=== PATIENT | female | born 1950 | race Caucasian/White ===

== ENCOUNTER 2017-10-16 08:30 | Outpatient (RCR) | payer MEDICARE, OTHER, SELFPAY ==
--- NOTE | 2017-08-25 13:21 | HP.PTEVAL_ITS ---
Patient's Visit Information CHRISTINE ABRAMS is a 67 year old F referred to Physical Therapy by Brenda Martinez MD with a diagnosis of LEG PAIN. Date of Evaluation: 08/25/17 Physical Therapist: Sandy Medina - Visit Plan Frequency: 2-3x /Week Duration: 4-6 Weeks Plan: AQUATIC THERAPY FOR POSTURE CORRECTION/STRENGTHENING, INSTRUCTION IN APPROPRIATE BODY MECHANICS AND ACTIVITY MODIFICATIONS. DLS STARTING WITH A NEUTRAL SPINE PROGRESSING ROM TOLERATED. GERONIMO LE ROM, STRETCHING AND STRENGTHENING. HEP INSTRUCTION. - Subjective Subjective: Work/Leisure: RETIRED. LIKES TO GOLF. 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 THIS WORK INVOLVES SOME BENDING, LIFTING AND TWISTING. Disability: NO. Present symptoms: SWELLING GERONIMO FEET L > R. GERONIMO FOOT AND LEG PAIN, NUMBNESS AND TINGLING. GERONIMO LE WEAKNESS. Present since: 4-5 YEARS AGO. Pain Scale: WORST 8 /10, LEAST 2/10. Currently: 2/10. Commenced as a result of: NO APPARENT REASON. Symptoms at onset: NUMBNESS AND TINGLING IN LEGS AND FEET. Worse: BEING ON FEET. Better: GETTING OFF FEET, EXTRA STRENGTH TYLONOL, PAIN PILLS. RECENTLY STARTED NEUROTIN AND MOBIC WHICH ARE HELPING A LOT! Disturbed sleep: YES. Previous history/Previous treatment: ABOUT 15 YEARS AGO DX'D WITH NEUROPATHY. RIGHT TKR 3 YEARS AGO. CHRONIC GERONIMO LE SWELLING FOR ABOUT 15 YEARS TOO. LEFT LUMP REMOVED FROM LEFT LAT THIGH - BENIGN BUT COMPLICATIONS WITH THE HEALING AFTER REMOVAL. GERONIMO FOOT SURGERIES - 3 ON RIGHT AND ONE ON LEFT. NO THR' S. NO BACK SURGERY. ABOUT 5 YEARS AGO LBP FOR NO APPARENT REASON TREATED WITH 4 BINH'S THAT TOOK CARE OF IT. NO LUMBAR PT. Gait: UNSTEADY. SLOW. DISTANCE LIMITED DUE TO FOOT PAIN. NO AD'S CURRENTLY. Difficulty initiating urinatin: NO. Accidents: NO SERIOUS MVA'S. SOME FALLS - LAST ONE LAST SUMMER - NO APPARENT INJURIES. Unexplained weight loss: NO. Imaging: CAT SCAN THEN FEB 2017 PET SCAN - SARCOIDOSIS - USING AN INHAILER NOW. TRYING TO AVOID PREDNISONE. [facility] APPOINTMENT IN AUG (DR. PERKINS) FOR FOLLOW UP. FOLLOW UP BREATHING TEST PENDING IN OCTOBER 2017. 15 BIOPSIES WERE NORMAL BUT ENLARGED LYMPH NODE REMOVED AT [facility]. PMH: BREAST CANCER 2008 - TREATED WITH CHEMO, MASECTOMY LEFT AND THEN 2016 RIGHT MASECTOMY FOR PREVENTATIVE. GERONIMO HAND SURGERIS. NO DM, NO HEART PROBLEMS. NO STROKE. - Objective Sitting Posture: POOR. Standing Posture: POOR. Lordosis: REDUCED. Lateral shift: NO. Relevant shift: N/A. Active Correction of posture: NE. Other Observations: INDEP GAIT INTO PT WITHOUT ANY ASSISTIVE DEVICES WITH DECREASED CADANCE BUT NO LOB. Motor deficit: GERONIMO LE'S GROSSLY 4/5 WITH MMT'ING EXCEPT HIPS 4-/5. ROM deficit: FULL EXTENSION OF GERONIMO KNEES WITH 116 DEG FLEX LEFT AND 110 RIGHT. Dural Signs: NEGATIVE GERONIMO LE DURAL SIGNS. Lumbar mvmt loss: flex - MIN. ext - MOD. R SG - MOD. L SG - MOD. PATIENT DENIES INCREASED PAIN WITH LUMBAR ROM TESTING. Core strength: POOR - Goals Goal 1:: INDEP AND SAFE GAIT ON ALL SURFACES WITH LEAST ASSISTIVE DEVICE Goal Time Frame: 4-6 Weeks Goal 2:: INCREASE FUNCTION STRENGTH OF LE'S. Goal 3:: IMPROVE STANDING, WALKING, HOUSEWORK AND RECREATIONAL ACTIVITIES Goal Time Frame: 4-6 Weeks Goal 4:: INDEP HEP Goal Time Frame: 4-6 Weeks - Rehabilitation Potential Rehabilitation Potential: Fair - Anticipated Interventions Patient/Client Instruction: Educate patient on: Condition, Plan of Care, Risk Factors, Benefits of Fitness Program For the Purpose of:: To improve self management Therapeutic Exercise to Include: Strength training, Balance training, Body mechanics, Postural training, Flexibilty training, Gait and locomotor training, In an aquatic setting, Dynamic Lumbar Stabilization For the Purpose of:: To decrease pain, To decrease swelling/inflammation, To improve ability of physical actions for home/community/work/leisure, To improve gait and locomotor functions, To improve balance Thank you for the opportunity to evaluate your patient. For Medicare and Medicare HMO plans, please review the plan of care and approve it. It will need to be FAXED BACK to us at [phone] for Medicare purposes. Please let me know if there are questions or concerns regarding this plan of care. Physician Signature: Date:
--- NOTE | 2017-09-18 09:23 | HP.PTREVAL ---
Brenda Martinez MD, It has been my pleasure to treat CHRISTINE ABRAMS over the last 6 visits for LEG PAIN. Please see the progress note below for an update on the physical therapy plan of care! Subjective: PATIENT REPORTS SHE IS GETTING BETTER. SHE STATES THAT SHE IS NOTICING LESS SWELLING WITH THERAPY AND THE MORE SHE MOVES THE LESS SWELLING SHE HAS. SHE REPORTS THAT THE PAIN, NUMBNESS AND TINGLING IN HER LEGS AND FEET IS ALSO DEFINATELY GETTING BETTER. PATIENT REPORTS SHE HAS LEARNED A LOT AND IS WORKING HARD ON HER POSTURE. PATIENT REPORTS SHE IS INTERESTED IN GETTING STARTED WITH HER [employer] AND TAPER OFF OF FORMAL PT ABLE. Objective/Function: PATIENT HAS MISSED SEVERAL APPOINTMENT DURING THIS EPISODE OF CARE THAT SHE RELATES TO SCHEDULE CONFLICTS AT TIMES AND NOT FEELING GOOD AT OTHERS. OVER-ALL SHE IS REPORTING MUCH LESS PAIN. BALANCE IS STILL AN ISSUE. CURRENTLY SHE IS ONLY ABLE TO SLS ON THE RIGHT LE X 2-3 SECONDS AND THE LEFT X 8 SECONDS WITHOUT UE ASSIST. SHE DOES AMBULATE INDEP'LY INTO PT WITHOUT AD OR LOSS OF BALANCE ON LEVEL SURFACES BUT SHE HAS DECREASED CADANCE AND GERONMIO STRIDE LENGTH. Motor deficit: GERONIMO LE'S GROSSLY 4/5 WITH MMT'ING EXCEPT HIPS 4-/5. ROM deficit: FULL EXTENSION OF GERONIMO KNEES WITH 118 DEG FLEX LEFT AND 110 RIGHT. Dural Signs: NEGATIVE GERONIMO LE DURAL SIGNS. Lumbar mvmt loss: flex - NIL. ext - MOD. R SG - MIN TO MOD. L SG - MIN TO MOD. PATIENT DENIES INCREASED PAIN WITH LUMBAR ROM TESTING. Core strength: POOR. STEPS: INDEP GAIT UP AND DOWN STEPS RECIP WITH ONE HAND RAIL BUT PATIENT FEELS STEADIER GOING UP ONE STEP AT A TIME LEADING WITH RIGHT LE. Plan Plan: CONT AQUATIC THERAPY DECREASING TO ONE TIME A WEEK X 4-5 WEEKS. PROGRESS TOLERATED AND INCREASE BALANCE EX'S. GIVE HEP. Goals Goal 1:: INDEP AND SAFE GAIT ON ALL SURFACES WITH LEAST ASSISTIVE DEVICE Goal Time Frame: 4-6 Weeks Goal 2:: INCREASE FUNCTION STRENGTH OF LE'S. Goal Progress: Goal Met Goal 3:: IMPROVE STANDING, WALKING, HOUSEWORK AND RECREATIONAL ACTIVITIES Goal Time Frame: 4-6 Weeks Goal 4:: INDEP HEP Goal Time Frame: 4-6 Weeks Anticipated Interventions Patient/Client Instruction: Educate patient on: Condition, Plan of Care, Risk Factors, Benefits of Fitness Program For the Purpose of:: To improve self management Therapeutic Exercise to Include: Strength training, Balance training, Body mechanics, Postural training, Flexibilty training, Gait and locomotor training, In an aquatic setting, Dynamic Lumbar Stabilization For the Purpose of:: To decrease pain, To decrease swelling/inflammation, To improve ability of physical actions for home/community/work/leisure, To improve gait and locomotor functions, To improve balance Please do not hesitate to contact me at [phone] by phone or if you have questions or concerns regarding this new plan of care! Sincerely, Sandy Medina
--- NOTE | 2017-10-16 09:24 | HP.PTDCSUM ---
HP - PT D/C Summary It has been my pleasure to treat CHRISTINE ABRAMS under orders from Brenda Martinez MD, for the diagnosis of LEG PAIN for a total of 9 visit(s). Discharge Date: 10/16/17 Please see the following information for a summary of their discharge status. - Subjective Subjective: PATIENT REPORTS SHE HAS SIGNED UP FOR [employer] AND WENT THROUGH THE ORIENTATION BUT HAS NOT TRIED HER WATER EX PROGRAM ON HER OWN YET. STATES SHE IS HAVING LEFT HAND SURGERY NEXT WEEK SO SHE IS GOING TO WAIT UNTIL THAT HEALS BEFORE SHE DOES ANYMORE POOL EX'S. PATIENT REPORTS HER BALANCE IS GETTING BETTER NOW. PATIENT REPORTS THE THERAPY HAS HELPED WITH HER LE SWELLING WHICH HAS DECREASED THE THROBBING IN HER LE'S. SHE STATES SHE DEFINATELY HAS BETTER BALANCE. SHE FEELS SHE HAS SOME INCREASED STRENGTH IN HER LEGS TOO BUT SHE IS ANTICIPATING MORE PROGRESS WITH HER LE STRENGTH ONCE SHE IS ABLE TO COME AND EXERCISE IN THE POOL MORE REGULARLY. HER GOAL IS TO BE ABLE TO GO UP THE STEPS AT THE [facility] THIS FALL [facility]. - Pain RLE Pain Intensity (Out of 10): 0 LLE Pain Intensity (Out of 10): 0 LBP Pain Intensity (Out of 10): 0 - Overall Improvement % Improvement: 75 - Objective Objective/Function: PATIENT HAS MISSED SEVERAL APPOINTMENTS AGAIN DURING THIS EPISODE OF CARE THAT SHE RELATES TO SCHEDULE CONFLICTS AT TIMES AND NOT FEELING GOOD AT OTHERS. OVER-ALL SHE IS REPORTING MUCH LESS PAIN. BALANCE IS STILL AN ISSUE BUT GETTING BETTER. CURRENTLY SHE IS NOW ABLE TO SLS ON THE RIGHT LE X 5 SEC SECONDS AND THE LEFT X 10 SECONDS WITHOUT UE ASSIST. SHE DOES AMBULATE INDEP'LY INTO PT WITHOUT AD OR LOSS OF BALANCE ON LEVEL SURFACES BUT SHE HAS DECREASED CADANCE AND GERONIMO STRIDE LENGTH. Motor deficit: GERONIMO LE'S GROSSLY 4/5 WITH MMT'ING INCLUDING HIPS. ROM deficit: FULL EXTENSION OF GERONIMO KNEES WITH 121 DEG FLEX LEFT AND 111 RIGHT. PATIENT STATES HER KNEE ROM MIGHT BE BETTER DUE TO DECREASED SWELLING. Dural Signs: NEGATIVE GERONIMO LE DURAL SIGNS. Lumbar mvmt loss: flex - NIL. ext - MOD. R SG - MIN TO MOD. L SG - MIN TO MOD. PATIENT DENIES INCREASED PAIN WITH LUMBAR ROM TESTING. Core strength: POOR. STEPS: INDEP GAIT UP AND DOWN STEPS RECIP WITH ONE HAND RAIL. PATIENT DEOMONSTRATED GOOD TECHNIQUE WITH ALL HOME EX'S AND TOLERATED THEM WELL. - Goals Goal 1:: INDEP AND SAFE GAIT ON ALL SURFACES WITH LEAST ASSISTIVE DEVICE Goal Progress: Progressing Goal 2:: INCREASE FUNCTION STRENGTH OF LE'S. Goal Progress: Progressing Goal 3:: IMPROVE STANDING, WALKING, HOUSEWORK AND RECREATIONAL ACTIVITIES Goal Progress: Progressing Goal 4:: INDEP HEP - Plan Plan: D/C DUE TO UPCOMING HAND SURGERY. - D/C Information If there are questions or concerns regarding this patient's physical therapy, please feel free to call me at [phone]. Thank you for the referral of this patient. Sincerely, Sandy Medina
== END 2017-10-16 11:28 | disposition home or self-care (01) ==
LOC: PT 08:30
PROVIDERS: Family Provider Family Medicine; PCP Family Medicine; Visit Provider Anesthesiology
DX: M79.606 Pain in leg, unspecified (principal)
CPT/HCPCS: 97113; 97162; 97530; G8978; G8979

== ENCOUNTER → 2017-11-11 07:54 | Outpatient (CLI) | payer MEDICARE, OTHER, SELFPAY ==
--- NOTE | 2017-11-11 15:16 | PFTCOMP ---
COMPLETE PULMONARY FUNCTION TEST INTERPRETATION Brief HPI: Patient is a 67 year old female, currently under the care of Dr. Stephens, who presents to [facility] for complete pulmonary function tests secondary to diagnosis of dyspnea. Respiratory therapist reports good effort and reproducible results. Interpretation: Forced expiration spirometry shows no large airways obstructive ventilatory defect with an FEV1 of 78% predicted. There is no significant bronchodilator response by ATS criteria. Spirograms are of good quality and plateau normally. The respiratory flow volume loop shows a normal pattern. Lung volumes by body plethysmography show a decreased total lung capacity at 3.57 L, 74% predicted. All other lung volumes are reduced symmetrically. Diffusion capacity by carbon monoxide is at the lower limit of normal at 69% predicted. The airway resistance is normal. Compared to previous pulmonary function tests from 05/14/2017, there has been no significant change. Impression: Irreversible mild restrictive ventilatory defect with a symmetric reduction diffusing capacity. There has been no significant change compared to previous testing.
--- NOTE | 2017-11-11 15:19 | PFTCOMP_ITS ---
COMPLETE PULMONARY FUNCTION TEST INTERPRETATION Brief HPI: Patient is a 67 year old female, currently under the care of Dr. Stephens , who presents to [facility] for complete pulmonary function tests secondary to diagnosis of dyspnea. Respiratory therapist reports good effort and reproducible results. Interpretation: Forced expiration spirometry shows no large airways obstructive ventilatory defect with an FEV1 of 78% predicted. There is no significant bronchodilator response by ATS criteria. Spirograms are of good quality and plateau normally. The respiratory flow volume loop shows a normal pattern. Lung volumes by body plethysmography show a decreased total lung capacity at 3.57 L, 74% predicted. All other lung volumes are reduced symmetrically. Diffusion capacity by carbon monoxide is at the lower limit of normal at 69% predicted. The airway resistance is normal. Compared to previous pulmonary function tests from 05/14/2017, there has been no significant change. Impression: Irreversible mild restrictive ventilatory defect with a symmetric reduction diffusing capacity. There has been no significant change compared to previous testing.
== END ==
PROVIDERS: Family Provider Family Medicine; PCP Family Medicine; Visit Provider Nurse Practitioner Acute Care
DX: G47.33 Obstructive sleep apnea (adult) (pediatric) (principal); D86.9 Sarcoidosis, unspecified
CPT/HCPCS: 94060; 94726; 94729; 98960; G0463

== ENCOUNTER 2017-12-30 08:00 | Outpatient (RCR) | payer MEDICARE, OTHER, SELFPAY ==
--- NOTE | 2017-11-12 16:32 | HP.OTEVAL ---
Patient's Visit Information CHRISTINE ABRAMS is a 67 year old F, referred to Occupational Therapy by Luther Garcia, with a diagnosis of unilateral primary osteoarthritis of CMC left. Date of Evaluation: 11/12/17 Occupational Therapist: Bárbara Marroquin, LENIN/ROSI Ragsdale - Subjective Subjective: This 67 year old female was seen for inital ROSI GO eval following a left carpal tunnel release, left wrist flexor tenosynovectomy and revision left thumb CMC arthroplasty; adductor release tenosynovectomy; left first dorsal compartment ligament reconstruction with tendon graft and left thumb CMC joint on 10-23-17. pt attends session with left thumb spica orthosis on- states she is feeling good- no need for orthosis adj. at this time. pt is hopeful she can regain use of her left thumb to perform her BADLS and IADLS at a JOHN level. - Pain left thumb Unrated Pain Intensity Range: 5 - Objective Objective/Observation: pt states she is not using her left hand for BADls and IADLS at this time. 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 Goal:: pt will demo a functional left thumb MCP/IP flex with no demo MCP hyper ext. with her functional ROM or reach. Goal:: pt will report pain no greater than 1/10 with use of left UE for BADLS and IADLS Goal:: pt will demo understanding of scar mtg by end of 2nd session. Goal:: pt will demo understanding of joint protection and ad. eq for use with BADLS and IADls as needed by d/c Goal:: Pt will demo understanding of JWD carpometacarpal arthroplasty protocol and follow by end of 1st session. - Rehabilitation General Assessment: other dx- Synovitis and tenosynovitis left forearm. Left Upper limb Carpal tunnel syndrome. This 67 year old female was seen for inital OTR/MIO RagsdaleT eval following a left carpal tunnel release, left wrist flexor tenosynovectomy and revision left thumb CMC arthroplasty; adductor release tenosynovectomy; left first dorsal compartment ligament reconstruction with tendon graft and left thumb CMC joint on 10-23-17. pt attends session with left thumb spica orthosis on- states she is feeling good- pt is demo with a decline in left wrist and thumb ROM and strength- PT demo a need for skilled OTR/L, CHT services to ensure pts reaches her full rehab potential- following JWD CMC arthroplasty protocol Rehabilitation Potential: Good - Anticipated Interventions Anticipated Interventions: A/AAROM/PROM, Strengthening, Scar Care, Triggerpoint Release, Modalities, Orthoses, Joint Protection/Energy Conservation Other Interventions: Use of JWD post op carpometacarpal - Visit Plan Frequency: 1-2x /Week Duration: 6 Months General Plan: Pt to be seen 1-2x week for 12 weeks to ensure pt is following CMC protocol - Therapy to be provided by OTR/L, CHT.Will follow JWD post op carpometacarpal arthroplasty protocol. TEXT: Thank you for the opportunity to evaluate your patient. For Medicare and Medicare HMO plans, please review the plan of care and approve it. It will need to be FAXED BACK to us at [phone] for Medicare purposes. Please let me know if there are questions or concerns regarding this plan of care. Physician Signature: Date:
--- NOTE | 2017-12-30 08:00 | DT_ITS ---
This patient was seen during an EMR downtime December 29, 2017 - January 05, 2018. This patient may have a combination of paper and electronic documentation or all paper documentation. All documentation is viewable within the e-chart portion of [employer] for each patient visit.
--- NOTE | 2018-01-05 18:09 | HP.OTDCSUM_ITS ---
HP - OT D/C Summary It has been my pleasure to treat CHRISTINE ABRAMS under orders from Luther Garcia, for the diagnosis of unilateral primary osteoarthritis of CMC left for a total of 9 visit(s). Please see the following information for a summary of their discharge status. 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 pt demo funtional opposition and a functional forestry laborer strength to perform BADLs and IADLS at a ind. level- pt to cont using thumb brace on a prn bases- - Goals Patient Goals: Regain Mobility, Regain Strength, Decrease Pain, Use Hand/Wrist/ Arm Normally Again Goal:: pt will demo a 30# forestry laborer strength after 12 weeks of therapy following JWD post op carpometacarpal arthroplasty protocol. Goal:: pt will demo a functional left thumb MCP/IP flex with no demo MCP hyper ext. with her functional ROM or reach. Goal:: pt will report pain no greater than 1/10 with use of left UE for BADLS and IADLS Goal:: pt will demo understanding of scar mtg by end of 2nd session. Goal:: pt will demo understanding of joint protection and ad. eq for use with BADLS and IADls as needed by d/c Goal:: Pt will demo understanding of JWD carpometacarpal arthroplasty protocol and follow by end of 1st session. - Plan Plan: D/C with HEP - pt ed. on need to prevent hyper-ext at MCP region pt demo understanding- - D/C Information Discharge Comments: Pt has progressed well in therapy- pt has reached a functional opposition of left digits and forestry laborer strength of 30#. Pt reports ind.with BADLs and IADLs. pt is to cont with scar mtg to decrease scar sensitivity and use of elastomer at night for another 4 weeks. pt demo understanding of scar mtg and PRE to cont with her recovery. pt has met OT goals at this time and is now D/C. If there are questions or concerns regarding this patient's occupational therapy , please fell free to call me at [phone]. Thank you for the referral of this patient. Sincerely, Bárbara Marroquin, OTR/L, CHT
== END 2017-12-30 19:00 | disposition home or self-care (01) ==
LOC: OT 08:00
PROVIDERS: Family Provider Family Medicine; PCP Family Medicine; Visit Provider Orthopaedic Surgery
DX: M18.12 Unilateral primary osteoarthritis of first carpometacarpal joint, left hand (principal); M65.832 Other synovitis and tenosynovitis, left forearm; G56.02 Carpal tunnel syndrome, left upper limb
CPT/HCPCS: 97110; 97140; 97166; 97530

== ENCOUNTER → 2018-02-13 09:25 | Outpatient (CLI) | payer MEDICARE, OTHER, SELFPAY ==
[2018-02-13 10:02] LABS: Absolute Lymphocyte Count 1.41 X10^3/ul (0.83-4.51); Absolute Neutrophil Count 3.7 X10^3/uL (2.0-7.7); Basophil# 0.07 X10^3/uL; Basophil% 1.2 % (0-1); Eosinophil# 0.22 X10^3/uL; Eosinophils% 3.7 % (0-5); Hematocrit 38.1 % (37-47); Hemoglobin 11.8 g/dl (12.0-15.0); Lymphocyte # 1.41 X10^3/ul (4.0); Lymphocyte % 23.8 % (19-41); Mean Corpuscular Hgb 27.4 pg (27.0-32.0); Mean Corpuscular Volume 88.6 fL (81-99); Mean Platelet Vol. 8.9 fl (6.2-12.0); Monocyte# 0.48 X10^3/uL; Monocyte% 8.1 % (0-10); Neutrophil # 3.73 X10^3/uL (2.7-7.7); Neutrophil % 62.9 % (47-70); Platelet Count 263 K/mm3 (150-450); RBC Distribution Width CV 15.8 % (11.6-14.6); RBC Distribution Width SD 50.9 fl (35.1-43.9); White Blood Count 5.9 K/mm3 (4.4-11.0)
[2018-02-13 10:05] LABS: POSITIVE COUNT NO; POSITIVE DIFFERENTIAL NO; POSITIVE MORPHOLOGY NO
[2018-02-13 10:57] LABS: AST(SGOT) 23 U/L (15-37); Alanine Aminotransfer ALT/SGPT 28 U/L (13-56); Albumin, Serum 3.5 g/dL (3.2-5.0); Alkaline Phosphatase 125 U/L (45-117); Anion Gap 6 (5-15); BUN 16 mg/dL (7-18); BUN/Creat Ratio 27.2 RATIO (10-20); Bilirubin, Direct 0.16 mg/dL (0.00-0.30); Calcium,Total 8.8 mg/dL (8.5-10.1); Chloride 106 mmol/L (98-107); Cholesterol 154 mg/dL (200); Creatinine, Serum 0.59 mg/dL (0.55-1.02); EST Glomerular Filtration Rate 108 mL/min (>60); Est Glom Filt Rate - Afr Amer 131 mL/min (>60); Globulin 3.5 g/dL (2.2-4.2); Glucose 88 mg/dL (74-106); High Density Lipoprotein 69 mg/dL; Potassium 3.7 mmol/L (3.5-5.1); Sodium Level 141 mmol/L (136-145); Triglycerides 98 mg/dL; Very Low Density Lipoprotein 20 mg/dL (5-40)
== END ==
PROVIDERS: Family Provider Family Medicine; PCP Family Medicine; Visit Provider Family Medicine
DX: I10 Essential (primary) hypertension (principal); D50.9 Iron deficiency anemia, unspecified; E78.5 Hyperlipidemia, unspecified
CPT/HCPCS: 36591; 80048; 80061; 80076; 85025; A4216

== ENCOUNTER 2018-05-13 13:35 | Inpatient (IN) | payer MEDICARE, OTHER, SELFPAY ==
--- NOTE | 2018-05-05 14:18 | EKG12_ITS ---
Test Reason : PREOP Blood Pressure : / mmHG Vent. Rate : 087 BPM Atrial Rate : 087 BPM P-R Int : 160 ms QRS Dur : 080 ms QT Int : 406 ms P-R-T Axes : 063 -12 084 degrees QTc Int : 488 ms Normal sinus rhythm Possible Left atrial enlargement Left ventricular hypertrophy Nonspecific ST and T wave abnormality Prolonged QT Abnormal ECG Confirmed by NORI HAHN, JACEY ([id number]), school photograph editor HARVINDER PALOMINO ([id number]) on 05/06/2018 3:32:39 PM Referred By: Srinivas Palencia Confirmed By:JACEY JULIO MD
--- NOTE | 2018-05-11 19:33 | PCM.HP.BLA ---
History and Physical Date of Admission: 05/12/18 HISTORY OF PRESENT ILLNESS Patient comes in today for evaluation of her breast reconstruction. She complains of left lateral breast/chest wall pain. The pain will sometimes radiate under her left breast where her bra is located. She denies any trauma to her breasts. She denies any fever. She also has concerns about excess mastectomy skin scar contour deformity in the medial aspect of her left breast reconstruction that causes her discomfort from the bra rubbing against the excess tissue. She presents at this time for further evaluation and treatment. She is also interested in discussing further breast reconstruction with nipple reconstruction with intradermal tattooing. As a side note for her skin cancers, patients states that she gets yearly skin checks by a Clinical Trials Specialist in [place]. PAST MEDICAL HISTORY anemia arthritis back trouble bronchitis carpal tunnel syndrome cataracts depression hives, eczema hyperlipidemia obstructive sleep apnea measles history of MRSA polymyalgia rheumatica plantar fasciitis peripheral neuropathy shingles fibromyalgia history of breast cancer - left probable seasonal allergies has chronic sinus problems has seasonal allergic rhinitis actinic keratosis with atypia right forearm x 2, and right lateral forehead by the hairline basal cell carcinoma right medial leg solar keratosis left postauricular area solar keratosis right ulnar elbow area verrucous keratosis right antecubital area seborrheic keratosis right lateral back malnutrition, mild, unspecified fatigue lipoma left lateral thigh skin tags neck lentigo hypertension medial meniscus tear right knee osteoarthritis right knee hemorrhage, rectum right elbow pain multiple nodules lung mediastinal lymphadenopathy pulmonary granuloma cancer phobia right breast deformity reconstructed breasts disproportion reconstructed breasts capsular contracture left breast reconstruction acquired absence bilateral breasts status breast implants reconstruction sarcoidosis PAST SURGICAL HISTORY Adenoidectomy Carpal tunnel and CMC joint surgeries Left breast mastectomy 08/2007 for breast cancer Placement of right chest wall port 09/04 Cholecystectomy 01/2008 4 foot surgeries- bunion, heel spur Delayed left breast reconstruction with placement of saline submuscular tissue merchandising execution associate and left breast Breast reconstruction capsulectomy - 04/25/08 Revision left breast reconstruction with capsulectomy and second stage left breast reconstruction with removal saline tissue merchandising execution associate with replacement cohesive gel implant and placement of Allomax acellular dermal matrix graft. Right breast reconstruction with mastopexy - 06/29/08 Incision and drainage and debridement right breast reconstruction wound infection with secondary wound closure - 07/18/08 Excision painful soft tissue mass left lateral thigh. Excision lesion right medial thigh with layered closure - 02/02/09 Excision infected cystic lesion right medial thigh with rhomboid transposition skin flap reconstruction. Incision and drainage and debridement left thigh seroma with secondary wound closure - 03/21/09 Incision and drainage and debridement ulcerated seroma wound left lateral thigh with secondary wound closure - 04/12/09 Excision right breast mass and excision painful soft tissue mass left lateral breast/chest wall with layered closure - 11/26/10 Intradermal excision 6 mm basal cell carcinoma right medial leg, intradermal excision 6 mm actinic keratosis with atypia right dorsal mid forearm, intradermal excision 6 mm actinic keratosis with atypia right dorsal proximal ulnar forearm, and intradermal excision 12 mm actinic keratosis with atypia right lateral forehead by the hairline - 05/06/11 Excision 6 mm lesion right antecubital distal arm area with 25 mm layered closure and excision 5 mm lesion left postauricular area with 3 cm layered closure and intradermal excision 5 mm lesions x4 cluster right ulnar elbow area and intradermal excision 8 mm lesion right lateral back - 03/12/12 Right TKA- 08/24/13 Laparoscopic BSO with pelvic washings - 08/10/15 Right breast prophylactic mastectomy and 1st stage right breast reconstruction with placement saline tissue merchandising execution associate and placement Alloderm acellular dermal matrix graft inferolateral sling (132 cm2) and revision left breast reconstruction with removal cohesive gel implant and capsulectomy and revision left breast reconstruction with placement saline tissue merchandising execution associate and placement Alloderm acellular dermal matrix graft inferolateral sling (132 cm2) - 09/12/15 Revision reconstructed right breast with excision scar contour deformity and second stage right breast reconstruction with removal of saline tissue merchandising execution associate and replacement cohesive gel implant (800 ml) and revision reconstructed left breast with capsulotomy and lowering of asymmetric inframammary fold with placement and rearrangement of Alloderm acellular dermal matrix graft inferolateral sling (132 cm2) and second stage left breast reconstruction with removal saline tissue merchandising execution associate and replacement cohesive gel implant (800 ml) - 11/30/15 MEDICATIONS Albuterol. Norvasc. Lipitor. Caltrate-600 with Vitamin D. Cymbalta. Neurontin. Mobic. Prilosec. K-dur. Azulfidine. Triamterene. ALLERGIES Lisinopril. Adhesive tape. Morphine. FAMILY HISTORY Father - Heart disease, Myocardial infarction Mother - Breast cancer Brother - Diabetes, Skin cancer Grandmother - Cancer, lung SOCIAL HISTORY Smoking Status: Never smoker alcohol intake: current alcohol intake frequency: a few times a month substance use type: does not use REVIEW OF SYSTEMS General - Denies fever and weight loss. Has fatigue. Eyes - Has cataracts. Denies glaucoma. ENT - Denies nasal congestion and sore throat. Endocrine - Denies excessive thirst and urination. Had left breast cancer with mastectomy and reconstruction. Has left lateral breast and chest wall pain with implant contracture. She also has deformity left breast reconstruction in the medial aspect from excess mastectomy skin scar contour deformity. Has family history of breast cancer. Has bilateral breast reconstruction with breast implants. Skin - Denies suspicious lesions. Has history of skin cancer. Has family history of skin cancer. Musculoskeletal - Has joint pain, joint stiffness, weakness of muscles and joints, back pain, and arthritis. Has fibromyalgia. Has polymyalgia rheumatica. Neuro - Denies headaches. Has peripheral neuropathy. Cardiovascular - Denies chest pain and shortness of breath with exertion. Has fatigue. Psych - Has anxiety and depression. Respiratory - Denies chronic cough and shortness of breath. Has LEANNE. Gastrointestinal - Denies nausea, vomiting, diarrhea, and constipation. Hematologic - Denies abnormal bruising and bleeding. Genitourinary - Denies hematuria and urinary frequency. PHYSICAL EXAMINATION General - Alert and oriented. HEENT - PERRL. EOMI. Throat is clear. Neck - Supple and non-tender. No cervical adenopathy. Lungs- Clear to auscultation. Heart - Regular rate and rhythm. Breasts - Bilateral breast reconstruction incisions are healed. No masses palpable bilaterally. There is good symmetry in a bra. Without the bra, on the right breast there is a slight decrease in the superior pole fullness. In the left breast reconstruction on the lateral aspect of the breast extending onto the chest wall area is tenderness to palpation. Some scar thickening noted that is adherent to the underlying chest wall. No evidence of infection. No axillary adenopathy. The breast width is 15 cm bilaterally. On the left medial breast there is an area of excess mastectomy skin scar contour deformity that measures 4 cm. Slight tenderness to palpation. Inframammary folds reasonably symmetrical. Abdomen - Soft and non distended. Extremities - FROM. No axillary adenopathy. Radial pulses are palpable. Neuro - CN II-XII grossly intact. Psych - Normal mood and affect. ASSESSMENT 1. Left lateral breast and chest wall pain. 2. Personal history of left breast cancer. 3. Cancerphobia right breast. 4. Late effect painful breast implant with contracture left breast reconstruction. 5. Medial deformity left breast reconstruction with painful excess mastectomy skin scar contour deformity. 6. Acquired absence bilateral breasts. 7. Disproportion reconstructed breasts. 8. History of bilateral breast implants reconstruction. 9. Family history of breast cancer. 10. Personal history of MRSA. 11. Former smoker. 12. Personal history of skin cancer. PLAN Patient has persistent pain in the left lateral breast and chest wall area. There is some scar tissue adherent to the chest wall. This most likely is a capsular contracture that needs to be excised with a capsulectomy. If so I would also excise the scar tissue on the chest wall itself. Any tissue that is excised will be sent to Pathology for analysis to rule out carcinoma. I may place a piece of AlloDem acellular dermal matrix graft on the chest wall in this area to minimize scar tissue adhering to the chest wall. Hopefully this will decrease the pain she has in this area. With a capsulectomy, I would also place AlloDerm acellular dermal matrix graft in the left breast reconstruction as an inferolateral sling to minimize her painful symptomatology in the future. With the capsulectomy, a replacement cohesive gel implant will be done. On the medial aspect of her left breast she has excess mastectomy skin scar contour deformity with painful symptomatology. Would proceed with a revision of her reconstructed left breast with excision of this painful excess mastectomy skin scar contour deformity. We also discussed nipple reconstruction with intradermal tattooing. She is not interested in a nipple flap for projection at this time and she is not interested in skin grafting of the areola at this time. She would like to proceed with the surgery in April. Surgery would be done under general anesthesia with a surgical observation overnight stay in the hospital. Patient was informed of the risks and complications of the procedure including alternatives to surgery. These were discussed with the patient personally. Patient voices understanding and wishes to proceed. Some of the risks and complications were included in a form from the [employer]. With regard to her personal history of skin cancer, she will continue to follow up with the Clinical Trials Specialist in [place] for her skin checks.
[2018-05-12] VITALS (12 sets, daily range): BP systolic 124–167; BP diastolic 62–100; PULSE 85–101; RESP 16–18; TEMP 36.4–37.3; O2SAT 92–99; BMI 42.5
[2018-05-12] MEDS: Vancomycin IV 1,000 MG/200 ML BAG 200 MG IV (07:30)
--- NOTE | 2018-05-12 08:00 | BREAST_PTH ---
PATIENT: CHRISTINE ABRAMS LOC: [facility]2 U#:[id number] AGE/SX: 68/F [place] [facility] [place] RE05/13/[address]: Dr. Stanton Townsend MD : 1950 BED: 1 DIS: 05/14/2018 SPEC #: [id number] RECD: 05/12/18 16:24 STATUS: SHELDON REQ #: [id number] JOHN: 05/12/18 08:[address]: Srinivas Palencia DEPT: SURGICAL PATHOLOGY RECD BY: Shantaun Stokes ENTERED: 05/13/18 08:25 SP TYPE: BREAST OTHR DR: MD Medardo Segura MD Dr. Eric DeHorta, MD Harriet Jakob, MD Dr. John K Miller, MD Dr. James A Slaby, MD Mohamud Mohamed, MD Dr. Nicholas F Kotsonis, MD Dr. Prakash Chand, MD Pramod Nepal, MD Tissues: A - Left breast, NOS B - MISC TISSUE Procedures: Surgery Specimen Level I Surgery Specimen Level III Comments: @ Ordering doctor for TRUNG edited from to @ by KRISTIE at 05/13/181311 @ Ordering doctor for SUV edited from to @ by KRISTIE at 05/13/18 131 @ Submitting doctor edited from to DR.JSLABY Pancho FLOWERS at 05/13/182 HEADER OPERATION: Revision, reconstructed left breast with excision excess mastectomy skin scar contour deformity, capsulectomy PRE-OP DIAGNOSIS: Left lateral breast and chest wall pain; personal history left breast cancer; cancerphobia right breast; late effect painful breast implant with contracture left breast reconstruction; medial deformity left breast reconstruction with painful excess mastectomy skin scar contour deformity; acquired absence bilateral breasts; disproportion reconstructed breasts; history bilateral breast implants reconstruction; family history breast cancer; personal history MRSA TISSUE SUBMITTED: A - Left breast excess skin scar deformity tissue, B - Left breast explanted implant MICROSCOPIC DIAGNOSIS A. Left breast excess skin scar deformity tissue: Pieces of skin, fibroadipose tissue, fibroconnective tissue and skeletal muscle tissue with focal foreign body giant cell reaction. B. Left breast explanted implant: Breast implant (gross only). ANA:kalen 05/13/18 MICROSCOPIC DESCRIPTION Slides are reviewed. GROSS DESCRIPTION A - Received in fixative is one container labeled with the patient's name and designated left breast excess skin scar deformity tissue. The specimen consists of multiple pieces of yellow adipose tissue including a capsule around the implant that in aggregate measure 21 x 12 x 4 cm. A few of the pieces also show morfin-white skin. Sections do not reveal any mass lesion. Cleat Thrower sections are submitted in six cassettes. Cassette 1 contains the skin piece and cassette 6 contains the tissue consistent with capsule. B - Received in fixative is one container labeled with the patient's name and designated left breast explanted implant. The specimen consists of disc-shaped implant measuring 15 cm in diameter and up to 6 cm in depth. The implant appears to be intact. There is a company symbol which is a cross with arrow and [employer] and underneath, there are numbers [id number], 800 cc and it weighs 800 gm. No leakage is identified. The specimen is for gross identification only. / SJ:rg 05/13/18 TC:5 CPT: 34782, 64457
[2018-05-12] MEDS: Methylene Blue 1% 100 MG/10 ML VIAL (08:55)
--- NOTE | 2018-05-12 13:44 | PCM.IMDPSTOP ---
Immediate Post-Op Note Date of Procedure: 05/12/18 Primary Surgeon/Physician: Srinivas Palencia clock repairer: Valerio Osei. Pre-Operative Diagnosis: 1. Left lateral breast and chest wall pain. 2. Personal history of left breast cancer. 3. Late effect painful breast implant with contracture left breast reconstruction. 4. Medial deformity left breast reconstruction with painful excess mastectomy skin scar contour deformity. 5. Symmastia. 6. Acquired absence bilateral breasts. 7. Disproportion reconstructed breasts. 8. Cancer phobia right breast. 9. History of bilateral breast implants reconstruction. 10. Family history of breast cancer. 11. Personal history of MRSA. 12. Former smoker. 13. Personal history of skin cancer. Post-Operative Diagnosis: 1. Left lateral breast and chest wall pain. 2. Personal history of left breast cancer. 3. Late effect painful breast implant with contracture left breast reconstruction. 4. Medial deformity left breast reconstruction with painful excess mastectomy skin scar contour deformity. 5. Symmastia. 6. Acquired absence bilateral breasts. 7. Disproportion reconstructed breasts. 8. Cancer phobia right breast. 9. History of bilateral breast implants reconstruction. 10. Family history of breast cancer. 11. Personal history of MRSA. 12. Former smoker. 13. Personal history of skin cancer. Surgery/Procedure Performed:: Revision left breast reconstruction with excision excess mastectomy skin scar contour deformity, capsulectomy, repair of symmastia, and placement Alloderm acellular dermal matrix graft inferolateral sling (264 cm2) and replacement cohesive gel implant (800 ml). Description of Surgical Findings:: Patient comes in today for evaluation of her breast reconstruction. She complains of left lateral breast/chest wall pain. The pain will sometimes radiate under her left breast where her bra is located. She denies any trauma to her breasts. She denies any fever. She also has concerns about excess mastectomy skin scar contour deformity in the medial aspect of her left breast reconstruction that causes her discomfort from the bra rubbing against the excess tissue. She presents at this time for further evaluation and treatment. She also expressed interest in bilateral nipple reconstruction with intradermal tattooing. Today the patient underwent Revision left breast reconstruction with excision excess mastectomy skin scar contour deformity, capsulectomy, repair of symmastia, and placement Alloderm acellular dermal matrix graft inferolateral sling (264 cm2) and replacement cohesive gel implant (800 ml). IV Fluids - 2200 ml. Urine Output - 225 ml. I used [place] MemoryGel Smooth Round Ultra High Profile Breast Implant - 800 mL. Reference Number - [id number]. Lot Number - [id number]. Serial Number - [id number]. I used Valeria absorbable hemostat (2 vials). Reference Number - [id number]. Lot Number - [id number]. Expiration - January 23, 2020. I used AlloDerm Select acellular dermal matrix graft, Contour Medium Perforated, Thick (132 sq cm each), (I used 2 pieces). Reference number - [id number]. Lot number - [id number]. Expiration - March,. Reference Number - [id number]. Lot Number - [id number]. Expiration - August,. Estimated Blood Loss: 100 ml. Specimen's removed: Left breast tissue and capsule to Pathology and Microbiology. Drains: Roel x 2. Type of Anesthesia:: General - Admit VTE Documentation VTE Present on Admission: No VTE Mechan Device Prophylaxis: SCD's VTE Pharm Prophylaxis ordered?: Yes
[2018-05-12] MEDS: oxyCODONE 5 MG Tablet 10 MG PO ×2 (16:12→20:10)
[2018-05-12] MEDS: Gabapentin 300 MG Capsule PO ×2 (16:12→22:28)
--- NOTE | 2018-05-12 16:32 | PCM.PROGNOTE ---
<Kimberly Patel - Last Filed: 05/12/18 16:48> Subjective: Patient seen and examined. Underwent left breast reconstructive surgery with Dr. Palencia today. Complains of intermittent stabbing pain. Denies nausea, vomiting. Denies shortness of breath. No other current complaints. - Physical Exam General: Alert, Oriented x3, Cooperative HEENT: Atraumatic, PERRLA, EOMI, Normocephalic Neck: Supple, No JVD, Negative Carotid Bruits Lungs: Clear to auscultation, Diminished Cardiovascular: Regular rate, Regular Rhythm, Normal S1, Normal S2, No murmurs Abdomen: Bowel Sounds Present, Soft, Non Tender, Non-Distended, Obese Extremities: No clubbing, No cyanosis, No edema, Capillary Refill Less than 3 Seconds Skin: No rashes, No breakdown, - - Postoperative chest dressing intact. Musculoskeletal: No Tenderness to Palpation of Joints or Extremities Neurological: Cranial nerves II-XII grossly intact, Neuro grossly intact Psych/Mental Status: Normal Affect, Appropriate Vital Signs Temp Pulse Resp BP Pulse Ox 98.1 F 94 18 152/85 H 95 05/12/18 15:55 05/12/18 15:55 05/12/18 15:55 05/12/18 15:55 05/12/18 15:55 Oxygen Flow Rate (L/min) 1 Oxygen Delivery Method Room Air Weight: 248 lb 0.321 oz Body Mass Index (BMI) 42.5 Intake and Output for Last 24 Hours 05/10/18 05/11/18 05/12/18 23:59 23:59 23:59 Intake Total 2700 / 2700 Output Total 475 / 475 Balance 2225 / 2225 Medical Necessity - Tobacco Use Smoking Status: Never smoker Assessment/Plan All Active Problems (Last Updated 05/12/18 @ 15:23 by Myra Cohn MD) H/O subtotal mastectomy of left breast (Resolved) History of adenoidectomy (Resolved) History of skin cancer (Resolved) Breakdown (mechanical) of breast prosthesis and implant, subsequent encounter (Acute) 1. Status post revision left breast reconstruction with excision excess mastectomy skin scar, repair of symmastia, replacement of gel implant- 05/12/[address] Palencia. PRN pain regimen. Management per Dr. Palencia. Hx MRSA. On IV vancomycin. Breast tissue cultures pending. 2. History of breast cancer +BRCA s/p BL mastectomy and reconstruction 3. Hypertension-mildly elevated, suspect secondary to pain. Continue to monitor. Continue home amlodipine, triamterene regimen. 4. Hyperlipidemia-continue statin. 5. Depression-continue duloxetine regimen. 6. Obstructive sleep apnea-continue BiPAP regimen. Follows with Dr. Stephens. 7. GERD-continue PPI. 8. Sarcoidosis/rheumatoid arthritis/fibromyalgia- continue home regimen including gabapentin, sulfasalazine. 9. Morbid obesity-encourage diet lifestyle modifications. DVT prophylaxis- Lovenox sc This patient was seen by RICKY Lepe under the supervision of Dr. Cohn. <Myra Cohn E - Last Filed: 05/12/18 17:30> - Physical Exam Vital Signs Temp Pulse Resp BP Pulse Ox 98.1 F 94 18 152/85 H 95 05/12/18 15:55 05/12/18 15:55 05/12/18 15:55 05/12/18 15:55 05/12/18 15:55 Oxygen Flow Rate (L/min) 1 Oxygen Delivery Method Room Air Weight: 248 lb 0.321 oz Body Mass Index (BMI) 42.5 Intake and Output for Last 24 Hours 05/10/18 05/11/18 05/12/18 23:59 23:59 23:59 Intake Total 2700 / 2700 Output Total 475 / 475 Balance 2225 / 2225 Laboratory Tests Past 24 Hrs 05/12/18 16:48 Sodium 140 Potassium 3.4 L Chloride 105 Carbon Dioxide 28.0 Anion Gap 7 BUN 12 Creatinine 0.53 L Estim Creat Clear Calc 45.85 Est GFR (MDRD) Af Amer 146 Est GFR (MDRD) Non-Af 121 BUN/Creatinine Ratio 22.5 H Glucose 128 H Calcium 8.3 L Assessment/Plan Hospitalist note: I am seeing this patient in conjunction with Kimberly Patel. I independently seen and examined the patient. Progress note above reviewed and I concur with the above treatment plan. Patient was admitted for elective revision of left breast reconstructive surgery with excision/mastectomy, capsulectomy, graft and replacement of cohesive gel implant. At this time, she complains of intermittent stabbing left breast pain. She denies chest pain or shortness of breath. Her vital signs are stable. Head BMP reviewed, revealed potassium 3.4, otherwise normal. - Physical Exam General: Alert, Oriented x3, Cooperative, No apparent distress. HEENT: Atraumatic, PERRLA, EOMI. Neck: Supple, No JVD, Negative Carotid Bruits, Trachea Midline, Thyroid Normal. Lungs: Diminished breath sounds bilateral, otherwise clear, No rhonchi, No wheeze, No rales. Cardiovascular: Regular rate, Regular Rhythm, Normal S1, Normal S2, PMI Normal. Abdomen: Bowel Sounds Present, Soft, Non Tender, Non-Distended, No Hepato-splenomegaly. Extremities: No clubbing, No cyanosis, No edema Skin: No rashes, No breakdown Neurological: Neuro grossly intact Vital Signs are stable. Assessment and plan: #1 status post revision of left breast reconstructive surgery with excision mastectomy, repair of symmastia and replacement of gel implant: Possible to the 0. She is on IV vancomycin. She is on pain medication as needed. Vital signs are stable. Plastic surgery is managing. #2 hypertension: Slightly elevated, continue Norvasc and triamterene. #3 hyperlipidemia: Continue statins. #4 history of breast cancer: Status post bilateral mastectomy and reconstructive surgery. #5 other chronic medical problems: Stable, continue current medications as above. This note was generated with [employer] dictation software. It may contain incorrect words, spelling, and punctuation that were not noted in checking the note before signing. Code Visit Inpatient E&M: 38055 Subs Hosp L2
[2018-05-12] MEDS: 0.9% NaCl VAD Flush 10 ML IV ×2 (16:50→16:51)
[2018-05-12 17:23] LABS: BUN 12 mg/dL (7-18); Creatinine, Serum 0.53 mg/dL (0.55-1.02); EST Glomerular Filtration Rate 121 mL/min (>60); Estimated Creatinine Clearance 45.85 ml/min; Glucose 128 mg/dL (74-106)
[2018-05-12 17:24] LABS: Anion Gap 7 (5-15); BUN/Creat Ratio 22.5 RATIO (10-20); Calcium,Total 8.3 mg/dL (8.5-10.1); Chloride 105 mmol/L (98-107); Est Glom Filt Rate - Afr Amer 146 mL/min (>60); Potassium 3.4 mmol/L (3.5-5.1); Sodium Level 140 mmol/L (136-145)
[2018-05-12] MEDS: Calcium Carb/Vitamin D 1 TABLET Tablet PO (17:40)
[2018-05-12] MEDS: Lactated Ringers 1,000 ML 60 ML IV (17:40)
--- NOTE | 2018-05-12 18:54 | PCM.RX.CS ---
Consult Pharmacy has been consulted to manage selected antiobiotic: Vancomycin Type of Consult: New start Suspected Infection: Skin/Soft tissue Prior Doses of Antibiotics Received/Current Regimen: Received preop dose early this AM at 07:30. Since that dose was small for the patient's weight and several hours ago, the standard 15mg/kg dose (1750mg) was sent up by pharmacy and given at 17:39 tonight. Labs: Sodium 140 mmol/L (136-145) 05/12/18 16:48 Potassium 3.4 mmol/L (3.5-5.1) L 05/12/18 16:48 Chloride 105 mmol/L (98-107) 05/12/18 16:48 Carbon Dioxide 28.0 mmol/L (21.0-32.0) 05/12/18 16:48 Anion Gap 7 (5-15) 05/12/18 16:48 BUN 12 mg/dL (7-18) 05/12/18 16:48 Creatinine 0.53 mg/dL (0.55-1.02) L 05/12/18 16:48 Est GFR (MDRD) Af Amer 146 mL/min (>60) 05/12/18 16:48 Est GFR (MDRD) Non-Af 121 mL/min (>60) 05/12/18 16:48 BUN/Creatinine Ratio 22.5 RATIO (10-20) H 05/12/18 16:48 Glucose 128 mg/dL (74-106) H 05/12/18 16:48 Weight used for dosin.5 kg Estimated Creatinine Clearance: 46 ml/min Goal Trough: 10-15 mcg/mL Pharmacy Plan for Drug Dosing: After the initial dosing noted above, the plan is to continue at 1500mg IV q24h which will start tomorrow 05/13/18 at 18:00. A trough will be drawn on 05/14/18 before the dose at 18:00. Pharmacy Service will continue to monitor and adjust dosing as required. Follow-Up Labs: Trough Vancomycin Labs to be done on [date and time ordered]: 05/14/18 at 17:30 before the dose at 18:00
--- NOTE | 2018-05-12 20:16 | PCM.OPRPT ---
Report of Operation Date of Procedure: 05/12/18 Pre-Operative Diagnosis: 1. Left lateral breast and chest wall pain. 2. Personal history of left breast cancer. 3. Late effect painful breast implant with contracture left breast reconstruction. 4. Medial deformity left breast reconstruction with painful excess mastectomy skin scar contour deformity. 5. Symmastia. 6. Acquired absence bilateral breasts. 7. Disproportion reconstructed breasts. 8. Cancer phobia right breast. 9. History of bilateral breast implants reconstruction. 10. Family history of breast cancer. 11. Personal history of MRSA. 12. Former smoker. 13. Personal history of skin cancer. Post-Operative Diagnosis: 1. Left lateral breast and chest wall pain. 2. Personal history of left breast cancer. 3. Late effect painful breast implant with contracture left breast reconstruction. 4. Medial deformity left breast reconstruction with painful excess mastectomy skin scar contour deformity. 5. Symmastia. 6. Acquired absence bilateral breasts. 7. Disproportion reconstructed breasts. 8. Cancer phobia right breast. 9. History of bilateral breast implants reconstruction. 10. Family history of breast cancer. 11. Personal history of MRSA. 12. Former smoker. 13. Personal history of skin cancer. Surgery/Procedure Performed:: Revision left breast reconstruction with excision excess mastectomy skin scar contour deformity, capsulectomy, repair of symmastia, and placement Alloderm acellular dermal matrix graft inferolateral sling (264 cm2) and replacement cohesive gel implant (800 ml). Description of Surgical Findings:: Patient comes in today for evaluation of her breast reconstruction. She complains of left lateral breast/chest wall pain. The pain will sometimes radiate under her left breast where her bra is located. She denies any trauma to her breasts. She denies any fever. She also has concerns about excess mastectomy skin scar contour deformity in the medial aspect of her left breast reconstruction that causes her discomfort from the bra rubbing against the excess tissue. She presents at this time for further evaluation and treatment. She also expressed interest in bilateral nipple reconstruction with intradermal tattooing. Patient was informed of the risks and complications of the procedure including alternatives to surgery. These were discussed with the patient personally. Patient voices understanding and wishes to proceed. Some of the risks and complications were included in a form from the [employer] [place] [employer]. IV Fluids - 2200 ml. Urine Output - 225 ml. I used [place] MemoryGel Smooth Round Ultra High Profile Breast Implant - 800 mL. Reference Number - [id number]. Lot Number - [id number]. Serial Number - [id number]. I used Valeria absorbable hemostat (2 vials). Reference Number - [id number]. Lot Number - [id number]. Expiration - January 23, 2020. I used AlloDerm Select acellular dermal matrix graft, Contour Medium Perforated, Thick (132 sq cm each), (I used 2 pieces). Reference number - [id number]. Lot number - [id number]. Expiration - March,. Reference Number - [id number]. Lot Number - [id number]. Expiration - August,. resident manager: Valerio Osei. Type of Anesthesia:: General Specimen's removed: Left breast tissue and capsule to Pathology and Microbiology. Drains: Roel x 2. Estimated Blood Loss (mL): 100 ml. Fluids Replaced: 2425 ml (IV Fluids 2200 ml, Urine Output 225 ml). Description of Procedure: In the preop area, markings were made. The sternum midline was marked down to the umbilicus. The inframammary folds marked bilaterally. I also marked the area laterally where she is having the most pain. The patient was then placed in a supine position and taken to the OR. She was placed under general anesthesia and her breasts were prepped and draped in usual fashion. SCDs were placed for DVT prophylaxis. Perioperative antibiotics were given intravenously. A Hernandez catheter was then placed. I then used a 25-gauge needle and methylene blue, I tattooed the sternal midline as well as the inframammary fold bilaterally. I then infiltrated the mastectomy scar left breast with 1% Xylocaine and epinephrine. I then made an incision through the mastectomy scar on the left breast down to the subcutaneous tissue until the capsule was seen. Capsulotomy was performed and the cohesive gel implant was removed. It appeared grossly intact. With the pain the patient was having I will proceed with a capsulectomy and send some of the tissue to Microbiology for culture as she has a history of MRSA. With the capsulectomy laterally, I also excised the surrounding scar tissue down to the ribs to minimize her painful symptomatology. It was noted preoperatively that the patient has some symmastia when she is wearing her bra. So that will be repaired directly with sutures today. I took 2-0 Vicryl suture and secured the soft tissue on the sternal area to the dermis. I place 4 interrupted sutures. This helped to create a sharper crease in the cleavage area and helped to demarcate the medial aspect of the breast reconstruction. I then placed Alloderm acellular dermal matrix graft to provide support inferiorly and laterally and to help with implant coverage anteriorly and medially. The Alloderm was secured to the chest wall with 3-0 Vicryl simple interrupted and running sutures and secured to each other with 3-0 Vicryl simple interrupted and running sutures. This would help to keep the implant centralized and minimize lateral migration of the implant. I used two pieces of Alloderm for extra support. I used the existing 800 ml Ultra High implant as a sizer and placed it back in the breast pocket and temporarily secured the skin with 3-0 Vicryl simple running suture. The patient was placed in a sitting position. The bulging in the medial aspect where there is excess mastectomy skin scar contour deformity, I made markings around this area. This excess tissue was temporarily closed with 3-0 Vicryl simple running suture and good contour was noted on the medial aspect. There was good shape and contour of the left breast. When pressing the right breast upward as it would appear in a bra, there was good symmetry with the size of the breasts. The patient was not interested in a revision of the right breast reconstruction with a mastopexy at this time. She is ok with symmetry in a bra. Also while she was in a sitting position, I negrito the placement of the nipples where the tattooing will occur. I based the placement on a vertical length of 5 cm from the inframammary fold. There was built in asymmetry because the right breast has ptosis. There was also some bulging in the sternal area where I stopped with the sutures cinching the skin down to the sternum. We will see how much of the swelling subsides, but she may need a revision in the future once healing has occurred with making an incision in the superior aspect of the sternal area and removing some of the deeper subcutaneous tissue and securing the skin edges to the sternum with suturing from the dermis of the skin edges to the soft tissue on the sternal area. It was difficult to go that high on the sternum from the inside of the breast pocket. Since the breast looks good with the current 800 ml Ultra High implant, I will replace the same implant at this time. The patient was put back in the supine position. The temporary sutures were removed and the previous implant was removed. The excess mastectomy skin scar tissue deformity on the medial aspect was excised. The breast tissue and capsule that were removed today was sent to Pathology for analysis to rule out carcinoma and to Microbiology for culture because of her previous history of MRSA. Hemostasis was obtained with electrocautery. The wound was irrigated with saline. Two size 15 Roel drains were placed through separate stab incisions laterally and secured to the skin with 3-0 Nylon simple interrupted sutures. I then sprayed Valeria absorbable hemostat into the breast pocket to help minimize seroma postoperatively. I then placed a [place] MemoryGel smooth round Ultra High profile breast implant into the left breast pocket. I then closed the mastectomy incision with 3-0 Vicryl figure of eight interrupted sutures for the deeper subcutaneous tissue. The deep dermis and subcutaneous tissue was approximated with 3-0 Monocryl simple interrupted sutures. I secured a portion of the Alloderm with the dermal sutures for extra support. I placed three of these sutures for extra support. The skin was approximated with 3-0 V lock unidirectional barbed running subcuticular suture. This was followed by Histoacryl skin tissue adhesive. There was extra time needed during the procedure and with the patient's complex medical history and immunocompromised state, I felt there was too much trauma done to the breast skin flaps at this time. I am concerned that by proceeding at this time with the intradermal tattooing may lead to some compromise postoperatively with wound healing issues. Also tattooing at this time would leave asymmetry with placement because of the ptosis of the right breast. I think it is safer at this time to end the procedure and wait for healing to occur and then proceed with intradermal tattooing by itself in the future. Will discuss with the patient and her after surgery. I will also discuss with the patient in the future that she may want to proceed with revision right breast reconstruction with mastopexy to help with symmetry and would make the intradermal tattooing easier with more symmetric nipple placement. The left breast was dressed with Kerlix gauze dressing followed by a surgical bra. Patient tolerated the procedure well and was sent to PACU in satisfactory condition. Patient will be sent upstairs for continued postop care. She will keep her head elevated during the postop period. She will have the drains removed in 10-14 days. She will be maintained on antibiotics until the drains are removed. She will wear surgical bra for 6 weeks and be maintained on a lifting restriction for 6 weeks as well. Grafts/Implants Used: [place] MemoryGel Breast Implant and Alloderm acellular dermal graft. - Complications None. - Admit VTE Documentation VTE Present on Admission: No VTE Mechan Device Prophylaxis: SCD's VTE Pharm Prophylaxis ordered?: Yes Code Visit Surgery Charges CPT - 30673 ICD-10 - Z85.3, N65.0, N65.1, Z90.13, Z98.82, Z86.14, Q83.8 90813 Z85.3, T85.44xS, T85.9xxS, R07.89, N65.0, N65.1, Z98.82, Z86.14 67288 Z85.3, N65.0, N65.1, T85.44xS, T85.9xxS, R07.89, Z90.13, Z86.14, Z98.82 60565 Z85.3, N65.0, N65.1, T85.44xS, T85.9xxS, R07.89, Z90.13, Z86.14, Z98.82
[2018-05-12] MEDS: Docusate Sodium 100 MG Capsule PO (22:28)
[2018-05-12] MEDS: Atorvastatin Calcium 20 MG Tablet PO (22:28)
[2018-05-12] MEDS: Meloxicam 7.5 MG Tablet PO (22:28)
[2018-05-13] VITALS (7 sets, daily range): BP systolic 117–140; BP diastolic 57–76; PULSE 80–96; RESP 18; TEMP 36.7–37.1; O2SAT 93–96
[2018-05-13] MEDS: oxyCODONE 5 MG Tablet 10 MG PO ×4 (04:43→18:46)
[2018-05-13] MEDS: Gabapentin 300 MG Capsule PO ×3 (04:44→22:19)
[2018-05-13 06:08] LABS: Hematocrit 35.5 % (37-47); Hemoglobin 11.1 g/dl (12.0-15.0); Mean Corp Hgb Conc 31.3 g/gl (32-36); Mean Corpuscular Hgb 28.5 pg (27.0-32.0); Mean Platelet Vol. 8.8 fl (6.2-12.0); Platelet Count 220 K/mm3 (150-450); RBC Distribution Width CV 16.2 % (11.6-14.6); RBC Distribution Width SD 53.4 fl (35.1-43.9); White Blood Count 7.9 K/mm3 (4.4-11.0)
[2018-05-13 06:16] LABS: Scan Indicated on CBC? Y/N NO
[2018-05-13 06:58] LABS: Anion Gap 7 (5-15); BUN 12 mg/dL (7-18); BUN/Creat Ratio 23.3 RATIO (10-20); Calcium,Total 8.1 mg/dL (8.5-10.1); Chloride 105 mmol/L (98-107); Creatinine, Serum 0.51 mg/dL (0.55-1.02); EST Glomerular Filtration Rate 126 mL/min (>60); Est Glom Filt Rate - Afr Amer 152 mL/min (>60); Estimated Creatinine Clearance 45.85 ml/min; Glucose 91 mg/dL (74-106); Potassium 3.3 mmol/L (3.5-5.1); Prealbumin 15.4 mg/dL (20.0-40.0); Sodium Level 141 mmol/L (136-145)
[2018-05-13] MEDS: sulfaSALAzine 500 MG Tablet PO (09:11)
[2018-05-13] MEDS: DULoxetine Hcl 60 MG Capsule PO (09:11)
[2018-05-13] MEDS: Docusate Sodium 100 MG Capsule PO ×2 (09:11→22:18)
[2018-05-13] MEDS: Calcium Carb/Vitamin D 1 TABLET Tablet PO ×2 (09:11→17:02)
[2018-05-13] MEDS: Meloxicam 7.5 MG Tablet PO ×2 (09:12→22:18)
[2018-05-13] MEDS: Triamterene 37.5MG/Hctz 25MG Capsule 1 CAP PO (09:12)
[2018-05-13] MEDS: amLODIPine 10 MG Tablet PO (09:12)
--- NOTE | 2018-05-13 10:06 | PCM.PROGNOTE ---
<JorgeKimberly - Last Filed: 05/13/18 10:10> Subjective: Patient seen and examined. Pain well controlled. Denies other current complaints. - Physical Exam General: Alert, Oriented x3, Cooperative, No apparent distress HEENT: Atraumatic, PERRLA, EOMI, Normocephalic Neck: Supple, No JVD, Negative Carotid Bruits Lungs: Clear to auscultation, Diminished Cardiovascular: Regular rate, Regular Rhythm, Normal S1, Normal S2, No murmurs Abdomen: Bowel Sounds Present, Soft, Non Tender, Non-Distended, Obese Extremities: No clubbing, No cyanosis, No edema, Capillary Refill Less than 3 Seconds Skin: No rashes, No breakdown, - - Postop dressing intact Musculoskeletal: No Tenderness to Palpation of Joints or Extremities Neurological: Cranial nerves II-XII grossly intact, Neuro grossly intact Psych/Mental Status: Normal Affect, Appropriate Vital Signs Temp Pulse Resp BP Pulse Ox 98.4 F 81 18 123/70 H 94 05/13/18 09:03 05/13/18 09:03 05/13/18 09:03 05/13/18 09:03 05/13/18 09:03 Oxygen Flow Rate (L/min) 1 Oxygen Delivery Method Room Air Weight: 248 lb 0.321 oz Body Mass Index (BMI) 42.5 Intake and Output for Last 24 Hours 05/11/18 05/12/18 05/13/18 23:59 23:59 23:59 Intake Total 4010 / 4010 682 / 682 Output Total 1705 / 1705 645 / 645 Balance 2305 / 2305 37 / 37 Microbiology Past 72 Hours 05/12/18 10:39 Gram Stain - Final Tissue - Breast Wound Culture - Preliminary No growth-Final to follow Laboratory Tests Past 24 Hrs 05/12/18 05/13/18 05/13/18 16:48 05:43 05:43 WBC 7.9 RBC 3.90 L Hgb 11.1 L Hct 35.5 L MCV 91.0 MCH 28.5 MCHC 31.3 L RDW 16.2 H RDW Differential 53.4 H Plt Count 220 MPV 8.8 Sodium 140 141 Potassium 3.4 L 3.3 L Chloride 105 105 Carbon Dioxide 28.0 29.0 Anion Gap 7 7 BUN 12 12 Creatinine 0.53 L 0.51 L Estim Creat Clear Calc 45.85 45.85 Est GFR (MDRD) Af Amer 146 152 Est GFR (MDRD) Non-Af 121 126 BUN/Creatinine Ratio 22.5 H 23.3 H Glucose 128 H 91 Calcium 8.3 L 8.1 L Prealbumin 15.4 L Medical Necessity - Tobacco Use Smoking Status: Never smoker Assessment/Plan All Active Problems (Last Updated 05/12/18 @ 15:23 by Myra Cohn MD) H/O subtotal mastectomy of left breast (Resolved) History of adenoidectomy (Resolved) History of skin cancer (Resolved) Breakdown (mechanical) of breast prosthesis and implant, subsequent encounter (Acute) 1. Status post revision left breast reconstruction with excision excess mastectomy skin scar, repair of symmastia, replacement of gel implant- 05/12/[address] Palencia. PRN pain regimen. Management per Dr. Palencia. Hx MRSA. On IV vancomycin. Breast tissue cultures preliminary show no growth, final pending. 2. History of breast cancer +BRCA s/p BL mastectomy and reconstruction 3. Hypertension-mildly elevated, suspect secondary to pain. Continue to monitor. Continue home amlodipine, triamterene regimen. 4. Hyperlipidemia-continue statin. 5. Depression-continue duloxetine regimen. 6. Obstructive sleep apnea-continue BiPAP regimen. Follows with Dr. Stephens. 7. GERD-continue PPI. 8. Sarcoidosis/rheumatoid arthritis/fibromyalgia- continue home regimen including gabapentin, sulfasalazine. 9. Morbid obesity-encourage diet lifestyle modifications. DVT prophylaxis- Lovenox sc This patient was seen by RICKY Lepe under the supervision of Dr. Townsend. <Stanton Townsend - Last Filed: 05/13/18 14:53> Subjective: Patient complaint surgical dressing is mild wet. Discussed with Dr. Palencia. No fever. - Physical Exam General: Alert, Oriented x3, Cooperative HEENT: Atraumatic, PERRLA, EOMI, Normocephalic Neck: Supple, No JVD, Negative Carotid Bruits Lungs: Clear to auscultation, No rhonchi, No wheeze, Diminished Cardiovascular: Regular rate, No murmurs Abdomen: Bowel Sounds Present, Soft, Non Tender, Non-Distended, Obese Extremities: No cyanosis, No edema, Capillary Refill Less than 3 Seconds Skin: No rashes, No breakdown, - Musculoskeletal: No Tenderness to Palpation of Joints or Extremities Neurological: Cranial nerves II-XII grossly intact Psych/Mental Status: Normal Affect, Appropriate Vital Signs Temp Pulse Resp BP Pulse Ox 98.5 F 80 18 117/65 93 05/13/18 13:00 05/13/18 13:00 05/13/18 13:00 05/13/18 13:00 05/13/18 13:00 Oxygen Flow Rate (L/min) 2 Oxygen Delivery Method Room Air Weight: 248 lb 0.321 oz Body Mass Index (BMI) 42.5 Intake and Output for Last 24 Hours 05/11/18 05/12/18 05/13/18 23:59 23:59 23:59 Intake Total 4010 / 4010 1735 / 1735 Output Total 1705 / 1705 1105 / 1105 Balance 2305 / 2305 630 / 630 Microbiology Past 72 Hours 05/12/18 10:39 Gram Stain - Final Tissue - Breast Wound Culture - Preliminary No growth-Final to follow Laboratory Tests Past 24 Hrs 05/12/18 05/13/18 05/13/18 16:48 05:43 05:43 WBC 7.9 RBC 3.90 L Hgb 11.1 L Hct 35.5 L MCV 91.0 MCH 28.5 MCHC 31.3 L RDW 16.2 H RDW Differential 53.4 H Plt Count 220 MPV 8.8 Sodium 140 141 Potassium 3.4 L 3.3 L Chloride 105 105 Carbon Dioxide 28.0 29.0 Anion Gap 7 7 BUN 12 12 Creatinine 0.53 L 0.51 L Estim Creat Clear Calc 45.85 45.85 Est GFR (MDRD) Af Amer 146 152 Est GFR (MDRD) Non-Af 121 126 BUN/Creatinine Ratio 22.5 H 23.3 H Glucose 128 H 91 Calcium 8.3 L 8.1 L Prealbumin 15.4 L Assessment/Plan This patient was seen in conjunction with [employer] DEVELOPERKimberly. I have independently interviewed and examined the patient and reviewed pertinent history, examination findings, laboratory and plan of management. I have reviewed the note and agree with the documented findings with the few additional points. In brief, patient is being admitted after deviation of left breast reconstruction with excision excess mastectomy skin scar left breast repair of symmastia, replacement of gel implant on discussed with Dr. Palencia. 05/12/18. Comorbidities are controlled. Blood pressure mildly elevated. I have discussed my assessment with UI U[employer] DEVELOPERKimberly and orders have been reviewed. Code Visit Inpatient E&M: 32511 Subs Hosp L2
--- NOTE | 2018-05-13 10:10 | PN_ITS ---
<JorgeKimberly - Last Filed: 05/13/18 10:10> Subjective: Patient seen and examined. Pain well controlled. Denies other current complaints. - Physical Exam General: Alert, Oriented x3, Cooperative, No apparent distress HEENT: Atraumatic, PERRLA, EOMI, Normocephalic Neck: Supple, No JVD, Negative Carotid Bruits Lungs: Clear to auscultation, Diminished Cardiovascular: Regular rate, Regular Rhythm, Normal S1, Normal S2, No murmurs Abdomen: Bowel Sounds Present, Soft, Non Tender, Non-Distended, Obese Extremities: No clubbing, No cyanosis, No edema, Capillary Refill Less than 3 Seconds Skin: No rashes, No breakdown, - - Postop dressing intact Musculoskeletal: No Tenderness to Palpation of Joints or Extremities Neurological: Cranial nerves II-XII grossly intact, Neuro grossly intact Psych/Mental Status: Normal Affect, Appropriate Vital Signs Temp Pulse Resp BP Pulse Ox 98.4 F 81 18 123/70 H 94 05/13/18 09:03 05/13/18 09:03 05/13/18 09:03 05/13/18 09:03 05/13/18 09:03 Oxygen Flow Rate (L/min) 1 Oxygen Delivery Method Room Air Weight: 248 lb 0.321 oz Body Mass Index (BMI) 42.5 Intake and Output for Last 24 Hours 05/11/18 05/12/18 05/13/18 23:59 23:59 23:59 Intake Total 4010 / 4010 682 / 682 Output Total 1705 / 1705 645 / 645 Balance 2305 / 2305 37 / 37 Microbiology Past 72 Hours 05/12/18 10:39 Gram Stain - Final Tissue - Breast Wound Culture - Preliminary No growth-Final to follow Laboratory Tests Past 24 Hrs 05/12/18 05/13/18 05/13/18 16:48 05:43 05:43 WBC 7.9 RBC 3.90 L Hgb 11.1 L Hct 35.5 L MCV 91.0 MCH 28.5 MCHC 31.3 L RDW 16.2 H RDW Differential 53.4 H Plt Count 220 MPV 8.8 Sodium 140 141 Potassium 3.4 L 3.3 L Chloride 105 105 Carbon Dioxide 28.0 29.0 Anion Gap 7 7 BUN 12 12 Creatinine 0.53 L 0.51 L Estim Creat Clear Calc 45.85 45.85 Est GFR (MDRD) Af Amer 146 152 Est GFR (MDRD) Non-Af 121 126 BUN/Creatinine Ratio 22.5 H 23.3 H Glucose 128 H 91 Calcium 8.3 L 8.1 L Prealbumin 15.4 L Medical Necessity - Tobacco Use Smoking Status: Never smoker Assessment/Plan All Active Problems (Last Updated 05/12/18 @ 15:23 by Myra Cohn MD) H/O subtotal mastectomy of left breast (Resolved) History of adenoidectomy (Resolved) History of skin cancer (Resolved) Breakdown (mechanical) of breast prosthesis and implant, subsequent encounter (Acute) 1. Status post revision left breast reconstruction with excision excess mastectomy skin scar, repair of symmastia, replacement of gel implant- 05/12/[address] Palencia. PRN pain regimen. Management per Dr. Palencia. Hx MRSA. On IV vancomycin. Breast tissue cultures preliminary show no growth, final pending. 2. History of breast cancer +BRCA s/p BL mastectomy and reconstruction 3. Hypertension-mildly elevated, suspect secondary to pain. Continue to monitor. Continue home amlodipine, triamterene regimen. 4. Hyperlipidemia-continue statin. 5. Depression-continue duloxetine regimen. 6. Obstructive sleep apnea-continue BiPAP regimen. Follows with Dr. Stephens. 7. GERD-continue PPI. 8. Sarcoidosis/rheumatoid arthritis/fibromyalgia- continue home regimen including gabapentin, sulfasalazine. 9. Morbid obesity-encourage diet lifestyle modifications. DVT prophylaxis- Lovenox sc This patient was seen by RICKY Lepe under the supervision of Dr. Townsend. <Stanton Townsend - Last Filed: 05/13/18 14:53> Subjective: Patient complaint surgical dressing is mild wet. Discussed with Dr. Palencia. No fever. - Physical Exam General: Alert, Oriented x3, Cooperative HEENT: Atraumatic, PERRLA, EOMI, Normocephalic Neck: Supple, No JVD, Negative Carotid Bruits Lungs: Clear to auscultation, No rhonchi, No wheeze, Diminished Cardiovascular: Regular rate, No murmurs Abdomen: Bowel Sounds Present, Soft, Non Tender, Non-Distended, Obese Extremities: No cyanosis, No edema, Capillary Refill Less than 3 Seconds Skin: No rashes, No breakdown, - Musculoskeletal: No Tenderness to Palpation of Joints or Extremities Neurological: Cranial nerves II-XII grossly intact Psych/Mental Status: Normal Affect, Appropriate Vital Signs Temp Pulse Resp BP Pulse Ox 98.5 F 80 18 117/65 93 05/13/18 13:00 05/13/18 13:00 05/13/18 13:00 05/13/18 13:00 05/13/18 13:00 Oxygen Flow Rate (L/min) 2 Oxygen Delivery Method Room Air Weight: 248 lb 0.321 oz Body Mass Index (BMI) 42.5 Intake and Output for Last 24 Hours 05/11/18 05/12/18 05/13/18 23:59 23:59 23:59 Intake Total 4010 / 4010 1735 / 1735 Output Total 1705 / 1705 1105 / 1105 Balance 2305 / 2305 630 / 630 Microbiology Past 72 Hours 05/12/18 10:39 Gram Stain - Final Tissue - Breast Wound Culture - Preliminary No growth-Final to follow Laboratory Tests Past 24 Hrs 05/12/18 05/13/18 05/13/18 16:48 05:43 05:43 WBC 7.9 RBC 3.90 L Hgb 11.1 L Hct 35.5 L MCV 91.0 MCH 28.5 MCHC 31.3 L RDW 16.2 H RDW Differential 53.4 H Plt Count 220 MPV 8.8 Sodium 140 141 Potassium 3.4 L 3.3 L Chloride 105 105 Carbon Dioxide 28.0 29.0 Anion Gap 7 7 BUN 12 12 Creatinine 0.53 L 0.51 L Estim Creat Clear Calc 45.85 45.85 Est GFR (MDRD) Af Amer 146 152 Est GFR (MDRD) Non-Af 121 126 BUN/Creatinine Ratio 22.5 H 23.3 H Glucose 128 H 91 Calcium 8.3 L 8.1 L Prealbumin 15.4 L Assessment/Plan This patient was seen in conjunction with [employer] INS[employer]imberly. I have independently interviewed and examined the patient and reviewed pertinent history, examination findings, laboratory and plan of management. I have reviewed the note and agree with the documented findings with the few additional points. In brief, patient is being admitted after deviation of left breast reconstruction with excision excess mastectomy skin scar left breast repair of symmastia, replacement of gel implant on discussed with Dr. Palencia. 05/12/18. C omorbidities are controlled. Blood pressure mildly elevated. I have discussed my assessment with [employer] INS[employer]imberly and orders have been reviewed. Code Visit Inpatient E&M: 05475 Subs Hosp L2
[2018-05-13] MEDS: Enoxaparin 40 MG/0.4 ML Syringe SC (10:54)
[2018-05-13] MEDS: Lactated Ringers 1,000 ML 60 ML IV (11:59)
--- NOTE | 2018-05-13 15:35 | CASEMGMT ---
KIAN MAST INITIAL REVIEW ASSESSMENT D/C PLAN: Home Face to Face with patient for initial transition planning/care coordination assessment. KIAN MAST introduced self and role at [facility]. Care providers, pharmacy, and demographics verified. PCP: Dr Luther Willams Preferred Pharmacy: [place]. [facility] Retail on discharge day only. Insurance: MCR, [employer] Prescription Benefit: [employer] Rx Living Will/HPOA: States has LW and HPOA who is Gene, . Both documents found in e-chart. Declines wanting any further information. Living Arrangements: Lives with her . Lives in a ranch-style home. 3 steps to enter. Independent at home with all ADL's and ambulation. and pt work together for home mgmnt needs. Transportation: Pt reports she drives and can assist with transportation if needed. DME: Uses CPAP @ home. Denies other use of DME and denies needs. HHC: States had [facility] in the past after having breast surgery but denies needing/wanting at this time. Pt's plans on D/C: Wishes to return home. Denies needs or concerns. CM to follow for any further discharge planning needs that may arise. Josiane LAKE RN, CM
[2018-05-13] MEDS: diazePAM 5 MG Tablet PO (17:02)
--- NOTE | 2018-05-13 19:16 | OP.PCM_ITS ---
Report of Operation Date of Procedure: 05/12/18 Pre-Operative Diagnosis: 1. Left lateral breast and chest wall pain. 2. Personal history of left breast cancer. 3. Late effect painful breast implant with contracture left breast reconstruction. 4. Medial deformity left breast reconstruction with painful excess mastectomy skin scar contour deformity. 5. Symmastia. 6. Acquired absence bilateral breasts. 7. Disproportion reconstructed breasts. 8. Cancer phobia right breast. 9. History of bilateral breast implants reconstruction. 10. Family history of breast cancer. 11. Personal history of MRSA. 12. Former smoker. 13. Personal history of skin cancer. Post-Operative Diagnosis: 1. Left lateral breast and chest wall pain. 2. Personal history of left breast cancer. 3. Late effect painful breast implant with contracture left breast reconstruction. 4. Medial deformity left breast reconstruction with painful excess mastectomy skin scar contour deformity. 5. Symmastia. 6. Acquired absence bilateral breasts. 7. Disproportion reconstructed breasts. 8. Cancer phobia right breast. 9. History of bilateral breast implants reconstruction. 10. Family history of breast cancer. 11. Personal history of MRSA. 12. Former smoker. 13. Personal history of s kin cancer. Surgery/Procedure Performed:: Revision left breast reconstruction with excision excess mastectomy skin scar contour deformity, capsulectomy, repair of symmastia, and placement Alloderm acellular dermal matrix graft inferolateral sling (264 cm2) and replacement cohesive gel implant (800 ml). Description of Surgical Findings:: Patient comes in today for evaluation of her breast reconstruction. She complains of left lateral breast/chest wall pain. The pain will sometimes radiate under her left breast where her bra is located. She denies any trauma to her breasts. She denies any fever. She also has concerns about excess mastectomy skin scar contour deformity in the medial aspect of her left breast reconstruction that causes her discomfort from the bra rubbing against the excess tissue. She presents at this time for further evaluation and treatment. She also expressed interest in bilateral nipple reconstruction with intradermal tattooing. Patient was informed of the risks and complications of the procedure including alternatives to surgery. These were discussed with the patient personally. Patient voices understanding and wishes to proceed. Some of the risks and complications were included in a form from the [employer]. IV Fluids - 2200 ml. Urine Output - 225 ml. I used Chugwater MemoryGel Smooth Round Ultra High Profile Breast Implant - 800 mL. Reference Number - [id number]. Lot Number - [id number]. Serial Number - [id number]. I used Valeria absorbable hemostat (2 vials). Reference Number - [id number]. Lot Number - [id number]. Expiration - January 23, 2020. I used AlloDerm Select acellular dermal matrix graft, Contour Medium Perforated, Thick (132 sq cm each), (I used 2 pieces). Reference number - [id number]. Lot number - [id number]. Expiration - March,. Reference Number - [id number]. Lot Number - [id number]. Expiration - August,. top installer: Valerio Osei. Type of Anesthesia:: General Specimen's removed: Left breast tissue and capsule to Pathology and Microbiology. Drains: Roel x 2. Estimated Blood Loss (mL): 100 ml. Fluids Replaced: 2425 ml (IV Fluids 2200 ml, Urine Output 225 ml). Description of Procedure: In the preop area, markings were made. The sternum midline was marked down to the umbilicus. The inframammary folds marked bilaterally. I also marked the area laterally where she is having the most pain. The patient was then placed in a supine position and taken to the OR. She was placed under general anesthesia and her breasts were prepped and draped in usual fashion. SCDs were placed for DVT prophylaxis. Perioperative antibiotics were given intravenously. A Hernandez catheter was then placed. I then used a 25-gauge needle and methylene blue, I tattooed the sternal midline as well as the inframammary fold bilaterally. I then infiltrated the mastectomy scar left breast with 1% Xylocaine and epinephrine. I then made an incision through the mastectomy scar on the left breast down to the subcutaneous tissue until the capsule was seen. Capsulotomy was performed and the cohesive gel implant was removed. It appeared grossly intact. With the pain the patient was having I will proceed with a capsulectomy and send some of the tissue to Microbiology for culture as she has a history of MRSA. With the capsulectomy laterally, I also excised the surrounding scar tissue down to the ribs to minimize her painful symptomatology. It was noted preoperatively that the patient has some symmastia when she is wearing her bra. So that will be repaired directly with sutures today. I took 2-0 Vicryl suture and secured the soft tissue on the sternal area to the dermis. I place 4 interrupted sutures. This helped to create a sharper crease in the cleavage area and helped to demarcate the medial aspect of the breast reconstruction. I then placed Alloderm acellular dermal matrix graft to provide support inferiorly and laterally and to help with implant coverage anteriorly and medially. The Alloderm was secured to the chest wall with 3-0 Vicryl simple interrupted and running sutures and secured to each other with 3-0 Vicryl simple interrupted and running sutures. This would help to keep the implant c entralized and minimize lateral migration of the implant. I used two pieces of Alloderm for extra support. I used the existing 800 ml Ultra High implant as a sizer and placed it back in the breast pocket and temporarily secured the skin with 3-0 Vicryl simple running suture. The patient was placed in a sitting position. The bulging in the medial aspect where there is excess mastectomy skin scar contour deformity, I made markings around this area. This excess tissue was temporarily closed with 3-0 Vicryl simple running suture and good contour was noted on the medial aspect. There was good shape and contour of the left breast. When pressing the right breast upward as it would appear in a bra, there was good symmetry with the size of the breasts. The patient was not interested in a revision of the right breast reconstruction with a mastopexy at this time. She is ok with symmetry in a bra. Also while she was in a sitting position, I negrito the placement of the nipples where the tattooing will occur. I based the placement on a vertical length of 5 cm from the inframammary fold. There was built in asymmetry because the right breast has ptosis. There was also some bulging in the sternal area where I stopped with the sutures cinching the skin down to the sternum. We will see how much of the swelling subsides, but she may need a revision in the future once healing has occurred with making an incision in the superior aspect of the sternal area and removing some of the deeper subcutaneous tissue and securing the skin edges to the sternum with suturing from the dermis of the skin edges to the soft tissue on the sternal area. It was difficult to go that high on the sternum from the inside of the breast pocket. Since the breast looks good with the current 800 ml Ultra High implant, I will replace the same implant at this time. The patient was put back in the supine position. The temporary sutures were removed and the previous implant was removed. The excess mastectomy skin scar tissue deformity on the medial aspect was excised. The breast tissue and capsule that were removed today was sent to Pathology for analysis to rule out carcinoma and to Microbiology for culture because of her previous history of MRSA. Hemostasis was obtained with electrocautery. The wound was irrigated with saline. Two size 15 Roel drains were placed through separate stab incisions laterally and secured to the skin with 3-0 Nylon simple interrupted sutures. I then sprayed Valeria absorbable hemostat into the breast pocket to help minimize seroma postoperatively. I then placed a Chugwater MemoryGel smooth round Ultra High profile breast implant into the left breast pocket. I then closed the mastectomy incision with 3-0 Vicryl figure of eight interrupted sutures for the deeper subcutaneous tissue. The deep dermis and subcutaneous tissue was approximated with 3-0 Monocryl simple interrupted sutures. I secured a portion of the Alloderm with the dermal sutures for extra support. I placed three of these sutures for extra support. The skin was approximated with 3-0 V lock unidirectional barbed running subcuticular suture. This was followed by Histoacryl skin tissue adhesive. There was extra time needed during the procedure and with the patient's complex medical history and immunocompromised state, I felt there was too much trauma done to the breast skin flaps at this time. I am concerned that by proceeding at this time with the intradermal tattooing may lead to some compromise postoperatively with wound healing issues. Also tattooing at this time would leave asymmetry with placement because of the ptosis of the right breast. I think it is safer at this time to end the procedure and wait for healing to occur and then proceed with intradermal tat tooing by itself in the future. Will discuss with the patient and her after surgery. I will also discuss with the patient in the future that she may want to proceed with revision right breast reconstruction with mastopexy to help with symmetry and would make the intradermal tattooing easier with more symmetric nipple placement. The left breast was dressed with Kerlix gauze dressing followed by a surgical bra. Patient tolerated the procedure well and was sent to PACU in satisfactory condition. Patient will be sent upstairs for continued postop care. She will keep her head elevated during the postop period. She will have the drains removed in 10-14 days. She will be maintained on antibiotics until the drains are removed. She will wear surgical bra for 6 weeks and be maintained on a lifting restriction for 6 weeks as well. Grafts/Implants Used: Chugwater MemoryGel Breast Implant and Alloderm acellular dermal graft. - Complications None. - Admit VTE Documentation VTE Present on Admission: No VTE Mechan Device Prophylaxis: SCD's VTE Pharm Prophylaxis ordered?: Yes Code Visit Surgery Charges CPT - 87178 ICD-10 - Z85.3, N65.0, N65.1, Z90.13, Z98.82, Z86.14, Q83.8 46449 Z85.3, T85.44xS, T85.9xxS, R07.89, N65.0, N65.1, Z98.82, Z86.14 94374 Z85.3, N65.0, N65.1, T85.44xS, T85.9xxS, R07.89, Z90.13, Z86.14, Z98.82 11745 Z85.3, N65.0, N65.1, T85.44xS, T85.9xxS, R07.89, Z90.13, Z86.14, Z98.82
--- NOTE | 2018-05-13 19:16 | PCM.PN.SRG ---
Subjective: Postop #1 Patient complains of incisional pain. She is having some trouble with unsteadiness with ambulation. - Physical Exam General: Alert, Oriented x3 HEENT: PERRLA, EOMI Oral: Moist Mucosa Neck: Supple Skin: Incision - left breast incision dry and intact. Mild bruising seen. No clinical evidence of hematoma. Neurological: Cranial nerves II-XII grossly intact Psych/Mental Status: Normal Affect, Appropriate Vital Signs Temp Pulse Resp BP Pulse Ox 98.5 F 80 18 117/65 93 05/13/18 13:00 05/13/18 13:00 05/13/18 16:00 05/13/18 13:00 05/13/18 13:00 Oxygen Flow Rate (L/min) 2 Oxygen Delivery Method Room Air Weight: 248 lb 0.321 oz Body Mass Index (BMI) 42.5 Intake and Output for Last 24 Hours 05/11/18 05/12/18 05/13/18 23:59 23:59 23:59 Intake Total 4010 / 4010 3420 / 3420 Output Total 1705 / 1705 2195 / 2195 Balance 2305 / 2305 1225 / 1225 Drainage 180 ml yesterday. Microbiology Past 72 Hours 05/12/18 10:39 Gram Stain - Final Tissue - Breast Wound Culture - Preliminary No growth-Final to follow Laboratory Tests Past 24 Hrs 05/13/18 05/13/18 05:43 05:43 WBC 7.9 RBC 3.90 L Hgb 11.1 L Hct 35.5 L MCV 91.0 MCH 28.5 MCHC 31.3 L RDW 16.2 H RDW Differential 53.4 H Plt Count 220 MPV 8.8 Sodium 141 Potassium 3.3 L Chloride 105 Carbon Dioxide 29.0 Anion Gap 7 BUN 12 Creatinine 0.51 L Estim Creat Clear Calc 45.85 Est GFR (MDRD) Af Amer 152 Est GFR (MDRD) Non-Af 126 BUN/Creatinine Ratio 23.3 H Glucose 91 Calcium 8.1 L Prealbumin 15.4 L Medical Necessity - Tobacco Use Smoking Status: Never smoker Assessment/Plan All Active Problems (Last Updated 05/12/18 @ 15:23 by Myra Cohn MD) H/O subtotal mastectomy of left breast (Resolved) History of adenoidectomy (Resolved) History of skin cancer (Resolved) Breakdown (mechanical) of breast prosthesis and implant, subsequent encounter (Acute) 1. Left lateral breast and chest wall pain. 2. Personal history of left breast cancer. 3. Late effect painful breast implant with contracture left breast reconstruction. 4. Medial deformity left breast reconstruction with painful excess mastectomy skin scar contour deformity. 5. Symmastia. 6. Acquired absence bilateral breasts. 7. Disproportion reconstructed breasts. 8. Cancer phobia right breast. 9. History of bilateral breast implants reconstruction. 10. Family history of breast cancer. 11. Personal history of MRSA. 12. Former smoker. 13. Personal history of skin cancer. 14. s/p revision left breast reconstruction with excision excess mastectomy skin scar contour deformity, capsulectomy, repair of symmastia, and placement Alloderm acellular dermal matrix graft inferolateral sling (264 cm2) and replacement cohesive gel implant (800 ml). Continue Vancomycin for her history of MRSA. Her operative culture is negative thus far. Has incisional pain and is unsteady on her feet with ambulation. Keep head elevated. Keep surgical bra for compression. Will keep her one more day until she is more steady on her feet with ambulation and is tolerating po analgesia. Will remove the drains in the office. Prealbumin was 15.4. Encourage nutritional supplementation with protein to help the healing process.
[2018-05-13] MEDS: Atorvastatin Calcium 20 MG Tablet PO (22:18)
[2018-05-14 02:42] VITALS: BP 122/68; PULSE 91; RESP 20; TEMP 36.7; O2SAT 92
[2018-05-14 05:34] LABS: Hematocrit 35.4 % (37-47); Hemoglobin 10.6 g/dl (12.0-15.0); Mean Corp Hgb Conc 29.9 g/gl (32-36); Mean Corpuscular Hgb 28.1 pg (27.0-32.0); Mean Corpuscular Volume 93.9 fL (81-99); Mean Platelet Vol. 8.9 fl (6.2-12.0); Platelet Count 206 K/mm3 (150-450); RBC Distribution Width CV 15.9 % (11.6-14.6); RBC Distribution Width SD 52.8 fl (35.1-43.9); Red Blood Count 3.77 M/mm3 (4.2-5.4); White Blood Count 6.8 K/mm3 (4.4-11.0)
[2018-05-14 05:42] LABS: Scan Indicated on CBC? Y/N NO
[2018-05-14 05:46] LABS: Anion Gap 5 (5-15); BUN 14 mg/dL (7-18); BUN/Creat Ratio 22.9 RATIO (10-20); Chloride 105 mmol/L (98-107); Creatinine, Serum 0.61 mg/dL (0.55-1.02); EST Glomerular Filtration Rate 103 mL/min (>60); Est Glom Filt Rate - Afr Amer 125 mL/min (>60); Estimated Creatinine Clearance 45.85 ml/min; Glucose 91 mg/dL (74-106); Potassium 3.7 mmol/L (3.5-5.1); Sodium Level 141 mmol/L (136-145)
[2018-05-14] MEDS: Lactated Ringers 1,000 ML 60 ML IV (06:20)
[2018-05-14] MEDS: 0.9% NaCl VAD Flush 10 ML IV (06:20)
[2018-05-14] MEDS: Gabapentin 300 MG Capsule PO ×2 (06:20→14:40)
[2018-05-14 08:42] VITALS: BP 138/82; PULSE 90; RESP 18; TEMP 36.8; O2SAT 93
[2018-05-14] MEDS: sulfaSALAzine 500 MG Tablet PO (09:36)
[2018-05-14] MEDS: DULoxetine Hcl 60 MG Capsule PO (09:36)
[2018-05-14] MEDS: Calcium Carb/Vitamin D 1 TABLET Tablet PO (09:36)
[2018-05-14] MEDS: Meloxicam 7.5 MG Tablet PO (09:37)
[2018-05-14] MEDS: Triamterene 37.5MG/Hctz 25MG Capsule 1 CAP PO (09:37)
[2018-05-14] MEDS: Enoxaparin 40 MG/0.4 ML Syringe SC (09:37)
[2018-05-14] MEDS: amLODIPine 10 MG Tablet PO (09:37)
[2018-05-14] MEDS: Pantoprazole Sodium 20 MG Tablet PO (09:37)
[2018-05-14] MEDS: oxyCODONE 5 MG Tablet 10 MG PO (09:40)
[2018-05-14] MEDS: Senna/Docusate Sodium 1 Tablet 2 TABLET PO (10:34)
--- NOTE | 2018-05-14 10:37 | PCM.PN.HOSP ---
Vitals/I&O's: Vital Signs Temp Pulse Resp BP Pulse Ox 98.2 F 90 18 138/82 H 93 05/14/18 08:42 05/14/18 08:42 05/14/18 08:42 05/14/18 08:42 05/14/18 08:42 Oxygen Flow Rate (L/min) 2 Oxygen Delivery Method Room Air Weight: 112.5 kg Body Mass Index (BMI) 42.5 Intake and Output for Last 24 Hours 05/12/18 05/13/18 05/14/18 23:59 23:59 23:59 Intake Total 4010 / 4010 3420 / 3420 1438 / 1438 Output Total 1705 / 1705 2225 / 2225 1485 / 1485 Balance 2305 / 2305 1195 / 1195 -47 / -47 Microbiology Past 72 Hours 05/12/18 10:39 Tissue - Breast Gram Stain - Final 05/12/18 10:39 Tissue - Breast Wound Culture - Preliminary No growth-Final to follow 05/12/18 10:39 Tissue - Breast Anaerobic Culture - Preliminary No growth in 48 hours. Laboratory Results 05/14/18 05:20: WBC 6.8, RBC 3.77 L, Hgb 10.6 L, Hct 35.4 L, MCV 93.9, MCH 28.1, MCHC 29.9 L, RDW 15.9 H, RDW Differential 52.8 H, Plt Count 206, MPV 8.9 05/14/18 05:20: Sodium 141, Potassium 3.7, Chloride 105, Carbon Dioxide 31.0, Anion Gap 5, BUN 14, Creatinine 0.61, Estim Creat Clear Calc 45.85, Est GFR (MDRD) Af Amer 125, Est GFR (MDRD) Non-Af 103, BUN/Creatinine Ratio 22.9 H, Glucose 91, Calcium 8.0 L Current Medications Acetaminophen (Tylenol) 650 mg PO Q4H PRN PRN PRN Reason: PAIN Albuterol Sulfate (Ventolin Aerosols) 2.5 mg INHALATION Q4H PRN PRN PRN Reason: shortness of breath/wheezing Amlodipine Besylate (Norvasc) 10 mg PO DAILY [facility] Last Admin: 05/14/18 09:37 Dose: 10 mg Atorvastatin Calcium (Lipitor) 20 mg PO QHS [facility] Last Admin: 05/13/18 22:18 Dose: 20 mg Calcium/Vitamin D (Os-Mookie 500mg + D) 1 tablet PO BIDCM [facility] Last Admin: 05/14/18 09:36 Dose: 1 tablet Diazepam (Valium) 5 mg PO 4X/DAY PRN PRN PRN Reason: SPASMS Last Admin: 05/13/18 17:02 Dose: 5 mg Duloxetine HCl (Cymbalta) 60 mg PO DAILY [facility] Last Admin: 05/14/18 09:36 Dose: 60 mg Enoxaparin Sodium (Lovenox) 40 mg SC DAILY [facility] Last Admin: 05/14/18 09:37 Dose: 40 mg Gabapentin (Neurontin) 300 mg PO TID [facility] Last Admin: 05/14/18 06:20 Dose: 300 mg Heparin Sodium (Beef Lung) () 50 units IV UD PRN PRN Reason: HEPARIN FLUSH Hydromorphone HCl (Dilaudid Inj) 1 mg IV Q4H PRN PRN PRN Reason: SEVERE PAIN (6-10/10) Lactated Ringer's () 1,000 mls @ 60 mls/hr IV .[id number] [facility] Last Admin: 05/14/18 06:20 Dose: 60 mls/hr Vancomycin IV Pharmacy to Dose (1 ea/ Sodium Chloride) 500 mls @ 250 mls/hr IV X1 PRN; Protocol PRN Reason: Rx to Dose Vancomycin HCl 1,500 mg/ (Sodium Chloride) 530 mls @ 250 mls/hr IV Q24H [facility] Last Admin: 05/13/18 17:01 Dose: 250 mls/hr Meloxicam (Mobic) 7.5 mg PO BID [facility] Last Admin: 05/14/18 09:37 Dose: 7.5 mg Nutritional Formula ([facility] Admin: 05/14/18 09:35 Dose: 1 packet Ondansetron HCl (Zofran) 4 mg IV Q6H PRN PRN PRN Reason: NAUSEA Oxycodone HCl (Oxyir) 10 mg PO Q4H PRN PRN PRN Reason: SEVERE PAIN (6-10/10) Last Admin: 05/14/18 09:40 Dose: 10 mg Pantoprazole Sodium (Protonix) 20 mg PO TuTh@1000 [facility] Last Admin: 10/18/18 09:37 Dose: 20 mg Potassium Chloride (K-Dur) 20 meq PO DAILY@0800 [facility] Last Admin: 05/14/18 09:35 Dose: 20 meq Promethazine HCl (Phenergan Tablet) 25 mg PO Q4H PRN PRN PRN Reason: NAUSEA/VOMITING Senna/Docusate Sodium (Senokot-S, Alee-Colace) 2 tablet PO BID [facility] Last Admin: 05/14/18 10:34 Dose: 2 tablet Sodium Chloride () 10 ml IV UD PRN PRN Reason: VAD FLUSH Last Admin: 05/14/18 06:20 Dose: 10 ml Sulfasalazine (Azulfidine) 500 mg PO DAILY [facility] Last Admin: 05/14/18 09:36 Dose: 500 mg Triamterene/HCTZ (Dyazide (G)) 1 cap PO DAILY [facility] Last Admin: 05/14/18 09:37 Dose: 1 cap Medical Necessity - Tobacco Use Smoking Status: Never smoker Assessment/Plan All Active Problems (Last Updated 05/12/18 @ 15:23 by Myra Cohn MD) H/O subtotal mastectomy of left breast (Resolved) History of adenoidectomy (Resolved) History of skin cancer (Resolved) Breakdown (mechanical) of breast prosthesis and implant, subsequent encounter (Acute)
[2018-05-14 11:26] VITALS: O2SAT 93
--- NOTE | 2018-05-14 12:47 | PCM.PN.SRG ---
Subjective: Postop #2 Patient is resting comfortably. - Physical Exam General: Alert, Oriented x3 HEENT: PERRLA, EOMI Oral: Moist Mucosa Neck: Supple Skin: Incision - left breast incision dry and intact. Mild swelling noted in sternal area. Minor bruising medially is slowly resolving. No clinical evidence of hematoma. Will continue to observe. Neurological: Cranial nerves II-XII grossly intact Psych/Mental Status: Normal Affect, Appropriate Vital Signs Temp Pulse Resp BP Pulse Ox 98.2 F 90 18 138/82 H 93 05/14/18 08:42 05/14/18 08:42 05/14/18 08:42 05/14/18 08:42 05/14/18 11:26 Oxygen Flow Rate (L/min) 2 Oxygen Delivery Method Room Air Weight: 248 lb 0.321 oz Body Mass Index (BMI) 42.5 Intake and Output for Last 24 Hours 05/12/18 05/13/18 05/14/18 23:59 23:59 23:59 Intake Total 4010 / 4010 3420 / 3420 1438 / 1438 Output Total 1705 / 1705 2225 / 2225 1485 / 1485 Balance 2305 / 2305 1195 / 1195 -47 / -47 Drainage 350 ml yesterday, 150 ml today. Microbiology Past 72 Hours 05/12/18 10:39 Gram Stain - Final Tissue - Breast Wound Culture - Preliminary No growth-Final to follow Anaerobic Culture - Preliminary No growth in 48 hours. Laboratory Tests Past 24 Hrs 05/14/18 05/14/18 05:20 05:20 WBC 6.8 RBC 3.77 L Hgb 10.6 L Hct 35.4 L MCV 93.9 MCH 28.1 MCHC 29.9 L RDW 15.9 H RDW Differential 52.8 H Plt Count 206 MPV 8.9 Sodium 141 Potassium 3.7 Chloride 105 Carbon Dioxide 31.0 Anion Gap 5 BUN 14 Creatinine 0.61 Estim Creat Clear Calc 45.85 Est GFR (MDRD) Af Amer 125 Est GFR (MDRD) Non-Af 103 BUN/Creatinine Ratio 22.9 H Glucose 91 Calcium 8.0 L Medical Necessity - Tobacco Use Smoking Status: Never smoker Assessment/Plan All Active Problems (Last Updated 05/12/18 @ 15:23 by Myra Cohn MD) H/O subtotal mastectomy of left breast (Resolved) History of adenoidectomy (Resolved) History of skin cancer (Resolved) Breakdown (mechanical) of breast prosthesis and implant, subsequent encounter (Acute) 1. Left lateral breast and chest wall pain. 2. Personal history of left breast cancer. 3. Late effect painful breast implant with contracture left breast reconstruction. 4. Medial deformity left breast reconstruction with painful excess mastectomy skin scar contour deformity. 5. Symmastia. 6. Acquired absence bilateral breasts. 7. Disproportion reconstructed breasts. 8. Cancer phobia right breast. 9. History of bilateral breast implants reconstruction. 10. Family history of breast cancer. 11. Personal history of MRSA. 12. Former smoker. 13. Personal history of skin cancer. 14. s/p revision left breast reconstruction with excision excess mastectomy skin scar contour deformity, capsulectomy, repair of symmastia, and placement Alloderm acellular dermal matrix graft inferolateral sling (264 cm2) and replacement cohesive gel implant (800 ml). Her operative culture is negative thus far. Will send home on Doxycyline until the drains are removed. Has incisional pain that is tolerated with po analgesia. She is more steady on her feet with ambulation. Keep head elevated. Keep surgical bra for compression. Prealbumin was 15.4. Encourage nutritional supplementation with protein to help the healing process. Discharge home today. Will remove the drains in the office. Wrote script for Doxycycline until the drains are removed. Wrote scripts for Percocet for pain (50 tabs) and for Valium for spasm (20 tabs). Wrote scripts for Phenergan for nausea (30 tabs) and a refill and for Colace for constipation (60 tabs).
--- NOTE | 2018-05-14 12:59 | DCINST_ITS ---
You will use the following diet at home:: No restrictions Discharge Activity: May not drive while taking narcotic pain medications., May Not Shower - until the drains are removed., - - keep head elevated. no heavy lifting. May shower in (days): 14 - may shower after the drains are remvoed. May resume sexual activity in: 10-14 days Weight Bearing Status: Weight bearing as tolerated Lifting Restrictions: 20 lbs. Keep extremity elevated above heart level: - - elevate head. Call your doctor if your incision/area has: Continuous Slow Oozing, Sudden Increased Bleeding, Increased Pain/ Swelling, Increased Redness, Foul Smelling Discharge, Swelling at the incision site Call your doctor if you observe: Fever of 101 or Higher, Coldness, Increased Pain, Shortness of breath, Chest pain, Calf discomfort, Uncontrolled pain Suture Line Care: - - dry dressings daily. Change Dressing in (Days):: 1 - dry dressings daily. Cleanse incision/area with: - - may get incisions wet in the shower after the drains are removed. Drain: Suction - salina drain x2 to bulb suction. empty and record output daily. Allergies/Adverse Reactions: Allergies lisinopril Adverse Reaction (Mild, Verified 05/12/18 06:58) H/A, FLUSHED adhesive tape Adverse Reaction (Verified 05/12/18 06:58) Rash morphine Adverse Reaction (Verified 05/12/18 06:58) Vomiting Medications to take at Discharge Calcium Carb/Vitamin D [Caltrate-600 With Vit D Tab] 1 tab PO BIDCM 08/16/13 Potassium Chloride [K-Dur] 20 meq PO DAILY 08/16/13 Atorvastatin Calcium [Lipitor] 20 mg PO QHS 06/06/15 Omeprazole [Prilosec] 20 mg PO TUTH 06/06/15 Amlodipine [Norvasc] 10 mg PO DAILY 08/03/15 Duloxetine Hcl [Cymbalta] 60 mg PO DAILY 03/13/17 Gabapentin [Neurontin] 300 mg PO TID 03/13/17 Meloxicam [Mobic] 7.5 mg PO BID 03/13/17 Sulfasalazine [Azulfidine] 500 mg PO DAILY 03/13/17 Triamterene [Dyrenium] 37.5 mg PO DAILY 03/13/17 albuterol sulfate HFA 90 mcg/actuation aerosol inhaler 2 puff INHALATION Q4H PRN #18 g 08/06/17 Acetaminophen [Tylenol Tablet] 650 mg PO Q4H PRN PRN tablet 05/14/18 Albuterol Aerosols [Ventolin Aerosols] 2.5 mg INHALATION Q4H PRN PRN vial.neb. 05/14/18 Diazepam [Valium] 5 mg PO 4X/DAY PRN PRN #20 tab 05/14/18 Docusate Sodium [Colace] 100 mg PO BID #60 cap 05/14/18 Minocycline [Minocin] 100 mg PO BID #30 cap 05/14/18 Oxycodone HCl/Acetaminophen [Percocet 5/325] 1 - 2 tab PO 4X/DAY PRN PRN 7 Days #50 tab 05/14/18 Senna/Docusate Sodium [Senokot-S] 2 tablet PO BID tablet 05/14/18 proMETHazine tablet [Phenergan tablet] 25 mg PO 4X/DAY PRN PRN #30 tab 05/14/18 proMETHazine tablet [Phenergan tablet] 25 mg PO 4X/DAY PRN PRN #30 tablet 05/14/18 The following prescriptions were given: Diazepam [Valium] 5 mg PO 4X/DAY PRN PRN #20 tab PRN Reason: Spasms Oxycodone HCl/Acetaminophen [Percocet 5/325] 1 - 2 tab PO 4X/DAY PRN PRN 7 Days #50 tab PRN Reason: Pain proMETHazine tablet [Phenergan tablet] 25 mg PO 4X/DAY PRN PRN #30 tab PRN Reason: Nausea Docusate Sodium [Colace] 100 mg PO BID #60 cap Minocycline [Minocin] 100 mg PO BID #30 cap Primary Care Physician: Luther Willams MD [Primary Care Provider] - Test Results: Test results from this visit will be discussed in further detail at your follow- up appointment, if applicable. Please Follow Up With: Srinivas Palencia MD When: one week. call [phone] for appt. Proposed Discharge Date: 05/14/18
--- NOTE | 2018-05-14 14:23 | PCM.PN.HOSP ---
Subjective: No acute issues. Surgical dressing was changed yesterday. No fever. Vitals/I&O's: Vital Signs Temp Pulse Resp BP Pulse Ox 98.2 F 90 18 138/82 H 93 05/14/18 08:42 05/14/18 08:42 05/14/18 08:42 05/14/18 08:42 05/14/18 11:26 Oxygen Flow Rate (L/min) 2 Oxygen Delivery Method Room Air Weight: 248 lb 0.321 oz Body Mass Index (BMI) 42.5 Intake and Output for Last 24 Hours 05/12/18 05/13/18 05/14/18 23:59 23:59 23:59 Intake Total 4010 / 4010 3420 / 3420 2276 / 2276 Output Total 1705 / 1705 2225 / 2225 2225 / 2225 Balance 2305 / 2305 1195 / 1195 51 / 51 General: Alert, Oriented x3, Cooperative HEENT: Atraumatic, PERRLA, EOMI, Normocephalic Neck: Supple, No JVD, Negative Carotid Bruits Lungs: Clear to auscultation, Normal air movement, No rhonchi, No wheeze Cardiovascular: Regular rate, Regular Rhythm, Normal S2, No murmurs Abdomen: Bowel Sounds Present, Soft, Non Tender, Non-Distended Extremities: No edema, Capillary Refill Less than 3 Seconds Skin: No rashes, No breakdown, - - Left breast surgical reconstruction Musculoskeletal: No Tenderness to Palpation of Joints or Extremities Neurological: Cranial nerves II-XII grossly intact Psych/Mental Status: Normal Affect, Appropriate Microbiology Past 72 Hours 05/12/18 10:39 Tissue - Breast Gram Stain - Final 05/12/18 10:39 Tissue - Breast Wound Culture - Preliminary No growth-Final to follow 05/12/18 10:39 Tissue - Breast Anaerobic Culture - Preliminary No growth in 48 hours. Laboratory Results 05/14/18 05:20: WBC 6.8, RBC 3.77 L, Hgb 10.6 L, Hct 35.4 L, MCV 93.9, MCH 28.1, MCHC 29.9 L, RDW 15.9 H, RDW Differential 52.8 H, Plt Count 206, MPV 8.9 05/14/18 05:20: Sodium 141, Potassium 3.7, Chloride 105, Carbon Dioxide 31.0, Anion Gap 5, BUN 14, Creatinine 0.61, Estim Creat Clear Calc 45.85, Est GFR (MDRD) Af Amer 125, Est GFR (MDRD) Non-Af 103, BUN/Creatinine Ratio 22.9 H, Glucose 91, Calcium 8.0 L Current Medications Acetaminophen (Tylenol) 650 mg PO Q4H PRN PRN PRN Reason: PAIN Albuterol Sulfate (Ventolin Aerosols) 2.5 mg INHALATION Q4H PRN PRN PRN Reason: shortness of breath/wheezing Amlodipine Besylate (Norvasc) 10 mg PO DAILY [facility] Last Admin: 05/14/18 09:37 Dose: 10 mg Atorvastatin Calcium (Lipitor) 20 mg PO QHS [facility] Last Admin: 05/13/18 22:18 Dose: 20 mg Calcium/Vitamin D (Os-Mookie 500mg + D) 1 tablet PO BIDCM [facility] Last Admin: 05/14/18 09:36 Dose: 1 tablet Diazepam (Valium) 5 mg PO 4X/DAY PRN PRN PRN Reason: SPASMS Last Admin: 05/13/18 17:02 Dose: 5 mg Duloxetine HCl (Cymbalta) 60 mg PO DAILY [facility] Last Admin: 05/14/18 09:36 Dose: 60 mg Enoxaparin Sodium (Lovenox) 40 mg SC DAILY [facility] Last Admin: 05/14/18 09:37 Dose: 40 mg Gabapentin (Neurontin) 300 mg PO TID [facility] Last Admin: 05/14/18 06:20 Dose: 300 mg Heparin Sodium (Beef Lung) () 50 units IV UD PRN PRN Reason: HEPARIN FLUSH Hydromorphone HCl (Dilaudid Inj) 1 mg IV Q4H PRN PRN PRN Reason: SEVERE PAIN (6-10/10) Lactated Ringer's () 1,000 mls @ 60 mls/hr IV .[id number] [facility] Last Admin: 05/14/18 06:20 Dose: 60 mls/hr Vancomycin IV Pharmacy to Dose (1 ea/ Sodium Chloride) 500 mls @ 250 mls/hr IV X1 PRN; Protocol PRN Reason: Rx to Dose Vancomycin HCl 1,500 mg/ (Sodium Chloride) 530 mls @ 250 mls/hr IV Q24H [facility] Last Admin: 05/13/18 17:01 Dose: 250 mls/hr Meloxicam (Mobic) 7.5 mg PO BID [facility] Last Admin: 05/14/18 09:37 Dose: 7.5 mg Nutritional Formula ([facility] Last Admin: 05/14/18 09:35 Dose: 1 packet Ondansetron HCl (Zofran) 4 mg IV Q6H PRN PRN PRN Reason: NAUSEA Oxycodone HCl (Oxyir) 10 mg PO Q4H PRN PRN PRN Reason: SEVERE PAIN (6-05/06) Last Admin: 05/14/18 09:40 Dose: 10 mg Pantoprazole Sodium (Protonix) 20 mg PO TuTh@1000 [facility] Last Admin: 05/14/18 09:37 Dose: 20 mg Potassium Chloride (K-Dur) 20 meq PO DAILY@0800 [facility] Last Admin: 05/14/18 09:35 Dose: 20 meq Promethazine HCl (Phenergan Tablet) 25 mg PO Q4H PRN PRN PRN Reason: NAUSEA/VOMITING Senna/Docusate Sodium (Senokot-S, Alee-Colace) 2 tablet PO BID [facility] Last Admin: 05/14/18 10:34 Dose: 2 tablet Sodium Chloride () 10 ml IV UD PRN PRN Reason: VAD FLUSH Last Admin: 05/14/18 06:20 Dose: 10 ml Sulfasalazine (Azulfidine) 500 mg PO DAILY [facility] Last Admin: 05/14/18 09:36 Dose: 500 mg Triamterene/HCTZ (Dyazide (G)) 1 cap PO DAILY [facility] Last Admin: 05/14/18 09:37 Dose: 1 cap Medical Necessity - Tobacco Use Smoking Status: Never smoker Assessment/Plan All Active Problems (Last Updated 05/12/18 @ 15:23 by Myra Cohn MD) H/O subtotal mastectomy of left breast (Resolved) History of adenoidectomy (Resolved) History of skin cancer (Resolved) Breakdown (mechanical) of breast prosthesis and implant, subsequent encounter (Acute) This is a 68-year-old female with multiple comorbidities, with a history of left breast cancer status post mastectomy, who was admitted in surgical service for elective left breast reconstruction for concerns of left lateral breast or chest wall pain. Patient is postop day #2 status post revision of left breast reconstruction with excision of excess mastectomy skin scar control deformity, capsulectomy, repair of Symmastia, placement of AlloDerm sling as well as replacement of compressive gel implant Patient was seen and examined. Pain is controlled. Wound dressing has been done by Dr. Palencia. Denies any fever or chills or shortness of breath. No acute events overnight. 1. Status post revision left breast reconstruction with excision excess mastectomy skin scar, repair of symmastia, replacement of gel implant- 05/12/[address] Palencia. PRN pain regimen. Management per Dr. Palencia. Hx MRSA. On IV vancomycin. Breast tissue preliminary reported no growth in 48 hours 2. History of breast cancer +BRCA s/p BL mastectomy and reconstruction 3. Hypertension-mildly elevated, suspect secondary to pain. Controlled. Currently 122/68, 138/82. Continue to monitor. Continue home amlodipine, triamterene regimen. 4. Hyperlipidemia-continue statin. 5. Depression-continue duloxetine regimen. 6. Obstructive sleep apnea-continue BiPAP regimen. Follows with Dr. Stephens. 7. GERD-continue PPI. 8. Sarcoidosis/rheumatoid arthritis/fibromyalgia- continue home regimen including gabapentin, sulfasalazine. 9. Morbid obesity-encourage diet lifestyle modifications. DVT prophylaxis- Lovenox wy Patient is medically stable and can be discharged from medical perspective. Discharge planning as per Dr. Palencia. Code Visit Inpatient E&M: 28566 Subs Hosp L2
--- NOTE | 2018-05-14 14:32 | PN_ITS ---
Subjective: No acute issues. Surgical dressing was changed yesterday. No fever. Vitals/I&O's: Vital Signs Temp Pulse Resp BP Pulse Ox 98.2 F 90 18 138/82 H 93 05/14/18 08:42 05/14/18 08:42 05/14/18 08:42 05/14/18 08:42 05/14/18 11:26 Oxygen Flow Rate (L/min) 2 Oxygen Delivery Method Room Air Weight: 248 lb 0.321 oz Body Mass Index (BMI) 42.5 Intake and Output for Last 24 Hours 05/12/18 05/13/18 05/14/18 23:59 23:59 23:59 Intake Total 4010 / 4010 3420 / 3420 2276 / 2276 Output Total 1705 / 1705 2225 / 2225 2225 / 2225 Balance 2305 / 2305 1195 / 1195 51 / 51 General: Alert, Oriented x3, Cooperative HEENT: Atraumatic, PERRLA, EOMI, Normocephalic Neck: Supple, No JVD, Negative Carotid Bruits Lungs: Clear to auscultation, Normal air movement, No rhonchi, No wheeze Cardiovascular: Regular rate, Regular Rhythm, Normal S2, No murmurs Abdomen: Bowel Sounds Present, Soft, Non Tender, Non-Distended Extremities: No edema, Capillary Refill Less than 3 Seconds Skin: No rashes, No breakdown, - - Left breast surgical reconstruction Musculoskeletal: No Tenderness to Palpation of Joints or Extremities Neurological: Cranial nerves II-XII grossly intact Psych/Mental Status: Normal Affect, Appropriate Microbiology Past 72 Hours 05/12/18 10:39 Tissue - Breast Gram Stain - Final 05/12/18 10:39 Tissue - Breast Wound Culture - Preliminary No growth-Final to follow 05/12/18 10:39 Tissue - Breast Anaerobic Culture - Preliminary No growth in 48 hours. Laboratory Results 05/14/18 05:20: WBC 6.8, RBC 3.77 L, Hgb 10.6 L, Hct 35.4 L, MCV 93.9, MCH 28.1, MCHC 29.9 L, RDW 15.9 H, RDW Differential 52.8 H, Plt Count 206, MPV 8.9 05/14/18 05:20: Sodium 141, Potassium 3.7, Chloride 105, Carbon Dioxide 31.0, An ion Gap 5, BUN 14, Creatinine 0.61, Estim Creat Clear Calc 45.85, Est GFR (MDRD) Af Amer 125, Est GFR (MDRD) Non-Af 103, BUN/Creatinine Ratio 22.9 H, Glucose 91, Calcium 8.0 L Current Medications Acetaminophen (Tylenol) 650 mg PO Q4H PRN PRN PRN Reason: PAIN Albuterol Sulfate (Ventolin Aerosols) 2.5 mg INHALATION Q4H PRN PRN PRN Reason: shortness of breath/wheezing Amlodipine Besylate (Norvasc) 10 mg PO DAILY [facility] Last Admin: 05/14/18 09:37 Dose: 10 mg Atorvastatin Calcium (Lipitor) 20 mg PO QHS [facility] Last Admin: 05/13/18 22:18 Dose: 20 mg Calcium/Vitamin D (Os-Mookie 500mg + D) 1 tablet PO BIDCM [facility] Last Admin: 05/14/18 09:36 Dose: 1 tablet Diazepam (Valium) 5 mg PO 4X/DAY PRN PRN PRN Reason: SPASMS Last Admin: 05/13/18 17:02 Dose: 5 mg Duloxetine HCl (Cymbalta) 60 mg PO DAILY [facility] Last Admin: 05/14/18 09:36 Dose: 60 mg Enoxaparin Sodium (Lovenox) 40 mg SC DAILY [facility] Last Admin: 05/14/18 09:37 Dose: 40 mg Gabapentin (Neurontin) 300 mg PO TID [facility] Last Admin: 05/14/18 06:20 Dose: 300 mg Heparin Sodium (Beef Lung) () 50 units IV UD PRN PRN Reason: HEPARIN FLUSH Hydromorphone HCl (Dilaudid Inj) 1 mg IV Q4H PRN PRN PRN Reason: SEVERE PAIN (6-10/10) Lactated Ringer's () 1,000 mls @ 60 mls/hr IV .[id number] [facility] Last Admin: 05/14/18 06:20 Dose: 60 mls/hr Vancomycin IV Pharmacy to Dose (1 ea/ Sodium Chloride) 500 mls @ 250 mls/hr IV X1 PRN; Protocol PRN Reason: Rx to Dose Vancomycin HCl 1,500 mg/ (Sodium Chloride) 530 mls @ 250 mls/hr IV Q24H [facility] Last Admin: 05/13/18 17:01 Dose: 250 mls/hr Meloxicam (Mobic) 7.5 mg PO BID [facility] Last Admin: 05/14/18 09:37 Dose: 7.5 mg Nutritional Formula ([facility] [place] [facility] Last Admin: 05/14/18 09:35 Dose: 1 packet Ondansetron HCl (Zofran) 4 mg IV Q6H PRN PRN PRN Reason: NAUSEA Oxycodone HCl (Oxyir) 10 mg PO Q4H PRN PRN PRN Reason: SEVERE PAIN (6-05/06) Last Admin: 05/14/18 09:40 Dose: 10 mg Pantoprazole Sodium (Protonix) 20 mg PO TuTh@1000 [facility] Last Admin: 05/14/18 09:37 Dose: 20 mg Potassium Chloride (K-Dur) 20 meq PO DAILY@0800 [facility] Last Admin: 05/14/18 09:35 Dose: 20 meq Promethazine HCl (Phenergan Tablet) 25 mg PO Q4H PRN PRN PRN Reason: NAUSEA/VOMITING Senna/Docusate Sodium (Senokot-S, Alee-Colace) 2 tablet PO BID [facility] Last Admin: 05/14/18 10:34 Dose: 2 tablet Sodium Chloride () 10 ml IV UD PRN PRN Reason: VAD FLUSH Last Admin: 05/14/18 06:20 Dose: 10 ml Sulfasalazine (Azulfidine) 500 mg PO DAILY [facility] Last Admin: 05/14/18 09:36 Dose: 500 mg Triamterene/HCTZ (Dyazide (G)) 1 cap PO DAILY [facility] Last Admin: 05/14/18 09:37 Dose: 1 cap Medical Necessity - Tobacco Use Smoking Status: Never smoker Assessment/Plan All Active Problems (Last Updated 05/12/18 @ 15:23 by Myra Cohn MD) H/O subtotal mastectomy of left breast (Resolved) History of adenoidectomy (Resolved) History of skin cancer (Resolved) Breakdown (mechanical) of breast prosthesis and implant, subsequent encounter (Acute) This is a 68-year-old female with multiple comorbidities, with a history of left breast cancer status post mastectomy, who was admitted in surgical service for elective left breast reconstruction for concerns of left lateral breast or chest wall pain. Patient is postop day #2 status post revision of left breast reconstruction with excision of excess mastectomy skin scar control deformity, capsulectomy, repair of Symmastia, placement of AlloDerm sling as well as replacement of compressive gel implant Patient was seen and examined. Pain is controlled. Wound dressing has been done by Dr. Palencia. Denies any fever or chills or shortness of breath. No acute events overnight. 1. Status post revision left breast reconstruction with excision excess mastectomy skin scar, repair of symmastia, replacement of gel implant- 05/12/[address] Palencia. PRN pain regimen. Management per Dr. Palencia. Hx MRSA. On IV vancomycin. Breast tissue preliminary reported no growth in 48 hours 2. History of breast cancer +BRCA s/p BL mastectomy and reconstruction 3. Hypertension-mildly elevated, suspect secondary to pain. Controlled. Currently 122/68, 138/82. Continue to monitor. Continue home amlodipine, triamterene regimen. 4. Hyperlipidemia-continue statin. 5. Depression-continue duloxetine regimen. 6. Obstructive sleep apnea-continue BiPAP regimen. Follows with Dr. Stephens. 7. GERD-continue PPI. 8. Sarcoidosis/rheumatoid arthritis/fibromyalgia- continue home regimen including gabapentin, sulfasalazine. 9. Morbid obesity-encourage diet lifestyle modifications. DVT prophylaxis- Lovenox wy Patient is medically stable and can be discharged from medical perspective. Discharge planning as per Dr. Palencia. Code Visit Inpatient E&M: 17346 Subs Hosp L2
[2018-05-14 14:52] VITALS: BP 133/85; PULSE 86; RESP 18; TEMP 36.3; O2SAT 95
[2018-05-14 14:55] VITALS: BP 133/85; PULSE 86; RESP 18; TEMP 36.3; O2SAT 95
== END 2018-05-14 14:59 | disposition home or self-care (01) | DRG 584 ==
LOC: SDC 14:04
PROVIDERS: Admitting Provider Surgery; Family Provider Family Medicine; PCP Family Medicine; Referring Provider Surgery; Visit Provider Internal Medicine
DX: T85.44XA Capsular contracture of breast implant, initial encounter (principal); Z68.41 Body mass index [BMI] 40.0-44.9, adult; N65.0 Deformity of reconstructed breast; L90.5 Scar conditions and fibrosis of skin; Z85.3 Personal history of malignant neoplasm of breast; E78.5 Hyperlipidemia, unspecified; E66.01 Morbid (severe) obesity due to excess calories; E87.6 Hypokalemia; F32.9 Major depressive disorder, single episode, unspecified; G47.33 Obstructive sleep apnea (adult) (pediatric); M06.9 Rheumatoid arthritis, unspecified; M79.7 Fibromyalgia; D86.9 Sarcoidosis, unspecified; Z87.891 Personal history of nicotine dependence; Z86.14 Personal history of Methicillin resistant Staphylococcus aureus infection; Z80.3 Family history of malignant neoplasm of breast; Z85.828 Personal history of other malignant neoplasm of skin; Z98.82 Breast implant status
CPT/HCPCS: 80048; 84134; 85027; 87070; 87075; 87102; 87205; 87206; 88300; 88304; 88307; 93005; 94762; J7040; J7120; A4216; J2405

== ENCOUNTER → 2018-06-04 12:54 | Outpatient (CLI) | payer MEDICARE, OTHER, SELFPAY ==
--- NOTE | 2018-06-04 12:57 | ECHOD_ITS ---
Version 2 Reason For Study: ABN EKG Procedure This was a 2D Doppler, Color Flow transthoracic echocardiogram. The study was technically difficult. Due to body habitus and recent left breast revision surgery. Exam performed in department. Left Ventricle Normal LV size. Left ventricular systolic function is normal. The estimated ejection fraction is 55 %. Stage 1 diastolic dysfunction. No regional wall motion abnormalities noted. Right Ventricle Normal RV size. Normal systolic function. Atria Normal left atrium. Normal right atrium. Mitral Valve Normal mitral valve. Tricuspid Valve Normal tricuspid valve. Mild (1+) tricuspid valve insufficiency. Pulmonary artery systolic pressure is 26 mmHg. Aortic Valve The aortic valve is not well visualized. Pulmonic Valve Normal pulmonic valve. Great Vessels Normal aortic root. The pulmonary artery is normal size. Normal inferior vena cava. Pericardium/Pleural No pericardial effusion. MMode/2D Measurements & Calculations LVIDd: 4.3 cm IVSd: 0.95 cm Ao root diam: 3.1 cm LVIDs: 3.2 cm LVPWd: 0.95 cm RVDd: 2.7 cm FS: 25.0 % LAV(MOD-bp): 37.9 ml LA A4 area: 14.0 cm2 RA A4 area: 12.5 cm2 LAV(MOD-bp) Indexed: 17.8 ml/m2 LAV(MOD-sp2): 40.6 ml LAV(MOD-sp4): 32.0 ml Time Measurements MV dec time: 0.21 sec Doppler Measurements & Calculations MV E max sabino: 75.3 cm/sec Lat Peak E' Sabino: 12.7 cm/sec Med Peak E' Sabino: 9.7 cm/sec MV A max sabino: 102.9 cm/sec E/E' lat: 5.9 E/E' med: 7.8 MV E/A: 0.73 Ao V2 max: 106.4 cm/sec LV V1 max: 84.6 cm/sec PA V2 max: 127.7 cm/sec Ao max P.5 mmHg LV V1 max P.9 mmHg TR max sabino: 234.9 cm/sec TR max P.1 mmHg Interpretation Summary Normal LV size. Left ventricular systolic function is normal. The estimated ejection fraction is 55 %. Stage 1 diastolic dysfunction. Pulmonary artery systolic pressure is 26 mmHg. Mild (1+) tricuspid valve insufficiency. The global longitudinal strain = -21 % (normal). Ordering Physician: Luther iWllams Referring Physician: Luther Willams Performed By: Alla Blake RDCS, RVT
== END ==
PROVIDERS: Family Provider Family Medicine; PCP Family Medicine; Referring Provider Family Medicine; Visit Provider Family Medicine
DX: R94.31 Abnormal electrocardiogram [ECG] [EKG] (principal)
CPT/HCPCS: 93306

== ENCOUNTER → 2018-07-18 08:26 | Outpatient (CLI) | payer MEDICARE, OTHER, SELFPAY ==
--- NOTE | 2018-07-18 08:37 | RAD_ITS ---
STUDY: X-RAY - LUMBAR SPINE REASON FOR EXAM: Female, 68 years old. Back pain. No known injury. TECHNIQUE: 5 view(s) of the lumbar spine were obtained. COMPARISON: Whole body bone scan April 17, 2017; MRI lumbar spine June 26, 2011. FINDINGS: Normal lumbar lordosis. There is no substantial scoliosis. There is a normal alignment of the vertebrae. There is multilevel endplate spondylosis of the lumbar vertebrae, most prominent at L4-5 and L5-S1 where there is also posterior endplate spurring. There is multi-level degenerative disc disease with multi-level disc space narrowing, also most prominent at L4-5 and L5-S1. There is no demonstrated osseous destructive lesion or acute fracture. There are degenerative arthroses of the lumbar facets on the right from L3 to S1 and on the left from L4 to S1. There is mild atherosclerotic calcification of the abdominal aorta. RAD/L/S Spine Min 4 Views IMPRESSION: Degenerative changes of the spine, as detailed above. Electronically Signed: Edvin Nunez MD at 10:21 EST , Service support ,
--- NOTE | 2018-07-18 08:37 | RAD_ITS ---
STUDY: X-RAY - CERVICAL SPINE REASON FOR EXAM: Female, 68 years old. Pain. No known injury. TECHNIQUE: 5 view(s) of the cervical spine were obtained on 6 images. COMPARISON: None FINDINGS: There are degenerative changes of the anterior atlantoaxial articulation. Normal odontoid process. Normal cervical lordosis. There is multi-level endplate spondylosis. There is multi-level degenerative disc disease with multilevel disc space narrowing. There is 2 mm anterolisthesis of C3 on C4 and minor retrolisthesis of C5 on C6. There are degenerative changes of the facet articulations. There is moderately severe osseous impingement on the right C3-4 intervertebral neural foramen. Moderate osseous narrowing seen on the right at C5-6. There is mild narrowing of the right C4-5 and left C5-6 intervertebral neuroforamina. The prevertebral soft tissue structures are unremarkable. There is no demonstrated osseous destructive process or fracture of the cervical spine. Incidental note of a left chest wall MediPort, the catheter looping in the anterior soft tissues of the low right neck as it enters the internal jugular vein. RAD/Cerv Spine 4 or 5 Views IMPRESSION: Multilevel degenerative changes of the visualized cervical spine, as described. Electronically Signed: Edvin Nunez MD at 10:19 EST , Service support ,
== END ==
PROVIDERS: Family Provider Family Medicine; PCP Family Medicine; Referring Provider Anesthesiology; Visit Provider Anesthesiology
DX: M54.2 Cervicalgia (principal); M54.5 Low back pain
CPT/HCPCS: 72050; 72110

== ENCOUNTER → 2018-08-05 14:50 | Outpatient (CLI) | payer MEDICARE, OTHER, SELFPAY ==
[2018-08-04 08:46] VITALS: BMI 43.0
--- NOTE | 2018-08-05 | LES_PTH ---
PATIENT: CHRISTINE ABRAMS LOC: [facility] U#:[id number] AGE/SX: 75/F ROOM: RE08/05/[address]: Dr. Srinivas Palencia MD : 1950 BED: DIS: SPEC #: [id number] RECD: 08/05/18 14:39 STATUS: [place]ON R[place]ver[place] #: [id number] JOHN: 08/05/18 00:[address]: Srinivas Palencia DEPT: SURGICAL PATHOLOGY RECD BY: Geneva Cosme ENTERED: 08/05/18 15:40 SP TYPE: Lesion OTHR DR: Dr. Luther Willams MD Tissues: Skin of arm Procedures: Surgery Specimen Level IV HEADER OPERATION: Intradermal excision lesion left outer arm PRE-OP DIAGNOSIS: History of skin CA; enlarging lesion left outer arm TISSUE SUBMITTED: Left outer arm MICROSCOPIC DIAGNOSIS Left outer arm lesion, intradermal excision: Benign vascular proliferation, consistent with capillary hemangioma. Hyperkeratosis. See comment. SJ:kalen 08/06/18 COMMENT The lesion is present at the deep margin of the specimen. Case has been reviewed in consultation with Dr. Glover who concurs with the above diagnosis. IDC:AM MICROSCOPIC DESCRIPTION Slides are reviewed. GROSS DESCRIPTION Received in fixative is one container labeled with the patient's name and designated lesion left outer arm. The specimen consists of a shave biopsy of morfin-white skin measuring 0.7 x 0.5 x 0.1 cm. The specimen is inked and submitted entirely in one cassette. It will be sectioned at the time of embedding. / ANA:kalen 08/05/18 TC:1 CPT: 29191
== END ==
PROVIDERS: Family Provider Family Medicine; PCP Family Medicine; Referring Provider Surgery; Visit Provider Surgery
DX: L85.9 Epidermal thickening, unspecified (principal); D49.2 Neoplasm of unspecified behavior of bone, soft tissue, and skin; Z85.828 Personal history of other malignant neoplasm of skin
CPT/HCPCS: 88305

== ENCOUNTER → 2018-09-10 10:16 | Outpatient (CLI) | payer MEDICARE, OTHER, SELFPAY ==
--- NOTE | 2018-09-10 10:35 | MRI_ITS ---
STUDY: MRI LUMBAR SPINE WITHOUT CONTRAST REASON FOR EXAM: Female, 68 years old. Low back pain. Left leg pain. TECHNIQUE: Standardized fat and water weighted pulse sequences were obtained in the sagittal and axial planes. COMPARISON: None FINDINGS: T9-T10: (Sagittal only). Normal endplates. Normal disc height and morphology. No ventral extradural defect. Normal central canal and bilateral intervertebral neural foramina. T10-T11: (Sagittal only). Normal endplates. Normal disc height and morphology. No ventral extradural defect. Normal central canal and bilateral intervertebral neural foramina. T11-T12: Normal endplates. Normal disc height, hydration and morphology. No ventral extradural defect. Normal central canal and bilateral intervertebral neural foramina. T12-L1: (Sagittal only). Normal endplates. Normal disc height, hydration and morphology. No ventral extradural defect. Normal central canal and bilateral intervertebral neural foramina. Normal lumbar lordosis. There is no substantial scoliosis. Normal conus medullaris that terminates at the T11-T12 disc level. L1-2: Normal endplates. Moderate disc space height narrowing. Mild degenerative retrolisthesis of L1 on L2. Prominent posterior midline and slightly caudal disc extrusion. Prominent dorsal epidural lipomatosis. Moderately pronounced central canal stenosis with an AP canal diameter of 5.6 mm. Mild asymmetric degenerative facet arthropathy. Normal bilateral intervertebral neural foramina. L2-3: Normal endplates. Moderate disc space height narrowing. No extruded disc fragment. Mild to moderate central canal stenosis with an AP canal diameter of 8 mm. Mild dorsal epidural lipomatosis. Mild asymmetric degenerative facet arthropathy. Normal bilateral lateral recesses. Normal bilateral intervertebral neural foramina. L3-4: Normal endplates. Left posterior paramedian caudal disc extrusion. Moderately pronounced central canal stenosis with an AP canal diameter of 5.6 mm. Prominent dorsal epidural lipomatosis. Normal facet joints. Normal bilateral intervertebral neural foramina. L4-5: Mild Modic type II degenerative vertebral marrow fatty changes underneath the vertebral endplates. Pronounced disc space height narrowing. Normal central canal and bilateral lateral recesses. Mild left degenerative facet arthropathy. Normal right facet joint. Normal bilateral intervertebral neural foramina. L5-S1: Pronounced disc space height narrowing. Mild Modic type II degenerative vertebral marrow fatty changes underneath the vertebral endplates. Normal central canal and bilateral lateral recesses. Mild to moderate left degenerative facet arthropathy. Mild right degenerative facet arthropathy. Normal bilateral intervertebral neural foramina. Normal visualized sacral ala. Normal visualized paraspinous soft tissue structures. MRI/Spine Lumbar (Routine) IMPRESSION: 1. Prominent L1-L2 posterior midline and slightly caudal disc extrusion, mild degenerative retrolisthesis of L1 on L2, moderately pronounced central canal stenosis and prominent dorsal epidural lipomatosis. 2. Mild to moderate central canal stenosis at L2-L3 disc level. 3. Left L3-L4 posterior paramedian caudal disc extrusion, moderate pronounced central canal stenosis and prominent dorsal epidural lipomatosis. 4. Pronounced L4-L5 disc space height narrowing and mild left degenerative facet arthropathy. 5. Pronounced L5-S1 disc space height narrowing and mild to moderate left degenerative facet arthropathy. Electronically Signed: Chema Dickey MD at 14:22 EST , Service support ,
== END ==
PROVIDERS: Family Provider Family Medicine; PCP Family Medicine; Referring Provider Orthopaedic Surgery; Visit Provider Orthopaedic Surgery
DX: M51.36 Other intervertebral disc degeneration, lumbar region (principal)
CPT/HCPCS: 72148

== ENCOUNTER 2018-10-16 10:27 | Day surgery (SDC) | payer MEDICARE, OTHER, SELFPAY ==
[2018-08-04 08:46] VITALS: BMI 43.0
[2018-10-16 10:47] VITALS: BP 133/66; PULSE 78; RESP 18; TEMP 36.7; O2SAT 99; BMI 42.5
--- NOTE | 2018-10-16 11:40 | RAD_ITS ---
STUDY: X-RAY - LUMBAR SPINE REASON FOR EXAM: Female, 68 years old. Lower back pain TECHNIQUE: 2 view(s) of the lumbar spine were obtained. COMPARISON: None FINDINGS: Normal lumbar lordosis. There is no substantial scoliosis. There is a normal alignment of the vertebrae. There is contrast in the epidural space at L3 level. There is multi-level degenerative disc disease with multi-level disc space narrowing. The soft tissue structures are unremarkable. RAD/Lumbar Spine 2 or 3 Views IMPRESSION: Degenerative changes of the spine, as detailed above. Electronically Signed: Raffi Castaneda, at 13:58 EDT Tel , Service support ,
--- NOTE | 2018-10-16 12:15 | DCINST_ITS ---
- Discharge Diagnoses Current Active Problems: Lumbar spinal stenosis, lumbar degenerative disease, lumbar radiculopathy You will use the following diet at home:: No restrictions Your food should be the consistency of: Regular Discharge Activity: Return to Normal Activity May shower in (days): 1 May resume sexual activity in: No Restrictions Weight Bearing Status: Weight bearing as tolerated Call your doctor if your incision/area has: Continuous Slow Oozing, Sudden Increased Bleeding, Increased Pain/ Swelling, Increased Redness, Foul Smelling Discharge, Swelling at the incision site Call your doctor if you observe: Coldness, Increased Pain, Calf discomfort, Uncontrolled pain Suture Line Care: Avoid Pulling/Pushing, Avoid Pinching/Bending Remove Dressing in (days):: 1 Cleanse incision/area with: Soap & Water Allergies/Adverse Reactions: Allergies lisinopril Adverse Reaction (Mild, Verified 10/12/18 10:39) H/A, FLUSHED adhesive tape Adverse Reaction (Verified 10/12/18 10:39) Rash morphine Adverse Reaction (Verified 10/12/18 10:39) Vomiting Medications to take at Discharge Calcium Carb/Vitamin D [Caltrate-600 With Vit D Tab] 1 tab PO BIDCM 08/16/13 Potassium Chloride [K-Dur] 20 meq PO BID 08/16/13 Atorvastatin Calcium [Lipitor] 20 mg PO QHS 06/06/15 Omeprazole [Prilosec] 20 mg PO TUTH 06/06/15 Amlodipine [Norvasc] 10 mg PO DAILY 08/03/15 Duloxetine Hcl [Cymbalta] 60 mg PO DAILY 03/13/17 Sulfasalazine [Azulfidine] 500 mg PO DAILY 03/13/17 Triamterene [Dyrenium] 37.5 mg PO DAILY 03/13/17 albuterol sulfate HFA 90 mcg/actuation aerosol inhaler 2 puff INHALATION Q4H PRN #18 g 08/06/17 Acetaminophen [Tylenol Tablet] 650 mg PO Q4H PRN PRN tab 05/14/18 gabapentin 100 mg capsule 300 mg PO TID cap 08/04/18 meloxicam 7.5 mg tablet 7.5 mg PO BID tab 08/04/18 Primary Care Physician: Luther Willams MD [Primary Care Provider] - Test Results: Test results from this visit will be discussed in further detail at your follow- up appointment, if applicable. Please Follow Up With: Brenda Martinez MD
--- NOTE | 2018-10-16 12:15 | PCM.OPRPT ---
Problem List (1) Spinal stenosis of lumbar region with neurogenic claudication Status: Acute (2) Spinal stenosis of lumbar region with neurogenic claudication Status: Acute (3) Intervertebral disc stenosis of neural canal of lumbar region Status: Acute (4) Intervertebral disc stenosis of neural canal of lumbar region Status: Acute (5) Other intervertebral disc displacement, lumbar region Status: Acute (6) Other intervertebral disc displacement, lumbar region Status: Acute (7) Intervertebral disc disorder with radiculopathy of lumbar region Status: Acute Report of Operation Date of Procedure: 10/16/18 Pre-Operative Diagnosis: Lumbar disc displacement lumbar spinal stenosis and lumbar radiculopathy Post-Operative Diagnosis: Same Surgery/Procedure Performed:: Lumbar epidural steroid injection at the level of the L3-4 under fluoroscopy guidance Description of Surgical Findings:: Under sterile conditions. Patient placed in the prone position, pressure points were padded, patient was ready from the nursing and the anesthesia team. After identification of the side and the target area for the block under guided fluoroscopy, the entry site was marked with marking pen. I used Betadine for sterilization of the skin, sterile draping were applied. Using 25-gauge needle to infiltrate the skin with local anesthesia using preservative-free lidocaine 0.5% injected 2.5 mL at site of entry. Using guided fluoroscopy, accessed the the posterior epidural space using 18-gauge Touhy needles 5 inch lengths due to patient size under midline approach, accessed the site was assisted with lateral fluoroscopy, followed by using [id number] technique using preservative-free normal saline, negative aspiration of CSF and blood. Injected contrast solution [2.5] mL under live fluoroscopy which showed good spread of the contrast to the posterior epidural space and to the targeted area of the injection at[ L3-4]. Injected [5] mL of mixture of preservative-free lidocaine and Kenalog [80] mg for the procedure which showed appropriate spread in the epidural space. Grandin was removed, pressure dressing were applied. Patient tolerated the procedure well and was taken to the recovery. Type of Anesthesia:: Local MAC Special Medications: Lidocaine diluted to 0.5% preservative-free. Kenalog 80 mg. Isovue Description of Procedure: As above noted - Complications None
[2018-10-16] MEDS: Triamcinolone Acetonide 40 MG/ML Vial (12:20)
--- NOTE | 2018-10-16 12:29 | OP.PCM_ITS ---
Problem List (1) Spinal stenosis of lumbar region with neurogenic claudication Status: Acute (2) Spinal stenosis of lumbar region with neurogenic claudication Status: Acute (3) Intervertebral disc stenosis of neural canal of lumbar region Status: Acute (4) Intervertebral disc stenosis of neural canal of lumbar region Status: Acute (5) Other intervertebral disc displacement, lumbar region Status: Acute (6) Other intervertebral disc displacement, lumbar region Status: Acute (7) Intervertebral disc disorder with radiculopathy of lumbar region Status: Acute Report of Operation Date of Procedure: 10/16/18 Pre-Operative Diagnosis: Lumbar disc displacement lumbar spinal stenosis and lumbar radiculopathy Post-Operative Diagnosis: Same Surgery/Procedure Performed:: Lumbar epidural steroid injection at the level of the L3-4 under fluoroscopy guidance Description of Surgical Findings:: Under sterile conditions. Patient placed in the prone position, pressure points were padded, patient was ready from the nursing and the anesthesia team. After identification of the side and the target area for the block under guided fluoroscopy, the entry site was marked with marking pen. I used Betadine for sterilization of the skin, sterile draping were applied. Using 25-gauge needle to infiltrate the skin with local anesthesia using preservative-free lidocaine 0.5% injected 2.5 mL at site of entry. Using guided fluoroscopy, accessed the the posterior epidural space using 18- gauge Touhy needles 5 inch lengths due to patient size under midline approach, accessed the site was assisted with lateral fluoroscopy, followed by using grab-[id number] technique using preservative-free normal saline, negative aspiration of CSF and blood. Injected contrast solution [2.5] mL under live fluoroscopy which showed good spread of the contrast to the posterior epidural space and to the targeted area of the injection at[ L3-4]. Injected [5] mL of mixture of preservative-free lidocaine and Kenalog [80] mg for the procedure which showed appropriate spread in the epidural space. Fate was removed, pressure dressing were applied. Patient tolerated the procedure well and was taken to the recovery. Type of Anesthesia:: Local MAC Special Medications: Lidocaine diluted to 0.5% preservative-free. Kenalog 80 mg. Isovue Description of Procedure: As above noted - Complications None
[2018-10-16 12:33] VITALS: BP 110/80; BP 133/66; PULSE 73; RESP 16; TEMP 36.4; O2SAT 99
[2018-10-16 12:40] VITALS: BP 111/74; BP 133/66; PULSE 70; RESP 16; O2SAT 98
[2018-10-16 12:45] VITALS: BP 120/71; BP 133/66; PULSE 66; RESP 16; O2SAT 97
[2018-10-16 12:50] VITALS: BP 133/66; BP 138/84; PULSE 69; RESP 16; TEMP 36.7; O2SAT 100
[2018-10-16 13:31] VITALS: BP 133/66
== END 2018-10-16 13:35 | disposition home or self-care (01) ==
LOC: SDC 10:29 → AC 10:29
PROVIDERS: Family Provider Family Medicine; PCP Family Medicine; Referring Provider Anesthesiology; Visit Provider Anesthesiology
PROC: 3E0S3BZ Introduction of Anesthetic Agent into Epidural Space, Percutaneous Approach (ICD-10-PCS; CPT 62322; principal; 2018-10-16 11:35)
DX: M48.062 Spinal stenosis, lumbar region with neurogenic claudication (principal); M51.16 Intervertebral disc disorders with radiculopathy, lumbar region; M99.53 Intervertebral disc stenosis of neural canal of lumbar region; M51.17 Intervertebral disc disorders with radiculopathy, lumbosacral region; M51.36 Other intervertebral disc degeneration, lumbar region; M51.37 Other intervertebral disc degeneration, lumbosacral region; M51.26 Other intervertebral disc displacement, lumbar region; M47.816 Spondylosis without myelopathy or radiculopathy, lumbar region; M50.320 Other cervical disc degeneration, mid-cervical region, unspecified level; D86.2 Sarcoidosis of lung with sarcoidosis of lymph nodes; G89.4 Chronic pain syndrome; M19.071 Primary osteoarthritis, right ankle and foot; M79.2 Neuralgia and neuritis, unspecified; M19.072 Primary osteoarthritis, left ankle and foot; M76.72 Peroneal tendinitis, left leg; M79.7 Fibromyalgia; I10 Essential (primary) hypertension; E78.00 Pure hypercholesterolemia, unspecified; K58.9 Irritable bowel syndrome, unspecified; K21.9 Gastro-esophageal reflux disease without esophagitis; Z78.0 Asymptomatic menopausal state; Z79.899 Other long term (current) drug therapy; Z85.3 Personal history of malignant neoplasm of breast; Z85.828 Personal history of other malignant neoplasm of skin
CPT/HCPCS: 62323; 64483; 72100; J7120; A4216

== ENCOUNTER 2018-10-19 13:00 | Outpatient (RCR) | payer MEDICARE, OTHER, SELFPAY ==
--- NOTE | 2018-08-06 13:21 | HP.PTEVAL ---
Patient's Visit Information CHRISTINE ABRAMS is a 68 year old F referred to Physical Therapy by Brenda Villagomez MD with a diagnosis of CERVICAL AND LUMBAR DDD. Date of Evaluation: 08/06/18 Physical Therapist: Sandy Medina PT, Cert MDT - Visit Plan Frequency: 2-3x /Week Duration: 4-6 Weeks Plan: POSTURE CORRECTION/STRENGTHENING, INSTRUCTION IN APPROPRIATE BODY MECHANICS AND ACTIVITY MODIFICATIONS. DLS STARTING WITH A NEUTRAL SPINE PROGRESSING ROM TOLERATED. GERONIMO LE ROM, STRETCHING AND STRENGTHENING. HEP INSTRUCTION. - Subjective Findings: Work/Leisure: RETIRED. EXERCISES WITH [employer] [facility] AND IS A MEMBER COMING ABOUT 3 TIMES A WEEK UNTIL FEB WHEN REMODELING THEN SURGERY IN APR 2018 THEN PAIN BECAME SEVERE WITHOUT MEDS. LIKES TO GOLF. 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 THIS WORK INVOLVES SOME BENDING, LIFTING AND TWISTING. Disability: NO. Present symptoms: NECK PAIN. LOW BACK PAIN. PATIENT DENIES GERONIMO UE PAIN, NUMBNESS AND TINLGING. LEFT THIGH, LEG AND FOOT PAIN AND TINGLING. NO PAIN RIGHT AT THIS MOMENT. THE PAIN IN MY NECK IS NEVER THAT BAD. Present since: MID TO END OF JUN 2018. Pain Scale: WORST 5/10, LEAST 0/10. Currently: 0/10. Commenced as a result of: WENT OFF MEDICINE. PATIENT REPORTS SHE STARTED WEANING OFF OF GABAPENTIN AND MOBIC THROUGH DR. VILLAGOMEZ STARTING IN APRIL AND GETTING COMPLETELY OFF BY JUNE. HER PAIN INCREASED PROGRESSIVELY SHE WEANED OFF UNTIL SHE WAS IN EXTREEME PAIN BY ABOUT MID JUNE. SHE DOES NOT KNOW WHY HE HAD HER START WEANING OFF. HE PUT HER BACK ON MEDS JUL 17 2018 AND SHE PROGRESSIVELY IMPROVED. SHE REPORTS DR. VILLAGOMEZ THEN ORDERED PT AND TOLD HER THAT IF THE THERAPY DOESN'T HELP HE WILL DO INJECTIONS AGAIN BUT PATIENT REPORTS SHE IS MANAGING WITH 2 GABAPENTIN AND ONE MOBIC A DAY AND SHE REALLY DOESN'T WANT TO GO THROUGH THE INJCTIONS AGAIN. PATIENT REPORTS SHE IS WILL TO TRY PT TO STRENGTHEN IN HOPES OF HELPING TO MANAGE HER PAIN. ALTHOUGH SHE ISN'T IN PAIN AT THE MOMENT SHE WILL BE ACHY BY EVENING. Symptoms at onset: PAIN IN WHOLE BODY. Worse: BEING ON FEET FOR PROLONGED PERIOD OF TIME. 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 Better: HEAT ON LOW BACK. Disturbed sleep: NO. Previous history/Previous treatment: ABOUT 10 YEAR HISTORY OF EPISODIC LOW BACK PAIN. NECK PAIN JUST STARTED WITHIN THE LAST 6 MONTHS. MASSOTHERAPY. SERIES OF 4 BINH'S IN 2011 FOR LOW BACK. PHYSICAL THERAPY FOR LEGS/FEET IN PAST. NO SPINE SURGERY. CHIROPRACTOR 2013 ABOUT 3 MONTHS. NO NECK TREATMENTS. Coughing/sneezing/straining: NO. Gait: PATIENT REPORTS HER WALKING IS NOT GETTING BETTER AND NOT BACK TO NORMAL. STATES SHE FEELS OFF BALANCE AND IS NOT SURE FOOTED. SHE REPORTS THESE PROBLEMS HAVE BEEN GOING ON ABOUT 3 YEARS. Difficulty initiating urinatin: NO. Accidents: NO. Falls: APR 2018 - GETTING OUT OF SHOWER SLIPPED AND FELL - LEFT HAND FX. Unexplained weight loss: NO. Imaging: RECENT X-RAYS JUN 2018: Normal cervical lordosis. There is multi-level endplate spondylosis. There is multi-level degenerative disc disease with multilevel disc space. narrowing. There is 2 mm anterolisthesis of C3 on C4 and minor. retrolisthesis of C5 on C6. There are degenerative changes of the facet. articulations. There is moderately severe osseous impingement on the right. C3-4 intervertebral neural foramen. Moderate osseous narrowing seen on the. right at C5-6. There is mild narrowing of the right C4-5 and left C5-6. intervertebral neuroforamina. LUMBAR: There is multilevel endplate spondylosis of the lumbar vertebrae, most. prominent at L4-5 and L5-S1 where there is also posterior endplate. spurring. There is multi-level degenerative disc disease with multi-level. disc space narrowing, also most prominent at L4-5 and L5-S1. There is no. demonstrated osseous destructive lesion or acute fracture. There are. degenerative arthroses of the lumbar facets on the right from L3 to S1 and. on the left from L4 to S1. PMH: H/O BREAST CA - MASTECTOMY AND CHEMO 2007. SARCOIDOSIS. OCTOBER 2017 LEFT WRIST RECONSTRUCTION. APR 2018 PLASTIC SURGERY FOR BREAST IMPRLANT. RIGHT TKR 2013. HTN. NOT DIABETIC. NO HEART DZ. SKIN CANCER. 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 - Objective Sitting/Standing Posture: POOR. FORWARD HEAD. ROUNDED SHOULDERS. SLOUCHED LOW BACK. NO TORTICOLLIS. Lordosis: REDUCED. Lateral shift: NO. Relevant shift: N/A. Active Correction of posture: BETTER. Other Observations: INDEP GAIT INTO PT WITHOUT ANY ASSISTIVE DEVICES OR LOB. INDEP TRANSFER SIT TO STAND WITHOUT UE ASSIST. Motor deficit: GERONIMO UE AND LE STRENGTH GROSSLY 5/5 WITH MMT'ING EXCEPT HIPS GRADED 4/5 AND GERONIMO SCAPULA GRADED 4/5. Sensory deficit: NO (FEET NT). ROM deficit: GERONIMO UE'S AND LE'S WFL. Dural Signs: NEGATIVE. Lumbar mvmt loss: flex - NIL. ext - MOD. R SG - MOD. L SG - MOD. PATIENT DENIES INCREASED PAIN WITH LUMBAR ROM TESTING ALL PLANES. Core strength: POOR. CERVICAL MVMT LOSS: FLEX - NIL, PRO - NIL, EXT - MIN, RET - MOD, GERONIMO ROT - MIN, GERONIMO SB - MIN. PATIENT REPORTS MILD GERONIMO NECK SORENESS WITH ROM TESTING. - Goals Goal 1:: DECREASE C/O NECK AND BACK PAIN Goal Time Frame: 4-6 Weeks Goal 2:: IMPROVE STANDING, SITTING, RECREATIONAL, HOMEMAKING AND INDEP EX FUNCTION Goal Time Frame: 4-6 Weeks Goal 3:: INSTRUCT IN PROPHYLAXIS AND SUCCESSFULLY TRANSITION BACK TO INDEP EX A HEALTH AND WELLNESS MEMBER. Goal Time Frame: 4-6 Weeks - Rehabilitation Potential Rehabilitation Potential: Fair - Anticipated Interventions Patient/Client Instruction: Educate patient on: Condition, Plan of Care, Risk Factors, Benefits of Fitness Program For the Purpose of:: To improve self management Therapeutic Exercise to Include: Strength training, Body mechanics, Postural training, Dynamic Lumbar Stabilization, Scapular Strength/Stabilization Comment: PATIENT PREFERS NOT TO DO AQUATIC THERAPY For the Purpose of:: To decrease pain, To improve muscle performance and motor function, To increase tolerance to activity/condition/position, To improve ability of physical actions for home/community/work/leisure, To improve gait and locomotor functions Thank you for the opportunity to evaluate your patient. For Medicare and Medicare HMO plans, please review the plan of care and approve it. It will need to be FAXED BACK to us at [phone] for Medicare purposes. For Medicare only, by signing this I certify the plan of care. Please let me know if there are questions or concerns regarding this plan of care. Physician Signature: Date:
--- NOTE | 2018-09-22 14:50 | HP.PTREVAL ---
Brenda Martinez MD, It has been my pleasure to treat CHRISTINE ABRAMS over the last 11 visits for CERVICAL AND LUMBAR DDD. Please see the progress note below for an update on the physical therapy plan of care! Subjective: SEE LUMBAR MRI IN [facility] EMR WITH MULTI-LEVEL FINDINGS. PATIENT REQUESTING AN US TREATMENT TODAY. CLERICAL RECEPTIONIST CALLED PATIENT WITH RESULTS AND TOLD HER ABOUT THE STENOSIS. PATIENT REPORTS SHE HAS TO LOSE WEIGHT IN CASE SHE NEEDS SURGERY. NO RESTRICTIONS GIVEN. HAS NOT MET WITH DIETITIAN YET. HASN'T STARTED WELLNESS CLASSES YET. ON FEET ALL MORNING AND VOLUNTEERED - NOW A LOT OF LOW BACK PAIN AND HASN'T HAD THIS MUCH PAIN FOR A LONG TIME. PATIENT REPORTS DR. MENSAH CLERICAL RECEPTIONIST STRONGLY RECOMMENDED AQUATIC THERAPY AGAIN. SHE IS RELUCTANT BUT WILL DOING TO DO IT. INJECTION ALSO RECOMMENDED AND INJECTION PENDING NEXT WEEK. Objective/Function: US TODAY AT PATIENTS REQUEST AND DUE TO EXACERBATION OF SX'S TODAY. PATIENT REPORTED DECREASED PAIN POST SESSION. PATIENT COMMUNICATED A GOOD UNDERSTANDING OF ALL INSTRUCTIONS AFTER GIVEN. PATIENT WITH INCREASED ANTALGIC GAIT AND TRANSFERS TODAY BUT STILL INDEP. ALTHOUGH EXACERBATED TODAY STILL IMPROVED OVER-AL. OSWESTRY SCORE WORSE TODAY. Plan Plan: AQUATIC THERAPY - START EASY FIRST VISIT OR TWO THEN OK TO ADVANCE EX'S TO CHALENGE PATIENT RATHER QUICKLY BUT MONITOR SX'S CLOSELY. PATIENT REQUESTING AGGRESSIVE WATER THERAPY. WANTS TO INCREASE HR TO AIDE WEIGHT LOSS INCONJUNCTION WITH DIET AND OTHER EX. AQUATIC THERAPY FOR PAIN RELEIF, POSTURE CORRECTION/STRENGTHENING, INSTRUCTION IN APPROPRIATE BODY MECHANICS AND ACTIVITY MODIFICATIONS. DLS STARTING WITH A NEUTRAL SPINE PROGRESSING ROM TOLERATED. GERONIMO LE ROM, STRETCHING AND STRENGTHENING. HEP INSTRUCTION. Goals Goal 1:: DECREASE C/O NECK AND BACK PAIN Goal Time Frame: 4-6 Weeks Goal Progress: Progressing Goal 2:: IMPROVE STANDING, SITTING, RECREATIONAL, HOMEMAKING AND INDEP EX FUNCTION Goal Time Frame: 4-6 Weeks Goal Progress: Progressing Goal 3:: INSTRUCT IN PROPHYLAXIS AND SUCCESSFULLY TRANSITION BACK TO INDEP EX A HEALTH AND WELLNESS MEMBER. Goal Time Frame: 4-6 Weeks Goal Progress: Progressing Anticipated Interventions Patient/Client Instruction: Educate patient on: Condition, Plan of Care, Risk Factors, Benefits of Fitness Program For the Purpose of:: To improve self management Therapeutic Exercise to Include: Strength training, Body mechanics, Postural training, Dynamic Lumbar Stabilization, Scapular Strength/Stabilization Comment: PATIENT PREFERS NOT TO DO AQUATIC THERAPY For the Purpose of:: To decrease pain, To improve muscle performance and motor function, To increase tolerance to activity/condition/position, To improve ability of physical actions for home/community/work/leisure, To improve gait and locomotor functions Please do not hesitate to contact me at [phone] by phone or if you have questions or concerns regarding this new plan of care! Sincerely, Sandy Medina, PT, Cert MDT
--- NOTE | 2018-10-19 14:01 | HP.PTDCSUM ---
HP - PT D/C Summary It has been my pleasure to treat CHRISTINE ABRAMS under orders from Brenda Martinez MD, for the diagnosis of CERVICAL AND LUMBAR DDD for a total of 19 visit(s). Discharge Date: Please see the following information for a summary of their discharge status. - Subjective Subjective: PATIENT REPORTS SHE IS GETTING BETTER. SHE IS HAPPY TO REPORT THAT SHE DOESN'T HAVE TO PULL HERSELF UP USING THE BANISTER MUCH NOW. GETTING STRONGER WITH WATER THERAPY AND WATER THERAPY HAS HELPED PAIN AND FEELING IN FEET TOO. WANTS TO GET BACK TO SILVER SNEAKERS TOO. RECEIVED AND INJECTION LAST FRIDAY AND THAT HAS HELPED A LOT WITH HER PAIN - PAIN IS GONE. SICK WITH A COLD OVER THE WEEKEND THOUGH. 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 PATIENT REPORTS SHE IS VERY HAPPY WITH WHERE SHE IS AT. WILL FOLLOW UP WITH - Pain NECK Pain Intensity (Out of 10): 0 LOW BACK Pain Intensity (Out of 10): 0 LLE Pain Intensity (Out of 10): 0 LEFT FOOT Pain Intensity (Out of 10): 0 - Overall Improvement % Improvement: 110 - Objective Objective/Function: ALL GOALS MET. UPON EXAM TODAY, PATIENT DENIES PAIN AND AMBULATES INDEP'LY INTO PT WITHOUT ANY ASSISTIVE DEVICES OR LOB. Motor deficit: GERONIMO UE AND LE STRENGTH GROSSLY 5/5 WITH MMT'ING EXCEPT HIPS GRADED 4/5. Sensory deficit: NO (FEET NOT THOUROUGHLY TESTED). ROM deficit: WFL. Dural Signs: NEGATIVE. Lumbar mvmt loss: flex - NIL. ext - MOD. R SG - MOD. L SG - MIN. PATIENT DENIES INCREASED LBP WITH LUMBAR ROM TESTING ALL PLANES. Core strength: POOR. BACK OSWESTRY SCORE HAS IMPROVED FROM 13 TO 7 OR BETTER BECAUSE HAS NOT TRIED TO LIFT ANYTHING OTHER THAN VERY LIGHT WEIGHTS. - Goals Goal 1:: DECREASE C/O NECK AND BACK PAIN Goal Progress: Progressing Goal 2:: IMPROVE STANDING, SITTING, RECREATIONAL, HOMEMAKING AND INDEP EX FUNCTION Goal Progress: Progressing Goal 3:: INSTRUCT IN PROPHYLAXIS AND SUCCESSFULLY TRANSITION BACK TO INDEP EX A HEALTH AND WELLNESS MEMBER. Goal Progress: Progressing - Plan Plan: D/C TO INDEP HEP AND SILVER SNEAKER CLASSES ALONG WITH PAIN MGMT FOLLOW UP AND MASSAGE NEEDED. PATIENT IS ALSO SEEING A NUTRITIONALIS AT [facility]. PATIENT IS AGREEABLE TO DISCHARGE. - D/C Information If there are questions or concerns regarding this patient's physical therapy, please feel free to call me at [phone]. Thank you for the referral of this patient. Sincerely, Sandy Medina, PT, Cert MDT
== END 2018-10-19 19:00 | disposition home or self-care (01) ==
LOC: PT 13:00
PROVIDERS: Family Provider Family Medicine; PCP Family Medicine; Visit Provider Anesthesiology
DX: M51.36 Other intervertebral disc degeneration, lumbar region (principal); M50.320 Other cervical disc degeneration, mid-cervical region, unspecified level
CPT/HCPCS: 97035; 97113; 97163; 97530

== ENCOUNTER 2018-10-23 07:30 | Outpatient (RCR) | payer MEDICARE, OTHER, SELFPAY | END 2018-10-23 23:59 | LOC: NS 07:30 | PROVIDERS: Family Provider Family Medicine; PCP Family Medicine; Visit Provider Family Medicine | DX: E66.9 Obesity, unspecified (principal); Z68.41 Body mass index [BMI] 40.0-44.9, adult; Z71.3 Dietary counseling and surveillance | CPT/HCPCS: 97802; 97803 ==

== ENCOUNTER → 2018-11-03 | Outpatient (CLI) | payer MEDICARE, OTHER, SELFPAY ==
--- NOTE | 2018-11-03 | EMB_PTH ---
PATIENT: CHRISTINE ABRAMS [facility] U[facility][id number] AGE/SX: 68/F ROOM: RE11/03/[address]: RICKY Álvarez : 1950 BED: DIS: 11/03/2018 SPEC #: [id number] RECD: 11/03/18 12:33 STATUS: SHELDON REEverton #: [id number] JOHN: 11/03/18 00:[address]: Vane Eastman NP DEPT: SURGICAL PATHOLOGY RECD BY: Dhaval Hardy ENTERED: 11/03/18 13:57 SP TYPE: ENDOM BX/C SAM DR: Dr. Luther Willams MD Tissues: Endometrium, NOS Procedures: Surgery Specimen Level IV HEADER OPERATION: Endometrial biopsy PRE-OP DIAGNOSIS: Abnormal uterine bleeding TISSUE SUBMITTED: Endometrial biopsy MICROSCOPIC DIAGNOSIS Endometrial biopsy: Strips and superficial fragments of inactive endometrium with glandular and stromal breakdown. Negative for hyperplasia. SJ:kalen 11/04/18 COMMENT Clinical correlation and appropriate follow up are necessary. MICROSCOPIC DESCRIPTION Slides are reviewed. GROSS DESCRIPTION Received in fixative is one container labeled with the patient's name and designated EMB. The specimen consists of multiple fragments of hemorrhagic soft tissue that in aggregate measure 2.5 x 0.5 x 0.1 cm. The specimen is totally submitted in one cassette. / SJ:kalen 11/03/18 TC:5 CPT: 61795
[2018-11-03 10:49] VITALS: BMI 42.5
== END | disposition home or self-care (01) ==
LOC: LABSPEC 12:58
PROVIDERS: Family Provider Family Medicine; PCP Family Medicine; Referring Provider Nurse Practitioner Women's Health; Visit Provider Nurse Practitioner Women's Health
DX: N93.9 Abnormal uterine and vaginal bleeding, unspecified (principal)
CPT/HCPCS: 88305

== ENCOUNTER → 2018-11-11 13:15 | Outpatient (CLI) | payer MEDICARE, OTHER, SELFPAY ==
[2018-11-03 10:49] VITALS: BMI 42.5
--- NOTE | 2018-11-11 13:18 | US_ITS ---
STUDY: ULTRASOUND OF THE FEMALE PELVIS - COMPLETE REASON FOR EXAM: Female, 68 years old. Postmenopausal bleeding. LMP: The patient is postmenopausal. TECHNIQUE: Transabdominal and Transvaginal TECHNICAL QUALITY: Adequate. COMPARISON: None. FINDINGS: The uterus is anteverted and is in a midline position. The uterus measures 6.1 cm x 3.9 cm x 3.3 cm. There is a Nabothian cyst of the cervix. The endometrium is thickened and measures 6.2 mm in thickness, and is hyperechoic. There is no demonstrated endometrial mass. There is no demonstrated myometrial mass. I.U.D. - The patient does not have an I.U.D. The right ovary is non-visualized. The left ovary is non-visualized. The patient is status post bilateral oophorectomy. There is no fluid in the cul-de-sac. The pre void volume of the bladder was 159 ml. Polycystic ovary disease: No. US/Pelvic (Non ) IMPRESSION: Endometrial thickening. The patient is status post bilateral oophorectomy. Electronically Signed: Manav Joseph, at 13:21 EDT , Service support ,
--- NOTE | 2018-11-11 13:18 | US_ITS ---
STUDY: ULTRASOUND OF THE FEMALE PELVIS - COMPLETE REASON FOR EXAM: Female, 68 years old. Postmenopausal bleeding. LMP: The patient is postmenopausal. TECHNIQUE: Transabdominal and Transvaginal TECHNICAL QUALITY: Adequate. COMPARISON: None. FINDINGS: The uterus is anteverted and is in a midline position. The uterus measures 6.1 cm x 3.9 cm x 3.3 cm. There is a Nabothian cyst of the cervix. The endometrium is thickened and measures 6.2 mm in thickness, and is hyperechoic. There is no demonstrated endometrial mass. There is no demonstrated myometrial mass. I.U.D. - The patient does not have an I.U.D. The right ovary is non-visualized. The left ovary is non-visualized. The patient is status post bilateral oophorectomy. There is no fluid in the cul-de-sac. The pre void volume of the bladder was 159 ml. Polycystic ovary disease: No. US/Transvaginal Non- IMPRESSION: Endometrial thickening. The patient is status post bilateral oophorectomy. Electronically Signed: Manav Joseph, at 13:21 EDT , Service support ,
== END ==
PROVIDERS: Family Provider Family Medicine; PCP Family Medicine; Referring Provider Obstetrics & Gynecology; Visit Provider Obstetrics & Gynecology
DX: N95.0 Postmenopausal bleeding (principal)
CPT/HCPCS: 76830; 76856

== ENCOUNTER 2018-12-25 09:00 | Outpatient (RCR) | payer MEDICARE, OTHER, SELFPAY ==
[2018-11-03 10:49] VITALS: BMI 42.5
--- NOTE | 2018-11-25 16:46 | HP.PTEVAL ---
Patient's Visit Information CHRISTINE ABRAMS is a 68 year old F referred to Physical Therapy by Brenda Villagomez MD with a diagnosis of LUMBAR STENOSIS WITH CLAUDICATION AND RADICULOPATHY.. Date of Evaluation: 11/25/18 Physical Therapist: Sandy Medina, PT, Cert MDT - Visit Plan Frequency: 2-3x /Week Duration: 4-6 Weeks Plan: AQUATIC THERAPY FOR PAIN RELEIF, POSTURE CORRECTION/STRENGTHENING, INSTRUCTION IN APPROPRIATE BODY MECHANICS AND ACTIVITY MODIFICATIONS. DLS STARTING WITH A NEUTRAL SPINE PROGRESSING ROM TOLERATED. GERONIMO LE ROM, STRETCHING AND STRENGTHENING. HEP INSTRUCTION. - Subjective Findings: Work/Leisure: RETIRED. LIKES TO GOLF BUT HASN'T RECENTLY. 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 THIS WORK INVOLVES SOME BENDING, LIFTING AND TWISTING. Disability: NO. Present symptoms: PATIENT REPORTS HER NECK IS GOOD NOW. LOW BACK PAIN. PATIENT DENIES GERONIMO UE PAIN, NUMBNESS AND TINLGING. GERONIMO LEG AND FOOT PAIN, NUMBNESS AND TINGLING. Present since: MID TO END OF JUN 2018. GOT BETTER WITH PHYSICAL THERAPY THEN FLARED UP AGAIN ABOUT 3 WEEKS AGO POSSIBLY FROM OVER-DOING IT AT [facility]. TRYING TO CUT BACK NOW. Pain Scale: WORST 10 OR 11/10, LEAST 4/10. Currently: 4-5/10 (MOBIC AND GABAPENTIN TWICE ALREADY TODAY. PATIENT WAS OFF OF MOBIC AND GABAPENTIN BY THEN END OF THE LAST EPISODE OF CARE WITH PT APPROX 10/19/18). Commenced as a result of: WENT OFF MEDICINE. PATIENT REPORTS SHE STARTED WEANING OFF OF GABAPENTIN AND MOBIC THROUGH DR. VILLAGOMEZ STARTING IN APRIL AND GETTING COMPLETELY OFF BY JUNE. HER PAIN INCREASED PROGRESSIVELY SHE WEANED OFF UNTIL SHE WAS IN EXTREEME PAIN BY ABOUT MID JUNE. SHE DOES NOT KNOW WHY HE HAD HER START WEANING OFF. HE PUT HER BACK ON MEDS JUL 17 2018 AND SHE PROGRESSIVELY IMPROVED. SHE REPORTS DR. VILLAGOMEZ THEN ORDERED PT AND TOLD HER THAT IF THE THERAPY DOESN'T HELP HE WILL DO INJECTIONS AGAIN. THE PAIN STILL GETS WORSE THE DAY PROGRESSES BUT HER FEET ARE BAD IN THE MORNING TOO UNTIL SHE GETS MOVING AROUND. Symptoms at onset: PAIN IN WHOLE BODY. Worse: BEING ON FEET FOR PROLONGED PERIOD OF TIME. 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 Better: HEAT ON LOW BACK. POOL THERAPY. ULTRASOUND. Disturbed sleep: NO. Previous history/Previous treatment: ABOUT 10 YEAR HISTORY OF EPISODIC LOW BACK PAIN. NECK PAIN STARTED MORE RECENTLY BUT IS BETTER NOW. MASSOTHERAPY. SERIES OF 4 BINH'S IN 2011 FOR LOW BACK. PHYSICAL THERAPY FOR LEGS/FEET IN PAST. NO SPINE SURGERY. CHIROPRACTOR 2013 ABOUT 3 MONTHS. NO NECK TREATMENTS. Coughing/sneezing/straining: NO. Gait: PATIENT REPORTS HER WALKING IS NOT GETTING BETTER AND NOT BACK TO NORMAL. PATIENT REPORTS THERE HAVE BEEN TWO TIMES IN THE LAST FEW WEEKS THAT SHE WENT TO MOVE AND IT WAS LIKE SHE WAS DRUNK. SHE REPORTS HER FOOTING GOT BETTER WITH POOL THERAPY LAST TIME THOUGH AND SHE IS HOPING IT DOES AGAIN. NO RECENT FALLS BUT DIFFICULTY WALKING HAS BEEN GOING ON FOR ABOUT 3 YEARS. Difficulty initiating urinatin: NO. Accidents: NO. Falls: APR 2018 - GETTING OUT OF SHOWER SLIPPED AND FELL - LEFT HAND FX. Unexplained weight loss: NO. Imaging: RECENT X-RAYS JUN 2018: Normal cervical lordosis. There is multi-level endplate spondylosis. There is multi-level degenerative disc disease with multilevel disc space. narrowing. There is 2 mm anterolisthesis of C3 on C4 and minor. retrolisthesis of C5 on C6. There are degenerative changes of the facet. articulations. There is moderately severe osseous impingement on the right. C3-4 intervertebral neural foramen. Moderate osseous narrowing seen on the. right at C5-6. There is mild narrowing of the right C4-5 and left C5-6. intervertebral neuroforamina. LUMBAR: There is multilevel endplate spondylosis of the lumbar vertebrae, most. prominent at L4-5 and L5-S1 where there is also posterior endplate. spurring. There is multi-level degenerative disc disease with multi-level. disc space narrowing, also most prominent at L4-5 and L5-S1. There is no. demonstrated osseous destructive lesion or acute fracture. There are. degenerative arthroses of the lumbar facets on the right from L3 to S1 and. on the left from L4 to S1. PMH: H/O BREAST CA - MASTECTOMY AND CHEMO 2007. SARCOIDOSIS. OCTOBER 2017 LEFT WRIST RECONSTRUCTION. APR 2018 PLASTIC SURGERY FOR BREAST IMPRLANT. RIGHT TKR 2013. HTN. NOT DIABETIC. NO HEART DZ. SKIN CANCER. 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 OTHER: PATIENT REPORTS SHE DID NOT FOLLOW THROUGH WITH INDEP WATER EX AFTER DISCHARGE FROM LAST EPISODE OF CARE WITH PT HERE AT [facility] AND NOW SHE FEELS LIKE SHE IS BACK TO [facility]. 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 SHE REPORTS SHE IS GOING TO GO AND GET INTO THE WATER AT [facility] TODAY FOR THE FIRST TIME AND TRY WALKING ON THE TREADMILL. SHE STATES SHE JUST WANTS TO TRY IT TO SEE IF SHE GETS GOOD EXERCISE. SHE STATES SHE MIGHT WANT TO DO IT IN ADDITION TO AQUATIC THERAPY. SHE WOULD LIKE TO DO AQUATIC THERAPY WITH US AGAIN TO RE-START HER PRIOR EX'S AND HOPEFULLY PROGRESS. SECOND BINH PENDING END OF NOVEMBER 2018. - Objective Sitting/Standing Posture: POOR. FORWARD HEAD. ROUNDED SHOULDERS. SLOUCHED LOW BACK. NO TORTICOLLIS. Lordosis: REDUCED. Lateral shift: NO. Relevant shift: N/A. Active Correction of posture: BETTER. Other Observations: INDEP GAIT INTO PT WITHOUT ANY ASSISTIVE DEVICES OR LOB. INDEP TRANSFER SIT TO STAND WITHOUT UE ASSIST. SIT TO STAND TRANSFER WITHOUT UE'S IS DIFFICULT AND PAINFUL. Motor deficit: GERONIMO UE AND LE STRENGTH GROSSLY 5/5 WITH MMT'ING EXCEPT HIPS GRADED 4/5 AND GERONIMO SCAPULA GRADED 4/5. Sensory deficit: NO (FEET NT). ROM deficit: GERONIMO UE'S AND LE'S WFL. Dural Signs: POSITIVE GERONIMO LE'S. Lumbar mvmt loss: flex - MIN. ext - SEB. R SG - SEB. L SG - MOD. PATIENT C/O INCREASED PAIN WITH LUMBAR ROM TESTING ALL PLANES TODAY. Core strength: POOR. CERVICAL MVMT LOSS: FLEX - NIL, PRO - NIL, EXT - MIN, RET - MOD, GERONIMO ROT - MIN, GERONIMO SB - MIN. PATIENT REPORTS MILD GERONIMO NECK SORENESS WITH ROM TESTING. PALPATION: PATIENT IS TENDER WITH PALPATION TODAY THROUGH OUT THE LUMBOSACRAL REGIONS BUT ESPECIALLY AT THE L45S1 REGION. TREATMENT: US AT 1.5 W/CM2 X 8 MIN TO GERONIMO LUMBAR REGION WITH PATIENT PRONE TO DECREASE PAIN AND INFLAMMATION TODAY. PATIENT REPORTED 50 TO 60% PAIN REDUCTION AFTER US TREATMENT TODAY. - Goals Goal 1:: DECREASE C/O BACK AND GERONIMO LE SX'S. Goal Time Frame: 4-6 Weeks Goal 2:: IMPROVE PERSONAL CARE, LIFTING, STANDING, SITTING, RECREATIONAL, HOMEMAKING AND INDEP EX FUNCTION. [ End ] Goal Time Frame: 4-6 Weeks Goal 3:: INSTRUCT IN PROPHYLAXIS Goal Time Frame: 4-6 Weeks - Rehabilitation Potential Rehabilitation Potential: Fair - Anticipated Interventions Patient/Client Instruction: Educate patient on: Condition, Plan of Care, Risk Factors, Benefits of Fitness Program For the Purpose of:: To improve self management Therapeutic Exercise to Include: Strength training, Body mechanics, Postural training, Flexibilty training, In an aquatic setting, Dynamic Lumbar Stabilization For the Purpose of:: To decrease pain, To increase ROM, To improve muscle performance and motor function, To increase tolerance to activity/condition/position, To improve ability of physical actions for home/community/work/leisure, To improve gait and locomotor functions Thank you for the opportunity to evaluate your patient. For Medicare and Medicare HMO plans, please review the plan of care and approve it. It will need to be FAXED BACK to us at [phone] for Medicare purposes. For Medicare only, by signing this I certify the plan of care. Please let me know if there are questions or concerns regarding this plan of care. Physician Signature: Date:
--- NOTE | 2018-12-25 17:14 | HP.PTDCSUM_ITS ---
HP - PT D/C Summary It has been my pleasure to treat CHRISTINE ABRAMS under orders from Brenda Martinez MD, for the diagnosis of LUMBAR STENOSIS WITH CLAUDICATION AND RADICULOPATHY. for a total of 8 visit(s). Discharge Date: 12/25/18 Please see the following information for a summary of their discharge status. - Subjective Subjective: BINH BEFORE THIS EPISODE OF CARE WITH PT DID NOT HELP. TRYING ANOTHER ONE TODAY WITH DR. MARTINEZ AGAIN. FALL 12/10/18 IN KITCHEN WHEN LOST BALANCE. HURT RIGHT KNEE. ORTH ORION'T PENDING NEXT WEEK. 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 SPOKE WITH DR. KATTY MENSAH OFFICE LAST WEEK AND WAS TOLD NOT A CANDIDATE FOR BACK SURGERY BUT SHE IS NOT SURE BASED ON WHAT. BACK AND LEG PAIN CONTINUING TO WORSEN DESPITE THERAPY. HAS BEEN GOING TO [facility] ONCE A WEEK AND WALKING ON TREADMILL IN WATER - NO EFFECT? - Pain Lumbar Spine Pain Intensity (Out of 10): 7 R knee Pain Intensity (Out of 10): 6 BLAT LEs Pain Intensity (Out of 10): 0 - Objective Objective/Function: INDEP GAIT INTO PT WITHOUT ANY ASSISTIVE DEVICES OR LOB. INDEP TRANSFER SIT TO STAND WITHOUT UE ASSIST. SIT TO STAND TRANSFER WITHOUT UE'S IS DIFFICULT AND PAINFUL. Motor deficit: GERONIMO UE AND LE STRENGTH GROSSLY 5/5 WITH MMT'ING EXCEPT HIPS GRADED 4/5 AND GERONIMO SCAPULA GRADED 4/5. Sensory deficit: NO (FEET NT). ROM deficit: GERONIMO UE'S AND LE'S WFL. Dural Signs: POSITIVE GERONIMO LE'S. Lumbar mvmt loss: flex - MIN. ext - SEB. R SG - SEB. L SG - MOD. PATIENT C/O INCREASED PAIN WITH LUMBAR ROM TESTING ONLY WITH LEFT SG TESTING TODAY. Core strength: POOR. CERVICAL MVMT LOSS: FLEX - NIL, PRO - NIL, EXT - MIN, RET - MOD, GERONIMO ROT - MIN, GERONIMO SB - MIN. PATIENT DENIES ANYTHING OTHER THAN STIFFNESS WITH CERVICAL ROM TESTING TODAY. PALPATION: PATIENT IS TENDER WITH PALPATION TODAY IN THE LEFT LUMBAR PARASPINAL REGION. LUMBAR OSWESTRY SCORE HAS WORSENED FROM 14 TO 21. - Goals Goal 1:: DECREASE C/O BACK AND GERONIMO LE SX'S. Goal Progress: Not Progressing Goal 2:: IMPROVE PERSONAL CARE, LIFTING, STANDING, SITTING, RECREATIONAL, HO MEMAKING AND INDEP EX FUNCTION. [ End ] Goal Progress: Not Progressing Goal 3:: INSTRUCT IN PROPHYLAXIS Goal Progress: Not Progressing - Plan Plan: D/C DUE TO LACK OF PROGRESS. PATIENT AGREEABLE. - D/C Information If there are questions or concerns regarding this patient's physical therapy, please feel free to call me at [phone]. Thank you for the referral of this patient. Sincerely, Sanyd Medina, PT, Cert MDT
== END 2018-12-25 19:00 | disposition home or self-care (01) ==
LOC: PT 09:00
PROVIDERS: Family Provider Family Medicine; PCP Family Medicine; Referring Provider Anesthesiology; Visit Provider Anesthesiology
DX: M48.062 Spinal stenosis, lumbar region with neurogenic claudication (principal); M54.16 Radiculopathy, lumbar region
CPT/HCPCS: 97035; 97113; 97162; 97530

== ENCOUNTER 2018-12-25 13:02 | Day surgery (SDC) | payer MEDICARE, OTHER, SELFPAY ==
[2018-11-03 10:49] VITALS: BMI 42.5
[2018-12-25 13:35] VITALS: BP 131/72; PULSE 85; RESP 20; TEMP 36.9; O2SAT 99; BMI 42.2
--- NOTE | 2018-12-25 14:10 | RAD_ITS ---
PROCEDURE: Lumbar epidural block. DATE OF EXAMINATION: December 25, 2018. INDICATION: Female, 68 years old. Chronic low back pain. FLUOROSCOPY TIME (if supplied): (0:12) minutes/seconds. 2 coned down fluoroscopic views were obtained. The spinal needle is seen at the L4-L5 level. RAD/Spine 1 View Any Level IMPRESSION: Fluoroscopic images provided for L4-L5 epidural block. Electronically Signed: Manav Joseph, at 14:02 EDT , Service support ,
--- NOTE | 2018-12-25 14:16 | OP.PCM_ITS ---
Problem List (1) Intervertebral disc disorder with radiculopathy of lumbar region Status: Acute (2) Spinal stenosis of lumbar region with neurogenic claudication Status: Acute (3) Spinal stenosis of lumbar region with neurogenic claudication Status: Acute (4) Intervertebral disc stenosis of neural canal of lumbar region Status: Acute (5) Intervertebral disc stenosis of neural canal of lumbar region Status: Acute (6) Other intervertebral disc displacement, lumbar region Status: Acute (7) Other intervertebral disc displacement, lumbar region Status: Acute (8) Intervertebral disc disorder with radiculopathy of lumbar region Status: Acute Report of Operation Date of Procedure: 12/25/18 Pre-Operative Diagnosis: Preoperative lumbar degenerative disease with lumbar spinal stenosis and lumbar radiculopathy Post-Operative Diagnosis: Same Description of Surgical Findings:: Under sterile conditions. Patient placed in the prone position, pressure points were padded, patient was ready from the nursing and the anesthesia team. After identification of the side and the target area for the block under guided fluoroscopy, the entry site was marked with marking pen. I used Betadine for sterilization of the skin, sterile draping were applied. Using 25-gauge needle to infiltrate the skin with local anesthesia using pr eservative-free lidocaine 0.5% injected 2.5 mL at site of entry. Using guided fluoroscopy, accessed the the posterior epidural space using 18- gauge Touhy needles under midline approach, accessed the site was assisted with lateral fluoroscopy, followed by using [id number] technique using preservative-free normal saline, negative aspiration of CSF and blood. Injected contrast solution [2.5] mL under live fluoroscopy which showed good spread of the contrast to the posterior epidural space and to the targeted area of the injection at[ L4-5]. Injected [5] mL of mixture of preservative-free lidocaine and Kenalog [80] mg for the procedure which showed appropriate spread in the epidural space. [place] was removed, pressure dressing were applied. Patient tolerated the procedure well and was taken to the recovery. Type of Anesthesia:: Local MAC
--- NOTE | 2018-12-25 14:17 | DCINST_ITS ---
- Discharge Diagnoses Current Active Problems: Current Active and Chronic Problems (Last Updated 11/03/18 @ 11:09 by RICKY Álvarez) Intervertebral disc disorder with radiculopathy of lumbar region (Acute) Reason(s) for Visit for Discharge Instructions: Patient has been complaining of severe lower back pain for the past several months, she has received epidural injection in the past and has received appropriate pain relief, patient was seen in the office in the past 2 weeks and recommended to have epidural injection You will use the following diet at home:: No restrictions Your food should be the consistency of: Regular Discharge Activity: Return to Normal Activity, No Restrictions, May not drive while taking narcotic pain medications. May shower in (days): 1 May resume sexual activity in: No Restrictions Weight Bearing Status: Weight bearing as tolerated Call your doctor if your incision/area has: Continuous Slow Oozing, Sudden Increased Bleeding, Increased Pain/ Swelling, Increased Redness, Foul Smelling Discharge, Swelling at the incision site Call your doctor if you observe: Fever of 101 or Higher, Coldness, Increased Pain, Numbness or Tingling, Increased palpitations (irregular heartbeat), Calf discomfort, Uncontrolled pain Suture Line Care: Avoid Pulling/Pushing, Avoid Pinching/Bending Remove Dressing in (days):: 1 Cleanse incision/area with: Soap & Water Allergies/Adverse Reactions: Allergies lisinopril Adverse Reaction (Mild, Verified 11/03/18 10:35) H/A, FLUSHED adhesive tape Adverse Reaction (Verified 11/03/18 10:35) Rash morphine Adverse Reaction (Verified 11/03/18 10:35) Vomiting Medications to take at Discharge Calcium Carb/Vitamin D [Caltrate-600 With Vit D Tab] 1 tab PO BIDCM 08/16/13 Potassium Chloride [K-Dur] 20 meq PO BID 08/16/13 Atorvastatin Calcium [Lipitor] 20 mg PO QHS 06/06/15 Omeprazole [Prilosec] 20 mg PO TUTH 06/06/15 Amlodipine [Norvasc] 10 mg PO DAILY 08/03/15 Duloxetine Hcl [Cymbalta] 60 mg PO DAILY 03/13/17 Sulfasalazine [Azulfidine] 500 mg PO DAILY 03/13/17 Triamterene [Dyrenium] 37.5 mg PO DAILY 03/13/17 albuterol sulfate HFA 90 mcg/actuation aerosol inhaler 2 puff INHALATION Q4H PRN #18 g 08/06/17 Acetaminophen [Tylenol Tablet] 650 mg PO Q4H PRN PRN tab 05/14/18 gabapentin 100 mg capsule 300 mg PO TID cap 08/04/18 meloxicam 7.5 mg tablet 7.5 mg PO BID tab 08/04/18 mirabegron ER 25 mg tablet,extended release 24 hr 25 mg PO DAILY #30 tab 11/04/18 Primary Care Physician: Luther Willams MD [Primary Care Provider] - Test Results: Test results from this visit will be discussed in further detail at your follow- up appointment, if applicable. Please Follow Up With: Brenda Martinez MD
[2018-12-25] MEDS: Triamcinolone Acetonide 40 MG/ML Vial (15:01)
[2018-12-25 15:09] VITALS: BP 125/69; BP 131/72; PULSE 81; RESP 16; TEMP 36.3; O2SAT 99
[2018-12-25 15:15] VITALS: BP 119/69; BP 131/72; PULSE 84; RESP 18; O2SAT 96
[2018-12-25 15:20] VITALS: BP 119/72; BP 131/72; PULSE 83; RESP 16; O2SAT 97
[2018-12-25 15:26] VITALS: BP 119/60; BP 131/72; PULSE 86; RESP 16; TEMP 36.4; O2SAT 98
[2018-12-25 15:45] VITALS: BP 131/72
== END 2018-12-25 16:01 | disposition home or self-care (01) ==
LOC: SDC 13:04 → AC 13:04
PROVIDERS: Family Provider Family Medicine; PCP Family Medicine; Referring Provider Anesthesiology; Visit Provider Anesthesiology
PROC: 3E0S3BZ Introduction of Anesthetic Agent into Epidural Space, Percutaneous Approach (ICD-10-PCS; CPT 62322; principal; 2018-12-25 14:05)
DX: M51.16 Intervertebral disc disorders with radiculopathy, lumbar region (principal); M48.062 Spinal stenosis, lumbar region with neurogenic claudication; E78.00 Pure hypercholesterolemia, unspecified; K58.9 Irritable bowel syndrome, unspecified; K21.9 Gastro-esophageal reflux disease without esophagitis; Z85.828 Personal history of other malignant neoplasm of skin; Z85.3 Personal history of malignant neoplasm of breast; Z79.899 Other long term (current) drug therapy; I10 Essential (primary) hypertension; G47.30 Sleep apnea, unspecified; E66.9 Obesity, unspecified; Z68.41 Body mass index [BMI] 40.0-44.9, adult; Z71.3 Dietary counseling and surveillance
CPT/HCPCS: 62323; 64483; 72020; J7120

== ENCOUNTER → 2019-03-12 | Outpatient (CLI) | payer MEDICARE, OTHER, SELFPAY ==
[2019-03-08 11:07] VITALS: BMI 42.2
== END | disposition home or self-care (01) ==
LOC: MEDOUTP 11:18
PROVIDERS: Family Provider Family Medicine; PCP Family Medicine
DX: Z01.818 Encounter for other preprocedural examination (principal); G47.30 Sleep apnea, unspecified; D64.9 Anemia, unspecified; E07.9 Disorder of thyroid, unspecified

== ENCOUNTER 2019-03-18 07:29 | Inpatient (IN) | payer MEDICARE, OTHER, SELFPAY ==
[2019-03-08 11:07] VITALS: BMI 42.2
[2019-03-12 11:52] LABS: Mean Corp Hgb Conc 31.7 g/dL (32-36); Mean Corpuscular Hgb 30.4 pg (27.0-32.0); Platelet Count 310 K/mm3 (150-450); RBC Distribution Width CV 14.6 % (11.6-14.6); RBC Distribution Width SD 51.4 fl (35.1-43.9); Red Blood Count 4.27 M/mm3 (4.2-5.4); White Blood Count 7.2 K/mm3 (4.4-11.0)
[2019-03-12 12:00] LABS: Partial Thromboplast Time 28.8 Seconds (24.1-36.2)
[2019-03-12 12:15] LABS: Anion Gap 3 (5-15); BUN 16 mg/dL (7-18); Calcium,Total 9.4 mg/dL (8.5-10.1); Chloride 107 mmol/L (98-107); Creatinine, Serum 0.67 mg/dL (0.55-1.02); EST Glomerular Filtration Rate 93 mL/min (>60); Est Glom Filt Rate - Afr Amer 113 mL/min (>60); Glucose 91 mg/dL (74-106); Sodium Level 141 mmol/L (136-145); Thyroid Stim Hormone (TSH) 1.39 uIU/mL (0.358-3.74)
[2019-03-18] VITALS (16 sets, daily range): BP systolic 89–142; BP diastolic 56–79; PULSE 59–96; RESP 16–18; TEMP 36.1–37.1; O2SAT 89–99; BMI 43.0; BMI 42.9
--- NOTE | 2019-03-18 06:08 | PCM.HPOB.BLA ---
History and Physical Date of Admission: 03/18/19 Intake Vital Signs 03/08/19 Body Mass Index (BMI) 42.2 03/08/19 Height 5 ft 4 in 03/08/19 Weight: 250 lb 03/08/19 Body Mass Index (BMI) 42.9 03/08/19 Blood Pressure 120/80 Intake Visit Reasons: ERAS pre op Chief Complaint: Pre op Vag Hyst 03/18/19 Anesthetic Assistant Required: No Is patient in pain?: No Allergies lisinopril Adverse Reaction (Mild, Verified 03/08/19 10:56) H/A, FLUSHED adhesive tape Adverse Reaction (Verified 03/08/19 10:56) Rash morphine Adverse Reaction (Verified 03/08/19 10:56) Vomiting Medications Calcium Carb/Vitamin D [Caltrate-600 With Vit D Tab] 1 tab PO BIDCM 08/16/13 [History Confirmed 03/08/19] Potassium Chloride [K-Dur] 20 meq PO BID 08/16/13 [History Confirmed 03/08/19] Atorvastatin Calcium [Lipitor] 20 mg PO QHS 06/06/15 [History Confirmed 03/08/19] Omeprazole [Prilosec] 20 mg PO TUTH 06/06/15 [History Confirmed 03/08/19] Amlodipine [Norvasc] 10 mg PO DAILY 08/03/15 [History Confirmed 03/08/19] Duloxetine Hcl [Cymbalta] 60 mg PO DAILY 03/13/17 [History Confirmed 03/08/19] Sulfasalazine [Azulfidine] 500 mg PO DAILY 03/13/17 [History Confirmed 03/08/19] Triamterene [Dyrenium] 37.5 mg PO DAILY 03/13/17 [History Confirmed 03/08/19] albuterol sulfate HFA 90 mcg/actuation aerosol inhaler 2 puff INHALATION Q4H PRN #18 g 08/06/17 [Rx Confirmed 03/08/19] gabapentin 100 mg capsule 300 mg PO TID cap 08/04/18 [History Confirmed 03/08/19] meloxicam 7.5 mg tablet 7.5 mg PO BID tab 08/04/18 [History Confirmed 03/08/19] levothyroxine 25 mcg tablet 25 mcg PO DAILY 03/08/19 [History Confirmed 03/08/19] Is last menstrual period known: No Post menopausal: Yes Patient : No : No PFSH Medical History Hyperlipemia (Chronic) Depression (Chronic) Fibromyalgia (Chronic) Allergic rhinitis (Chronic) Cataracts, bilateral (Chronic) HTN (hypertension) (Chronic) History of skin cancer (Resolved) Osteoarthritis of right knee (Chronic) Rheumatoid arthritis (Chronic) Multiple nodules of lung (Chronic) Mediastinal lymphadenopathy (Chronic) Abnormal chest CT (Chronic) LEANNE (obstructive sleep apnea) (Chronic) Pulmonary granuloma (Chronic) Personal history of breast cancer (Chronic) Complication of breast device (Chronic) Contour deformity of breast, acquired (Chronic) Disproportion of reconstructed breast (Chronic) Acquired absence of left breast and nipple (Chronic) Acquired absence of right breast and nipple (Chronic) History of MRSA infection (Chronic) Family history of breast cancer (Chronic) Breakdown (mechanical) of breast prosthesis and implant, subsequent encounter (Acute) 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) Surgical History H/O subtotal mastectomy of left breast (Resolved) History of adenoidectomy (Resolved) S/P total knee arthroplasty (Chronic) Hx of left breast implant (Chronic) History of carpal tunnel surgery of left wrist (Resolved) history of laparoscopic BSO Family History Father Heart disease Myocardial infarction Mother Breast cancer Brother Diabetes Skin cancer Grandmother Cancer lung Social History (Updated 03/08/19 @ 12:15 by Lorraine Carlos MD) Smoking Status: Never smoker second hand exposure: No alcohol intake: current alcohol intake frequency: a few times a month details: social substance use type: does not use caffeine: Yes what type of physical activity do you participate in: walking seatbelt use: always do you feel safe at home: Yes HPI ERAS pre op: Details: CHRISTINE ABRAMS is a 68 year old who presents for preop exam. she has pelvic organ prolapse and is going to have support reconstruction by dr cuevas. she has been cleared medically. Female Reproductive History Menopausal Symptoms: No night sweats Pregancy History 4 Elective abortions 0 Hx Para 3 Spontaneous abortions 1 Hx # Term Pregnancies 3 Ectopic pregnancies 0 Hx # Pregnancies 0 Multiple births 0 # of living children 3 ROS Const Constitutional: Denies fatigue, night sweats, weight gain or weight loss ENT ENT: Reports system reviewed and no additional complaints, except as docu Cardio Card: Denies chest pain Resp Resp: Denies cough or dyspnea GI GI: Reports as per HPI; denies abdominal pain, constipation, nausea or vomiting : Denies nipple discharge, urinary frequency, urinary incontinence, urinary hesitancy, urinary urgency, vaginal discharge, vaginal dryness, vaginal odor or vaginal itching Musc Musc: Denies joint pain, back pain or muscle weakness Skin Skin/Breast: Denies hair loss, change in hair, dry skin, breast lump, breast pain, breast skin changes or nipple discharge Neuro Neuro: Reports system reviewed and no additional complaints, except as docu Psych Psych: Reports system reviewed and no additional complaints, except as docu Endo Endo: Denies cold intolerance, excessive sweating, heat intolerance or increased thirst Moe/Lymph Hematologic/Lymphatic: Denies easy bleeding, Denies easy bruising, Denies enlarged lymph nodes Exam Const General: cooperative, healthy appearing, comfortable, no acute distress, well developed Orientation: alert [facility] Head: normal to inspection, normocephalic Ears: hearing grossly normal bilaterally, external ears normal Nose: external nose normal, nares normal Face and sinus: normal facial exam Neck Neck: normal visual inspection, no lymphadenopathy Thyroid: thyroid normal Chest Chest palpation & inspection: normal inspection of the chest Resp Effort & Inspection: normal respiratory effort Cardio Rate: regular rate Rhythm: regular rhythm GI Inspection: normal to inspection, non-distended Palpation: soft, no hepatosplenomegaly Musc Other: gross motor intact no deficits, full bilateral strength Skin General: no rashes or lesions noted Neuro General: alert, awake, moves all extremities, no focal motor deficits Motor: muscle tone normal throughout Extrem General: normal to inspection, no pedal edema Psych Appearance: grossly normal Mental Status: mental status grossly normal Affect: normal affect Speech and Movement: speech and movement normal Assessment & Plan Problems 1. BRCA gene mutation positive Z15.01; Z15.09 2. Uterovaginal prolapse N81.4 Plan plan tv discussed posisble laparoscopy. discussed surgical risks including risks of anesthesia, infection, bleeding, injury to bowel, bladder or blood vessels, and patient wishes to proceed with surgery. Coding Level of Care Code No Charge Diagnoses BRCA gene mutation positive Z15.01; Z15.09 Uterovaginal prolapse N81.4 UPDATE- I have seen the patient and performed any clinically relevant updates to the history and physical exam. Lorraine Carlos MD
[2019-03-18] MEDS: Gabapentin 600 MG Tablet PO (06:37)
[2019-03-18] MEDS: Celecoxib 200 MG Capsule 400 MG PO (06:38)
[2019-03-18] MEDS: Acetaminophen 500 MG Tablet 1000 MG PO ×3 (06:38→23:24)
[2019-03-18] MEDS: Scopolamine 1mg/72hr Patch 1 PATCH TRANSDERM. (06:38)
[2019-03-18] MEDS: dexAMETHasone 10 MG/ML Vial 8 MG IV (06:39)
[2019-03-18] MEDS: Magnesium Sulfate 4gm/100mL 4 GM/100 ML IV.SOLN. IV (06:40)
[2019-03-18] MEDS: Lactated Ringers 1,000 ML 70 ML IV ×3 (06:40→13:09)
[2019-03-18] MEDS: Enoxaparin 40 MG/0.4 ML Syringe SC (06:41)
[2019-03-18 07:06] LABS: Bedside Glucose 168 mg/dL (70-110)
[2019-03-18] MEDS: Cefazolin 2 GM in 0.9% Normal Saline 100 ML IV (07:25)
--- NOTE | 2019-03-18 07:26 | OP.PCM_ITS ---
Problem List (1) Uterovaginal prolapse Status: Acute (2) BRCA gene mutation positive Status: Acute (3) Postmenopausal bleeding Status: Acute Report of Operation Date of Procedure: 03/18/19 Pre-Operative Diagnosis: PMB prolapse brca gene mutation Post-Operative Diagnosis: same Surgery/Procedure Performed:: tvh Description of Surgical Findings:: normal appearing uterus java web application developer: Paulette Ribera Type of Anesthesia:: General Special Medications: ancef Specimen's removed: uterus Drains: langley Estimated Blood Loss (mL): 50 Fluids Replaced: crystalloid Description of Procedure: Patient was taken to the operating room and was placed under general anesthesia was prepped and draped in normal sterile fashion in the dorsal lithotomy position. Preoperative antibiotics and SCDs and Langley catheter was placed inside the bladder. Weighted speculum was placed in the vagina and the anterior and posterior lip of the cervix was grasped with 2 Judi clamps and circumferentially injected with dilute vasopressin. A circumferential incision was made with a scalpel and the posterior cul-de-sac was entered into sharply and a longneck speculum was placed. The anterior cul-de-sac was also dissected down and entered into sharply and the uterosacral ligaments were clamped cut and suture ligated bilaterally followed by the cardinal ligaments which were Clamped cut and suture ligated bilaterally with 0 Monocryl. The uterus serially descended and progressive bites were taken bilaterally up to the level of the utero-ovarian ligament bilaterally which was clamped transected and double ligated with 0 Monocryl suture and 0 Vicryl free tie. Excellent hemostasis was noted. The vagina was closed with [id number] 0 Vicryl pop offs including the posterior and anterior peritoneum in the reapproximation. Excellent hemostasis was noted. All instruments removed from the vagina clear urine was noted at the end of the procedure. Please see additional operative note for further dictation details Grafts/Implants Used: sling - Complications none - Admit VTE Documentation VTE Present on Admission: No VTE Mechan Device Prophylaxis: SCD's Multi Select Codes - Urinary/Genital Urinary/Genital CPT Codes: 15290 TVH <250 gr uterus
--- NOTE | 2019-03-18 07:30 | HYST_PTH ---
PATIENT: CHRISTINE ABRAMS LOC: [facility] U#:[id number] AGE/SX: 68/F ROOM: [facility]322 RE03/18/[address]: Dr. Lorraine Carlos MD : 1950 BED: 1 DIS: 03/19/2019 SPEC #: [id number] RECD: 03/18/19 10:53 STATUS: SHELDON MCDONALD #: [id number] JOHN: 03/18/19 07:[address]: Lorraine Carlos DEPT: SURGICAL PATHOLOGY RECD BY: Dhaval Hardy ENTERED: 03/18/19 11:11 SP TYPE: HYSTERECT OTHR DR: MD Dr. Luther Hargrove MD Tissues: Uterus, NOS Procedures: Surgery Specimen Level V HEADER OPERATION: ERAS, vaginal hysterectomy PRE-OP DIAGNOSIS: Uterovaginal prolapse, urgency of urination, urge incontinence, nocturia, postmenopausal bleeding TISSUE SUBMITTED: Uterus MICROSCOPIC DIAGNOSIS Uterus, vaginal hysterectomy: Cervix - chronic cystic cervicitis and squamous metaplasia. Endometrium - inactive endometrium with cystic changes. Myometrium - focal adenomyosis. - A subserosal leiomyoma (0.5 cm in greatest dimension). ANA:kalen 03/19/19 MICROSCOPIC DESCRIPTION Slides are reviewed. GROSS DESCRIPTION Received in fixative is one container labeled with the patient's name and designated uterus. The specimen consists of a hysterectomy specimen consisting of uterus with cervix weighing 62 gm and measuring 8.5 x 4 x 3 cm. A subserosal nodule is noted at the fundus. The serosal surface is morfin, glistening. A focal area also shows a ragged surface. The ectocervical mucosa is unremarkable. The external os is oval in contour. The endocervical canal measures 3 cm in length and the endocervical mucosa is morfin, glistening and unremarkable. The triangular endometrial cavity measures 4 cm in length and 2.5 cm in width. The endometrium is morfin, glistening without any mass lesion and measures <0.1 cm in thickness. Sections of the uterine wall reveal a subserosal nodule measuring 0.5 cm in greatest dimension. An uninvolved uterine wall measures up to 1.5 cm in thickness. Associate Designer sections are submitted in seven cassettes as follows: 1 - anterior cervix, 2 - posterior cervix, 3 & 4 - anterior uterine wall, 5 & 6 - posterior uterine wall, 7 - nodular mass. / ANA:kalen 03/18/19 TC:5 CPT: 96697
[2019-03-18] MEDS: Vasopressin 20 UNITS/ML Vial (07:55)
[2019-03-18] MEDS: Estrogens,Conj. 1 Tube 1 DOSE (09:59)
--- NOTE | 2019-03-18 10:12 | CASEMGMT ---
LW/POA in [place], SW printed and will place in paper chart. Gene Varns is listed as POA. LACHELLE Laws
--- NOTE | 2019-03-18 10:13 | PCM.OPRPT ---
Problem List (1) TRUNG (stress urinary incontinence, female) Status: Acute (2) Uterovaginal prolapse Status: Acute Report of Operation Date of Procedure: 03/18/19 Pre-Operative Diagnosis: Uterovaginal prolapse, stress incontinence Post-Operative Diagnosis: Same Surgery/Procedure Performed:: Posterior repair, sacral spinous ligament fixation, Altis mid urethral sling, cystourethroscopy with bilateral ureteral catheterization. Description of Surgical Findings:: No complications during the procedure, the anterior repair was aborted secondary to minimal defect with likelihood for more bladder dysfunction with repair. Bilateral ureteral catheterization was performed with blue urine from the end of the whistle-tip catheter. Type of Anesthesia:: General Estimated Blood Loss (mL): 50cc Description of Procedure: The patient is a 68-year-old female who presented to the office with issues related to pelvic organ prolapse. She was evaluated with urodynamics and office cystoscopy. After full evaluation she agreed to proceed with surgical intervention in conjunction with Dr. Carlos. Informed consent was obtained. The patient was taken to the operating room placed on the operating room table. Anesthesia monitored the head, neck, airway, IV access and vital signs throughout the case. Once anesthesia was a probably administered the patient was placed into dorsal lithotomy in Trendelenburg position. She was prepped and draped in usual sterile fashion. A vaginal hysterectomy was performed without complication and the cuff was closed. I injected the posterior vaginal wall submucosally with vasopressin for hydrostatic dissection and hemostatic control. Sharp and blunt dissection was then performed in full-thickness fashion until the ischial spine was palpable and the sacrospinous ligament was identified on the right side. Using the Capio and Ethibond suture, the needle was passed through the sacrospinous ligament without difficulty. The suture was brought through full-thickness into the area of the vaginal apex. The rectovaginal fascia was then brought together in 2 layer closure with interrupted 2-0 Vicryl suture. At this time the vaginal mucosa was covered over it with running interlocking 2-0 Vicryl. Attention was turned toward the mid urethra which was injected once again with vasopressin and a midline incision approximately 1.5 cm in length was then made. Sharp and blunt dissection ensued in order to open up the periurethral space bilaterally. The trochars were then used to pass the Altis mid urethral sling. The sling was tensioned without pressure against the urethra using the right angle clamp and the tensioning suture was cut. The incision was closed using running interlocking 2-0 Vicryl. This time a cystourethroscopy revealed a healthy bladder with no foreign body including suture and no hemorrhage within the urinary bladder. There is no mesh in the urinary bladder or the urethra. The patient was slow to have any ureteral jets observed and a whistle-tip catheter 5 [place] in size was passed without difficulty with blue urine achieved from the renal pelvis bilaterally. At this time the cystoscope was removed, the Hernandez catheter was reinserted and the vagina was packed with Premarin cream and vaginal packing. She was awakened and taken to the recovery room in good condition. There were no complications during this procedure. Grafts/Implants Used: Altis midurethral sling - Complications none - Admit VTE Documentation VTE Present on Admission: Yes VTE Mechan Device Prophylaxis: SCD's VTE Pharm Prophylaxis ordered?: Yes
[2019-03-18] MEDS: Cefazolin 1 GM/50 ML BAG IV ×2 (14:52→23:24)
[2019-03-18] MEDS: Ketorolac 15 MG/ML Vial IV ×2 (14:56→18:01)
[2019-03-18] MEDS: Calcium Carb/Vitamin D 1 TABLET Tablet PO (16:44)
[2019-03-18] MEDS: oxyCODONE 5 MG Tablet PO (20:06)
[2019-03-18] MEDS: Docusate Sodium 100 MG Capsule PO (21:21)
[2019-03-18] MEDS: Atorvastatin Calcium 20 MG Tablet PO (21:21)
[2019-03-19] MEDS: Ketorolac 15 MG/ML Vial IV ×2 (01:07→06:18)
[2019-03-19 02:10] VITALS: BP 127/76; PULSE 82; RESP 18; TEMP 36.9; O2SAT 95
[2019-03-19] MEDS: 0.9% NaCl Peripheral Flush Adult/Peds IV ×4 (04:19→11:48)
[2019-03-19] MEDS: Acetaminophen 500 MG Tablet 1000 MG PO (06:08)
[2019-03-19] MEDS: Levothyroxine 25 MCG TABLET PO (06:08)
[2019-03-19 07:07] LABS: Hematocrit 36.1 % (37-47); Hemoglobin 11.7 g/dL (12.0-15.0); Mean Corp Hgb Conc 32.4 g/dL (32-36); Mean Corpuscular Hgb 30.5 pg (27.0-32.0); Mean Corpuscular Volume 94.3 fL (81-99); Mean Platelet Vol. 9.1 fl (6.2-12.0); Platelet Count 274 K/mm3 (150-450); RBC Distribution Width CV 14.9 % (11.6-14.6); Red Blood Count 3.83 M/mm3 (4.2-5.4); White Blood Count 17.4 K/mm3 (4.4-11.0)
[2019-03-19 07:10] VITALS: O2SAT 97
[2019-03-19 07:21] LABS: Anion Gap 6 (5-15); BUN 8 mg/dL (7-18); BUN/Creat Ratio 13.1 RATIO (10-20); Calcium,Total 8.7 mg/dL (8.5-10.1); Chloride 104 mmol/L (98-107); Creatinine, Serum 0.61 mg/dL (0.55-1.02); EST Glomerular Filtration Rate 103 mL/min (>60); Est Glom Filt Rate - Afr Amer 124 mL/min (>60); Glucose 121 mg/dL (74-106); Potassium 3.7 mmol/L (3.5-5.1); Sodium Level 140 mmol/L (136-145)
--- NOTE | 2019-03-19 07:22 | PCM.PN.OB ---
Patient Problems: Active and Suspected Problems (Last Reviewed 03/08/19 @ 10:57 by Greta Espinoza) TRUNG (stress urinary incontinence, female) (Acute) Subjective: No chest pain shortness of breath pain controlled with oral medications. - Physical Exam General: Alert, Oriented x3 Vital Signs Temp Pulse Resp BP Pulse Ox 98.4 F 82 18 127/76 H 95 03/19/19 02:10 03/19/19 02:10 03/19/19 02:10 03/19/19 02:10 03/19/19 02:10 Oxygen Flow Rate (L/min) 1 Oxygen Delivery Method Nasal Cannula Weight: 250 lb Body Mass Index (BMI) 42.9 Intake and Output for Last 24 Hours 03/17/19 03/18/19 03/19/19 23:59 23:59 23:59 Intake Total 3897.13 / 4497.13 1313.83 / 1313.83 Output Total 650 / 1500 2250 / 2250 Balance 3247.13 / 2997.13 -936.17 / -936.17 Laboratory Tests Past 24 Hrs 03/19/19 03/19/19 06:50 06:50 WBC 17.4 H RBC 3.83 L Hgb 11.7 L Hct 36.1 L MCV 94.3 MCH 30.5 MCHC 32.4 RDW Std Deviation 51.0 H RDW Coeff of Patsy 14.9 H Plt Count 274 MPV 9.1 Sodium 140 Potassium 3.7 Chloride 104 Carbon Dioxide 30.0 Anion Gap 6 BUN 8 Creatinine 0.61 Estim Creat Clear Calc 45.20 Est GFR (MDRD) Af Amer 124 Est GFR (MDRD) Non-Af 103 BUN/Creatinine Ratio 13.1 Glucose 121 H Calcium 8.7 Medical Necessity - Tobacco Use Smoking Status: Never smoker Tobacco Use: Non-smoker Assessment/Plan All Active Problems (Last Reviewed 03/08/19 @ 10:57 by Greta Espinoza) TRUNG (stress urinary incontinence, female) (Acute) Uterovaginal prolapse (Acute) BRCA gene mutation positive (Acute) Postmenopausal bleeding (Acute) Intervertebral disc disorder with radiculopathy of lumbar region (Acute) Spinal stenosis of lumbar region with neurogenic claudication (Acute) Spinal stenosis of lumbar region with neurogenic claudication (Acute) Intervertebral disc stenosis of neural canal of lumbar region (Acute) Intervertebral disc stenosis of neural canal of lumbar region (Acute) Other intervertebral disc displacement, lumbar region (Acute) Other intervertebral disc displacement, lumbar region (Acute) Intervertebral disc disorder with radiculopathy of lumbar region (Acute) Symmastia (Resolved) H/O subtotal mastectomy of left breast (Resolved) History of adenoidectomy (Resolved) History of skin cancer (Resolved) Breakdown (mechanical) of breast prosthesis and implant, subsequent encounter (Acute) Status post total vaginal hysterectomy and pelvic floor repair postop day #1 Routine postoperative care DC home today.
--- NOTE | 2019-03-19 07:23 | PCM.DC.VHY ---
Discharge Diet: No Restrictions Discharge Activity: Return to Normal Activity, May Not Drive, May Shower May resume sexual activity in: 6-8 weeks Call your doctor if your incision/area has: Continuous Slow Oozing, Sudden Increased Bleeding, Increased Pain/ Swelling, Increased Redness, Foul Smelling Discharge Call your doctor if you observe: Fever of 101 or Higher, Inability to urinate, Inability to have a bowel movement, Using more than one pad per hour Allergies/Adverse Reactions: Allergies lisinopril Adverse Reaction (Mild, Verified 03/11/19 10:12) H/A, FLUSHED adhesive tape Adverse Reaction (Verified 03/11/19 10:12) Rash morphine Adverse Reaction (Verified 03/11/19 10:12) Vomiting Medications to take at Discharge Calcium Carb/Vitamin D [Caltrate-600 With Vit D Tab] 1 tab PO BIDCM 08/16/13 Potassium Chloride [K-Dur] 20 meq PO BID 08/16/13 Atorvastatin Calcium [Lipitor] 20 mg PO QHS 06/06/15 Omeprazole [Prilosec] 20 mg PO TUTH 06/06/15 Amlodipine [Norvasc] 10 mg PO DAILY 08/03/15 Duloxetine Hcl [Cymbalta] 60 mg PO DAILY 03/13/17 Sulfasalazine [Azulfidine] 500 mg PO DAILY 03/13/17 Triamterene [Dyrenium] 37.5 mg PO DAILY 03/13/17 albuterol sulfate HFA 90 mcg/actuation aerosol inhaler 2 puff INHALATION Q4H PRN #18 g 08/06/17 levothyroxine 25 mcg tablet 25 mcg PO DAILY 03/08/19 Naproxen [Naprosyn] 250 - 500 mg PO Q8H PRN PRN #30 tab 03/18/19 Oxycodone HCl/Acetaminophen [Percocet 5-325] 1 - 2 tab PO Q4H PRN PRN 7 Days #15 tab 03/18/19 The following prescriptions were given: Naproxen [Naprosyn] 250 - 500 mg PO Q8H PRN PRN #30 tab PRN Reason: MILD PAIN Transmission Status: Received by [facility] Oxycodone HCl/Acetaminophen [Percocet 5-325] 1 - 2 tab PO Q4H PRN PRN 7 Days #15 tab PRN Reason: Pain Transmission Status: Received by [facility] Orders to be completed after discharge: Type & Screen Time Frame: 03/11/19, Facility: [facility], Location: Laboratory 12 Lead EKG [CVS] Time Frame: 03/11/19, Facility: [facility], Location: Cardiovascular Services Basic Metabolic Profile (BMP) Time Frame: 03/11/19, Facility: [facility], Location: Laboratory CBC-Complete Blood Cnt No Diff Time Frame: 03/11/19, Facility: [facility], Location: Laboratory Partial Thromboplast Time Time Frame: 03/11/19, Facility: [facility], Location: Laboratory Prothrombin Time w/INR Time Frame: 03/11/19, Facility: [facility], Location: Laboratory Thyroid Stim Hormone (TSH) Time Frame: 03/11/19, Facility: [facility], Location: Laboratory Primary Care Physician: Luther Willams MD [Primary Care Provider] - Test Results: Test results from this visit will be discussed in further detail at your follow-up appointment, if applicable. Please Follow Up With: Lorraine Carlos MD - [phone]
[2019-03-19 10:00] VITALS: BP 132/68; PULSE 78; RESP 16; TEMP 36.8; O2SAT 95
[2019-03-19] MEDS: Triamterene 37.5MG/Hctz 25MG Capsule 1 CAP PO (10:20)
[2019-03-19] MEDS: Calcium Carb/Vitamin D 1 TABLET Tablet PO (10:20)
[2019-03-19] MEDS: DULoxetine Hcl 60 MG Capsule PO (10:20)
[2019-03-19] MEDS: Docusate Sodium 100 MG Capsule PO (10:20)
[2019-03-19] MEDS: amLODIPine 10 MG Tablet PO (10:20)
[2019-03-19] MEDS: sulfaSALAzine 500 MG Tablet PO (10:20)
[2019-03-19] MEDS: Enoxaparin 40 MG/0.4 ML Syringe SC (10:21)
== END 2019-03-19 11:50 | disposition home or self-care (01) | DRG 743 ==
LOC: MS3 09:53
PROVIDERS: Urology; Admitting Provider Obstetrics & Gynecology; Family Provider Family Medicine; PCP Family Medicine; Referring Provider Obstetrics & Gynecology; Visit Provider Obstetrics & Gynecology
PROC: 0UT97ZZ Resection of Uterus, Via Natural or Artificial Opening (ICD-10-PCS; CPT 58260; principal; 2019-03-18 07:10)
PROC: 0JUC0JZ Supplement of Pelvic Region Subcutaneous Tissue and Fascia with Synthetic Substitute, Open Approach (ICD-10-PCS; CPT 57260; 2019-03-18 07:10)
DX: N81.4 Uterovaginal prolapse, unspecified (principal); N39.3 Stress incontinence (female) (male); N95.0 Postmenopausal bleeding; D86.9 Sarcoidosis, unspecified; I10 Essential (primary) hypertension; M06.9 Rheumatoid arthritis, unspecified; E78.5 Hyperlipidemia, unspecified; Z85.3 Personal history of malignant neoplasm of breast; Z15.01 Genetic susceptibility to malignant neoplasm of breast
CPT/HCPCS: 36415; 80048; 82962; 84443; 85027; 85610; 85730; 86850; 86900; 86901; 88307; 93005; J7120; A4216; C1758; J2405; Q9968

== ENCOUNTER → 2019-04-09 10:40 | Outpatient (CLI) | payer MEDICARE, OTHER, SELFPAY ==
[2019-03-18 13:12] VITALS: BMI 42.9
[2019-04-09 10:44] LABS: Mucous, Urine 0 SEEN /hpf (<or=2+); Red Blood Cells-Urine 0 SEEN /hpf (0-5)
[2019-04-09 12:45] LABS: Color, Urine Yellow (Yellow); Glucose, Dipstick Normal (Normal); Ketone-Dipstick 5 mg/dl (Negative); Leukocyte Esterase-Dipstick 500 /ul (Negative); Nitrite-Dipstick Negative (Negative); Occult Blood-Urine 25 /ul (Negative); Protein-Dipstick 30 mg/dl (Negative); Urine Clarity Sl. Cloudy (Clear); Urine Urobilinogen 4 mg/dl (Normal)
[2019-04-09 12:46] LABS: Urine Bilirubin Dipstick 3 mg/dL (Negative)
[2019-04-09 12:52] LABS: Absolute Lymphocyte Count 1.19 X10^3/uL (0.83-4.51); Absolute Neutrophil Count 3.2 X10^3/uL (2.0-7.7); Basophil# 0.06 X10^3/uL; Basophil% 1.2 % (0-1); Eosinophils% 3.9 % (0-5); Hematocrit 40.6 % (37-47); Hemoglobin 12.6 g/dL (12.0-15.0); Lymphocyte # 1.19 X10^3/ul (4.0); Mean Corpuscular Hgb 29.9 pg (27.0-32.0); Mean Corpuscular Volume 96.4 fL (81-99); Mean Platelet Vol. 9.4 fl (6.2-12.0); Monocyte# 0.51 X10^3/uL; Monocyte% 9.8 % (0-10); NRBC Flagged by Analyzer 0 % (0-5); Neutrophil # 3.18 X10^3/uL (2.7-7.7); Neutrophil % 61.3 % (47-70); Platelet Count 322 K/mm3 (150-450); RBC Distribution Width CV 14.8 % (11.6-14.6); RBC Distribution Width SD 53.1 fl (35.1-43.9); Red Blood Count 4.21 M/mm3 (4.2-5.4); White Blood Count 5.2 K/mm3 (4.4-11.0)
[2019-04-09 12:55] LABS: Bacteria 1+ /hpf (None Seen); Squamous Epithelial Cells - UA 5-10 SEEN /hpf (5-10); White Blood Cells 10-25 SEEN /hpf (0-5)
[2019-04-09 13:07] LABS: Hemoglobin A1c 5.5 % (4.2-6.3)
[2019-04-09 13:18] LABS: AST(SGOT) 23 U/L (15-37); Alanine Aminotransfer ALT/SGPT 30 U/L (13-56); Albumin, Serum 3.5 g/dL (3.2-5.0); Alkaline Phosphatase 100 U/L (45-117); Anion Gap 8 (5-15); BUN 12 mg/dL (7-18); BUN/Creat Ratio 19.3 RATIO (10-20); CPK Total, Creatine Kinase 119 U/L (26-192); Chloride 109 mmol/L (98-107); Cholesterol 169 mg/dL (200); Creatinine, Serum 0.62 mg/dL (0.55-1.02); EST Glomerular Filtration Rate 101 mL/min (>60); Est Glom Filt Rate - Afr Amer 122 mL/min (>60); Ferritin 35 ng/mL (8-252); Globulin 3.4 g/dL (2.2-4.2); Glucose 101 mg/dL (74-106); High Density Lipoprotein 66 mg/dL; Iron 63 ug/dL (50-170); Iron Binding Capacity,Total 343 ug/dL (250-450); Potassium 3.9 mmol/L (3.5-5.1); Protein, Total 6.9 g/dL (6.4-8.2); Sodium Level 145 mmol/L (136-145); T4 Free Direct 0.91 ng/dL (0.76-1.46); Triglycerides 114 mg/dL; Very Low Density Lipoprotein 23 mg/dL (5-40)
== END ==
PROVIDERS: Family Provider Family Medicine; PCP Family Medicine; Referring Provider Family Medicine; Visit Provider Family Medicine
DX: I10 Essential (primary) hypertension (principal); R25.2 Cramp and spasm; D50.9 Iron deficiency anemia, unspecified; E78.5 Hyperlipidemia, unspecified; E06.3 Autoimmune thyroiditis; R73.09 Other abnormal glucose
CPT/HCPCS: 36415; 80053; 80061; 81001; 82550; 82728; 83036; 83540; 83550; 83735; 84439; 84443; 85025

== ENCOUNTER 2019-04-23 10:15 | Day surgery (SDC) | payer MEDICARE, OTHER, SELFPAY ==
[2019-03-18 13:12] VITALS: BMI 42.9
[2019-04-23 10:48] VITALS: BP 146/80; PULSE 78; RESP 16; TEMP 36.7; O2SAT 100; BMI 43.1
[2019-04-23] MEDS: Lactated Ringers 1,000 ML 100 ML IV (10:58)
--- NOTE | 2019-04-23 12:30 | RAD_ITS ---
STUDY: X-RAY - LUMBAR SPINE REASON FOR EXAM: Female, 69 years old. L4-5 block TECHNIQUE: 2 intraoperative view(s) of the lumbar spine were obtained. COMPARISON: None FINDINGS: 2 Limited C-arm films from the operating room performed as the patient has undergone L4-5 block. No intraoperative complications RAD/Spine 1 View Any Level IMPRESSION: L4-5 block Electronically Signed: Edvin Kay MD at 13:58 EDT , Service support ,
--- NOTE | 2019-04-23 12:30 | DCINST_ITS ---
- Discharge Diagnoses Current Active Problems: Lumbar degenerative disease, lumbar spinal stenosis with neurogenic claudication, lumbar radiculopathy Reason(s) for Visit for Discharge Instructions: Saving lumbar epidural steroid injection at the level of L4-5 under fluoroscopy guidance You will use the following diet at home:: No restrictions Your food should be the consistency of: Regular Discharge Activity: Return to Normal Activity, No Restrictions May shower in (days): 1 May resume sexual activity in: No Restrictions Weight Bearing Status: Weight bearing as tolerated Call your doctor if your incision/area has: Continuous Slow Oozing, Sudden Increased Bleeding, Increased Pain/ Swelling, Increased Redness, Foul Smelling Discharge, Swelling at the incision site Call your doctor if you observe: Fever of 101 or Higher, Coldness, Increased Pain, Numbness or Tingling, Uncontrolled pain Remove Dressing in (days):: 1 Cleanse incision/area with: Soap & Water Allergies/Adverse Reactions: Allergies lisinopril Adverse Reaction (Mild, Verified 04/23/19 10:46) H/A, FLUSHED adhesive tape Adverse Reaction (Verified 04/23/19 10:46) Rash morphine Adverse Reaction (Verified 04/23/19 10:46) Vomiting Medications to take at Discharge Calcium Carb/Vitamin D [Caltrate-600 With Vit D Tab] 1 tab PO BIDCM 08/16/13 Potassium Chloride [K-Dur] 20 meq PO BID 08/16/13 Atorvastatin Calcium [Lipitor] 20 mg PO QHS 06/06/15 Omeprazole [Prilosec] 20 mg PO TUTH 06/06/15 Amlodipine [Norvasc] 10 mg PO DAILY 08/03/15 Duloxetine Hcl [Cymbalta] 60 mg PO DAILY 03/13/17 Sulfasalazine [Azulfidine] 500 mg PO DAILY 03/13/17 Triamterene [Dyrenium] 37.5 mg PO DAILY 03/13/17 albuterol sulfate HFA 90 mcg/actuation aerosol inhaler 2 puff INHALATION Q4H PRN #18 g 08/06/17 levothyroxine 25 mcg tablet 25 mcg PO DAILY 03/08/19 Naproxen [Naprosyn] 250 - 500 mg PO Q8H PRN PRN #30 tab 03/18/19 azithromycin 250 mg tablet 250 mg PO QDAY #6 tab 09/26/19 prednisone 10 mg tablet 10 mg PO QDAY #30 tab 04/22/19 Primary Care Physician: Luther Orellana MD [Primary Care Provider] - Test Results: Test results from this visit will be discussed in further detail at your follow- up appointment, if applicable. Please Follow Up With: Brenda Martinez MD
--- NOTE | 2019-04-23 12:31 | PCM.OPRPT ---
Problem List (1) Intervertebral disc disorder with radiculopathy of lumbar region Status: Acute (2) Spinal stenosis of lumbar region with neurogenic claudication Status: Acute (3) Spinal stenosis of lumbar region with neurogenic claudication Status: Acute (4) Intervertebral disc stenosis of neural canal of lumbar region Status: Acute Report of Operation Date of Procedure: 04/23/19 Pre-Operative Diagnosis: Lumbar degenerative disease, lumbar spinal stenosis, lumbar radiculopathy Post-Operative Diagnosis: Same Surgery/Procedure Performed:: Lumbar epidural steroid injection at the level of the L4-5 under fluoroscopy guidance Description of Surgical Findings:: Under sterile conditions. Patient placed in the prone position, pressure points were padded, patient was ready from the nursing and the anesthesia team. After identification of the side and the target area for the block under guided fluoroscopy, the entry site was marked with marking pen. I used Betadine for sterilization of the skin, sterile draping were applied. Using 25-gauge needle to infiltrate the skin with local anesthesia using preservative-free lidocaine 0.5% injected 2.5 mL at site of entry. Using guided fluoroscopy, accessed the the posterior epidural space using 18-gauge Touhy needles under midline approach, accessed the site was assisted with lateral fluoroscopy, followed by using [id number] technique using preservative-free normal saline, negative aspiration of CSF and blood. Injected contrast solution [2.5] mL under live fluoroscopy which showed good spread of the contrast to the posterior epidural space and to the targeted area of the injection at[ L4-5]. Injected [5] mL of mixture of preservative-free lidocaine and Kenalog [80] mg for the procedure which showed appropriate spread in the epidural space. [place] was removed, pressure dressing were applied. Patient tolerated the procedure well and was taken to the recovery. Type of Anesthesia:: MAC - Complications None
[2019-04-23] MEDS: Triamcinolone Acetonide 40 MG/ML Vial (12:37)
[2019-04-23 12:49] VITALS: BP 129/78; BP 146/80; PULSE 80; RESP 16; TEMP 36.9; O2SAT 100
[2019-04-23 12:55] VITALS: BP 134/77; BP 146/80; PULSE 78; RESP 16; O2SAT 99
[2019-04-23 13:00] VITALS: BP 144/82; BP 146/80; PULSE 80; RESP 16; O2SAT 100
[2019-04-23 13:05] VITALS: BP 102/89; BP 146/80; PULSE 80; RESP 16; TEMP 36.3; O2SAT 100
[2019-04-23 13:24] VITALS: BP 146/80
== END 2019-04-23 13:25 | disposition home or self-care (01) ==
LOC: SDC 10:17 → AC 10:18
PROVIDERS: Family Provider Family Medicine; PCP Family Medicine; Referring Provider Anesthesiology; Visit Provider Anesthesiology
PROC: 3E0S3BZ Introduction of Anesthetic Agent into Epidural Space, Percutaneous Approach (ICD-10-PCS; CPT 62322; principal; 2019-04-23 11:25)
DX: M48.062 Spinal stenosis, lumbar region with neurogenic claudication (principal); M99.53 Intervertebral disc stenosis of neural canal of lumbar region; M51.16 Intervertebral disc disorders with radiculopathy, lumbar region; M47.26 Other spondylosis with radiculopathy, lumbar region; M50.320 Other cervical disc degeneration, mid-cervical region, unspecified level; M51.17 Intervertebral disc disorders with radiculopathy, lumbosacral region; M76.72 Peroneal tendinitis, left leg; M79.7 Fibromyalgia; M19.072 Primary osteoarthritis, left ankle and foot; M19.071 Primary osteoarthritis, right ankle and foot; D86.2 Sarcoidosis of lung with sarcoidosis of lymph nodes; G89.4 Chronic pain syndrome; E66.9 Obesity, unspecified; I10 Essential (primary) hypertension; G47.30 Sleep apnea, unspecified; K58.9 Irritable bowel syndrome, unspecified; K21.9 Gastro-esophageal reflux disease without esophagitis; E78.00 Pure hypercholesterolemia, unspecified; Z86.2 Personal history of diseases of the blood and blood-forming organs and certain disorders involving the immune mechanism; Z87.19 Personal history of other diseases of the digestive system; Z85.3 Personal history of malignant neoplasm of breast; Z85.828 Personal history of other malignant neoplasm of skin; Z78.0 Asymptomatic menopausal state; Z79.899 Other long term (current) drug therapy
CPT/HCPCS: 01992; 62323; 64483; 72020; J7120; A4216

== ENCOUNTER → 2019-05-19 13:39 | Outpatient (CLI) | payer MEDICARE, OTHER, SELFPAY ==
[2019-04-23 10:48] VITALS: BMI 43.1
--- NOTE | 2019-05-19 13:41 | ECHOD_ITS ---
Reason For Study: MURMUR Procedure This was a 2D Doppler, Color Flow transthoracic echocardiogram. The study was technically difficult. Exam performed in department. Left Ventricle Normal LV size. Left ventricular systolic function is normal. Stage 1 diastolic dysfunction. The estimated ejection fraction is 60 %. No regional wall motion abnormalities noted. Right Ventricle Normal RV size. Normal systolic function. Atria Normal left atrium. Normal right atrium. Mitral Valve Normal mitral valve. Tricuspid Valve Normal tricuspid valve. Aortic Valve Normal aortic valve. Trisinus/trileaflet aortic valve. Pulmonic Valve Normal pulmonic valve. Great Vessels Normal aortic root. The pulmonary artery is normal size. Normal inferior vena cava. Pericardium/Pleural No pericardial effusion. MMode/2D Measurements & Calculations LVIDd: 3.4 cm IVSd: 0.95 cm Ao root diam: 3.2 cm LVIDs: 2.4 cm LVPWd: 0.90 cm RVDd: 2.6 cm FS: 29.0 % LAV(MOD-bp): 44.5 ml LA A4 area: 15.5 cm2 LA dimension(2D): 3.5 cm LAV(MOD-bp) Indexed: 20.7 ml/m2 LAV(MOD-sp2): 50.5 ml LAV(MOD-sp4): 37.8 ml RA A4 area: 10.8 cm2 Time Measurements MV dec time: 0.32 sec Doppler Measurements & Calculations MV E max sabino: 63.9 cm/sec Lat Peak E' Sabino: 11.4 cm/sec Med Peak E' Sabino: 7.7 cm/sec MV A max sabino: 92.0 cm/sec E/E' lat: 5.6 E/E' med: 8.3 MV E/A: 0.70 Ao V2 max: 117.8 cm/sec LV V1 max: 84.4 cm/sec TR max sabino: 225.0 cm/sec Ao max P.6 mmHg LV V1 max P.8 mmHg TR max P.3 mmHg Interpretation Summary Normal LV size. Left ventricular systolic function is normal. Stage 1 diastolic dysfunction. The estimated ejection fraction is 60 %. Ordering Physician: Luther Orellana Referring Physician: Luther Orellana Performed By: Lyudmila Gu, REBECA, RVT
== END ==
PROVIDERS: Family Provider Family Medicine; PCP Family Medicine; Referring Provider Family Medicine; Visit Provider Family Medicine
DX: R01.1 Cardiac murmur, unspecified (principal)
CPT/HCPCS: 93306

== ENCOUNTER → 2019-05-21 07:47 | Outpatient (CLI) | payer MEDICARE, OTHER, SELFPAY ==
[2019-04-23 10:48] VITALS: BMI 43.1
== END ==
PROVIDERS: Family Provider Family Medicine; PCP Family Medicine; Referring Provider Family Medicine; Visit Provider Family Medicine
DX: Z12.31 Encounter for screening mammogram for malignant neoplasm of breast (principal); Z15.01 Genetic susceptibility to malignant neoplasm of breast; Z15.02 Genetic susceptibility to malignant neoplasm of ovary

== ENCOUNTER → 2019-06-03 07:46 | Outpatient (CLI) | payer MEDICARE, OTHER, SELFPAY ==
--- NOTE | 2019-06-03 07:55 | RAD_ITS ---
STUDY: X-RAY CHEST REASON FOR EXAM: Female, 69 years old. Cough. History of sarcoidosis. TECHNIQUE: PA and lateral views of the chest. COMPARISON: September 15, 2015. FINDINGS: Right-sided Mediport catheter in position. Breast augmentation. Surgical clips at the left chest wall/axilla. Cardiac silhouette unremarkable. Pulmonary vascularity unremarkable. Aorta slightly ectatic. No focal patchy airspace opacities. No pleural effusions. Slightly coarse lung markings. Upper abdomen unremarkable. Osseous structures slightly demineralized. No pneumothorax. RAD/Chest PA and Lateral IMPRESSION: No acute cardiopulmonary findings Slightly coarse lung markings Mediport catheter position Electronically Signed: Raleigh Rodarte DO at 8:30 EST Tel , Service support ,
== END ==
PROVIDERS: Family Provider Family Medicine; PCP Family Medicine; Referring Provider Physician Assistant; Visit Provider Physician Assistant
DX: R05 Cough (principal)
CPT/HCPCS: 71046

== ENCOUNTER → 2019-07-01 07:51 | Outpatient (CLI) | payer MEDICARE, OTHER, SELFPAY ==
[2019-06-03 07:56] VITALS: BMI 43.1
[2019-06-21 14:08] VITALS: BMI 43.1
--- NOTE | 2019-07-02 09:24 | PFT ---
INTRODUCTION: The patient is a 69-year-old female that presents for pulmonary function studies secondary to a diagnosis of sarcoidosis. Respiratory therapy reports good patient effort. Bronchodilators were used during testing. INTERPRETATION: Forced expiration spirometry demonstrates no evidence of a large airways obstructive ventilatory defect. There was no significant response to aerosolized bronchodilators. Spirograms are of good quality and plateau normally. Body plethysmography was performed and reveals lung volumes to be within normal limits. Diffusing capacity by single breath CO is also within normal limits. IMPRESSION: Normal pulmonary function studies.
== END ==
PROVIDERS: Family Provider Family Medicine; PCP Family Medicine; Referring Provider Internal Medicine Critical Care Medicine; Visit Provider Internal Medicine Critical Care Medicine
DX: D86.9 Sarcoidosis, unspecified (principal)
CPT/HCPCS: 94060; 94726; 94729

== ENCOUNTER → 2019-09-16 15:40 | Outpatient (CLI) | payer MEDICARE, OTHER, SELFPAY ==
[2019-08-03 06:37] VITALS: BMI 43.6
--- NOTE | 2019-09-16 15:48 | RAD_ITS ---
STUDY: X-RAY - PELVIS AND BILATERAL HIPS REASON FOR EXAM: Female, 69 years old. BILATERAL HIP PAIN TECHNIQUE: AP view of the pelvis.? 2 views of the right hip, and 2 views of the left hip were obtained. COMPARISON: None. FINDINGS: There is a non-specific bowel gas pattern. Normal visualized soft tissue structures. Normal bilateral iliac wings, sacroiliac joints and visualized sacrum. Normal bilateral superior and inferior pubic rami. There are degenerative changes of the pubic symphysis with articular narrowing and sclerosis. Normal bilateral ischial tuberosities. Normal visualized right femoral head. Normal right acetabulum. Normal right hip joint. Normal visualized left femoral head. Normal left acetabulum. Normal left hip joint. RAD/Hips B/L min 2 views w/ Pelvis IMPRESSION: Normal x-ray examination of the bilateral hips. Mild sclerosis/arthrosis of the pubic symphysis. Electronically Signed: Alejandro Ferrer MD (Bro[place]) at 17:39 EST , Service support ,
== END ==
PROVIDERS: PCP Family Medicine; Referring Provider Nurse Practitioner Family; Visit Provider Nurse Practitioner Family
DX: M25.551 Pain in right hip (principal); M25.552 Pain in left hip
CPT/HCPCS: 73521

== ENCOUNTER → 2019-09-22 13:53 | Outpatient (CLI) | payer MEDICARE, OTHER, SELFPAY ==
[2019-08-03 06:37] VITALS: BMI 43.6
[2019-09-22 15:11] LABS: T4 Free Direct 2.92 ng/dL (0.76-1.46); Thyroid Stim Hormone (TSH) < 0.01 uIU/mL (0.358-3.74)
== END ==
PROVIDERS: PCP Family Medicine; Referring Provider Internal Medicine Endocrinology, Diabetes & Metabolism; Visit Provider Internal Medicine Endocrinology, Diabetes & Metabolism
DX: E03.8 Other specified hypothyroidism (principal); E06.3 Autoimmune thyroiditis
CPT/HCPCS: 36591; 84439; 84443; A4216

== ENCOUNTER → 2019-11-29 15:25 | Outpatient (CLI) | payer MEDICARE, OTHER, SELFPAY ==
[2019-08-03 06:37] VITALS: BMI 43.6
--- NOTE | 2019-11-29 15:28 | MRI_ITS ---
STUDY: MRI LUMBAR SPINE WITHOUT CONTRAST REASON FOR EXAM: Female, 69 years old. stenosis -- chronic back pain now down bilat legs, no prev lumbar surgery TECHNIQUE: Standardized fat and water weighted pulse sequences were obtained in the sagittal and axial planes. COMPARISON: September 10, 2018 FINDINGS: T12-L1: Normal endplates. Normal disc height, hydration and morphology. Normal bilateral facet joints. Normal central canal and bilateral lateral recesses. Normal bilateral intervertebral neural foramina. Normal lumbar lordosis. There is no substantial scoliosis. Normal conus medullaris that terminates at T12-L1 L1-2: Narrowed disc space with degenerative endplate changes and grade 1 retrolisthesis with minor bulging disc osteophyte complex and small central disc extrusion with inferior migration of disc fragment... Mild facet arthropathy. Mild narrowing of the central canal. Normal bilateral recesses and neural foramina L2-3: Normal endplates. Normal disc height, desiccation and minimal annular bulge.. Normal bilateral facet joints. Normal central canal and bilateral lateral recesses. Normal bilateral intervertebral neural foramina. L3-4: Normal endplates. Normal disc height, hydration and minor annular bulge with tiny left paracentral disc protrusion... Bilateral facet arthropathy and thickening of ligamenta flava slightly more pronounced on the left.. Normal central canal and bilateral lateral recesses. Mild right neuroforaminal stenosis and moderate narrowing on the left.. L4-5: Degenerative endplate changes. Narrowed disc space with desiccation of the disc and minor annular bulge.. Bilateral facet arthropathy.. Normal central canal and bilateral lateral recesses. Mild bilateral neural foraminal encroachment L5-S1: Normal endplates. Normal disc height desiccation and minor annular bulge. Mild facet arthropathy.. Normal central canal and bilateral lateral recesses. Mild bilateral neural foraminal encroachment Normal visualized sacral ala. Normal visualized paraspinous soft tissue structures. There appears to be interval improvement in the disc disease at L3-4 noted on the prior exam as well as a smaller disc extrusion at L1-2 though there is more pronounced narrowing of the disc space at this time MRI/Spine Lumbar (Routine) IMPRESSION: No evidence for acute fracture or subluxation. Spondylosis and multilevel spinal stenosis secondary to disc disease and bony hypertrophy with slight interval improvement at L1-2 and L3-4 since prior exam Electronically Signed: Ronen Fernandez MD at 17:25 EDT , Service support ,
== END ==
PROVIDERS: PCP Family Medicine; Referring Provider Nurse Practitioner Acute Care; Visit Provider Nurse Practitioner Acute Care
DX: M48.061 Spinal stenosis, lumbar region without neurogenic claudication (principal)
CPT/HCPCS: 72148

== ENCOUNTER → 2019-12-15 08:50 | Outpatient (CLI) | payer MEDICARE, OTHER, SELFPAY ==
[2019-08-03 06:37] VITALS: BMI 43.6
--- NOTE | 2019-12-15 08:51 | NM_ITS ---
CLINICAL: 69-year-old female with reported history of carcinoma of the breast. WHOLE BODY 99m Tc MDP RADIONUCLIDE BONE SCINTIGRAPHY COMPARISON: Previous whole body bone scintigraphy study dated 04/17/2017. FINDINGS: Following the intravenous administration of 27.1 mCi of 99m Tc MDP, whole body bone images reveal: 1. Increased radiopharmaceutical concentration is currently identified in the mid cervical spine posteriorly on the left and right, the acromioclavicular and glenohumeral compartments of both shoulders, sternoclavicular compartment of the right shoulder, bilateral wrist articulations, the second-fifth lumbar vertebra, patellofemoral compartments of both knees, the midfoot and forefoot bilaterally, posterior compartments of both ankles. 2. The remaining skeletal structures are scintigraphically unremarkable with normal-appearing renal images and urinary bladder activity identified. The visualized right knee arthroplasty demonstrates no evidence of abnormal increased tracer uptake unchanged compared to the previous examination. NM/Bone Scan Whole Body IMPRESSION: 1. The increase in tracer concentration observed in the cervical and lumbar spine, bilateral shoulders, wrists bilaterally, lumbar spine, patellofemoral compartments of both knees, the right-left mid and forefoot, bilateral ankles is commensurate with degenerative arthritis. 2. Overall compared to the previous whole body bone scintigraphy study dated 04/17/2017, there is no significant interval change. No current typical scintigraphic evidence of skeletal metastatic disease is defined on the present evaluation. Electronically Signed: Shantanu Meza DO at 8:47 EDT Tel , Service support ,
== END ==
PROVIDERS: PCP Family Medicine; Referring Provider Orthopaedic Surgery; Visit Provider Orthopaedic Surgery
DX: M48.061 Spinal stenosis, lumbar region without neurogenic claudication (principal)
CPT/HCPCS: 78306

== ENCOUNTER → 2019-12-22 08:22 | Outpatient (CLI) | payer MEDICARE, OTHER, SELFPAY ==
[2019-08-03 06:37] VITALS: BMI 43.6
[2019-12-22] MEDS: 0.9% NaCl VAD Flush IV (08:29)
[2019-12-22] MEDS: 0.9 % NaCl (Sterile) Posiflush 10 mL IV (08:29)
[2019-12-22 08:46] LABS: Absolute Lymphocyte Count 1.36 X10^3/uL (0.83-4.51); Absolute Neutrophil Count 2.5 X10^3/uL (2.0-7.7); Basophil# 0.05 X10^3/uL; Basophil% 1.1 % (0-1); Eosinophil# 0.19 X10^3/uL; Eosinophils% 4.1 % (0-5); Hematocrit 38.7 % (37-47); Hemoglobin 12.1 g/dL (12.0-15.0); Lymphocyte # 1.36 X10^3/ul (4.0); Lymphocyte % 29.1 % (19-41); Mean Corp Hgb Conc 31.3 g/dL (32-36); Mean Corpuscular Hgb 26.1 pg (27.0-32.0); Mean Corpuscular Volume 83.6 fL (81-99); Mean Platelet Vol. 9.8 fl (6.2-12.0); Monocyte# 0.55 X10^3/uL; Monocyte% 11.8 % (0-10); NRBC Flagged by Analyzer 0 % (0-5); Neutrophil # 2.51 X10^3/uL (2.7-7.7); Neutrophil % 53.5 % (47-70); Platelet Count 289 K/mm3 (150-450); RBC Distribution Width CV 16.9 % (11.6-14.6); RBC Distribution Width SD 51.1 fl (35.1-43.9); Red Blood Count 4.63 M/mm3 (4.2-5.4); White Blood Count 4.7 K/mm3 (4.4-11.0)
[2019-12-22 09:03] LABS: ALB/GLOB Ratio 0.9 RATIO (0.9-2.4); AST(SGOT) 18 U/L (15-37); Alanine Aminotransfer ALT/SGPT 21 U/L (13-56); Albumin, Serum 3.3 g/dL (3.2-5.0); Alkaline Phosphatase 109 U/L (45-117); Anion Gap 5 (5-15); BUN 15 mg/dL (7-18); BUN/Creat Ratio 33.4 RATIO (10-20); Calcium,Total 9.6 mg/dL (8.5-10.1); Chloride 109 mmol/L (98-107); Cholesterol 140 mg/dL (200); Creatinine, Serum 0.45 mg/dL (0.55-1.02); EST Glomerular Filtration Rate 147 mL/min (>60); Est Glom Filt Rate - Afr Amer 177 mL/min (>60); Globulin 3.5 g/dL (2.2-4.2); Glucose 92 mg/dL (74-106); High Density Lipoprotein 65 mg/dL; Potassium 3.7 mmol/L (3.5-5.1); Protein, Total 6.8 g/dL (6.4-8.2); Sodium Level 143 mmol/L (136-145); Triglycerides 125 mg/dL; Very Low Density Lipoprotein 25 mg/dL (5-40)
[2019-12-22 16:42] LABS: Xtra Tube EP Lab EXTRA TUBE
== END ==
PROVIDERS: PCP Family Medicine; Referring Provider Family Medicine; Visit Provider Family Medicine
DX: I87.8 Other specified disorders of veins (principal); I10 Essential (primary) hypertension; E78.5 Hyperlipidemia, unspecified; Z85.3 Personal history of malignant neoplasm of breast
CPT/HCPCS: 36591; 80053; 80061; 85025; A4216

== ENCOUNTER → 2020-01-05 09:36 | Outpatient (CLI) | payer MEDICARE, OTHER, SELFPAY ==
[2019-08-03 06:37] VITALS: BMI 43.6
[2020-01-05 12:45] LABS: T4 Free Direct 2.17 ng/dL (0.76-1.46); Thyroid Stim Hormone (TSH) < 0.01 uIU/mL (0.358-3.74)
== END ==
PROVIDERS: PCP Family Medicine; Visit Provider Family Medicine
DX: E06.3 Autoimmune thyroiditis (principal)
CPT/HCPCS: 36415; 84439; 84443

== ENCOUNTER → 2020-01-25 13:53 | Outpatient (CLI) | payer MEDICARE, OTHER, SELFPAY ==
[2019-08-03 06:37] VITALS: BMI 43.6
== END ==
PROVIDERS: PCP Family Medicine; Visit Provider Family Medicine
DX: E06.3 Autoimmune thyroiditis (principal)
CPT/HCPCS: 36415; 84439

== ENCOUNTER → 2020-02-09 16:24 | Outpatient (CLI) | payer MEDICARE, OTHER, SELFPAY ==
[2019-08-03 06:37] VITALS: BMI 43.6
--- NOTE | 2020-02-09 17:06 | RAD_ITS ---
STUDY: X-RAY - LUMBAR SPINE REASON FOR EXAM: Female, 69 years old. LOWER BACK PAIN TECHNIQUE: 4 view(s) of the lumbar spine were obtained including films in flexion and extension. COMPARISON: None FINDINGS: Exaggerated lumbar lordosis. There is mild levo scoliosis. There is a normal alignment of the vertebrae. No evidence for acute fracture or subluxation.. There is multilevel disc space narrowing and endplate spurring. There is no gross instability upon flexion and extension. The soft tissue structures are unremarkable. RAD/Lumbar Spine 2 or 3 Views IMPRESSION: Scoliosis and degenerative changes. No evidence for acute fracture or substantial Electronically Signed: Ronen Fernandez MD at 17:26 EDT , Service support ,
== END ==
PROVIDERS: PCP Family Medicine
DX: M54.41 Lumbago with sciatica, right side (principal); G89.29 Other chronic pain
CPT/HCPCS: 72100

== ENCOUNTER → 2020-02-24 15:19 | Outpatient (CLI) | payer MEDICARE, OTHER, SELFPAY ==
[2020-02-14 09:38] VITALS: BMI 43.6
[2020-02-24 18:25] LABS: Absolute Lymphocyte Count 1.86 X10^3/uL (0.83-4.51); Absolute Neutrophil Count 4.4 X10^3/uL (2.0-7.7); Basophil# 0.07 X10^3/uL; Eosinophils% 2.8 % (0-5); Hematocrit 42.2 % (37-47); Hemoglobin 12.9 g/dL (12.0-15.0); Lymphocyte # 1.86 X10^3/ul (4.0); Lymphocyte % 25.9 % (19-41); Mean Corp Hgb Conc 30.6 g/dL (32-36); Mean Corpuscular Volume 88.5 fL (81-99); Mean Platelet Vol. 10.2 fl (6.2-12.0); Monocyte# 0.65 X10^3/uL; Monocyte% 9.1 % (0-10); NRBC Flagged by Analyzer 0 % (0-5); Neutrophil # 4.37 X10^3/uL (2.7-7.7); Neutrophil % 60.8 % (47-70); Platelet Count 283 K/mm3 (150-450); RBC Distribution Width CV 16.2 % (11.6-14.6); RBC Distribution Width SD 52.3 fl (35.1-43.9); Red Blood Count 4.77 M/mm3 (4.2-5.4); White Blood Count 7.2 K/mm3 (4.4-11.0)
[2020-02-24 18:44] LABS: ALB/GLOB Ratio 0.9 RATIO (0.9-2.4); AST(SGOT) 17 U/L (15-37); Alanine Aminotransfer ALT/SGPT 24 U/L (13-56); Albumin, Serum 3.4 g/dL (3.2-5.0); Alkaline Phosphatase 120 U/L (45-117); Anion Gap 5 (5-15); BUN 16 mg/dL (7-18); BUN/Creat Ratio 29.5 RATIO (10-20); Calcium,Total 9.4 mg/dL (8.5-10.1); Chloride 105 mmol/L (98-107); Creatinine, Serum 0.54 mg/dL (0.55-1.02); EST Glomerular Filtration Rate 118 mL/min (>60); Est Glom Filt Rate - Afr Amer 143 mL/min (>60); Globulin 3.7 g/dL (2.2-4.2); Glucose 97 mg/dL (74-106); Potassium 4.1 mmol/L (3.5-5.1); Protein, Total 7.1 g/dL (6.4-8.2); Sodium Level 139 mmol/L (136-145)
[2020-02-24 18:45] LABS: T4 Free Direct 1.45 ng/dL (0.76-1.46); Thyroid Stim Hormone (TSH) < 0.01 uIU/mL (0.358-3.74)
== END ==
PROVIDERS: PCP Family Medicine; Referring Provider Family Medicine; Visit Provider Internal Medicine Endocrinology, Diabetes & Metabolism
DX: E06.3 Autoimmune thyroiditis (principal); I10 Essential (primary) hypertension
CPT/HCPCS: 36415; 80053; 84439; 84443; 85025

== ENCOUNTER → 2020-03-02 | Outpatient (CLI) | payer MEDICARE, OTHER, SELFPAY ==
--- NOTE | 2020-03-01 13:00 | LES_PTH ---
PATIENT: CHRISTINE ABRAMS LOC: [facility] U#:[id number] AGE/SX: 69/F ROOM: RE03/02/[address]: Dr. Anthony Craig MD : 1950 BED: DIS: 03/02/2020 SPEC #: [id number] RECD: 03/02/20 06:42 STATUS: SHELDON HARRY #: [id number] JOHN: 03/01/20 13:[address]: Anthony Craig DEPT: SURGICAL PATHOLOGY RECD BY: Juhi Gamboa ENTERED: 03/02/20 09:17 SP TYPE: Lesion OTHR DR: Dr. Luther Orellana MD Tissues: Skin of head, NOS Procedures: Surgery Specimen Level IV HEADER OPERATION: Shave biopsy left scalp lesion PRE-OP DIAGNOSIS: Scalp neoplasm TISSUE SUBMITTED: Left scalp tissue MICROSCOPIC DIAGNOSIS Left scalp lesion, shave biopsy: Seborrheic keratosis. SJ:kalen 03/03/20 MICROSCOPIC DESCRIPTION Slides are reviewed. GROSS DESCRIPTION Received in fixative is one container labeled with the patient's name and designated left scalp. The specimen consists of an irregular fragment of hair-bearing skin measuring 1.2 x 1 x 0.2 cm. The specimen is inked, serially sectioned and totally submitted in one cassette. / AM:kalen 03/02/20 TC:1 CPT: 21850
[2020-03-01 13:01] VITALS: BMI 43.6
== END | disposition home or self-care (01) ==
LOC: LABSPEC 08:13
PROVIDERS: PCP Family Medicine; Referring Provider Surgery; Visit Provider Surgery
DX: L82.1 Other seborrheic keratosis (principal)
CPT/HCPCS: 88305

== ENCOUNTER → 2020-03-30 09:34 | Outpatient (CLI) | payer MEDICARE, OTHER, SELFPAY ==
[2020-03-24 10:20] VITALS: BMI 43.6
[2020-03-30] MEDS: 0.9 % NaCl (Sterile) Posiflush 10 mL IV (09:50)
[2020-03-30] MEDS: 0.9% Saline Lock 10 ML Syringe IV (09:50)
[2020-03-30 10:38] LABS: T4 Free Direct 0.83 ng/dL (0.76-1.46); Thyroid Stim Hormone (TSH) 0.05 uIU/mL (0.358-3.74)
[2020-03-30 17:54] LABS: Xtra Tube EP Lab EXTRA TUBE
== END ==
PROVIDERS: PCP Family Medicine; Referring Provider Internal Medicine Endocrinology, Diabetes & Metabolism; Visit Provider Internal Medicine Endocrinology, Diabetes & Metabolism
DX: E06.3 Autoimmune thyroiditis (principal)
CPT/HCPCS: 36591; 84439; 84443; A4216

== ENCOUNTER → 2020-04-29 08:13 | Outpatient (CLI) | payer MEDICARE, OTHER, SELFPAY ==
[2020-04-11 10:08] VITALS: BMI 43.6
[2020-04-29 09:11] LABS: Absolute Lymphocyte Count 1.75 X10^3/uL (0.83-4.51); Absolute Neutrophil Count 3.7 X10^3/uL (2.0-7.7); Basophil# 0.09 X10^3/uL; Basophil% 1.4 % (0-1); Eosinophil# 0.25 X10^3/uL; Eosinophils% 3.9 % (0-5); Hematocrit 42.1 % (37-47); Hemoglobin 13.1 g/dL (12.0-15.0); Lymphocyte # 1.75 X10^3/ul (4.0); Lymphocyte % 27.6 % (19-41); Mean Corp Hgb Conc 31.1 g/dL (32-36); Mean Platelet Vol. 9.3 fl (6.2-12.0); Monocyte# 0.56 X10^3/uL; Monocyte% 8.8 % (0-10); NRBC Flagged by Analyzer 0 % (0-5); Neutrophil # 3.65 X10^3/uL (2.7-7.7); Neutrophil % 57.8 % (47-70); Platelet Count 357 K/mm3 (150-450); RBC Distribution Width CV 16.1 % (11.6-14.6); RBC Distribution Width SD 52.9 fl (35.1-43.9); Red Blood Count 4.68 M/mm3 (4.2-5.4); White Blood Count 6.3 K/mm3 (4.4-11.0)
[2020-04-29 09:55] LABS: ALB/GLOB Ratio 0.9 RATIO (0.9-2.4); AST(SGOT) 14 U/L (15-37); Alanine Aminotransfer ALT/SGPT 20 U/L (13-56); Albumin, Serum 3.6 g/dL (3.2-5.0); Alkaline Phosphatase 136 U/L (45-117); Anion Gap 2 (5-15); BUN 14 mg/dL (7-18); BUN/Creat Ratio 23.6 RATIO (10-20); Calcium,Total 9.6 mg/dL (8.5-10.1); Chloride 108 mmol/L (98-107); Cholesterol 174 mg/dL (200); Creatinine, Serum 0.59 mg/dL (0.55-1.02); EST Glomerular Filtration Rate 106 mL/min (>60); Est Glom Filt Rate - Afr Amer 128 mL/min (>60); Globulin 3.8 g/dL (2.2-4.2); Glucose 88 mg/dL (74-106); High Density Lipoprotein 79 mg/dL; Protein, Total 7.4 g/dL (6.4-8.2); Sodium Level 141 mmol/L (136-145); T4 Free Direct 0.97 ng/dL (0.76-1.46); Thyroid Stim Hormone (TSH) 0.03 uIU/mL (0.358-3.74); Triglycerides 119 mg/dL; Very Low Density Lipoprotein 24 mg/dL (5-40)
== END ==
PROVIDERS: PCP Family Medicine; Referring Provider Family Medicine; Visit Provider Family Medicine
DX: I10 Essential (primary) hypertension (principal); E06.3 Autoimmune thyroiditis; E78.5 Hyperlipidemia, unspecified
CPT/HCPCS: 36415; 80053; 80061; 84439; 84443; 85025

== ENCOUNTER → 2020-07-31 16:29 | Outpatient (CLI) | payer MEDICARE, OTHER, SELFPAY ==
[2020-04-11 10:08] VITALS: BMI 43.6
[2020-07-31 18:25] LABS: Vitamin D,25 Hydroxy 19.4 ng/mL
[2020-07-31 18:30] LABS: ALB/GLOB Ratio 1.3 RATIO (0.9-2.4); AST(SGOT) 21 U/L (15-37); Alanine Aminotransfer ALT/SGPT 45 U/L (13-56); Albumin, Serum 4.5 g/dL (3.2-5.0); Alkaline Phosphatase 70 U/L (45-117); Anion Gap 6 (5-15); BUN 21 mg/dL (7-18); BUN/Creat Ratio 22.9 RATIO (10-20); Calcium,Total 9.3 mg/dL (8.5-10.1); Chloride 101 mmol/L (98-107); Cholesterol 213 mg/dL (200); Creatinine, Serum 0.92 mg/dL (0.55-1.02); EST Glomerular Filtration Rate 64 mL/min (>60); Est Glom Filt Rate - Afr Amer 78 mL/min (>60); Globulin 3.5 g/dL (2.2-4.2); Glucose 91 mg/dL (74-106); High Density Lipoprotein 105 mg/dL; Potassium 3.7 mmol/L (3.5-5.1); Sodium Level 138 mmol/L (136-145); T4 Free Direct 0.77 ng/dL (0.76-1.46); Thyroid Stim Hormone (TSH) 3.06 uIU/mL (0.358-3.74); Triglycerides 96 mg/dL; Very Low Density Lipoprotein 19 mg/dL (5-40)
== END ==
PROVIDERS: PCP Family Medicine; Visit Provider Family Medicine
DX: E06.3 Autoimmune thyroiditis (principal); I10 Essential (primary) hypertension; E78.5 Hyperlipidemia, unspecified; D86.0 Sarcoidosis of lung
CPT/HCPCS: 80053; 80061; 82306; 84439; 84443

== ENCOUNTER → 2020-08-01 08:24 | Outpatient (CLI) | payer MEDICARE, OTHER, SELFPAY ==
[2020-04-11 10:08] VITALS: BMI 43.6
[2020-08-01 10:44] LABS: AST(SGOT) 14 U/L (15-37); Alanine Aminotransfer ALT/SGPT 29 U/L (13-56); Albumin, Serum 3.6 g/dL (3.2-5.0); Alkaline Phosphatase 122 U/L (45-117); Anion Gap 5 (5-15); BUN 19 mg/dL (7-18); BUN/Creat Ratio 27.8 RATIO (10-20); Calcium,Total 9.1 mg/dL (8.5-10.1); Chloride 106 mmol/L (98-107); Cholesterol 208 mg/dL (200); Creatinine, Serum 0.68 mg/dL (0.55-1.02); EST Glomerular Filtration Rate 90 mL/min (>60); Est Glom Filt Rate - Afr Amer 109 mL/min (>60); Globulin 3.7 g/dL (2.2-4.2); Glucose 77 mg/dL (74-106); High Density Lipoprotein 89 mg/dL; Potassium 3.8 mmol/L (3.5-5.1); Protein, Total 7.3 g/dL (6.4-8.2); Sodium Level 141 mmol/L (136-145); T4 Free Direct 0.71 ng/dL (0.76-1.46); Thyroid Stim Hormone (TSH) 9.27 uIU/mL (0.358-3.74); Triglycerides 114 mg/dL; Very Low Density Lipoprotein 23 mg/dL (5-40)
[2020-08-16 20:24] LABS: Anti-Thyroglobulin AB 5.6 IU/mL (0.0-0.9); Thyroglobulin RIA 11 ng/mL (.)
== END ==
PROVIDERS: PCP Family Medicine; Referring Provider Family Medicine; Visit Provider Family Medicine
DX: M79.7 Fibromyalgia (principal); E78.5 Hyperlipidemia, unspecified; I10 Essential (primary) hypertension; E06.3 Autoimmune thyroiditis; D86.0 Sarcoidosis of lung
CPT/HCPCS: 36415; 80053; 80061; 82306; 84432; 84439; 84443; 86800

== ENCOUNTER → 2020-08-10 07:47 | Outpatient (CLI) | payer MEDICARE, OTHER, SELFPAY ==
[2020-04-11 10:08] VITALS: BMI 43.6
--- NOTE | 2020-08-10 07:50 | CT_ITS ---
STUDY: CT CHEST WITHOUT CONTRAST REASON FOR EXAM: Female, 70 years old. Lung nodule follow up, hx sarcoidosis, hypertension, bilateral breast cancer with mastectomy and reconstruction. RADIATION DOSAGE (If Supplied By Facility): CTDIvol = ( 15.25 ) mGy, DLP = ( 510.56 ) mGycm TECHNIQUE: Transaxial imaging was performed without the administration of intravenous contrast material. Multiplanar coronal and sagittal images were reformatted. Individualized dose optimization techniques were used for this CT. COMPARISON: Comparison is made with prior examination dated 07/29/2017. FINDINGS: A right-sided portacatheter is seen with the tip in the superior vena cava. Once again, the patient is status post bilateral mastectomy and bilateral breast reconstruction and prosthesis. The lungs are normal. There is no demonstrated pleural abnormality. There are calcifications of the coronary arteries. Normal mediastinum. Normal hilar regions. Normal unenhanced pulmonary arteries. Normal aorta arch and descending thoracic aorta. There are multi-level degenerative changes of the thoracic spine. Small hiatal hernia. CT/Chest without Contrast IMPRESSION: No acute abnormality seen. Electronically Signed: Manav Joseph, at 9:17 EST , Service support ,
== END ==
PROVIDERS: PCP Family Medicine; Referring Provider Internal Medicine Critical Care Medicine; Visit Provider Internal Medicine Critical Care Medicine
DX: R91.1 Solitary pulmonary nodule (principal)
CPT/HCPCS: 71250

== ENCOUNTER 2020-10-31 14:20 | Outpatient (CLI) | payer MEDICARE, OTHER, SELFPAY ==
[2020-04-11 10:08] VITALS: BMI 43.6
[2020-10-31 14:53] LABS: Absolute Lymphocyte Count 1.97 X10^3/uL (0.83-4.51); Absolute Neutrophil Count 4.7 X10^3/uL (2.0-7.7); Basophil# 0.07 X10^3/uL; Basophil% 0.9 % (0-1); Eosinophil# 0.13 X10^3/uL; Eosinophils% 1.7 % (0-5); Hematocrit 40.2 % (37-47); Hemoglobin 12.3 g/dL (12.0-15.0); Lymphocyte # 1.97 X10^3/ul (4.0); Lymphocyte % 26.4 % (19-41); Mean Corp Hgb Conc 30.6 g/dL (32-36); Mean Corpuscular Hgb 28.6 pg (27.0-32.0); Mean Corpuscular Volume 93.5 fL (81-99); Monocyte# 0.57 X10^3/uL; Monocyte% 7.7 % (0-10); NRBC Flagged by Analyzer 0 % (0-5); Neutrophil # 4.69 X10^3/uL (2.7-7.7); Platelet Count 332 K/mm3 (150-450); RBC Distribution Width CV 14.2 % (11.6-14.6); RBC Distribution Width SD 48.8 fl (35.1-43.9); White Blood Count 7.5 K/mm3 (4.4-11.0)
[2020-10-31 15:15] LABS: ALB/GLOB Ratio 1.1 RATIO (0.9-2.4); AST(SGOT) 13 U/L (15-37); Alanine Aminotransfer ALT/SGPT 23 U/L (13-56); Albumin, Serum 3.6 g/dL (3.2-5.0); Alkaline Phosphatase 98 U/L (45-117); Anion Gap 3 (5-15); BUN 18 mg/dL (7-18); BUN/Creat Ratio 31.8 RATIO (10-20); Chloride 105 mmol/L (98-107); Creatinine, Serum 0.57 mg/dL (0.55-1.02); EST Glomerular Filtration Rate 112 mL/min (>60); Est Glom Filt Rate - Afr Amer 135 mL/min (>60); Globulin 3.4 g/dL (2.2-4.2); Glucose 115 mg/dL (74-106); Potassium 3.7 mmol/L (3.5-5.1); Sodium Level 138 mmol/L (136-145); T4 Free Direct 1.22 ng/dL (0.76-1.46); Thyroid Stim Hormone (TSH) 0.01 uIU/mL (0.358-3.74)
[2020-10-31 15:24] LABS: Vitamin D,25 Hydroxy 30.9 ng/mL
== END 2020-10-31 17:00 | disposition home or self-care (01) ==
LOC: MEDOUTP 14:21
PROVIDERS: PCP Family Medicine; Referring Provider Family Medicine; Visit Provider Family Medicine
DX: I10 Essential (primary) hypertension (principal); E06.3 Autoimmune thyroiditis; E55.9 Vitamin D deficiency, unspecified
CPT/HCPCS: 36591; 80053; 82306; 84439; 84443; 85025; A4216

== ENCOUNTER → 2020-11-01 09:44 | Outpatient (CLI) | payer MEDICARE, OTHER, SELFPAY ==
[2020-04-11 10:08] VITALS: BMI 43.6
[2020-11-01 12:38] LABS: Hemoglobin A1c 5.5 % (3.8-5.6)
[2020-11-01 12:40] LABS: Cholesterol 195 mg/dL (200); High Density Lipoprotein 72 mg/dL; Triglycerides 198 mg/dL; Very Low Density Lipoprotein 40 mg/dL (5-40)
== END ==
PROVIDERS: PCP Family Medicine; Referring Provider Family Medicine; Visit Provider Family Medicine
DX: E78.5 Hyperlipidemia, unspecified (principal); R73.09 Other abnormal glucose
CPT/HCPCS: 36415; 80061; 83036

== ENCOUNTER → 2021-02-21 07:41 | Outpatient (CLI) | payer MEDICARE, OTHER, SELFPAY ==
[2020-04-11 10:08] VITALS: BMI 43.6
[2021-02-21 08:12] LABS: Absolute Lymphocyte Count 1.37 X10^3/uL (0.83-4.51); Absolute Neutrophil Count 3.5 X10^3/uL (2.0-7.7); Basophil# 0.06 X10^3/uL; Basophil% 1.1 % (0-1); Eosinophil# 0.22 X10^3/uL; Eosinophils% 3.9 % (0-5); Hematocrit 38.4 % (37-47); Hemoglobin 12.3 g/dL (12.0-15.0); Lymphocyte # 1.37 X10^3/ul (0.83-4.51); Mean Corpuscular Hgb 28.7 pg (27.0-32.0); Mean Corpuscular Volume 89.5 fL (81-99); Mean Platelet Vol. 8.8 fl (6.2-12.0); Monocyte# 0.49 X10^3/uL; Monocyte% 8.6 % (0-10); NRBC Flagged by Analyzer 0 % (0-5); Neutrophil # 3.53 X10^3/uL (2.7-7.7); Neutrophil % 61.9 % (47-70); Platelet Count 301 K/mm3 (150-450); RBC Distribution Width CV 15.3 % (11.6-14.6); RBC Distribution Width SD 50.1 fl (35.1-43.9); Red Blood Count 4.29 M/mm3 (4.2-5.4); White Blood Count 5.7 K/mm3 (4.4-11.0)
[2021-02-21] MEDS: 0.9% NaCl VAD Flush IV (08:15)
[2021-02-21] MEDS: 0.9 % NaCl (Sterile) Posiflush 10 mL IV (08:15)
[2021-02-21 08:23] LABS: Bacteria 0 SEEN /hpf (None Seen); Mucous, Urine 0 SEEN /hpf (<or=2+); Red Blood Cells-Urine 0 SEEN /hpf (0-5)
[2021-02-21 08:25] LABS: Color, Urine Yellow (Yellow); Glucose, Dipstick Normal (Normal); Ketone-Dipstick Negative (Negative); Leukocyte Esterase-Dipstick 500 /ul (Negative); Nitrite-Dipstick Negative (Negative); Occult Blood-Urine Negative /ul (Negative); Protein-Dipstick 15 mg/dl (Negative); Urine Bilirubin Dipstick Negative (Negative); Urine Clarity Sl. Cloudy (Clear); Urine Urobilinogen Normal (Normal); Urine pH 6.5 (5.0 - 8.0)
[2021-02-21 08:34] LABS: Squamous Epithelial Cells - UA 0-5 SEEN /hpf (5-10); White Blood Cells 25-50 SEEN /hpf (0-5)
[2021-02-21 08:40] LABS: Hemoglobin A1c 5.7 % (3.8-5.6)
[2021-02-21 08:41] LABS: ALB/GLOB Ratio 0.9 RATIO (0.9-2.4); AST(SGOT) 15 U/L (15-37); Alanine Aminotransfer ALT/SGPT 24 U/L (13-56); Albumin, Serum 3.3 g/dL (3.2-5.0); Alkaline Phosphatase 96 U/L (45-117); Anion Gap 4 (5-15); BUN 16 mg/dL (7-18); BUN/Creat Ratio 29.9 RATIO (10-20); Calcium,Total 8.5 mg/dL (8.5-10.1); Chloride 107 mmol/L (98-107); Cholesterol 163 mg/dL (200); Creatinine, Serum 0.54 mg/dL (0.55-1.02); EST Glomerular Filtration Rate 119 mL/min (>60); Est Glom Filt Rate - Afr Amer 144 mL/min (>60); Globulin 3.5 g/dL (2.2-4.2); Glucose 90 mg/dL (74-106); High Density Lipoprotein 67 mg/dL; Potassium 3.5 mmol/L (3.5-5.1); Protein, Total 6.8 g/dL (6.4-8.2); Sodium Level 140 mmol/L (136-145); T4 Free Direct 1.02 ng/dL (0.76-1.46); Thyroid Stim Hormone (TSH) 0.05 uIU/mL (0.358-3.74); Triglycerides 103 mg/dL; Very Low Density Lipoprotein 21 mg/dL (5-40)
[2021-02-21 08:47] LABS: Vitamin D,25 Hydroxy 38.4 ng/mL
== END ==
PROVIDERS: PCP Family Medicine
DX: R73.09 Other abnormal glucose (principal); I10 Essential (primary) hypertension; E06.3 Autoimmune thyroiditis; E55.9 Vitamin D deficiency, unspecified
CPT/HCPCS: 36591; 80053; 80061; 81001; 82306; 83036; 84439; 84443; 85025; A4216

== ENCOUNTER 2021-03-27 07:32 | Day surgery (SDC) | payer MEDICARE, OTHER, SELFPAY ==
[2021-03-08 05:53] VITALS: BMI 39.5
[2021-03-27 07:52] VITALS: BP 138/94; PULSE 94; RESP 16; TEMP 36.7; O2SAT 96; BMI 37.9
[2021-03-27] MEDS: Lactated Ringers 1,000 ML 100 ML IV (08:04)
--- NOTE | 2021-03-27 08:18 | PCM.HP.BLA ---
History and Physical Date of Admission: 03/27/21 Intake Visit Reasons: CSCOPE, FECAL INCONTINENCE Chief Complaint: BM urgency Applications Support Specialist Required: No Is patient in pain?: No Allergies lisinopril Adverse Reaction (Mild, Verified 03/08/21 08:16) H/A, FLUSHED adhesive tape Adverse Reaction (Verified 03/08/21 08:16) Rash morphine Adverse Reaction (Verified 03/08/21 08:16) Vomiting Medications potassium chloride 20 meq PO BID 08/16/13 [History Confirmed 03/08/21] atorvastatin 20 mg PO QHS 06/06/15 [History Confirmed 03/08/21] omeprazole 20 mg PO TUTH 06/06/15 [History Confirmed 03/08/21] amlodipine 10 mg PO DAILY 08/03/15 [History Confirmed 03/08/21] triamterene 37.5 mg PO DAILY 03/13/17 [History Confirmed 03/08/21] calcium 600 mg-D3 800 unit-mag11 50 zs-lebo-wrcxqb-yessica-s.borat tablet 1 tab PO DAILY 02/14/20 [History Confirmed 03/08/21] duloxetine 60 mg capsule,delayed release 30 mg PO DAILY cap 02/14/20 [History Confirmed 03/08/21] gabapentin 300 mg capsule 400 mg PO TID cap 02/14/20 [History Confirmed 03/08/21] hydrocodone-acetaminophen 5-325mg 5mg-325mg 1 tab PO QHS PRN 02/14/20 [History Confirmed 03/08/21] levothyroxine 137 mcg tablet 88 mcg PO DAILY tab 03/08/21 [History Confirmed 03/08/21] Is last menstrual period known: No Post menopausal: Yes Patient : No [facility] Medical History (Updated 03/08/21 @ 08:[address] Anthony Craig MD) Abnormal chest CT Acquired absence of left breast and nipple Acquired absence of right breast and nipple Allergic rhinitis Breakdown (mechanical) of breast prosthesis and implant, subsequent encounter Ford involving less than 10% of body surface Cataracts, bilateral Complication of breast device Contour deformity of breast, acquired Deformity of reconstructed breast Depression Disproportion of reconstructed breast Diverticulosis Family history of breast cancer Fibromyalgia GERD (gastroesophageal reflux disease) Irma's disease History of MRSA infection History of skin cancer HTN (hypertension) Hyperlipemia Mediastinal lymphadenopathy Multiple nodules of lung Neuropathy LEANNE (obstructive sleep apnea) Osteoarthritis of right knee Partial thickness burn of back Personal history of breast cancer Pulmonary granuloma Rheumatoid arthritis Sarcoidosis of lymph nodes Skin cancer Skin lesion Surgical History H/O subtotal mastectomy of left breast History of adenoidectomy History of back surgery History of bilateral cataract extraction History of biopsy History of bladder repair surgery History of carpal tunnel surgery of left wrist History of cholecystectomy History of hysterectomy History of lumbar laminectomy History of reconstruction of both breasts Hx of left breast implant S/P total knee arthroplasty Status post Mohs surgery Family History (Updated 03/08/21 @ 08:03 by Shawna Espino) Father Heart disease Myocardial infarction CHF (congestive heart failure) Mother Breast cancer Brother Diabetes Skin cancer Grandmother Cancer lung Unknown Hypertension Social History (Updated 08/03/20 @ 10:[address] Dawood Stephens, DO) Smoking Status: Never smoker second hand exposure: No alcohol intake: current alcohol intake frequency: a few times a month details: social substance use type: does not use caffeine: Yes what type of physical activity do you participate in: none seatbelt use: always do you feel safe at home: Yes Female Reproductive History Menstrual Ab induced: 0 Ab spontaneous: 1 Ectopics: 0 HPI HPI HPI: CHRISTINE ABRAMS, is a 70 F who presents to the office today for surgical consultation regarding a possible colonoscopy as the patient is complaining of fecal incontinence. The patient is being referred by Dr Luther Orellana and a written copy of my surgical consult and recommendations will return to him. At her appointment with him she complained of liquidy stool fecal incontinence multiple times a day. Apparently this has occurred since she had previous bladder surgery. She has not noticed any bright red blood. Her most recent colon cancer screening was October 18, 2019 when a Cologuard test was negative. There is comment that she has gained some weight. BMI recorded was 39.5 The patient notes that some days of the week she will have normal bowel habits other days she will have uncontrolled loose stools throughout the morning requiring multiple visits to the commode. On March 18, 2019 the patient had surgery for uterovaginal prolapse and postmenopausal bleeding. She underwent a transvaginal hysterectomy per Dr. Lorraine Carlos and then Dr. Paulette Lopez performed a posterior repair with sacrospinous ligament fixation and a mid urethral sling with a cystourethroscopy and bilateral ureteral catheterization. The patient states that she had this change in bowel habits since that time. Her previous colonoscopy was February 18, [address] Morena Gracia. This required 7 mg of Versed and 100 mg of fentanyl. Wall areas of the sigmoid and call rectum were identified. Biopsies showed findings consistent with focal ulceration of the sigmoid consistent with ischemic colitis and nonspecific inflammation of the rectum. The patient states that at that time she was taking an shet-sbs-mitumkw anti-inflammatory agent. As of February 21, 2021 her white blood cell count is 5.7 with a hemoglobin of 12.3 and a hematocrit 38.4 platelet count 301,000. BUN is 16 creatinine 0.54. Liver function tests are normal. She has not noticed any bright red blood per rectum or melena. She has not had any weight loss. Exam Const General: cooperative, healthy appearing, comfortable and no acute distress Nutritional Appearance: obese Orientation: alert and awake HENMA Head: normal to inspection Eyes General: appearance normal, both eyes and all related structures Resp Effort & Inspection: normal respiratory effort Cardio Rate: regular rate Rhythm: regular rhythm Other: Soft 2/6 systolic ejection murmur GI Palpation: soft and no hepatosplenomegaly Auscultation: normal bowel sounds Musc Cervical Spine: normal cervical lordosis Skin General: no rashes or lesions noted Neuro General: patient alert and patient awake Extrem General: no calf tenderness Psych Appearance: grossly normal COVID (Procedure Consent) Procedure Criteria Procedure Criteria: Yes Elective The surgeon/proceduralist and patient have discussed in detail the risk of exposure to and/or potential harm posed by the COVID-19 virus with having a surgery/procedure at this time versus the risk of delaying the surgery/procedure. It is not possible to know either the risk of delaying the surgery or procedure or chance of getting an infection with perfect accuracy, but a joint decision was made between the patient and the surgeon/proceduralist to proceed at this time with the scheduled surgery/procedure as indicated on the consent form. Assessment and Plan Assessment and Plan (1) Change in bowel habit: Status: Acute Plan - Dr. Anthony Craig MD: 70-year-old female. Previous colonoscopy January 2014. Colitis identified at that time. Recent change of bowel habit. She states that she has a remote history of colon polyps as well. I recommend to her a colonoscopy with possible biopsy or polypectomy as indicated. Her previous colonoscopy required significant amount of Versed. I recommend that we perform this 1 with monitored anesthesia care and an adult scope. Very careful inspection for possible biopsies will be pursued. She is aware of the technique, benefit, risk, alternatives. She states that she has foot surgery April 17, 2021. We will try to accomplish this procedure prior to that. I very much appreciate the opportunity of assisting with her surgical care. Copy: Dr Luther Craig M.D., F.A.C.S. Coding Level of Care Code 19124 Diagnoses Change in bowel habit R19.4 I have re-examined the patient. There are no clinical changes since date of exam.
--- NOTE | 2021-03-27 08:30 | COLBX_PTH ---
PATIENT: CHRISTINE ABRAMS LOC: [facility] U#:[id number] AGE/SX: 71/F ROOM: RE03/27/[address]: Dr. Atnhony Craig MD : 1950 BED: DIS: 03/27/2021 SPEC #: [id number] RECD: 03/27/21 11:48 STATUS: SHELDON REEverton #: [id number] JOHN: 03/27/21 08:[address]: Anthony Craig DEPT: SURGICAL PATHOLOGY RECD BY: Jada Telles ENTERED: 03/27/21 12:58 SP TYPE: COLON BX OTHR DR: Dr. Luther Orellana MD Tissues: COLON BIOPSY Procedures: Surgery Specimen Level IV HEADER OPERATION: Colonoscopy (MAC) PRE-OP DIAGNOSIS: Change in bowel habit TISSUE SUBMITTED: Random colon biopsies MICROSCOPIC DIAGNOSIS Colon, random biopsy: Fragments of colonic mucosa, no pathologic diagnosis. ANA:kalen 03/28/2021 MICROSCOPIC DESCRIPTION Slides are reviewed. GROSS DESCRIPTION Received in fixative is one container labeled with the patient's name and designated random colon biopsy. The specimen consists of multiple irregular fragments of light morfin soft tissue that in aggregate measure 1.2 x 0.4 x 0.1 cm. The specimen is totally submitted in one cassette. / SJ:kalen 03/27/21 TC:4 CPT: 73731
[2021-03-27 09:10] VITALS: BP 138/94; BP 139/75; PULSE 74; RESP 16; TEMP 36.3; O2SAT 100
--- NOTE | 2021-03-27 09:10 | OP.COLON_ITS ---
Patient Name: Es Graves Procedure Date: 03/27/2021 8:49 AM Date of : 1950 Age: 71 Procedure: Colonoscopy Indications: Diarrhea Providers: Anthony Craig MD Referring MD: Anthony Craig MD Medicines: See the Anesthesia note for documentation of the administered medications Patient Profile: Last Colonoscopy: January 2014. Complications: No immediate complications. Procedure: Pre-Anesthesia Assessment: - Prior to the procedure, a History and Physical was performed, and patient medications and allergies were reviewed. The patient's tolerance of previous anesthesia was also reviewed. The risks and benefits of the procedure and the sedation options and risks were discussed with the patient. All questions were answered, and informed consent was obtained. Prior Anticoagulants: The patient has taken no previous anticoagulant or antiplatelet agents. ASA Grade Assessment: II - A patient with mild systemic disease. After reviewing the risks and benefits, the patient was deemed in satisfactory condition to undergo the procedure. After I obtained informed consent, the scope was passed under direct vision. Throughout the procedure, the patient's blood pressure, pulse, and oxygen saturations were monitored continuously. The pediatric colonoscope was introduced through the anus and advanced to the cecum, identified by appendiceal orifice and ileocecal valve. The colonoscopy was performed with moderate difficulty due to inadequate bowel prep. The patient tolerated the procedure well. The quality of the bowel preparation was inadequate. The ileocecal valve was photographed. Scope In: 8:54:07 AM Scope Withdrawal Time 0 hours 6 minutes 29 seconds Scope Out: 9:05:24 AM Total Procedure Duration Time 0 hours 11 minutes 17 seconds Findings: Hemorrhoids were found on perianal exam. A moderate amount of stool was found in the entire colon, precluding visualization. Biopsies for histology were taken with a cold forceps from the entire colon for evaluation of microscopic colitis. Impression: - Preparation of the colon was inadequate. - Hemorrhoids found on perianal exam. - Stool in the entire examined colon. - Biopsies were taken with a cold forceps from the entire colon for evaluation of microscopic colitis. Recommendation: - Discharge patient to home. - Resume previous diet. - Continue present medications. - Telephone my office for pathology results in 1 week. We will await the random biopsy results. If this assists with diagnosis would not recommend repeating colonoscopy. This colonoscopy was inadequate to define polyps. We will reschedule patient discretion. Inadequate bowel prep. - Repeat colonoscopy date to be determined after pending pathology results are reviewed for surveillance based on pathology results. Procedure Code(s): --- Professional --- 43909, Colonoscopy, flexible; with biopsy, single or multiple Diagnosis Code(s): --- Professional --- K64.9, Unspecified hemorrhoids R19.7, Diarrhea, unspecified CPT copyright 2017 [employer]. All rights reserved. The codes documented in this report are preliminary and upon computer technology teacher review may be revised to meet current compliance requirements. Anthony Craig MD 03/27/2021 9:10:05 AM This report has been signed electronically. Number of Addenda: 0 Note Initiated On: 03/27/2021 8:49 AM
--- NOTE | 2021-03-27 09:11 | OP.CCLET_ITS ---
03/27/2021 Luther Orellana [address] [place] [address] Re : Colonoscopy procedure for Es Patsykulwant Dear Dr. Orellana This procedure was performed on Saturday, March 27, 2021. My impressions and recommendations are as follows: Impressions : - Preparation of the colon was inadequate. - Hemorrhoids found on perianal exam. - Stool in the entire examined colon. - Biopsies were taken with a cold forceps from the entire colon for evaluation of microscopic colitis. Recommendations : - Discharge patient to home. - Resume previous diet. - Continue present medications. - Telephone my office for pathology results in 1 week. We will await the random biopsy results. If this assists with diagnosis would not recommend repeating colonoscopy. This colonoscopy was inadequate to define polyps. We will reschedule patient discretion. Inadequate bowel prep. - Repeat colonoscopy date to be determined after pending pathology results are reviewed for surveillance based on pathology results. My findings are described in the full procedure note, which is enclosed. If I can be of further assistance, please feel free to contact me at Doctor phone number(s): Work: . Sincerely, Anthony Craig MD 03/27/2021 9:10:05 AM This report has been signed electronically.
[2021-03-27 09:15] VITALS: BP 138/73; BP 138/94; PULSE 78; RESP 16; O2SAT 100
[2021-03-27 09:20] VITALS: BP 138/94; BP 145/78; PULSE 78; RESP 16; O2SAT 98
[2021-03-27 09:25] VITALS: BP 126/84; BP 138/94; PULSE 76; RESP 16; TEMP 36.6; O2SAT 100
[2021-03-27 09:49] VITALS: BP 138/94
== END 2021-03-27 09:52 ==
LOC: EN 07:33 → AC 07:34
PROVIDERS: PCP Family Medicine; Referring Provider Surgery; Visit Provider Surgery
PROC: 0DJD8ZZ Inspection of Lower Intestinal Tract, Via Natural or Artificial Opening Endoscopic (ICD-10-PCS; CPT 45378; principal; 2021-03-27 08:25)
DX: R19.7 Diarrhea, unspecified (principal); K64.9 Unspecified hemorrhoids; I10 Essential (primary) hypertension; F32.9 Major depressive disorder, single episode, unspecified; M79.7 Fibromyalgia; K21.9 Gastro-esophageal reflux disease without esophagitis; E06.3 Autoimmune thyroiditis; E78.5 Hyperlipidemia, unspecified; G62.9 Polyneuropathy, unspecified; G47.33 Obstructive sleep apnea (adult) (pediatric); M17.11 Unilateral primary osteoarthritis, right knee; M06.9 Rheumatoid arthritis, unspecified; H26.9 Unspecified cataract; J84.10 Pulmonary fibrosis, unspecified; Z78.0 Asymptomatic menopausal state; Z85.3 Personal history of malignant neoplasm of breast; Z86.14 Personal history of Methicillin resistant Staphylococcus aureus infection; Z87.19 Personal history of other diseases of the digestive system; Z85.828 Personal history of other malignant neoplasm of skin; Z79.899 Other long term (current) drug therapy
CPT/HCPCS: 45380; 88305; J7120; A4216

== ENCOUNTER → 2021-03-30 15:26 | Outpatient (CLI) | payer MEDICARE, OTHER, SELFPAY ==
--- NOTE | 2021-03-30 15:30 | MRI_ITS ---
STUDY: MRI LUMBAR SPINE WITH AND WITHOUT CONTRAST REASON FOR EXAM: Female, 71 years old. SPINAL STENOSIS TECHNIQUE: Standardized fat and water weighted pulse sequences were obtained in the sagittal and axial planes. 20ml via port was administered for the contrast portion of the examination. COMPARISON: None FINDINGS: Visualized distal cord shows normal signal and contour with no intramedullary mass. CONUS terminates at the T12-L1 disc level. More peripheral nerve roots show no clumping or tethering. No abnormal enhancement within the thecal sac. Absent spinous processes and central lamina bilaterally from L2 through L5. There is some residual T2 signal and enhancement L2-L5 posterior central soft tissues. No abnormal fluid collection. Visualized distal thoracic intervertebral discs show minimal disc desiccation without significant height loss. No degenerative endplate changes. No evidence of distal thoracic spine central canal or neural foraminal narrowing. T12-L1 disc desiccation without significant height loss and no significant degenerative endplate changes. No central canal or neural foraminal narrowing at this level. L1-L2 unchanged disc desiccation and height loss and significant irregular endplate changes, asymmetrically involving the right side of the endplates. This is unchanged compared to prior exam. No significant central canal or neural foraminal narrowing at this level with posterior decompression of the central canal. Again noted mild retrolisthesis of L1 relative to L2, degenerative in etiology. There is bilateral moderate neural foraminal narrowing, right greater than left. L2-L3 disc desiccation and height loss and broad-based posterior disc bulge with more left-sided involvement and mild bilateral facet arthropathy associated with [id number] left neuroforaminal narrowing. No central canal stenosis. L3-4 broad-based posterior disc protrusion extending into the inferior neural foramina resulting in mild narrowing bilaterally. This is worsened by facet arthropathy. No central canal stenosis. L4-5 broad-based posterior disc protrusion without central canal stenosis. Minimal bilateral neural foraminal narrowing. L5-S1 significant disc desiccation height loss and degenerative endplate changes with no central canal narrowing. No significant neural foraminal narrowing. Visualized retroperitoneal soft tissues included in [id number]-ci-[id number] within normal limits. There is significant muscular atrophy. Paraspinous muscles. IMPRESSION: Residual post surgical edema with minimal enhancement status post L2-L5 bilateral laminectomy. No significant central canal stenosis. There is a neuroforaminal narrowing as above. No focal fluid collection. No abnormal intra or epidural enhancement. MRI/Spine Lumbar W/WO Contrast IMPRESSION: Electronically Signed: Castillo Otto DO at 0:31 EDT Tel , Service support ,
== END ==
PROVIDERS: PCP Family Medicine
DX: M48.061 Spinal stenosis, lumbar region without neurogenic claudication (principal); Z98.890 Other specified postprocedural states; M54.16 Radiculopathy, lumbar region
CPT/HCPCS: 72158; A9575; A4216

== ENCOUNTER → 2021-06-08 09:27 | Outpatient (CLI) | payer MEDICARE, OTHER, SELFPAY ==
[2021-06-08 12:28] LABS: Absolute Lymphocyte Count 1.09 X10^3/uL (0.83-4.51); Absolute Neutrophil Count 3.8 X10^3/uL (2.0-7.7); Basophil# 0.09 X10^3/uL; Basophil% 1.5 % (0-1); Eosinophil# 0.32 X10^3/uL; Eosinophils% 5.5 % (0-5); Hematocrit 43.1 % (37-47); Hemoglobin 13.4 g/dL (12.0-15.0); Lymphocyte # 1.09 X10^3/ul (0.83-4.51); Lymphocyte % 18.7 % (19-41); Mean Corp Hgb Conc 31.1 g/dL (32-36); Mean Corpuscular Hgb 28.6 pg (27.0-32.0); Mean Corpuscular Volume 91.9 fL (81-99); Mean Platelet Vol. 9.2 fl (6.2-12.0); Monocyte# 0.52 X10^3/uL; Monocyte% 8.9 % (0-10); NRBC Flagged by Analyzer 0 % (0-5); Neutrophil # 3.78 X10^3/uL (2.7-7.7); Neutrophil % 64.9 % (47-70); Platelet Count 308 K/mm3 (150-450); RBC Distribution Width CV 15.5 % (11.6-14.6); RBC Distribution Width SD 52.2 fl (35.1-43.9); Red Blood Count 4.69 M/mm3 (4.2-5.4); White Blood Count 5.8 K/mm3 (4.4-11.0)
[2021-06-08 12:49] LABS: Vitamin D,25 Hydroxy 31.1 ng/mL
[2021-06-08 12:52] LABS: ALB/GLOB Ratio 0.9 RATIO (0.9-2.4); AST(SGOT) 17 U/L (15-37); Alanine Aminotransfer ALT/SGPT 23 U/L (13-56); Albumin, Serum 3.5 g/dL (3.2-5.0); Alkaline Phosphatase 123 U/L (45-117); Anion Gap 4 (5-15); BUN 17 mg/dL (7-18); BUN/Creat Ratio 24.1 RATIO (10-20); Calcium,Total 9.8 mg/dL (8.5-10.1); Chloride 105 mmol/L (98-107); Cholesterol 194 mg/dL (200); EST Glomerular Filtration Rate 87 mL/min (>60); Est Glom Filt Rate - Afr Amer 105 mL/min (>60); Globulin 4.1 g/dL (2.2-4.2); Glucose 79 mg/dL (74-106); High Density Lipoprotein 77 mg/dL; Potassium 3.6 mmol/L (3.5-5.1); Protein, Total 7.6 g/dL (6.4-8.2); Sodium Level 140 mmol/L (136-145); T4 Free Direct 0.99 ng/dL (0.76-1.46); Triglycerides 134 mg/dL; Very Low Density Lipoprotein 27 mg/dL (5-40)
[2021-06-08 13:00] LABS: Hemoglobin A1c 5.5 % (3.8-5.6)
== END ==
PROVIDERS: PCP Family Medicine; Referring Provider Family Medicine; Visit Provider Family Medicine
DX: E06.3 Autoimmune thyroiditis (principal); R73.09 Other abnormal glucose; E78.5 Hyperlipidemia, unspecified; E55.9 Vitamin D deficiency, unspecified
CPT/HCPCS: 36415; 80053; 80061; 82306; 83036; 84439; 84443; 85025

== ENCOUNTER → 2021-07-11 09:42 | Outpatient (CLI) | payer MEDICARE, OTHER, SELFPAY ==
[2021-07-11 12:19] LABS: Erythrocyte Sedimentation Rate 24 mm/hr (0-30)
[2021-07-11 12:28] LABS: CRP 9.11 mg/L (0.0-3.0)
[2021-07-11 12:30] LABS: Absolute Lymphocyte Count 1.27 X10^3/uL (0.83-4.51); Absolute Neutrophil Count 3.8 X10^3/uL (2.0-7.7); Basophil# 0.09 X10^3/uL; Basophil% 1.5 % (0-1); Eosinophil# 0.21 X10^3/uL; Eosinophils% 3.5 % (0-5); Hematocrit 39.9 % (37-47); Hemoglobin 12.4 g/dL (12.0-15.0); Lymphocyte # 1.27 X10^3/ul (0.83-4.51); Lymphocyte % 21.2 % (19-41); Mean Corp Hgb Conc 31.1 g/dL (32-36); Mean Corpuscular Hgb 28.8 pg (27.0-32.0); Mean Corpuscular Volume 92.8 fL (81-99); Mean Platelet Vol. 9.4 fl (6.2-12.0); Monocyte# 0.58 X10^3/uL; Monocyte% 9.7 % (0-10); NRBC Flagged by Analyzer 0 % (0-5); Neutrophil # 3.79 X10^3/uL (2.7-7.7); Neutrophil % 63.4 % (47-70); Platelet Count 336 K/mm3 (150-450); RBC Distribution Width CV 15.6 % (11.6-14.6); RBC Distribution Width SD 53.1 fl (35.1-43.9)
== END ==
PROVIDERS: PCP Family Medicine; Referring Provider Family Medicine; Visit Provider Specialist
DX: Z96.651 Presence of right artificial knee joint (principal)
CPT/HCPCS: 36415; 85025; 85652; 86140

== ENCOUNTER → 2021-07-19 09:14 | Outpatient (CLI) | payer MEDICARE, OTHER, SELFPAY ==
[2021-07-19 10:09] LABS: Synovial Fld Mononuclear WBC % 71.2 %; Synovial Fld Polynuclear WBC # 0.275 10^3/uL; Synovial Fld Polynuclear WBC % 28.8 %
[2021-07-19 11:08] LABS: AUTO B FLUID DILUENT BKGD CT WBC <0.1 RBC <0.01 (W<.1,R<.01); Appearance /Synovial Fluid Turbid (CLEAR); Color / Synovial Fluid Red (Pale Yellow); Lymph 34 %; Monocyte /Synovial Fluid 2 %; Neutrophil 16 % (0-25)
[2021-07-19 11:09] LABS: Body Fluid QC Type(s) BF1Q; Other Cell /Synovial Fluid 48 %
[2021-07-24 10:29] LABS: Pathologist Comment Reviewed
== END ==
PROVIDERS: PCP Family Medicine; Referring Provider Specialist; Visit Provider Specialist
DX: M25.561 Pain in right knee (principal); M25.461 Effusion, right knee; Z96.651 Presence of right artificial knee joint
CPT/HCPCS: 87015; 87070; 87075; 87101; 87116; 87205; 87206; 89050; 89051

== ENCOUNTER 2021-08-01 11:20 | Outpatient (CLI) | payer MEDICARE, OTHER, SELFPAY ==
--- NOTE | 2021-08-01 11:29 | BD_ITS ---
STUDY: DUAL ENERGY X-RAY ABSORPTIOMETRY / DXA REASON FOR EXAM: Female, 71 years old. Postmenopausal screening TECHNIQUE: Bone Mineral Density (BMD) measurements of lumbar spine and bilateral hips were obtained. COMPARISON: 2009 FINDINGS: Lumbar Spine (L1-L4): g/cm2 (1.011) / T-score (-0.6) / Z-score (1.8) Findings are suggestive of normal bone density with a low fracture risk. Left Femur Total: g/cm2 (0.919) / T-score (-0.2) / Z-score (1.4) Left Femoral Neck: g/cm2 (0.694) / T-score (-1.4) / Z-score (0.5) Right Femur Total: g/cm2 (0.957) / T-score (0.1) / Z-score (1.8) Right Femoral Neck: g/cm2 (0.711) / T-score (-1.2) / Z-score (0.7) The T-Scores on the most recent prior examination were: There has been an increase in bone mineral density in the lumbar spine and a decrease in both femurs since the previous study BD/Dexa Bone Density Study IMPRESSION: The patient is considered osteopenic as outlined below according to World [employer] Organization (WHO) criteria with a moderate fracture risk. Reference Information: The T-score is the number of standard deviations above or below the standard which is normal for young adults at their peak bone mineral density. The World Health Organization (WHO) interprets the T-scores as follows: Above -1 Normal bone density Between -1 and -2.5 Osteopenia Equal to / or below -2.5 Osteoporosis As a practical clinical guideline, osteopenia may be graded as follows: Mild -1 through -1.5 Moderate -1.6 through -2.0 Severe -2.1 through -2.4 The Z-score is the number of standard deviations above or below age-matched controls. A Z-score of less than -1.5 would be considered abnormal. References: 1. NIH Osteoporosis and Related Bone Diseases www osteo.org 2. International Society for Clinical Densitometry www iscd.org 3. National Osteoporosis Foundation www nof.org Electronically Signed: Edvin Kay MD at 16:46 EST , Service support ,
== END 2021-08-01 23:59 | disposition short-term general hospital (02) ==
LOC: OPBD 11:23
PROVIDERS: PCP Family Medicine; Referring Provider Family Medicine; Visit Provider Family Medicine
DX: Z78.0 Asymptomatic menopausal state (principal)
CPT/HCPCS: 77080

== ENCOUNTER 2021-08-16 13:28 | Outpatient (CLI) | payer MEDICARE, OTHER, SELFPAY | END 2021-08-16 23:59 | disposition short-term general hospital (02) | LOC: MEDOUTP 13:28 | PROVIDERS: PCP Family Medicine | DX: Z45.2 Encounter for adjustment and management of vascular access device (principal) | CPT/HCPCS: 96523; A4216 ==

== ENCOUNTER 2021-09-04 09:21 | Outpatient (CLI) | payer MEDICARE, OTHER, SELFPAY ==
[2021-09-04 10:10] LABS: Absolute Lymphocyte Count 1.24 X10^3/uL (0.83-4.51); Absolute Neutrophil Count 3.4 X10^3/uL (2.0-7.7); Basophil# 0.08 X10^3/uL; Basophil% 1.5 % (0-1); Eosinophils% 3.7 % (0-5); Hemoglobin 12.1 g/dL (12.0-15.0); Lymphocyte # 1.24 X10^3/ul (0.83-4.51); Lymphocyte % 22.7 % (19-41); Mean Corpuscular Hgb 28.3 pg (27.0-32.0); Mean Corpuscular Volume 91.3 fL (81-99); Monocyte# 0.53 X10^3/uL; Monocyte% 9.7 % (0-10); NRBC Flagged by Analyzer 0 % (0-5); Neutrophil # 3.38 X10^3/uL (2.7-7.7); Neutrophil % 61.9 % (47-70); Platelet Count 298 K/mm3 (150-450); RBC Distribution Width CV 15.1 % (11.6-14.6); RBC Distribution Width SD 50.8 fl (35.1-43.9); Red Blood Count 4.27 M/mm3 (4.2-5.4); White Blood Count 5.5 K/mm3 (4.4-11.0)
[2021-09-04 10:23] LABS: Hemoglobin A1c 5.6 % (3.8-5.6)
[2021-09-04 10:40] LABS: Vitamin D,25 Hydroxy 31.7 ng/mL
[2021-09-04 10:54] LABS: AST(SGOT) 15 U/L (15-37); Alanine Aminotransfer ALT/SGPT 19 U/L (13-56); Albumin, Serum 3.5 g/dL (3.2-5.0); Alkaline Phosphatase 123 U/L (45-117); Anion Gap 7 (5-15); BUN 18 mg/dL (7-18); BUN/Creat Ratio 30.8 RATIO (10-20); Calcium,Total 9.1 mg/dL (8.5-10.1); Chloride 106 mmol/L (98-107); Cholesterol 165 mg/dL (200); Creatinine, Serum 0.58 mg/dL (0.55-1.02); EST Glomerular Filtration Rate 107 mL/min (>60); Est Glom Filt Rate - Afr Amer 130 mL/min (>60); Globulin 3.6 g/dL (2.2-4.2); Glucose 86 mg/dL (74-106); High Density Lipoprotein 73 mg/dL; Potassium 3.9 mmol/L (3.5-5.1); Protein, Total 7.1 g/dL (6.4-8.2); Sodium Level 140 mmol/L (136-145); T4 Free Direct 1.04 ng/dL (0.76-1.46); Thyroid Stim Hormone (TSH) 0.29 uIU/mL (0.358-3.74); Triglycerides 97 mg/dL; Very Low Density Lipoprotein 19 mg/dL (5-40)
== END 2021-09-04 23:59 | disposition home or self-care (01) ==
LOC: MFPLAB 09:26
PROVIDERS: PCP Family Medicine; Referring Provider Family Medicine; Visit Provider Family Medicine
DX: E78.5 Hyperlipidemia, unspecified (principal); R73.09 Other abnormal glucose; E55.9 Vitamin D deficiency, unspecified; E06.3 Autoimmune thyroiditis
CPT/HCPCS: 36415; 80053; 80061; 82306; 83036; 84439; 84443; 85025

== ENCOUNTER 2021-09-07 08:53 | Outpatient (CLI) | payer MEDICARE, OTHER, SELFPAY ==
--- NOTE | 2021-09-07 08:56 | RAD_ITS ---
STUDY: X-RAY - RIGHT HAND REASON FOR EXAM: Female, 71 years old. Pain. TECHNIQUE: 3 view(s) of the hand. COMPARISON: None. FINDINGS: Osteopenia. Negative ulnar variance. Mild arthrosis of the radiocarpal articulation. Resection of the trapezium. Mild arthrosis of the MCP and IP joints. The soft tissue structures are unremarkable. RAD/Hand Min 3 Views IMPRESSION: Osteopenia with negative ulnar variance. Resection of the trapezium. Diffuse mild osteoarthritic changes. No acute abnormality. Electronically Signed: Farhan Pitts MD at 10:59 EST ,
--- NOTE | 2021-09-07 08:56 | RAD_ITS ---
STUDY: X-RAY - RIGHT SHOULDER REASON FOR EXAM: Female, 71 years old. Pain. TECHNIQUE: 4 view(s) of the shoulder. COMPARISON: None. FINDINGS: Osteopenia. Mild arthrosis of the glenohumeral joint. Mild arthrosis of the AC joint. Normal acromion. Normal humeral head and visualized proximal humerus. The soft tissue structures are unremarkable. Right internal jugular catheter with tip projected into the upper SVC. RAD/Shoulder min 2 Views IMPRESSION: Osteopenia with mild arthrosis of the glenohumeral and acromioclavicular joints. No acute abnormality or erosive changes. Electronically Signed: Farhan Pitts MD at 10:56 EST ,
--- NOTE | 2021-09-07 08:56 | RAD_ITS ---
STUDY: X-RAY - LEFT HAND REASON FOR EXAM: Female, 71 years old. Pain. TECHNIQUE: 3 view(s) of the hand. COMPARISON: 06/03/2016. FINDINGS: Osteopenia. Negative ulnar variance. Minimal erosive changes at the radioulnar joint, slightly progressed since the prior study. Resection of the trapezium. Irregularity of the proximal aspect of the first metacarpal with minimal erosive changes. Fusion of the first MCP joint. Stable arthrosis of the MCP and IP joints. The soft tissue structures are unremarkable. RAD/Hand Min 3 Views IMPRESSION: Osteopenia with negative ulnar variance. Slight increased erosive changes at the distal radioulnar joint. Postsurgical resection of the trapezium with irregularity of the base of the first metacarpal. Stable fusion of the first MCP joint. Stable osteoarthritic changes. Electronically Signed: Farhan Pitts MD at 10:58 EST ,
== END 2021-09-07 23:59 | disposition home or self-care (01) ==
LOC: MTRAD 08:55
PROVIDERS: PCP Family Medicine; Referring Provider Family Medicine; Visit Provider Family Medicine
DX: M25.511 Pain in right shoulder (principal); M79.641 Pain in right hand; M79.642 Pain in left hand
CPT/HCPCS: 73030; 73130

== ENCOUNTER 2021-09-18 06:29 | Day surgery (SDC) | payer MEDICARE, OTHER, SELFPAY ==
[2021-09-18] VITALS (7 sets, daily range): BP systolic 93–141; BP diastolic 57–74; PULSE 74–104; RESP 16; TEMP 36.4–37.1; O2SAT 96–100; BMI 39.7
--- NOTE | 2021-09-18 06:34 | HP.PCM_ITS ---
HPI - General HPI Narrative CHRISTINE ABRAMS, is a 71 F who presents with a complaint of fecal incontinence. This patient presents via open access. February 2021 I saw this patient and attempted a colonoscopy but bowel prep was completely inadequate. My understanding is that she is scheduled and rescheduled multiple times for this colonoscopy. The previous history of note reflects the following. She had foot surgery and that assisted with delaying this procedure. Fortunately she notes that her fecal incontinence has gradually improved over the past multiple months. HPI: CHRISTINE ABRAMS, is a 71 F who presents to the office today for surgical consultation regarding a possible colonoscopy as the patient is complaining of fecal incontinence. The patient is being referred by Dr Luther Orellana and a written copy of my surgical consult and recommendations will return to him. At her appointment with him she complained of liquidy stool fecal incontinence multiple times a day. Apparently this has occurred since she had previous bladder surgery. She has not noticed any bright red blood. Her most recent colon cancer screening was October 18, 2019 when a Cologuard test was negative. There is comment that she has gained some weight. BMI recorded was 39.5 The patient notes that some days of the week she will have normal bowel habits other days she will have uncontrolled loose stools throughout the morning requiring multiple visits to the commode. On March 18, 2019 the patient had surgery for uterovaginal prolapse and postmenopausal bleeding. She underwent a transvaginal hysterectomy per Dr. Lorraine Carlos and then Dr. Paulette Lopez performed a posterior repair with sacrospinous ligament fixation and a mid urethral sling with a cystourethroscopy and bilateral ureteral catheterization. The patient states that she had this change in bowel habits since that time. Her previous colonoscopy was February 18, [address] Morena Gracia. This required 7 mg of Versed and 100 mg of fentanyl. Wall areas of the sigmoid and call rectum were identified. Biopsies showed findings consistent with focal ulceration of the sigmoid consistent with ischemic colitis and nonspecific inflammation of the rectum. The patient states that at that time she was taking an zkcd-hpc-tluyrmc anti-inflammatory agent. As of February 21, 2021 her white blood cell count is 5.7 with a hemoglobin of 12.3 and a hematocrit 38.4 platelet count 301,000. BUN is 16 creatinine 0.54. Liver function tests are normal. She has not noticed any bright red blood per rectum or melena. She has not had any weight loss [facility] Medical History (Updated 09/14/21 @ 15:05 by Jocelyn Dorado) Abnormal chest CT Acquired absence of left breast and nipple Acquired absence of right breast and nipple Alcohol use Allergic rhinitis Back pain BiPAP (biphasic positive airway pressure) dependence Breakdown (mechanical) of breast prosthesis and implant, subsequent encounter [employer] involving less than 10% of body surface Cancer Cataracts, bilateral Complication of breast device Contour deformity of breast, acquired Deformity of reconstructed breast Depression Disproportion of reconstructed breast Diverticulosis Family history of breast cancer Fibromyalgia Gastric reflux GERD (gastroesophageal reflux disease) Irma's disease High cholesterol History of diverticulitis History of echocardiogram History of edema History of MRSA infection History of skin cancer HTN (hypertension) Hyperlipemia Mediastinal lymphadenopathy Multiple nodules of lung Neuropathy LEANNE (obstructive sleep apnea) Osteoarthritis of right knee Partial thickness burn of back Personal history of breast cancer Pulmonary granuloma Rheumatoid arthritis Sarcoidosis of lymph nodes Shortness of breath on exertion Skin cancer Skin lesion Thyroid disease Wears glasses Home Medications potassium chloride 20 meq PO BID 08/16/13 [History Last Taken Unknown] atorvastatin 20 mg PO QHS 06/06/15 [History Last Taken Unknown] omeprazole 20 mg PO DAILY 06/06/15 [History Last Taken 09/18/21] amlodipine 10 mg PO DAILY 08/03/15 [History Last Taken 09/18/21] triamterene 37.5 mg PO DAILY 03/13/17 [History Last Taken 03/18/19] calcium 600 mg-D3 800 unit-mag11 50 cm-cwnx-glbgks-yessica-s.borat tablet 1 tab PO BID 02/14/20 [History Last Taken Unknown] duloxetine 60 mg capsule,delayed release 30 mg PO DAILY cap 02/14/20 [History Last Taken Unknown] gabapentin 300 mg capsule 400 mg PO TID cap 02/14/20 [History Last Taken Unknown] hydrocodone-acetaminophen 5-325mg 5mg-325mg 1 tab PO QHS PRN 02/14/20 [History Last Taken Unknown] levothyroxine 137 mcg tablet 100 mcg PO DAILY tab 03/08/21 [History Last Taken 09/18/21] cholecalciferol (vitamin D3) [Vitamin D3] 50 mcg PO DAILY 03/23/21 [History Last Taken Unknown] amoxicillin 250 mg PO BID 09/14/21 [History Last Taken Unknown] Allergy/AdvReac Type Severity Reaction Status Date / Time lisinopril AdvReac Mild H/A, Verified 09/18/21 06:42 FLUSHED adhesive tape AdvReac Rash Verified 09/18/21 06:42 morphine AdvReac Vomiting Verified 09/18/21 06:42 Family History Father Heart disease Myocardial infarction CHF (congestive heart failure) Mother Breast cancer Brother Diabetes Skin cancer Grandmother Cancer lung Unknown Hypertension Surgical History (Updated 09/14/21 @ 14:58 by Jocelyn Dorado) H/O subtotal mastectomy of left breast History of adenoidectomy History of back surgery History of bilateral cataract extraction History of biopsy History of bladder repair surgery History of carpal tunnel surgery of left wrist History of cholecystectomy History of foot surgery History of hysterectomy History of lumbar laminectomy History of reconstruction of both breasts Hx of left breast implant S/P total knee arthroplasty Status post Mohs surgery Social History Smoking Status: Never smoker second hand exposure: No alcohol intake: current alcohol intake frequency: a few times a month details: social substance use type: does not use caffeine: Yes what type of physical activity do you participate in: none seatbelt use: always do you feel safe at home: Yes ROS Constitutional Constitutional: Reports systems reviewed and no addt'l complaints, except as documented Cardiovascular Cardiovascular: Denies chest pain Respiratory/Chest Respiratory/Chest: Denies shortness of breath at rest Gastrointestinal Gastrointestinal: Denies abdominal pain, change in bowel habits, hematochezia or melena Physical Exam Const alert, oriented x3 and no apparent distress General Appearance: cooperative and comfortable Eyes General Eye: normal appearance of both eyes Neck General: normal visual inspection Chest inspection of chest normal Resp Effort and Inspection: able to speak in complete sentences and symmetric chest movement Auscultation: clear to auscultation bilaterally Cardio regular rate and regular rhythm GI soft to palpation, non-tender and non-distended Extremity no calf tenderness Neuro oriented x3 Psych thought process normal Assessment & Plan Assessment/Plan (1) Change in bowel habit: PLAN: I recommended the patient a colonoscopy with possible biopsy or polypectomy as indicated. She presents via open access today. She is aware of the technique, benefit, risk and alternatives. She has had an opportunity to ask and have questions answered. We will proceed as noted. Anthony Craig M.D., F.A.C.S.
[2021-09-18] MEDS: Lactated Ringers 1,000 ML 15 ML IV (06:50)
--- NOTE | 2021-09-18 07:30 | COLBX_PTH ---
PATIENT: CHRISTINE ABRAMS LOC: EN U#:[id number] AGE/SX: 71/F ROOM: RE09/18/[address]: Dr. Anthony Craig MD : 1950 BED: DIS: 09/18/2021 SPEC #: [id number] RECD: 09/18/21 11:17 STATUS: SHELDON MCDONALD #: [id number] JOHN: 09/18/21 07:[address]: Anthony Craig DEPT: SURGICAL PATHOLOGY RECD BY: Jada Telles ENTERED: 09/18/21 11:42 SP TYPE: COLON BX OTHR DR: Dr. Luther Orellana MD Tissues: COLON BIOPSY Procedures: Surgery Specimen Level IV HEADER OPERATION: Colonoscopy (MAC) biopsy PRE-OP DIAGNOSIS: Change in bowel habit TISSUE SUBMITTED: Random colonic biopsy MICROSCOPIC DIAGNOSIS Colon, random biopsy: Focal hyperplastic change. Mild melanosis coli. AM:kalen 09/19/2021 MICROSCOPIC DESCRIPTION Slides are reviewed. GROSS DESCRIPTION Received in fixative is one container labeled with the patient's name and designated random colon biopsy. The specimen consists of multiple irregular fragments of light morfin soft tissue that in aggregate measure 2 x 0.4 x 0.1 cm. The specimen is totally submitted in one cassette. / SJ:rg 09/18/2021 TC:5 CPT: 21074
--- NOTE | 2021-09-18 08:24 | OP.COLON_ITS ---
Patient Name: Es Graves Procedure Date: 09/18/2021 7:58 AM Date of : 1950 Age: 71 Procedure: Colonoscopy Indications: Change in bowel habits Providers: Anthony Craig MD Referring MD: Luther Orellana Medicines: See the Anesthesia note for documentation of the administered medications Patient Profile: Last Colonoscopy: 2013. Complications: No immediate complications. Procedure: Pre-Anesthesia Assessment: - Prior to the procedure, a History and Physical was performed, and patient medications and allergies were reviewed. The patient's tolerance of previous anesthesia was also reviewed. The risks and benefits of the procedure and the sedation options and risks were discussed with the patient. All questions were answered, and informed consent was obtained. Prior Anticoagulants: The patient has taken no previous anticoagulant or antiplatelet agents. ASA Grade Assessment: II - A patient with mild systemic disease. After reviewing the risks and benefits, the patient was deemed in satisfactory condition to undergo the procedure. After I obtained informed consent, the scope was passed under direct vision. Throughout the procedure, the patient's blood pressure, pulse, and oxygen saturations were monitored continuously. The colonoscope was introduced through the anus and advanced to the cecum, identified by appendiceal orifice and ileocecal valve. The colonoscopy was somewhat difficult due to the patient's body habitus. Successful completion of the procedure was aided by applying abdominal pressure. The patient tolerated the procedure well. The quality of the bowel preparation was good. The ileocecal valve and the appendiceal orifice were photographed. Scope In: 8:01:41 AM Scope Withdrawal Time 0 hours 8 minutes 56 seconds Scope Out: 8:18:13 AM Total Procedure Duration Time 0 hours 16 minutes 32 seconds Findings: Hemorrhoids were found on perianal exam. Multiple diverticula were found in the sigmoid colon. The exam was otherwise without abnormality. Biopsies for histology were taken with a cold forceps from the entire colon for evaluation of microscopic colitis. Impression: - Hemorrhoids found on perianal exam. - Diverticulosis in the sigmoid colon. - The examination was otherwise normal. - Biopsies were taken with a cold forceps from the entire colon for evaluation of microscopic colitis. Recommendation: - Discharge patient to home. - Resume previous diet. - Continue present medications. - Repeat colonoscopy in 10 years for screening purposes. - Telephone my office for pathology results in 1 week. Procedure Code(s): --- Professional --- 38901, Colonoscopy, flexible; with biopsy, single or multiple Diagnosis Code(s): --- Professional --- K64.9, Unspecified hemorrhoids R19.4, Change in bowel habit K57.30, Diverticulosis of large intestine without perforation or abscess without bleeding CPT copyright 2017 [employer]. All rights reserved. The codes documented in this report are preliminary and upon chief service dispatcher review may be revised to meet current compliance requirements. Anthony Craig MD 09/18/2021 8:23:54 AM This report has been signed electronically. Number of Addenda: 0 Note Initiated On: 09/18/2021 7:58 AM
--- NOTE | 2021-09-18 08:25 | OP.CCLET_ITS ---
09/18/2021 Luther Orellana [address] [place] [address] Re : Colonoscopy procedure for Es Graves Dear Dr. Orellana This procedure was performed on Saturday, September 18, 2021. My impressions and recommendations are as follows: Impressions : - Hemorrhoids found on perianal exam. - Diverticulosis in the sigmoid colon. - The examination was otherwise normal. - Biopsies were taken with a cold forceps from the entire colon for evaluation of microscopic colitis. Recommendations : - Discharge patient to home. - Resume previous diet. - Continue present medications. - Repeat colonoscopy in 10 years for screening purposes. - Telephone my office for pathology results in 1 week. My findings are described in the full procedure note, which is enclosed. If I can be of further assistance, please feel free to contact me at Doctor phone number(s): Work: . Sincerely, Anthony Craig MD 09/18/2021 8:23:54 AM This report has been signed electronically.
== END 2021-09-18 23:59 | disposition home or self-care (01) ==
LOC: EN 06:30 → AC 06:31
PROVIDERS: PCP Family Medicine; Referring Provider Family Medicine; Visit Provider Surgery
PROC: 0DJD8ZZ Inspection of Lower Intestinal Tract, Via Natural or Artificial Opening Endoscopic (ICD-10-PCS; CPT 45378; principal; 2021-09-18 07:25)
DX: K57.30 Diverticulosis of large intestine without perforation or abscess without bleeding (principal); M06.9 Rheumatoid arthritis, unspecified; K64.9 Unspecified hemorrhoids; K63.89 Other specified diseases of intestine; F32.A Depression, unspecified; M79.7 Fibromyalgia; K21.9 Gastro-esophageal reflux disease without esophagitis; E06.3 Autoimmune thyroiditis; Z87.19 Personal history of other diseases of the digestive system; Z85.828 Personal history of other malignant neoplasm of skin; Z86.14 Personal history of Methicillin resistant Staphylococcus aureus infection; E78.00 Pure hypercholesterolemia, unspecified; G62.9 Polyneuropathy, unspecified; Z85.3 Personal history of malignant neoplasm of breast; G47.33 Obstructive sleep apnea (adult) (pediatric); Z79.899 Other long term (current) drug therapy
CPT/HCPCS: 45380; 88305; J7120; A4216; J2405

== ENCOUNTER 2021-10-25 15:09 | Outpatient (CLI) | payer MEDICARE, OTHER, SELFPAY ==
[2021-10-25 18:16] LABS: T4 Free Direct 1.03 ng/dL (0.76-1.46)
== END 2021-10-25 23:59 | disposition home or self-care (01) ==
LOC: MFPLAB 15:21
PROVIDERS: PCP Family Medicine; Referring Provider Family Medicine; Visit Provider Family Medicine
DX: E06.3 Autoimmune thyroiditis (principal)
CPT/HCPCS: 36415; 84439

== ENCOUNTER 2022-02-21 07:37 | Outpatient (CLI) | payer MEDICARE, OTHER, SELFPAY ==
[2022-02-21 08:12] LABS: Absolute Lymphocyte Count 1.69 X10^3/uL (0.83-4.51); Absolute Neutrophil Count 4.1 X10^3/uL (2.0-7.7); Basophil# 0.05 X10^3/uL; Basophil% 0.8 % (0-1); Eosinophil# 0.14 X10^3/uL; Eosinophils% 2.1 % (0-5); Hematocrit 39.6 % (37-47); Hemoglobin 12.6 g/dL (12.0-15.0); Lymphocyte # 1.69 X10^3/ul (0.83-4.51); Lymphocyte % 25.5 % (19-41); Mean Corp Hgb Conc 31.8 g/dL (32-36); Mean Corpuscular Hgb 29.2 pg (27.0-32.0); Mean Corpuscular Volume 91.7 fL (81-99); Mean Platelet Vol. 8.9 fl (6.2-12.0); NRBC Flagged by Analyzer 0 % (0-5); Neutrophil % 61.8 % (47-70); Platelet Count 314 K/mm3 (150-450); RBC Distribution Width CV 15.6 % (11.6-14.6); RBC Distribution Width SD 52.7 fl (35.1-43.9); Red Blood Count 4.32 M/mm3 (4.2-5.4); White Blood Count 6.6 K/mm3 (4.4-11.0)
[2022-02-21 08:29] LABS: Vitamin D,25 Hydroxy 51.3 ng/mL
[2022-02-21 08:35] LABS: AST(SGOT) 19 U/L (15-37); Alanine Aminotransfer ALT/SGPT 27 U/L (13-56); Albumin, Serum 3.3 g/dL (3.2-5.0); Alkaline Phosphatase 97 U/L (45-117); Anion Gap 5 (5-15); BUN 18 mg/dL (7-18); BUN/Creat Ratio 27.9 RATIO (10-20); Calcium,Total 8.8 mg/dL (8.5-10.1); Chloride 108 mmol/L (98-107); Cholesterol 164 mg/dL (200); Creatinine, Serum 0.65 mg/dL (0.55-1.02); EST Glomerular Filtration Rate 96 mL/min (>60); Est Glom Filt Rate - Afr Amer 116 mL/min (>60); Globulin 3.2 g/dL (2.2-4.2); Glucose 84 mg/dL (74-106); High Density Lipoprotein 77 mg/dL; Potassium 4.1 mmol/L (3.5-5.1); Protein, Total 6.5 g/dL (6.4-8.2); Sodium Level 142 mmol/L (136-145); T4 Free Direct 1.02 ng/dL (0.76-1.46); Thyroid Stim Hormone (TSH) 0.78 uIU/mL (0.358-3.74); Triglycerides 71 mg/dL; Very Low Density Lipoprotein 14 mg/dL (5-40)
[2022-02-21 08:38] LABS: Hemoglobin A1c 5.6 % (3.8-5.6)
== END 2022-02-21 23:59 | disposition home or self-care (01) ==
LOC: MEDOUTP 07:37
PROVIDERS: PCP Family Medicine; Referring Provider Family Medicine; Visit Provider Family Medicine
DX: Z45.2 Encounter for adjustment and management of vascular access device (principal); I10 Essential (primary) hypertension; R73.09 Other abnormal glucose; E55.9 Vitamin D deficiency, unspecified; E06.3 Autoimmune thyroiditis; E78.5 Hyperlipidemia, unspecified
CPT/HCPCS: 36591; 80053; 80061; 82306; 83036; 84439; 84443; 85025; A4216

== ENCOUNTER → 2022-03-19 | Outpatient (CLI) | payer MEDICARE, OTHER, SELFPAY ==
[2022-03-19 12:20] LABS: Absolute Lymphocyte Count 1.58 X10^3/uL (0.83-4.51); Absolute Neutrophil Count 4.6 X10^3/uL (2.0-7.7); Basophil# 0.11 X10^3/uL; Basophil% 1.5 % (0-1); Eosinophil# 0.17 X10^3/uL; Eosinophils% 2.3 % (0-5); Hematocrit 41.2 % (37-47); Lymphocyte # 1.58 X10^3/ul (0.83-4.51); Lymphocyte % 21.8 % (19-41); Mean Corp Hgb Conc 31.6 g/dL (32-36); Mean Corpuscular Hgb 29.5 pg (27.0-32.0); Mean Corpuscular Volume 93.4 fL (81-99); Mean Platelet Vol. 9.7 fl (6.2-12.0); Monocyte# 0.72 X10^3/uL; Monocyte% 9.9 % (0-10); NRBC Flagged by Analyzer 0 % (0-5); Neutrophil # 4.64 X10^3/uL (2.7-7.7); Neutrophil % 63.9 % (47-70); Platelet Count 296 K/mm3 (150-450); RBC Distribution Width CV 15.2 % (11.6-14.6); RBC Distribution Width SD 52.8 fl (35.1-43.9); Red Blood Count 4.41 M/mm3 (4.2-5.4); White Blood Count 7.3 K/mm3 (4.4-11.0)
[2022-03-19 12:58] LABS: AST(SGOT) 17 U/L (15-37); Alanine Aminotransfer ALT/SGPT 25 U/L (13-56); Albumin, Serum 3.5 g/dL (3.2-5.0); Alkaline Phosphatase 111 U/L (45-117); Anion Gap 5 (5-15); BUN 20 mg/dL (7-18); BUN/Creat Ratio 31.7 RATIO (10-20); Calcium,Total 9.4 mg/dL (8.5-10.1); Chloride 105 mmol/L (98-107); Creatinine, Serum 0.63 mg/dL (0.55-1.02); EST Glomerular Filtration Rate 98 mL/min (>60); Est Glom Filt Rate - Afr Amer 119 mL/min (>60); Globulin 3.4 g/dL (2.2-4.2); Glucose 89 mg/dL (74-106); Protein, Total 6.9 g/dL (6.4-8.2); Sodium Level 139 mmol/L (136-145)
== END | disposition home or self-care (01) ==
LOC: MTLAB 10:26
PROVIDERS: PCP Family Medicine; Referring Provider Family Medicine; Visit Provider Family Medicine
DX: I10 Essential (primary) hypertension (principal)
CPT/HCPCS: 36415; 80053; 85025

== ENCOUNTER 2022-04-18 17:26 | Inpatient (IN) | payer MEDICARE, OTHER, SELFPAY ==
[2022-04-18 17:57] VITALS: O2SAT 95; BMI 43.2
[2022-04-18 18:06] VITALS: BP 148/82; PULSE 77; RESP 16; TEMP 36.6; O2SAT 96
--- NOTE | 2022-04-18 19:21 | NURSING ---
Called [facility] to Verify Vancomycin trough level Pharmacist stated it was 15-20.
[2022-04-18] MEDS: oxyCODONE 5 MG Tablet PO (20:08)
--- NOTE | 2022-04-18 20:13 | HP.PCM_ITS ---
HPI - General General Date of Admission: 04/18/22 Date of Service: 04/18/22 Chief Complaint: Here for rehab, intravenous antibiotics. HPI Narrative CHRISTINE ABRAMS, is a 72 Female who presents with following: Right knee pain x 1 year, previous right total knee arthroplasty 2013. Pain anterior knee, multiple falls. 04/16/2022 Admit to [facility]. Dr. Best performed right total knee arthroplasty revision, polyethylene exchange. 04/17/2022 Tylenol, Oxycodone for pain. Aspirin 81mg twice daily x 4 weeks for DVT prophylaxis. Doxycycline, Vancomycin pending surgical cultures. Port access for IV antibiotics. 04/18/2022 Admit to TCU with debility, here for rehabilitation, strengthening, intravenous antibiotics, prior to discharge home with . [facility] Medical History Abnormal chest CT Acquired absence of left breast and nipple Acquired absence of right breast and nipple Alcohol use Allergic rhinitis Alternating constipation and diarrhea Back pain BiPAP (biphasic positive airway pressure) dependence Breakdown (mechanical) of breast prosthesis and implant, subsequent encounter Ford involving less than 10% of body surface Cancer Cataracts, bilateral Complication of breast device Contour deformity of breast, acquired DDD (degenerative disc disease), lumbosacral Deformity of reconstructed breast Depression Disproportion of reconstructed breast Diverticulosis Elevated glucose Essential tremor Family history of breast cancer Fecal incontinence Fibromyalgia Gastric reflux GERD (gastroesophageal reflux disease) Irma's disease High cholesterol History of diverticulitis History of echocardiogram History of edema History of MRSA infection History of skin cancer HTN (hypertension) Hyperlipemia Mediastinal lymphadenopathy Multiple nodules of lung Neuropathy LEANNE (obstructive sleep apnea) Osteoarthritis of right knee Osteopenia Partial thickness burn of back Personal history of breast cancer Pulmonary granuloma Rheumatoid arthritis RLS (restless legs syndrome) Sarcoidosis of lymph nodes Shortness of breath on exertion Skin cancer Skin lesion Thyroid disease Unsteady gait Wears glasses Home Medications potassium chloride 20 mEq tablet,extended release(part/cryst) 20 meq PO BID Supplement 08/16/13 [History Last Taken Unknown] atorvastatin 20 mg tablet 20 mg PO QHS CHOLESTEROL 06/06/15 [History Last Taken Unknown] omeprazole 20 mg capsule,delayed release 20 mg PO DAILY GERD 06/06/15 [History Last Taken 09/18/21] amlodipine 10 mg tablet 10 mg PO DAILY BP 08/03/15 [History Last Taken 09/18/21] triamterene 50 mg capsule 37.5 mg PO DAILY water pill 03/13/17 [History Last Taken 03/18/19] calcium 600 mg-D3 800 unit-mag11 50 xn-skni-kepzld-yessica-s.borat tablet (Caltrate 600-D Plus Minerals) 1 tab PO BID Supplement 02/14/20 [History Last Taken Unknown] duloxetine 60 mg capsule,delayed release 90 mg PO DAILY PAIN 02/14/20 [History Last Taken Unknown] gabapentin 300 mg capsule 400 mg PO TID Nerve Pain 02/14/20 [History Last Taken Unknown] hydrocodone-acetaminophen 5-325mg 5mg-325mg 1 tab PO QHS PRN Pain 02/14/20 [History Last Taken Unknown] levothyroxine 137 mcg tablet 100 mcg PO DAILY Thyroid 03/08/21 [History Last Taken 09/18/21] cholecalciferol (vitamin D3) 50 mcg (2,000 unit) capsule (Vitamin D3) 50 mcg PO DAILY Supplement 03/23/21 [History Last Taken Unknown] amoxicillin 125 mg chewable tablet 250 mg PO BID tooth extraction 09/14/21 [History Last Taken Unknown] aspirin 81 mg chewable tablet 81 mg PO BID DVT Prophylaxis 04/18/22 [History Last Taken Unknown] meloxicam 7.5 mg tablet 7.5 mg PO BID Pain 04/18/22 [History Last Taken Unknown] oxycodone 5 mg tablet 5 - 10 mg PO Q4H PRN PRN Pain 5-10 04/18/22 [History Last Taken Unknown] sennosides 8.6 mg-docusate sodium 50 mg tablet (Senna with Docusate Sodium) 2 tab PO BID Constipation 04/18/22 [History Last Taken Unknown] vancomycin 1,000 mg intravenous injection 1.5 g IV BID Antibiotic 04/18/22 [History Last Taken Unknown] vitamin E 200 unit capsule 200 unit PO DAILY Supplement 04/18/22 [History Last Taken Unknown] Allergy/AdvReac Type Severity Reaction Status Date / Time lisinopril AdvReac Mild H/A, Verified 03/01/22 07:44 FLUSHED adhesive tape AdvReac Rash Verified 03/01/22 07:44 morphine AdvReac Vomiting Verified 03/01/22 07:44 Family History Father Heart disease Myocardial infarction CHF (congestive heart failure) Mother Breast cancer Brother Diabetes Skin cancer Grandmother Cancer lung Unknown Hypertension Surgical History H/O subtotal mastectomy of left breast History of adenoidectomy History of back surgery History of bilateral cataract extraction History of biopsy History of bladder repair surgery History of carpal tunnel surgery of left wrist History of cholecystectomy History of foot surgery History of hysterectomy History of lumbar laminectomy History of reconstruction of both breasts Hx of left breast implant S/P total knee arthroplasty Status post Mohs surgery Social History (Updated 04/18/22 @ 20:[address] Gurdeep Arenas MD) household members: spouse Smoking Status: Never smoker second hand exposure: No alcohol intake: current alcohol intake frequency: a few times a month details: social substance use type: does not use caffeine: Yes what type of physical activity do you participate in: none seatbelt use: always do you feel safe at home: Yes ROS Constitutional Constitutional: Denies chills, fever(s) or weight gain ENT HEENT: Denies headache(s), nasal congestion or nasal discharge Cardiovascular Cardiovascular: Denies chest pain or palpitations Respiratory/Chest Respiratory/Chest: Denies cough, excessive phlegm production or shortness of breath with exertion Gastrointestinal Gastrointestinal: Denies abdominal pain, nausea or vomiting Genitourinary Genitourinary: Denies dysuria Musculoskeletal Musculoskeletal: Denies joint pain or joint swelling Integumentary Integumentary: Denies rash or wounds Neurologic Neurologic: Denies focal weakness, numbness or tingling Psychiatric Psychiatric: Denies anxiety, auditory hallucinations, depression, homicidal i deation or suicidal ideation Vital Signs Vital Signs Vital Signs: 04/18/22 18:06 Temperature 97.8 F Temperature Source Axillary Pulse Rate 77 Respiratory Rate 16 Blood Pressure 148/82 H Blood Pressure Mean 104 Blood Pressure Source Monitor Pulse Ox 96 Oxygen Delivery Method Room Air Weight Weight: 110.767 kg Body Mass Index (BMI) 43.2 Physical Exam Const alert General Appearance: cooperative HEENT normocephalic Eyes PERRL and EOMs intact bilaterally Neck supple, no JVD and no carotid bruits Resp normal respiratory effort, normal air movement and clear to auscultation bilaterally Cardio regular rate and regular rhythm GI normal to inspection, nondistended, normoactive bowel sounds, non-tender and non-distended Extremity normal capillary refill General Extremity: Negative for edema Skin no rashes or lesions noted General Skin Exam: no breakdown Psych affect normal Appearance: appropriate Assessment & Plan Assessment/Plan (1) Debility: (2) Painful total knee replacement, right: (3) Recurrent right knee instability: (4) Fibromyalgia: (5) Polyneuropathy: (6) History of breast cancer: (7) Hyperlipidemia: (8) Sleep apnea: (9) Hypertension: (10) Sarcoidosis: (11) Hypothyroidism: PLAN: Plan 72 year old female with below past medical history hospitalized for revision right total knee arthroplasty, polyethylene exchange 04/16/[address] Best, admitted to TCU with debility, here for rehabilitation, strengthening, intravenous antibiotics, prior to discharge home with . * Debility - PT/OT. * Pain - Tylenol 1000mg q8, Oxycodone 5-10mg q4h prn. * Bowel - senna/colace 2 tablets bid, Dulcolax 10mg daily prn. * Adult immunization - Administer pneumonia vaccine, covid19 vaccine, flu vaccine as appropriate. * DVT prophylaxis - Aspirin 81mg bid thru 05/16/2022. * Right prosthetic knee infection - Vancomycin IV, consult Dr. Leslie for expert opinion. * Hypertension - Maxzide 37.5/25mg daily, Amlodipine 10mg daily. * Hyperlipidemia - Atorvastatin 20mg qhs. * Polyneuropathy - Duloxetine 90mg daily, Gabapentin 400mg tid. * Hypothyroidism - Levothyroxine 100mcg daily. * Osteoarthritis - Meloxicam 7.5mg bid. * GERD - Pantoprazole 20mg daily. * Hypokalemia - KCL ER 20meq bid. * Vitamin E deficiency - Vitamin E 400IU daily.
[2022-04-18] MEDS: Gabapentin 400 MG Capsule PO (21:14)
[2022-04-18] MEDS: Atorvastatin Calcium 20 MG Tablet PO (21:15)
[2022-04-18] MEDS: Acetaminophen 500 MG Tablet 1000 MG PO (21:15)
[2022-04-18 21:17] LABS: Vancomycin, Trough Level 17.2 ug/mL (5.0-15.0)
--- NOTE | 2022-04-18 22:54 | PCM.RX.CS ---
Consult Pharmacy has been consulted to manage selected antiobiotic: Vancomycin Type of Consult: New start Prior Doses of Antibiotics Received/Current Regimen: Was receiving 1500mg q12h at previous hospital Labs: Vancomycin Trough 17.2 ug/mL (5.0-15.0) H 04/18/22 20:30 Weight used for dosin kg Goal Trough: 15-20 mcg/mL Pharmacy Plan for Drug Dosing: Trough checked when patient arrived, was in goal range. Recommend to continue previous dosing and recheck trough prior to 4th dose per policy. Pharmacy Service will continue to monitor and adjust dosing as required. Follow-Up Labs: Trough Vancomycin - 04/20 @ 0888
[2022-04-18] MEDS: 0.9% Saline Lock 10 ML Syringe IV (23:12)
[2022-04-19] MEDS: Acetaminophen 500 MG Tablet 1000 MG PO ×3 (05:22→21:23)
[2022-04-19] MEDS: DULoxetine Hcl 30 MG Capsule 90 MG PO (05:22)
[2022-04-19] MEDS: Nystatin Powder 15gm Bottle 1 APPLIC TOPICAL ×2 (05:22→17:51)
[2022-04-19] MEDS: Triamterene 37.5MG/Hctz 25MG Capsule 1 CAP PO (05:23)
[2022-04-19] MEDS: Senna/Docusate Sodium 1 Tablet 2 TABLET PO (05:23)
[2022-04-19] MEDS: Meloxicam 7.5 MG Tablet PO ×2 (05:23→17:50)
[2022-04-19] MEDS: Levothyroxine 100 MCG Tablet PO (05:23)
[2022-04-19] MEDS: Pantoprazole Sodium 20 MG Tablet PO (05:23)
[2022-04-19] MEDS: amLODIPine 10 MG Tablet PO (05:24)
[2022-04-19] MEDS: Vitamin E 400 UNITS Capsule PO (05:24)
[2022-04-19] MEDS: Gabapentin 400 MG Capsule PO ×3 (05:26→21:23)
[2022-04-19 06:00] LABS: Erythrocyte Sedimentation Rate 43 mm/hr (0-30)
[2022-04-19 06:03] LABS: Absolute Lymphocyte Count 1.34 X10^3/uL (0.83-4.51); Absolute Neutrophil Count 5.2 X10^3/uL (2.0-7.7); Basophil# 0.08 X10^3/uL; Eosinophils% 3.9 % (0-5); Hematocrit 36.6 % (37-47); Lymphocyte # 1.34 X10^3/ul (0.83-4.51); Lymphocyte % 17.3 % (19-41); Mean Corp Hgb Conc 32.8 g/dL (32-36); Mean Corpuscular Hgb 30.1 pg (27.0-32.0); Mean Corpuscular Volume 91.7 fL (81-99); Mean Platelet Vol. 9.3 fl (6.2-12.0); Monocyte# 0.77 X10^3/uL; Monocyte% 9.9 % (0-10); NRBC Flagged by Analyzer 0 % (0-5); Neutrophil # 5.21 X10^3/uL (2.7-7.7); Neutrophil % 67.4 % (47-70); Platelet Count 271 K/mm3 (150-450); RBC Distribution Width CV 15.3 % (11.6-14.6); RBC Distribution Width SD 51.8 fl (35.1-43.9); Red Blood Count 3.99 M/mm3 (4.2-5.4); White Blood Count 7.7 K/mm3 (4.4-11.0)
[2022-04-19 06:27] LABS: Anion Gap 7 (5-15); BUN 19 mg/dL (7-18); BUN/Creat Ratio 31.7 RATIO (10-20); Chloride 104 mmol/L (98-107); EST Glomerular Filtration Rate 104 mL/min (>60); Est Glom Filt Rate - Afr Amer 126 mL/min (>60); Estimated Creatinine Clearance 41.45 ml/min; Glucose 101 mg/dL (74-106); Potassium 3.5 mmol/L (3.5-5.1); Sodium Level 140 mmol/L (136-145)
[2022-04-19] MEDS: Tuberculin,Purif.prot.deriv. 50 TU/ML Vial 0.1 ML ID (11:26)
--- NOTE | 2022-04-19 12:16 | PCM.CONS.GEN ---
Assessment & Plan Assessment/Plan (1) Infection of prosthetic right knee joint: PLAN: Now s/p revision and poly exchange 04/16/22 at [facility] by Dr. Best. Reviewed [place] records, cxs neg, but 2 of 3 samples showing GPC on gram stain. Cont vanc for 6 week course, then plan on long course po doxy. Spoke with micro lab and requested cxs be held for 2 weeks. Will follow, thank you, d/w Dr. Best HPI Consult Data Date of Consult: 04/19/22 HPI Narrative Reason for Consultation: PJI HPI Narrative: CHRISTINE ABRAMS, is a 72 F who presented s/p R knee revision with poly exchange at [facility] 04/16/[address] Best. Initial replacement in 2013, reports now with several years slowly progressive pain/redness/warmth/swelling. No drainage, no fever, no chills. No recent abx. After surgery, 2 of 3 bacterial cxs with GPC on gram stain. Picc placed, vanc started, transferred to tcu, feeling ok today. Full ROS performed and neg except as noted above. [facility] Medical History Abnormal chest CT Acquired absence of left breast and nipple Acquired absence of right breast and nipple Alcohol use Allergic rhinitis Alternating constipation and diarrhea Back pain BiPAP (biphasic positive airway pressure) dependence Breakdown (mechanical) of breast prosthesis and implant, subsequent encounter [employer] involving less than 10% of body surface Cancer Cataracts, bilateral Complication of breast device Contour deformity of breast, acquired DDD (degenerative disc disease), lumbosacral Deformity of reconstructed breast Depression Disproportion of reconstructed breast Diverticulosis Elevated glucose Essential tremor Family history of breast cancer Fecal incontinence Fibromyalgia Gastric reflux GERD (gastroesophageal reflux disease) Irma's disease High cholesterol History of diverticulitis History of echocardiogram History of edema History of MRSA infection History of skin cancer HTN (hypertension) Hyperlipemia Mediastinal lymphadenopathy Multiple nodules of lung Neuropathy LEANNE (obstructive sleep apnea) Osteoarthritis of right knee Osteopenia Partial thickness burn of back Personal history of breast cancer Pulmonary granuloma Rheumatoid arthritis RLS (restless legs syndrome) Sarcoidosis of lymph nodes Shortness of breath on exertion Skin cancer Skin lesion Thyroid disease Unsteady gait Wears glasses Home Medications potassium chloride 20 mEq tablet,extended release(part/cryst) 20 meq PO BID Supplement 08/16/13 [History Last Taken Unknown] atorvastatin 20 mg tablet 20 mg PO QHS CHOLESTEROL 06/06/15 [History Last Taken Unknown] omeprazole 20 mg capsule,delayed release 20 mg PO DAILY GERD 06/06/15 [History Last Taken 09/18/21] amlodipine 10 mg tablet 10 mg PO DAILY BP 08/03/15 [History Last Taken 09/18/21] triamterene 50 mg capsule 37.5 mg PO DAILY water pill 03/13/17 [History Last Taken 03/18/19] calcium 600 mg-D3 800 unit-mag11 50 lp-smhi-ydvssa-yessica-s.borat tablet (Caltrate 600-D Plus Minerals) 1 tab PO BID Supplement 02/14/20 [History Last Taken Unknown] duloxetine 60 mg capsule,delayed release 90 mg PO DAILY PAIN 02/14/20 [History Last Taken Unknown] gabapentin 300 mg capsule 400 mg PO TID Nerve Pain 02/14/20 [History Last Taken Unknown] hydrocodone-acetaminophen 5-325mg 5mg-325mg 1 tab PO QHS PRN Pain 02/14/20 [History Last Taken Unknown] levothyroxine 137 mcg tablet 100 mcg PO DAILY Thyroid 03/08/21 [History Last Taken 09/18/21] cholecalciferol (vitamin D3) 50 mcg (2,000 unit) capsule (Vitamin D3) 50 mcg PO DAILY Supplement 03/23/21 [History Last Taken Unknown] amoxicillin 125 mg chewable tablet 250 mg PO BID tooth extraction 09/14/21 [History Last Taken Unknown] aspirin 81 mg chewable tablet 81 mg PO BID DVT Prophylaxis 04/18/22 [History Last Taken Unknown] meloxicam 7.5 mg tablet 7.5 mg PO BID Pain 04/18/22 [History Last Taken Unknown] oxycodone 5 mg tablet 5 - 10 mg PO Q4H PRN PRN Pain 5-10 04/18/22 [History Last Taken Unknown] sennosides 8.6 mg-docusate sodium 50 mg tablet (Senna with Docusate Sodium) 2 tab PO BID Constipation 04/18/22 [History Last Taken Unknown] vancomycin 1,000 mg intravenous injection 1.5 g IV BID Antibiotic 04/18/22 [History Last Taken Unknown] vitamin E 200 unit capsule 200 unit PO DAILY Supplement 04/18/22 [History Last Taken Unknown] Allergy/AdvReac Type Severity Reaction Status Date / Time lisinopril AdvReac Mild H/A, Verified 03/01/22 07:44 FLUSHED adhesive tape AdvReac Rash Verified 03/01/22 07:44 morphine AdvReac Vomiting Verified 03/01/22 07:44 Family History Father Heart disease Myocardial infarction CHF (congestive heart failure) Mother Breast cancer Brother Diabetes Skin cancer Grandmother Cancer lung Unknown Hypertension Surgical History H/O subtotal mastectomy of left breast History of adenoidectomy History of back surgery History of bilateral cataract extraction History of biopsy History of bladder repair surgery History of carpal tunnel surgery of left wrist History of cholecystectomy History of foot surgery History of hysterectomy History of lumbar laminectomy History of reconstruction of both breasts Hx of left breast implant S/P total knee arthroplasty Status post Mohs surgery Social History (Updated 04/18/22 @ 20:[address] Gurdeep Arenas MD) household members: spouse Smoking Status: Never smoker second hand exposure: No alcohol intake: current alcohol intake frequency: a few times a month details: social substance use type: does not use caffeine: Yes what type of physical activity do you participate in: none seatbelt use: always do you feel safe at home: Yes Physical Exam Const alert, oriented x3 and no apparent distress General Appearance: cooperative HEENT normocephalic and head/scalp atraumatic Eyes PERRL and EOMs intact bilaterally Neck supple and No nodes Resp normal air movement and clear to auscultation bilaterally Cardio regular rate and regular rhythm GI soft to palpation, non-tender and non-distended Extremity General Extremity: edema Skin Skin Narrative: R knee bandaged, no redness, no warmth Neuro CN's II-XII intact bilaterally Lab / Micro Data Attestation: I reviewed the patient's lab results. Result Diagrams: 04/19/22 05:18 04/19/22 05:18 Labs: Laboratory Results - last 24 hr 04/18/22 20:30: Vancomycin Trough 17.2 H 04/19/22 05:18: WBC 7.7, RBC 3.99 L, Hgb 12.0, Hct 36.6 L, MCV 91.7, MCH 30.1, MCHC 32.8, RDW Std Deviation 51.8 H, RDW Coeff of Patsy 15.3 H, Plt Count 271, MPV 9.3, Immature Gran % (Auto) 0.500, Neut % (Auto) 67.4, Lymph % (Auto) 17.3 L, Perkins % (Auto) 9.9, Eos % (Auto) 3.9, Baso % (Auto) 1.0, Absolute Neuts (auto) 5.2, Absolute Lymphs (auto) 1.34, Nucleated RBC % 0, ESR 43 H 04/19/22 05:18: Sodium 140, Potassium 3.5, Chloride 104, Carbon Dioxide 29.0, Anion Gap 7, BUN 19 H, Creatinine 0.60, Estim Creat Clear Calc 41.45, Est GFR (MDRD) Af Amer 126, Est GFR (MDRD) Non-Af 104, BUN/Creatinine Ratio 31.7 H, Glucose 101, Calcium 9.0 Micro: Microbiology 04/19/22 10:45 Nasal Secretion SARS-CoV-2 Antigen (Rapid) - Final
--- NOTE | 2022-04-19 12:17 | PCM.PN.DRR ---
TCU RX Drug Regimen Review Subjective: 72 YOF admitted to TCU from outside facility S/P right knee arthroplasty revision. Admitted to TCU for IV antibiotics and rehabilitation prior to discharge home. Objective: Allergies lisinopril Adverse Reaction (Mild, Verified 03/01/22 07:44) H/A, FLUSHED adhesive tape Adverse Reaction (Verified 03/01/22 07:44) Rash morphine Adverse Reaction (Verified 03/01/22 07:44) Vomiting Current Medications Generic Name Dose Route Start Last Admin Trade Name Freq PRN Reason Stop Dose Admin Acetaminophen 1,000 mg 04/18/22 22:00 04/19/22 05:22 Acetaminophen 500 Mg Tablet PO 1,000 mg Q8 MOJGAN Administration Amlodipine Besylate 10 mg 04/19/22 08:00 04/19/22 11:22 Amlodipine 10 Mg Tablet PO Not Given BREAKFAST MOJGAN Aspirin 81 mg 04/19/22 08:00 04/19/22 11:18 Aspirin 81 Mg Tab.Chew PO 05/16/22 23:55 Not Given BIDCM [facility] Atorvastatin Calcium 20 mg 04/18/22 22:00 04/18/22 21:15 Atorvastatin Calcium 20 Mg Tablet PO 20 mg QHS MOJGAN Administration Bisacodyl 10 mg 04/18/22 20:28 Bisacodyl 5 Mg Tablet PO DAILY PRN Constipation Duloxetine HCl 90 mg 04/19/22 08:00 04/19/22 11:19 Duloxetine Hcl 30 Mg Capsule PO Not Given BREAKFAST MOJGAN Gabapentin 400 mg 04/19/22 08:00 04/19/22 11:22 Gabapentin 400 Mg Capsule PO Not Given 0800,1400,2200 MOJGAN Heparin Sodium (Beef Lung) 50 units 04/18/22 22:38 Heparin Pf Lock 10 Units/Ml 50 Units/5 Ml Syringe IV UD PRN Port-a-Cath (VAD)Heparin Flush Vancomycin IV-PHARMACY TO DOSE 500 mls @ 250 mls/hr 04/18/22 19:20 1 each/ Sodium Chloride IV X1 PRN Rx to Dose Protocol Vancomycin HCl 1,500 mg/ 530 mls @ 250 mls/hr 04/18/22 23:00 04/19/22 11:26 Sodium Chloride IV 250 mls/hr Q12H MOJGAN Administration Sodium Chloride 250 mls @ 15 mls/hr 04/18/22 23:16 IV .[id number] PRN Saline Flush Sodium Chloride 250 mls @ 15 mls/hr 04/18/22 23:16 IV .[id number] PRN Additional IVPB Infusion Influenza Virus Vaccine Quadrival 0.5 ml 04/26/22 10:00 Influenza Vaccine (6mos+)/Pf 0.5 Ml Syringe IM 04/26/22 10:01 .ONCE ONE Levothyroxine Sodium 100 mcg 04/20/22 06:00 Levothyroxine 100 Mcg Tablet PO 0600 [facility] Meloxicam 7.5 mg 04/19/22 08:00 04/19/22 11:22 Meloxicam 7.5 Mg Tablet PO Not Given 0800,1800 MOJGAN Nystatin 1 applic 04/19/22 06:00 04/19/22 05:22 Nystatin Powder 15gm Bottle TOPICAL 1 applic BID MOJGAN Administration Protocol Oxycodone HCl 5 - 10 mg 04/18/22 18:59 04/18/22 20:08 Oxycodone 5 Mg Tablet PO 5 mg Q4H PRN PRN Administration Pain 5-10 Pantoprazole Sodium 20 mg 04/20/22 06:00 Pantoprazole Sodium 20 Mg Tablet PO BREAKFAST MOJGAN Potassium Chloride 20 meq 04/19/22 08:00 04/19/22 11:21 Potassium Chloride Oral Tablet 20 Meq PO Not Given BIDCM MOJGAN Senna/Docusate Sodium 2 tablet 04/19/22 08:00 04/19/22 11:23 Senna/Docusate Sodium 1 Tablet PO Not Given 0800,1800 MOJGAN Sodium Chloride 10 - 40 ml 04/18/22 22:38 04/18/22 23:12 0.9% Saline Lock 10 Ml Syringe IV 20 ml UD PRN Administration Port-a-Cath (VAD) Flush Sodium Chloride 10 - 40 ml 04/18/22 22:38 0.9 % Nacl (Sterile) Posiflush 10 Ml IV UD PRN Port access or dressing change Triamterene/Hydrochlorothiazide 1 cap 04/19/22 08:00 04/19/22 11:19 Triamterene 37.5mg/Hctz 25mg Capsule PO Not Given BREAKFAST MOJGAN Tuberculin PPD 0.1 ml 04/26/22 10:00 Tuberculin,Purif.Prot.Deriv. 50 Tu/Ml Vial ID 04/26/22 10:01 X1 ONE Vitamin E 400 units 04/19/22 08:00 04/19/22 11:23 Vitamin E 400 Units Capsule PO Not Given BREAKFAST MOJGAN Problem List (Last Reviewed 04/18/22 @ 20:[address] Gurdeep Arenas MD) Hypothyroidism (Acute) Sarcoidosis (Acute) Hypertension (Chronic) Sleep apnea (Acute) Hyperlipidemia (Acute) History of breast cancer (Acute) Polyneuropathy (Acute) Fibromyalgia (Acute) Recurrent right knee instability (Acute) Painful total knee replacement, right (Acute) Debility (Acute) Vital Signs Temp Pulse Resp BP Pulse Ox O2 Del Method 97.8 F 77 16 148/82 H 96 Room Air 04/18/22 18:06 04/18/22 18:06 04/18/22 18:06 04/18/22 18:06 04/18/22 18:06 04/18/22 18:06 Oxygen Delivery Method Room Air Weight: 110.767 kg Body Mass Index (BMI) 43.2 Sodium 140 mmol/L (136-145) 04/19/22 05:18 Potassium 3.5 mmol/L (3.5-5.1) 04/19/22 05:18 Chloride 104 mmol/L (98-107) 04/19/22 05:18 Carbon Dioxide 29.0 mmol/L (21.0-32.0) 04/19/22 05:18 Anion Gap 7 (5-15) 04/19/22 05:18 BUN 19 mg/dL (7-18) H 04/19/22 05:18 Creatinine 0.60 mg/dL (0.55-1.02) 04/19/22 05:18 Est GFR (MDRD) Af Amer 126 mL/min (>60) 04/19/22 05:18 Est GFR (MDRD) Non-Af 104 mL/min (>60) 04/19/22 05:18 BUN/Creatinine Ratio 31.7 RATIO (10-20) H 04/19/22 05:18 Glucose 101 mg/dL (74-106) 04/19/22 05:18 Vancomycin Trough 17.2 ug/mL (5.0-15.0) H 04/18/22 20:30 Assessment/Plan: 1. Pain/ Arthritis: Tylenol 1000mg PO Q8h, Meloxicam 7.5mg PO BID, Oxycodone 5-10mg PO Q4h PRN pain 5-10. Please continue to monitor for increased/decreased S/S pain, oversedation, constipation, respiratory depression with narcotic use. - The patient has utilized one 5mg dose of oxycodone since admission. Pre-medication pain assessment rating pain 8/10 to the knee, post medication pain assessment rating pain 4/10 in the knee. Please continue to monitor to ensure patient maintains adequate pain control while admitted. 2.Post-Op DVT Prophylaxis: Aspirin 81mg PO BID thru 05/16/22. Please continue to monitor for S/S bleeding/bruising, blood clot formation given recent surgical procedure, H/H (stable, labs drawn 04/19/22). 3. 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 Please continue to monitor culture results (obtained from outside facility), vancomycin trough (goal 15-20, last drawn 04/18/22, result = 17.2), renal function (est CrCl 41 mL/min, 04/19/22), resolution of infection. Of note, ID is consulted to see patient, pharmacy is managing vancomycin and adjusting dosing as necessary. 4. HTN/HLD: Norvasc 10mg PO daily, Maxide 37.5/25mg PO Daily, Lipitor 20mg PO QHS. Please continue to monitor BP (148/82), pulse (77 BPM), electrolytes (last taken 04/19/22), lipid panel annually or sooner if clinically indicated (last done 02/21/22 per EMR review). 5. Hypothyroidism: Synthroid 100mcg PO Daily. Please continue to monitor for S/S hyper/hypothyroidism, TSH levels (last done 02/21/22, WNL). 6. GERD: Protonix 20mg PO Daily. Please continue to monitor for abdominal pain, headache, upset stomach. May also encourage non-pharmacological treatments to help minimize GERD exacerbations as well. 7. Hypokalemia: KCl 20mEq PO BID. Please continue to monitor for upset stomach, N/V, potassium levels (last 3.5 on 04/19/22). 8. General Wellness: Vitamin E 400 unit PO Daily. Please continue to monitor. 9. Skin integrity: Nystatin Powder topically BID. Please continue to monitor for redness, irritation of the skin. 10. Bowel: Senna/Docusate 2 tab PO BID, Dulcolax 10mg PO Daily PRN. Please continue to monitor for increased/decreased constipation and/or diarrhea. - The patient had not had a bowel movement yet since admission (admission <48hrs ago). Please continue to monitor closely and consider giving PRN medications if patient hasn't produced a bowel movement in 48hrs. Due to narcotic use, patient is at a higher risk for constipation. Assessment/Plan for indications treated with psychotropic medications: 1. Polyneuropathy: Cymbalta 90mg PO daily, Gabapentin 400mg PO TID. Please continue to monitor for falls, oversedation. Gabapentin is a Beer's Criteria medication which can increase the risk of falls in the elderly population (>65y/o). Given the patient had recent joint surgery, is taking narcotics, and is on gabapentin, she could be considered high risk for falls. Please monitor closely and evaluate risk vs. benefit of use of all medications if clinically needed, thank you. Note: no current documentation supporting issues with falls/balance at this time. Medical chart and medication regimen reviewed. The following medication irregularities or issues were identified: 1. Polyneuropathy: Cymbalta 90mg PO daily, Gabapentin 400mg PO TID. Please continue to monitor for falls, oversedation. Gabapentin is a Beer's Criteria medication which can increase the risk of falls in the elderly population (>65y/o). Given the patient had recent joint surgery, is taking narcotics, and is on gabapentin, she could be considered high risk for falls. Please monitor closely and evaluate risk vs. benefit of use of all medications if clinically needed, thank you. Date of Note:: 04/19/22
--- NOTE | 2022-04-19 12:40 | CASEMGMT ---
Social Work This social welfare clerk met with patient and patient spouse, Robinson in room. Introduced self and social welfare clerk role. Patient agreeable to speak with this social welfare clerk and this social welfare clerk speaking openly with Gene present. Patient plans to return to home at time of discharge. Patient is currently on I.V. therapy with no stop date. This social welfare clerk communicating outpatient infusion therapy options if patient gets to the point where patient is physically able to return to home prior to I.V. therapy being discontinued, patient voiced understanding and plans to bring this option up if patient is interested. Patient reports to be a Full Code. MOLST form completed and signed. This social welfare clerk communicating patient medicare benefits. Patient does have a secondary insurance and aware that patient would need to contact secondary insurance to explore what secondary insurance covers. Patient with no further questions. Active support and listening provided. Social Work to continued to follow. Cary BULLOCK, LACHELLE
[2022-04-19 14:39] VITALS: BP 128/64; PULSE 93; RESP 14; TEMP 36.7; O2SAT 98
[2022-04-19] MEDS: Potassium Chloride Oral Tablet 20 MEQ PO (17:49)
[2022-04-19] MEDS: Aspirin 81 MG TAB.CHEW PO (17:50)
[2022-04-19 20:00] VITALS: O2SAT 98
[2022-04-19] MEDS: Atorvastatin Calcium 20 MG Tablet PO (21:24)
[2022-04-19] MEDS: oxyCODONE 5 MG Tablet PO (23:12)
[2022-04-20] MEDS: Pantoprazole Sodium 20 MG Tablet PO (05:44)
[2022-04-20] MEDS: Levothyroxine 100 MCG Tablet PO (05:44)
[2022-04-20] MEDS: Acetaminophen 500 MG Tablet 1000 MG PO ×3 (05:45→22:43)
[2022-04-20 08:09] VITALS: BP 137/76; PULSE 80
[2022-04-20] MEDS: Aspirin 81 MG TAB.CHEW PO ×2 (08:11→17:51)
[2022-04-20] MEDS: DULoxetine Hcl 30 MG Capsule 90 MG PO (08:11)
[2022-04-20] MEDS: Meloxicam 7.5 MG Tablet PO ×2 (08:12→17:52)
[2022-04-20] MEDS: Potassium Chloride Oral Tablet 20 MEQ PO ×2 (08:12→17:52)
[2022-04-20] MEDS: Senna/Docusate Sodium 1 Tablet 2 TABLET PO (08:13)
[2022-04-20] MEDS: amLODIPine 10 MG Tablet PO (08:13)
[2022-04-20] MEDS: Vitamin E 400 UNITS Capsule PO (08:13)
[2022-04-20] MEDS: Triamterene 37.5MG/Hctz 25MG Capsule 1 CAP PO (08:14)
[2022-04-20] MEDS: Gabapentin 400 MG Capsule PO ×3 (08:19→22:46)
--- NOTE | 2022-04-20 08:28 | NURSING ---
PLEASE CALL OFFICE ON Friday04/22/22 FOR DRESSING ORDERS TO PT RIGHT KNEE.
[2022-04-20 09:05] VITALS: PULSE 91; RESP 18; O2SAT 98
[2022-04-20] MEDS: 0.9% Saline Lock 10 ML Syringe IV (11:09)
[2022-04-20 16:00] VITALS: BP 119/67; PULSE 80; RESP 17; TEMP 36.6; O2SAT 97
[2022-04-20] MEDS: Atorvastatin Calcium 20 MG Tablet PO (22:42)
[2022-04-20] MEDS: Nystatin Powder 15gm Bottle 1 APPLIC TOPICAL (22:47)
[2022-04-20 23:08] LABS: Vancomycin, Trough Level 18.5 ug/mL (5.0-15.0)
--- NOTE | 2022-04-20 23:50 | PCM.RX.CS ---
Consult Pharmacy has been consulted to manage selected antiobiotic: Vancomycin Type of Consult: Follow-up Labs: Sodium 140 mmol/L (136-145) 04/19/22 05:18 Potassium 3.5 mmol/L (3.5-5.1) 04/19/22 05:18 Chloride 104 mmol/L (98-107) 04/19/22 05:18 Carbon Dioxide 29.0 mmol/L (21.0-32.0) 04/19/22 05:18 Anion Gap 7 (5-15) 04/19/22 05:18 BUN 19 mg/dL (7-18) H 04/19/22 05:18 Creatinine 0.60 mg/dL (0.55-1.02) 04/19/22 05:18 Est GFR (MDRD) Af Amer 126 mL/min (>60) 04/19/22 05:18 Est GFR (MDRD) Non-Af 104 mL/min (>60) 04/19/22 05:18 BUN/Creatinine Ratio 31.7 RATIO (10-20) H 04/19/22 05:18 Glucose 101 mg/dL (74-106) 04/19/22 05:18 Vancomycin Trough 18.5 ug/mL (5.0-15.0) H 04/20/22 22:29 Microbiology: Microbiology 04/19/22 10:45 Nasal Secretion SARS-CoV-2 Antigen (Rapid) - Final Goal Trough: 15-20 mcg/mL Pharmacy Plan for Drug Dosing: Pharmacy Service will continue to monitor and adjust dosing as required. TROUGH 18.5 @ 11.5 HRS. NO CHANGES FOLLOW UP TROUGH IN 2 DAYS Follow-Up Labs: Trough Vancomycin Labs to be done on [date and time ordered]: 04/22 @ 2903
[2022-04-21] MEDS: Acetaminophen 500 MG Tablet 1000 MG PO ×3 (05:21→22:15)
[2022-04-21] MEDS: Pantoprazole Sodium 20 MG Tablet PO (05:21)
[2022-04-21] MEDS: Levothyroxine 100 MCG Tablet PO (05:21)
[2022-04-21] MEDS: Nystatin Powder 15gm Bottle 1 APPLIC TOPICAL ×2 (05:22→17:13)
[2022-04-21] MEDS: Aspirin 81 MG TAB.CHEW PO ×2 (08:39→17:14)
[2022-04-21] MEDS: DULoxetine Hcl 30 MG Capsule 90 MG PO (08:40)
[2022-04-21] MEDS: Potassium Chloride Oral Tablet 20 MEQ PO ×2 (08:41→17:14)
[2022-04-21] MEDS: Triamterene 37.5MG/Hctz 25MG Capsule 1 CAP PO (08:41)
[2022-04-21] MEDS: Meloxicam 7.5 MG Tablet PO ×2 (08:42→17:14)
[2022-04-21] MEDS: Senna/Docusate Sodium 1 Tablet 2 TABLET PO (08:43)
[2022-04-21] MEDS: Vitamin E 400 UNITS Capsule PO (08:44)
[2022-04-21] MEDS: amLODIPine 10 MG Tablet PO (08:45)
[2022-04-21] MEDS: Gabapentin 400 MG Capsule PO ×3 (08:51→22:24)
[2022-04-21 08:55] VITALS: BP 114/54; PULSE 84
[2022-04-21] MEDS: 0.9% Saline Lock 10 ML Syringe IV ×2 (10:32→13:59)
[2022-04-21 15:55] VITALS: BP 129/78; PULSE 78; RESP 17; TEMP 36.4; O2SAT 97
[2022-04-21] MEDS: Atorvastatin Calcium 20 MG Tablet PO (22:15)
[2022-04-21 23:28] VITALS: PULSE 78; RESP 16; O2SAT 98
[2022-04-22] MEDS: Acetaminophen 500 MG Tablet 1000 MG PO ×3 (06:06→22:03)
[2022-04-22] MEDS: Pantoprazole Sodium 20 MG Tablet PO (06:07)
[2022-04-22] MEDS: Nystatin Powder 15gm Bottle 1 APPLIC TOPICAL ×2 (06:07→16:57)
[2022-04-22] MEDS: Levothyroxine 100 MCG Tablet PO (06:07)
[2022-04-22] MEDS: amLODIPine 10 MG Tablet PO (07:58)
[2022-04-22] MEDS: Vitamin E 400 UNITS Capsule PO (07:58)
[2022-04-22] MEDS: Aspirin 81 MG TAB.CHEW PO ×2 (07:58→16:57)
[2022-04-22] MEDS: DULoxetine Hcl 30 MG Capsule 90 MG PO (07:58)
[2022-04-22] MEDS: Meloxicam 7.5 MG Tablet PO ×2 (07:58→16:56)
[2022-04-22] MEDS: Gabapentin 400 MG Capsule PO ×3 (07:58→22:03)
[2022-04-22] MEDS: Triamterene 37.5MG/Hctz 25MG Capsule 1 CAP PO (07:58)
[2022-04-22] MEDS: Potassium Chloride Oral Tablet 20 MEQ PO ×2 (07:59→16:57)
[2022-04-22] MEDS: 0.9% Saline Lock 10 ML Syringe IV ×2 (10:16→22:03)
[2022-04-22 12:25] VITALS: PULSE 85; RESP 16; O2SAT 97
--- NOTE | 2022-04-22 14:21 | NURSING ---
Auditing Manager Note; Activity Asst: complete
[2022-04-22 15:30] VITALS: BP 116/57; PULSE 85; RESP 16; TEMP 36.4; O2SAT 97
[2022-04-22] MEDS: Atorvastatin Calcium 20 MG Tablet PO (22:03)
[2022-04-22] MEDS: oxyCODONE 5 MG Tablet PO (22:08)
--- NOTE | 2022-04-23 01:05 | PCM.RX.CS ---
Consult Pharmacy has been consulted to manage selected antiobiotic: Vancomycin Type of Consult: Follow-up Labs: Sodium 140 mmol/L (136-145) 04/19/22 05:18 Potassium 3.5 mmol/L (3.5-5.1) 04/19/22 05:18 Chloride 104 mmol/L (98-107) 04/19/22 05:18 Carbon Dioxide 29.0 mmol/L (21.0-32.0) 04/19/22 05:18 Anion Gap 7 (5-15) 04/19/22 05:18 BUN 19 mg/dL (7-18) H 04/19/22 05:18 Creatinine 0.60 mg/dL (0.55-1.02) 04/19/22 05:18 Est GFR (MDRD) Af Amer 126 mL/min (>60) 04/19/22 05:18 Est GFR (MDRD) Non-Af 104 mL/min (>60) 04/19/22 05:18 BUN/Creatinine Ratio 31.7 RATIO (10-20) H 04/19/22 05:18 Glucose 101 mg/dL (74-106) 04/19/22 05:18 Vancomycin Trough 18.5 ug/mL (5.0-15.0) H 04/20/22 22:29 Microbiology: Microbiology 04/19/22 10:45 Nasal Secretion SARS-CoV-2 Antigen (Rapid) - Final Goal Trough: 15-20 mcg/mL Pharmacy Plan for Drug Dosing: Pharmacy Service will continue to monitor and adjust dosing as required. 2300 DOSE STARTED PRIOR TO TROUGH LAB DRAW. RETIME TROUGH PRIOR TO NEXT DOSE Follow-Up Labs: Trough Vancomycin Labs to be done on [date and time ordered]: 04/23 @ 1037
[2022-04-23] MEDS: Pantoprazole Sodium 20 MG Tablet PO (05:37)
[2022-04-23] MEDS: Acetaminophen 500 MG Tablet 1000 MG PO ×3 (05:37→21:39)
[2022-04-23] MEDS: Levothyroxine 100 MCG Tablet PO (05:37)
[2022-04-23] MEDS: Nystatin Powder 15gm Bottle 1 APPLIC TOPICAL ×2 (05:38→17:29)
[2022-04-23] MEDS: Triamterene 37.5MG/Hctz 25MG Capsule 1 CAP PO (08:16)
[2022-04-23] MEDS: DULoxetine Hcl 30 MG Capsule 90 MG PO (08:16)
[2022-04-23] MEDS: Potassium Chloride Oral Tablet 20 MEQ PO ×2 (08:16→17:29)
[2022-04-23] MEDS: Aspirin 81 MG TAB.CHEW PO ×2 (08:16→17:29)
[2022-04-23] MEDS: Senna/Docusate Sodium 1 Tablet 2 TABLET PO ×2 (08:17→17:29)
[2022-04-23] MEDS: amLODIPine 10 MG Tablet PO (08:17)
[2022-04-23] MEDS: Meloxicam 7.5 MG Tablet PO ×2 (08:17→17:29)
[2022-04-23] MEDS: Vitamin E 400 UNITS Capsule PO (08:18)
[2022-04-23] MEDS: Gabapentin 400 MG Capsule PO ×3 (08:20→21:40)
--- NOTE | 2022-04-23 10:32 | CASEMGMT ---
Social Work Pt Shivam and adlib on unit. SW spoke with pt while walking the unit to ask about DC goals. Pt states she would like to go home but cannot pay out of pocket for IV ATB. SW offered to get cost of ATB at home if pt could administer. Pt agreed and appreciative. Referral sent to [facility] for pricing. Kimberly Houston, LEAD FIRE PROTECTION ENGINEER RELIGIOUS EDUCATOR
[2022-04-23 11:21] LABS: Vancomycin, Trough Level 19.6 ug/mL (5.0-15.0)
[2022-04-23] MEDS: 0.9% Saline Lock 10 ML Syringe IV (11:59)
--- NOTE | 2022-04-23 11:59 | PCM.RX.CS ---
Consult Pharmacy has been consulted to manage selected antiobiotic: Vancomycin Type of Consult: Follow-up Suspected Infection: Skin/Soft tissue Prior Doses of Antibiotics Received/Current Regimen: 04/22/22 @ 2203 04/22/22 @ 1016 04/21/22 @ 8217 Labs: Sodium 140 mmol/L (136-145) 04/19/22 05:18 Potassium 3.5 mmol/L (3.5-5.1) 04/19/22 05:18 Chloride 104 mmol/L (98-107) 04/19/22 05:18 Carbon Dioxide 29.0 mmol/L (21.0-32.0) 04/19/22 05:18 Anion Gap 7 (5-15) 04/19/22 05:18 BUN 19 mg/dL (7-18) H 04/19/22 05:18 Creatinine 0.60 mg/dL (0.55-1.02) 04/19/22 05:18 Est GFR (MDRD) Af Amer 126 mL/min (>60) 04/19/22 05:18 Est GFR (MDRD) Non-Af 104 mL/min (>60) 04/19/22 05:18 BUN/Creatinine Ratio 31.7 RATIO (10-20) H 04/19/22 05:18 Glucose 101 mg/dL (74-106) 04/19/22 05:18 Vancomycin Trough 19.6 ug/mL (5.0-15.0) H 04/23/22 10:30 Microbiology: Microbiology 04/19/22 10:45 Nasal Secretion SARS-CoV-2 Antigen (Rapid) - Final Weight used for dosin kg Estimated Creatinine Clearance: 41 Goal Trough: 15-20 mcg/mL Pharmacy Plan for Drug Dosing: MAINTAIN CURRENT DOSE OF VNCOMYCIN 1500MG Q12 HOURS Pharmacy Service will continue to monitor and adjust dosing as required. Follow-Up Labs: Trough Vancomycin Labs to be done on [date and time ordered]: 04/24/22 @ 0172
[2022-04-23 14:42] VITALS: BP 131/69; PULSE 89; RESP 17; TEMP 36.3; O2SAT 99
[2022-04-23 20:55] VITALS: PULSE 68; RESP 16; O2SAT 95
[2022-04-23] MEDS: Pramipexole Di-HCl 0.125 MG Tablet PO (21:40)
[2022-04-23] MEDS: Atorvastatin Calcium 20 MG Tablet PO (21:40)
[2022-04-23] MEDS: oxyCODONE 5 MG Tablet PO (21:44)
[2022-04-24] MEDS: Nystatin Powder 15gm Bottle 1 APPLIC TOPICAL ×2 (05:41→17:10)
[2022-04-24] MEDS: Pantoprazole Sodium 20 MG Tablet PO (05:43)
[2022-04-24] MEDS: Levothyroxine 100 MCG Tablet PO (05:43)
[2022-04-24] MEDS: Acetaminophen 500 MG Tablet 1000 MG PO ×3 (05:43→21:56)
[2022-04-24] MEDS: Senna/Docusate Sodium 1 Tablet 2 TABLET PO ×2 (08:06→17:09)
[2022-04-24] MEDS: Vitamin E 400 UNITS Capsule PO (08:06)
[2022-04-24] MEDS: Meloxicam 7.5 MG Tablet PO ×2 (08:07→17:09)
[2022-04-24] MEDS: amLODIPine 10 MG Tablet PO (08:07)
[2022-04-24] MEDS: Aspirin 81 MG TAB.CHEW PO ×2 (08:07→17:09)
[2022-04-24] MEDS: Potassium Chloride Oral Tablet 20 MEQ PO ×2 (08:07→17:09)
[2022-04-24] MEDS: DULoxetine Hcl 30 MG Capsule 90 MG PO (08:07)
[2022-04-24] MEDS: Triamterene 37.5MG/Hctz 25MG Capsule 1 CAP PO (08:08)
[2022-04-24] MEDS: Gabapentin 400 MG Capsule PO ×3 (08:12→21:56)
[2022-04-24 08:14] VITALS: BP 127/65; PULSE 81
[2022-04-24 08:17] VITALS: PULSE 90; RESP 16; O2SAT 96
--- NOTE | 2022-04-24 09:41 | CASEMGMT ---
Social Work IDT met with patient and for care plan meeting. Discussed patient's progress in PT/OT/SN. Educated to Medicare benefit. Encouraged to contact secondary insurance to ensure copay coverage. SW f/u with [facility] on cost and educated pt to cost of $236.66 per week. Pt states she cannot pay out of pocket and goal is to remain in TCU until end of IV ATB which is approximately 11/4. Pt is mod I on unit. OT will decrease to 3x/wk and PT will decrease after another week. SW to follow for DC plans. Kimberly Houston, CONSOLE ASSEMBLER CLOTH TEARER
[2022-04-24] MEDS: 0.9% Saline Lock 10 ML Syringe IV (10:39)
--- NOTE | 2022-04-24 12:07 | CASEMGMT ---
BIMS and PHQ9 interviews completed on this date for MDS assessment. SANDI Zhou
--- NOTE | 2022-04-24 14:10 | NURSING ---
message left with Dr Best office regarding mepilex dressing removal order, awaiting return call
--- NOTE | 2022-04-24 14:39 | NURSING ---
Honey from Dr Lane office called with orders to remove mepilex dressing in 5 days after surgery, no lotions/creams on incision x6 wks, may shower but no soaking. elastic stockings x 2wks, wt bear as tolerated. Mepilex dressing removed from RT knee incision, laurie intact. well approx. no active. elysia
--- NOTE | 2022-04-24 14:48 | NURSING ---
Dressing to RT chest port changed and new needle inserted 1 power port.
[2022-04-24 15:47] VITALS: BP 134/77; PULSE 80; RESP 20; TEMP 36.7; O2SAT 97
--- NOTE | 2022-04-24 15:50 | CHAPLAIN ---
Type of Pastoral Visit _x__ Initial Visit ___ Follow-up Visit ___ On-call Visit ___ General Patient Visit ___ Spiritual Assessment ___ Family Conference ___ Bereavement ___ Rapid Response ___ Code Blue ___ Other (describe below) Pastoral Care Referral From _x__ Patient ___ Family ___ Nurse ___ Physician ___ Butting Saw Operator ___ Deputy Harbormaster ___ Other (describe below) Sacrament/Intervention _x__ Active listening ___ Anointing ___ Scientology ___ Bereavement ___ Communion ___ Annette exploration ___ _x__ Life review _x__ Prayer ___ Reconciliation ___ Sacrament of Sick _x__ Supportive presence ___ Wedding ___ Other (describe below) Pastoral Comments mostly this visit was about getting acquainted and hearing of some life review; pt presents with upbeat words and spirit; pt does admit that this is going to be a long time here due to IV requirements; pt goal is to get home; pt has spouse at home, other family members, and a sabianist connection for support; 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
[2022-04-24] MEDS: oxyCODONE 5 MG Tablet PO (21:56)
[2022-04-24] MEDS: Atorvastatin Calcium 20 MG Tablet PO (21:56)
[2022-04-24] MEDS: Pramipexole Di-HCl 0.125 MG Tablet PO (21:56)
[2022-04-24 23:25] LABS: Vancomycin, Trough Level 19.7 ug/mL (5.0-15.0)
--- NOTE | 2022-04-24 23:32 | PCM.RX.CS ---
Consult Pharmacy has been consulted to manage selected antiobiotic: Vancomycin Type of Consult: Follow-up Labs: Sodium 140 mmol/L (136-145) 04/19/22 05:18 Potassium 3.5 mmol/L (3.5-5.1) 04/19/22 05:18 Chloride 104 mmol/L (98-107) 04/19/22 05:18 Carbon Dioxide 29.0 mmol/L (21.0-32.0) 04/19/22 05:18 Anion Gap 7 (5-15) 04/19/22 05:18 BUN 19 mg/dL (7-18) H 04/19/22 05:18 Creatinine 0.60 mg/dL (0.55-1.02) 04/19/22 05:18 Est GFR (MDRD) Af Amer 126 mL/min (>60) 04/19/22 05:18 Est GFR (MDRD) Non-Af 104 mL/min (>60) 04/19/22 05:18 BUN/Creatinine Ratio 31.7 RATIO (10-20) H 04/19/22 05:18 Glucose 101 mg/dL (74-106) 04/19/22 05:18 Vancomycin Trough 19.7 ug/mL (5.0-15.0) H 04/24/22 22:10 Microbiology: Microbiology 04/19/22 10:45 Nasal Secretion SARS-CoV-2 Antigen (Rapid) - Final Goal Trough: 15-20 mcg/mL Pharmacy Plan for Drug Dosing: VANCOMYCIN LEVEL RECEIVED Current Vancomycin Dose: 1500mg IV Q12hr Number of Doses Received: 12 Vancomycin Level:19.7 Hours Since Last Dose: 11.5hr Renal Function: 0.6 Renal Function Trend: stable Lab/Micro: n/a Vancomycin Plan/Comments: Patient had trough drawn which resulted in a value of 19.7 (goal 15-20). Will continue current dose and recheck a trough in 2 days to assess dosing at that time. Pending Level: 04/26/22 @2073 Pharmacy Service will continue to monitor and adjust dosing as required.
--- NOTE | 2022-04-24 23:53 | NURSING ---
Patient c/o pinching, and pain with movement of right arm at port site. Needle, dressing changed. Patient tolerated well, states that it does feel better. IV Vancomycin running at this time. Will continue to monitor.
[2022-04-25] MEDS: Nystatin Powder 15gm Bottle 1 APPLIC TOPICAL ×2 (05:29→16:59)
[2022-04-25] MEDS: Pantoprazole Sodium 20 MG Tablet PO (05:32)
[2022-04-25] MEDS: Acetaminophen 500 MG Tablet 1000 MG PO ×3 (05:33→21:16)
[2022-04-25] MEDS: Levothyroxine 100 MCG Tablet PO (05:33)
[2022-04-25] MEDS: DULoxetine Hcl 30 MG Capsule 90 MG PO (08:14)
[2022-04-25] MEDS: Potassium Chloride Oral Tablet 20 MEQ PO ×2 (08:14→16:56)
[2022-04-25] MEDS: Aspirin 81 MG TAB.CHEW PO ×2 (08:14→16:56)
[2022-04-25] MEDS: Vitamin E 400 UNITS Capsule PO (08:15)
[2022-04-25] MEDS: Senna/Docusate Sodium 1 Tablet 2 TABLET PO ×2 (08:15→16:57)
[2022-04-25] MEDS: Triamterene 37.5MG/Hctz 25MG Capsule 1 CAP PO (08:16)
[2022-04-25] MEDS: amLODIPine 10 MG Tablet PO (08:16)
[2022-04-25] MEDS: Meloxicam 7.5 MG Tablet PO ×2 (08:16→16:57)
[2022-04-25] MEDS: Gabapentin 400 MG Capsule PO ×3 (08:22→21:15)
[2022-04-25 08:25] VITALS: BP 132/64; PULSE 83
[2022-04-25] MEDS: 0.9% Saline Lock 10 ML Syringe IV ×2 (10:56→23:20)
[2022-04-25 13:38] VITALS: PULSE 85; RESP 18; TEMP 36.3; O2SAT 98
[2022-04-25] MEDS: Atorvastatin Calcium 20 MG Tablet PO (21:15)
[2022-04-25] MEDS: Pramipexole Di-HCl 0.125 MG Tablet PO (21:16)
[2022-04-25 22:29] VITALS: O2SAT 96
[2022-04-26 05:43] LABS: Absolute Neutrophil Count 5.1 X10^3/uL (2.0-7.7); Basophil# 0.08 X10^3/uL; Eosinophil# 0.48 X10^3/uL; Hematocrit 37.2 % (37-47); Hemoglobin 11.7 g/dL (12.0-15.0); Lymphocyte % 17.5 % (19-41); Mean Corp Hgb Conc 31.5 g/dL (32-36); Mean Corpuscular Volume 92.3 fL (81-99); Mean Platelet Vol. 9.1 fl (6.2-12.0); NRBC Flagged by Analyzer 0 % (0-5); Neutrophil # 5.12 X10^3/uL (2.7-7.7); Neutrophil % 64.1 % (47-70); Platelet Count 341 K/mm3 (150-450); RBC Distribution Width CV 15.2 % (11.6-14.6); RBC Distribution Width SD 51.6 fl (35.1-43.9); Red Blood Count 4.03 M/mm3 (4.2-5.4)
[2022-04-26] MEDS: Acetaminophen 500 MG Tablet 1000 MG PO ×3 (05:59→21:41)
[2022-04-26] MEDS: Pantoprazole Sodium 20 MG Tablet PO (06:00)
[2022-04-26] MEDS: Levothyroxine 100 MCG Tablet PO (06:00)
[2022-04-26] MEDS: Nystatin Powder 15gm Bottle 1 APPLIC TOPICAL ×2 (06:09→17:20)
[2022-04-26 06:11] LABS: Anion Gap 7 (5-15); BUN 18 mg/dL (7-18); BUN/Creat Ratio 30.6 RATIO (10-20); Calcium,Total 9.1 mg/dL (8.5-10.1); Chloride 109 mmol/L (98-107); Creatinine, Serum 0.59 mg/dL (0.55-1.02); EST Glomerular Filtration Rate 106 mL/min (>60); Est Glom Filt Rate - Afr Amer 129 mL/min (>60); Estimated Creatinine Clearance 41.45 ml/min; Glucose 93 mg/dL (74-106); Potassium 4.1 mmol/L (3.5-5.1); Sodium Level 142 mmol/L (136-145)
[2022-04-26 07:01] LABS: Erythrocyte Sedimentation Rate 41 mm/hr (0-30)
[2022-04-26] MEDS: Gabapentin 400 MG Capsule PO ×3 (08:10→21:41)
[2022-04-26] MEDS: Aspirin 81 MG TAB.CHEW PO ×2 (08:11→17:15)
[2022-04-26] MEDS: DULoxetine Hcl 30 MG Capsule 90 MG PO (08:12)
[2022-04-26] MEDS: Triamterene 37.5MG/Hctz 25MG Capsule 1 CAP PO (08:12)
[2022-04-26] MEDS: Senna/Docusate Sodium 1 Tablet 2 TABLET PO ×2 (08:13→17:17)
[2022-04-26] MEDS: Meloxicam 7.5 MG Tablet PO ×2 (08:13→17:16)
[2022-04-26] MEDS: Vitamin E 400 UNITS Capsule PO (08:13)
[2022-04-26] MEDS: Potassium Chloride Oral Tablet 20 MEQ PO ×2 (08:13→17:15)
[2022-04-26] MEDS: amLODIPine 10 MG Tablet PO (08:13)
[2022-04-26 08:22] VITALS: BP 133/70; PULSE 84
[2022-04-26 09:45] VITALS: PULSE 93; RESP 18; O2SAT 97
[2022-04-26] MEDS: Tuberculin,Purif.prot.deriv. 50 TU/ML Vial 0.1 ML ID (10:19)
[2022-04-26] MEDS: FLU VACC QS2022-23(6MOS UP)/PF 60 MCG/0.5 ML SYRINGE IM (10:43)
--- NOTE | 2022-04-26 10:44 | CASEMGMT ---
Social Work Left message with requesting to bring in copies of pt's advanced directives. Kimberly Houston, COLLAR FOLDER OPERATOR FILTER TANK OPERATOR
--- NOTE | 2022-04-26 10:47 | NURSING ---
FLUZONE SHOT GIVEN IN RIGHT DELT. PT TOLERATED WELL. WILL MONITOR.
[2022-04-26] MEDS: 0.9% Saline Lock 10 ML Syringe IV (11:23)
[2022-04-26 16:00] VITALS: BP 131/71; PULSE 82; RESP 14; TEMP 36.6; O2SAT 98
--- NOTE | 2022-04-26 17:50 | NURSING ---
PT REQUESTING TO TALK TO . PLEASE CALL ON 04/29/22.
[2022-04-26] MEDS: Pramipexole Di-HCl 0.125 MG Tablet PO (21:41)
[2022-04-26] MEDS: Atorvastatin Calcium 20 MG Tablet PO (21:41)
[2022-04-26 23:51] LABS: Vancomycin, Trough Level 20.1 ug/mL (5.0-15.0)
--- NOTE | 2022-04-26 23:58 | PCM.RX.CS ---
Consult Pharmacy has been consulted to manage selected antiobiotic: Vancomycin Type of Consult: Follow-up Prior Doses of Antibiotics Received/Current Regimen: Medications Vancomycin HCl 1,500 mg/ (Sodium Chloride) 530 mls @ 250 mls/hr IV Q12H MOJGAN Last Admin: 04/26/22 22:43 Dose: 250 mls/hr Labs: Sodium 142 mmol/L (136-145) 04/26/22 05:12 Potassium 4.1 mmol/L (3.5-5.1) 04/26/22 05:12 Chloride 109 mmol/L (98-107) H 04/26/22 05:12 Carbon Dioxide 26.0 mmol/L (21.0-32.0) 04/26/22 05:12 Anion Gap 7 (5-15) 04/26/22 05:12 BUN 18 mg/dL (7-18) 04/26/22 05:12 Creatinine 0.59 mg/dL (0.55-1.02) 04/26/22 05:12 Est GFR (MDRD) Af Amer 129 mL/min (>60) 04/26/22 05:12 Est GFR (MDRD) Non-Af 106 mL/min (>60) 04/26/22 05:12 BUN/Creatinine Ratio 30.6 RATIO (10-20) H 04/26/22 05:12 Glucose 93 mg/dL (74-106) 04/26/22 05:12 Vancomycin Trough 20.1 ug/mL (5.0-15.0) H 04/26/22 22:30 Microbiology: Microbiology 04/19/22 10:45 Nasal Secretion SARS-CoV-2 Antigen (Rapid) - Final Weight used for dosin kg Estimated Creatinine Clearance: 102 Goal Trough: 15-20 mcg/mL Pharmacy Plan for Drug Dosing: Vancomycin trough level was at the top end of the target range, at 20.1. Will continue same dosing, and monitor closely with another trough level in two days. Pharmacy Service will continue to monitor and adjust dosing as required. Follow-Up Labs: Trough Vancomycin Labs to be done on [date and time ordered]: 04/28/22 @3531
[2022-04-27] MEDS: Nystatin Powder 15gm Bottle 1 APPLIC TOPICAL ×2 (05:21→17:04)
[2022-04-27] MEDS: Pantoprazole Sodium 20 MG Tablet PO (05:21)
[2022-04-27] MEDS: Levothyroxine 100 MCG Tablet PO (05:21)
[2022-04-27] MEDS: Acetaminophen 500 MG Tablet 1000 MG PO ×3 (05:22→21:01)
[2022-04-27] MEDS: Aspirin 81 MG TAB.CHEW PO ×2 (07:50→17:04)
[2022-04-27] MEDS: Potassium Chloride Oral Tablet 20 MEQ PO ×2 (07:50→17:03)
[2022-04-27] MEDS: Senna/Docusate Sodium 1 Tablet 2 TABLET PO ×2 (07:50→17:03)
[2022-04-27] MEDS: DULoxetine Hcl 30 MG Capsule 90 MG PO (07:51)
[2022-04-27] MEDS: Meloxicam 7.5 MG Tablet PO ×2 (07:52→17:03)
[2022-04-27] MEDS: amLODIPine 10 MG Tablet PO (07:52)
[2022-04-27] MEDS: Triamterene 37.5MG/Hctz 25MG Capsule 1 CAP PO (07:52)
[2022-04-27] MEDS: Vitamin E 400 UNITS Capsule PO (07:52)
[2022-04-27] MEDS: Gabapentin 400 MG Capsule PO ×3 (07:56→21:02)
[2022-04-27] MEDS: 0.9% Saline Lock 10 ML Syringe IV (11:31)
[2022-04-27 15:01] VITALS: BP 133/64; PULSE 91; RESP 16; TEMP 36.7; O2SAT 98
[2022-04-27] MEDS: Atorvastatin Calcium 20 MG Tablet PO (21:02)
[2022-04-27] MEDS: Pramipexole Di-HCl 0.125 MG Tablet PO (21:02)
[2022-04-28] MEDS: oxyCODONE 5 MG Tablet PO ×2 (06:04→21:16)
[2022-04-28] MEDS: Acetaminophen 500 MG Tablet 1000 MG PO ×3 (06:05→21:18)
[2022-04-28] MEDS: Pantoprazole Sodium 20 MG Tablet PO (06:05)
[2022-04-28] MEDS: Levothyroxine 100 MCG Tablet PO (06:05)
[2022-04-28] MEDS: Nystatin Powder 15gm Bottle 1 APPLIC TOPICAL ×2 (06:07→17:44)
[2022-04-28] MEDS: amLODIPine 10 MG Tablet PO (08:15)
[2022-04-28] MEDS: Potassium Chloride Oral Tablet 20 MEQ PO ×2 (08:15→17:43)
[2022-04-28] MEDS: Meloxicam 7.5 MG Tablet PO ×2 (08:16→17:43)
[2022-04-28] MEDS: DULoxetine Hcl 30 MG Capsule 90 MG PO (08:16)
[2022-04-28] MEDS: Vitamin E 400 UNITS Capsule PO (08:16)
[2022-04-28] MEDS: Triamterene 37.5MG/Hctz 25MG Capsule 1 CAP PO (08:16)
[2022-04-28] MEDS: Gabapentin 400 MG Capsule PO ×3 (08:16→21:17)
[2022-04-28] MEDS: Senna/Docusate Sodium 1 Tablet 2 TABLET PO (08:16)
[2022-04-28] MEDS: Aspirin 81 MG TAB.CHEW PO ×2 (08:16→17:43)
[2022-04-28 08:19] VITALS: BP 125/66; PULSE 88
[2022-04-28] MEDS: 0.9% Saline Lock 10 ML Syringe IV (11:28)
[2022-04-28 14:28] VITALS: BP 116/77; PULSE 89; RESP 16; TEMP 36.6; O2SAT 97
[2022-04-28] MEDS: Atorvastatin Calcium 20 MG Tablet PO (21:18)
[2022-04-28] MEDS: Pramipexole Di-HCl 0.125 MG Tablet PO (21:18)
[2022-04-28 22:47] LABS: Vancomycin, Trough Level 24.9 ug/mL (5.0-15.0)
--- NOTE | 2022-04-28 23:42 | PCM.RX.CS ---
Consult Pharmacy has been consulted to manage selected antiobiotic: Vancomycin Type of Consult: Follow-up Prior Doses of Antibiotics Received/Current Regimen: Medications Discontinued Medications Vancomycin HCl 1,500 mg/ (Sodium Chloride) 530 mls @ 250 mls/hr IV Q12H MOJGAN Last Admin: 04/28/22 14:00 Dose: Infused Labs: Sodium 142 mmol/L (136-145) 04/26/22 05:12 Potassium 4.1 mmol/L (3.5-5.1) 04/26/22 05:12 Chloride 109 mmol/L (98-107) H 04/26/22 05:12 Carbon Dioxide 26.0 mmol/L (21.0-32.0) 04/26/22 05:12 Anion Gap 7 (5-15) 04/26/22 05:12 BUN 18 mg/dL (7-18) 04/26/22 05:12 Creatinine 0.59 mg/dL (0.55-1.02) 04/26/22 05:12 Est GFR (MDRD) Af Amer 129 mL/min (>60) 04/26/22 05:12 Est GFR (MDRD) Non-Af 106 mL/min (>60) 04/26/22 05:12 BUN/Creatinine Ratio 30.6 RATIO (10-20) H 04/26/22 05:12 Glucose 93 mg/dL (74-106) 04/26/22 05:12 Vancomycin Trough 24.9 ug/mL (5.0-15.0) H 04/28/22 21:52 Microbiology: Microbiology 04/19/22 10:45 Nasal Secretion SARS-CoV-2 Antigen (Rapid) - Final Weight used for dosin kg Estimated Creatinine Clearance: 102-by ABW Goal Trough: 15-20 mcg/mL Pharmacy Plan for Drug Dosing: Vancomycin trough level was high, at 24.9. Held current dose. Will draw a random level in 12 hours and recalculate continuing dose, if level has dropped below 20mg/L. Pharmacy Service will continue to monitor and adjust dosing as required. Follow-Up Labs: Trough Vancomycin - random Labs to be done on [date and time ordered]: 04/29/22 @1000
--- NOTE | 2022-04-29 00:32 | NURSING ---
[place] from pharmacy called and notified this nurse that vancomycin trough was trending upward and vancomycin infusion would be held for tonight. RN aware. New trough will be drawn in the morning.
[2022-04-29] MEDS: Acetaminophen 500 MG Tablet 1000 MG PO ×3 (05:25→21:12)
[2022-04-29] MEDS: Pantoprazole Sodium 20 MG Tablet PO (05:26)
[2022-04-29] MEDS: Levothyroxine 100 MCG Tablet PO (05:26)
[2022-04-29 07:58] VITALS: BP 151/83; PULSE 89
[2022-04-29] MEDS: Nystatin Powder 15gm Bottle 1 APPLIC TOPICAL ×2 (07:59→17:52)
[2022-04-29] MEDS: Aspirin 81 MG TAB.CHEW PO ×2 (08:00→17:50)
[2022-04-29] MEDS: Potassium Chloride Oral Tablet 20 MEQ PO ×2 (08:00→17:51)
[2022-04-29] MEDS: DULoxetine Hcl 30 MG Capsule 90 MG PO (08:00)
[2022-04-29] MEDS: Meloxicam 7.5 MG Tablet PO ×2 (08:01→17:51)
[2022-04-29] MEDS: Triamterene 37.5MG/Hctz 25MG Capsule 1 CAP PO (08:01)
[2022-04-29] MEDS: Vitamin E 400 UNITS Capsule PO (08:01)
[2022-04-29] MEDS: amLODIPine 10 MG Tablet PO (08:02)
[2022-04-29] MEDS: Gabapentin 400 MG Capsule PO ×3 (08:05→21:11)
--- NOTE | 2022-04-29 09:22 | NURSING ---
Addendum entered by Nghia Pires 04/29/22 11:18: PT RETURNED FROM . [facility] TAKEN OUT. FOLLOW UP WITH ON 05/27/22. Original Note: PT LEFT BY WHEEL CHAIR TO APPOINTMENT WITH DR. ANAND. TRANSPORTING.
--- NOTE | 2022-04-29 11:38 | NURSING ---
lab notified of pt needing trough drawn since she has returned from [facility]
[2022-04-29 13:01] LABS: Vancomycin, Random Level 14.5 ug/mL (0.0-15.0)
--- NOTE | 2022-04-29 13:49 | PCM.RX.CS ---
Consult Pharmacy has been consulted to manage selected antiobiotic: Vancomycin Type of Consult: Follow-up Labs: Sodium 142 mmol/L (136-145) 04/26/22 05:12 Potassium 4.1 mmol/L (3.5-5.1) 04/26/22 05:12 Chloride 109 mmol/L (98-107) H 04/26/22 05:12 Carbon Dioxide 26.0 mmol/L (21.0-32.0) 04/26/22 05:12 Anion Gap 7 (5-15) 04/26/22 05:12 BUN 18 mg/dL (7-18) 04/26/22 05:12 Creatinine 0.59 mg/dL (0.55-1.02) 04/26/22 05:12 Est GFR (MDRD) Af Amer 129 mL/min (>60) 04/26/22 05:12 Est GFR (MDRD) Non-Af 106 mL/min (>60) 04/26/22 05:12 BUN/Creatinine Ratio 30.6 RATIO (10-20) H 04/26/22 05:12 Glucose 93 mg/dL (74-106) 04/26/22 05:12 Vancomycin Trough 24.9 ug/mL (5.0-15.0) H 04/28/22 21:52 Random Vancomycin 14.5 ug/mL (0.0-15.0) 04/29/22 12:00 Microbiology: Microbiology 04/19/22 10:45 Nasal Secretion SARS-CoV-2 Antigen (Rapid) - Final Goal Trough: 15-20 mcg/mL Pharmacy Plan for Drug Dosing: VANCOMYCIN LEVEL RECEIVED Current Vancomycin Dose: 1500mg q12h (on hold due to elevated trough) Number of Doses Received: Vancomycin Level: 14.9 (random level) Hours Since Last Dose: Renal Function: SrCr 0.59 (rounded to 0.8 due to pts age) Renal Function Trend: Lab/Micro: Vancomycin Plan/Comments: based on pts age and renal function recommend restarting Vancomycin at a dose of 1000mg q12h. (Dose calculated using Clinical Pharmacology dose calculator. Est trough of 17) Pending Level: 05/01/22 at 0530 Pharmacy Service will continue to monitor and adjust dosing as required. Follow-Up Labs: Trough Vancomycin - 05/01/22 @ 0530
--- NOTE | 2022-04-29 14:08 | MDS.RN ---
Information for the mds was obtained from review of the clinical record, interview of resident, staff, and direct observation of resident's care.
[2022-04-29 14:24] VITALS: BP 121/59; PULSE 93; RESP 18; TEMP 36.5; O2SAT 98
[2022-04-29] MEDS: Senna/Docusate Sodium 1 Tablet 2 TABLET PO (17:51)
[2022-04-29] MEDS: Vancomycin IV 1,000 MG/200 ML BAG 200 MG IV (18:17)
[2022-04-29] MEDS: 0.9% Saline Lock 10 ML Syringe IV (18:26)
[2022-04-29 21:00] VITALS: PULSE 84; RESP 18; O2SAT 97
[2022-04-29] MEDS: Atorvastatin Calcium 20 MG Tablet PO (21:11)
[2022-04-29] MEDS: Pramipexole Di-HCl 0.125 MG Tablet PO (21:12)
[2022-04-30] MEDS: Nystatin Powder 15gm Bottle 1 APPLIC TOPICAL ×2 (05:43→17:12)
[2022-04-30] MEDS: Pantoprazole Sodium 20 MG Tablet PO (05:43)
[2022-04-30] MEDS: Levothyroxine 100 MCG Tablet PO (05:43)
[2022-04-30] MEDS: Acetaminophen 500 MG Tablet 1000 MG PO ×3 (05:43→22:06)
[2022-04-30] MEDS: Vancomycin IV 1,000 MG/200 ML BAG 200 MG IV ×2 (05:47→19:50)
[2022-04-30] MEDS: 0.9% Saline Lock 10 ML Syringe IV (05:47)
[2022-04-30] MEDS: Aspirin 81 MG TAB.CHEW PO ×2 (08:47→17:11)
[2022-04-30] MEDS: DULoxetine Hcl 30 MG Capsule 90 MG PO (08:47)
[2022-04-30] MEDS: Potassium Chloride Oral Tablet 20 MEQ PO ×2 (08:47→17:11)
[2022-04-30] MEDS: Vitamin E 400 UNITS Capsule PO (08:48)
[2022-04-30] MEDS: amLODIPine 10 MG Tablet PO (08:48)
[2022-04-30] MEDS: Meloxicam 7.5 MG Tablet PO ×2 (08:48→17:11)
[2022-04-30] MEDS: Senna/Docusate Sodium 1 Tablet 2 TABLET PO ×2 (08:48→17:13)
[2022-04-30] MEDS: Triamterene 37.5MG/Hctz 25MG Capsule 1 CAP PO (08:49)
[2022-04-30] MEDS: Gabapentin 400 MG Capsule PO ×3 (08:52→22:06)
[2022-04-30 08:53] VITALS: BP 149/75; PULSE 92
[2022-04-30 13:40] VITALS: BP 140/74; PULSE 86; RESP 18; TEMP 36.6; O2SAT 98
[2022-04-30 15:00] VITALS: PULSE 84; RESP 18; O2SAT 98
[2022-04-30] MEDS: Pramipexole Di-HCl 0.125 MG Tablet PO (22:06)
[2022-04-30] MEDS: Atorvastatin Calcium 20 MG Tablet PO (22:06)
[2022-04-30] MEDS: oxyCODONE 5 MG Tablet PO (22:07)
[2022-05-01] MEDS: Acetaminophen 500 MG Tablet 1000 MG PO ×3 (06:04→21:44)
[2022-05-01] MEDS: Pantoprazole Sodium 20 MG Tablet PO (06:04)
[2022-05-01] MEDS: Levothyroxine 100 MCG Tablet PO (06:05)
[2022-05-01] MEDS: Nystatin Powder 15gm Bottle 1 APPLIC TOPICAL ×2 (06:06→18:20)
[2022-05-01 06:44] LABS: Vancomycin, Trough Level 15.9 ug/mL (5.0-15.0)
[2022-05-01] MEDS: Vancomycin IV 1,000 MG/200 ML BAG 200 MG IV ×2 (07:05→18:21)
[2022-05-01] MEDS: 0.9% Saline Lock 10 ML Syringe IV ×4 (07:06→20:38)
--- NOTE | 2022-05-01 07:32 | PCM.RX.CS ---
Consult Pharmacy has been consulted to manage selected antiobiotic: Vancomycin Type of Consult: Follow-up Prior Doses of Antibiotics Received/Current Regimen: current dose is vanc 1000mg IV q12h Labs: Sodium 142 mmol/L (136-145) 04/26/22 05:12 Potassium 4.1 mmol/L (3.5-5.1) 04/26/22 05:12 Chloride 109 mmol/L (98-107) H 04/26/22 05:12 Carbon Dioxide 26.0 mmol/L (21.0-32.0) 04/26/22 05:12 Anion Gap 7 (5-15) 04/26/22 05:12 BUN 18 mg/dL (7-18) 04/26/22 05:12 Creatinine 0.59 mg/dL (0.55-1.02) 04/26/22 05:12 Est GFR (MDRD) Af Amer 129 mL/min (>60) 04/26/22 05:12 Est GFR (MDRD) Non-Af 106 mL/min (>60) 04/26/22 05:12 BUN/Creatinine Ratio 30.6 RATIO (10-20) H 04/26/22 05:12 Glucose 93 mg/dL (74-106) 04/26/22 05:12 Vancomycin Trough 15.9 ug/mL (5.0-15.0) H 05/01/22 05:27 Random Vancomycin 14.5 ug/mL (0.0-15.0) 04/29/22 12:00 Microbiology: Microbiology 04/19/22 10:45 Nasal Secretion SARS-CoV-2 Antigen (Rapid) - Final Weight used for dosin kg Goal Trough: 15-20 mcg/mL Pharmacy Plan for Drug Dosing: The vanc trough drawn at 05:27 today (approximately 9.5 hours after the previous dose) was 15.9. Last night's dose was given late so the trough was drawn at only about 9.5 hours after that. If drawn closer to 12 hours, it would have been a little lower. Nevertheless, will leave the dose as is for now and recheck another trough in 2 days. The patient's CrCl of 75 ml/min was calculated using an adjusted body weight. Pharmacy Service will continue to monitor and adjust dosing as required. Follow-Up Labs: Trough Vancomycin Labs to be done on [date and time ordered]: 05/03/22 05:30
[2022-05-01] MEDS: Meloxicam 7.5 MG Tablet PO ×2 (08:54→18:20)
[2022-05-01] MEDS: Triamterene 37.5MG/Hctz 25MG Capsule 1 CAP PO (08:54)
[2022-05-01] MEDS: amLODIPine 10 MG Tablet PO (08:54)
[2022-05-01] MEDS: Vitamin E 400 UNITS Capsule PO (08:55)
[2022-05-01] MEDS: Aspirin 81 MG TAB.CHEW PO ×2 (08:55→18:19)
[2022-05-01] MEDS: Potassium Chloride Oral Tablet 20 MEQ PO ×2 (08:55→18:19)
[2022-05-01] MEDS: DULoxetine Hcl 30 MG Capsule 90 MG PO (08:55)
[2022-05-01] MEDS: Gabapentin 400 MG Capsule PO ×3 (08:55→21:44)
[2022-05-01] MEDS: Senna/Docusate Sodium 1 Tablet 2 TABLET PO ×2 (08:55→18:21)
[2022-05-01 14:33] VITALS: BP 146/80; PULSE 79; RESP 18; TEMP 36.1; O2SAT 98
[2022-05-01 21:00] VITALS: PULSE 75; RESP 16; O2SAT 97
[2022-05-01] MEDS: Atorvastatin Calcium 20 MG Tablet PO (21:44)
[2022-05-01] MEDS: Pramipexole Di-HCl 0.125 MG Tablet PO (21:44)
[2022-05-02] MEDS: Vancomycin IV 1,000 MG/200 ML BAG 200 MG IV ×2 (06:40→17:15)
[2022-05-02] MEDS: 0.9% Saline Lock 10 ML Syringe IV ×2 (06:41→08:48)
[2022-05-02] MEDS: Levothyroxine 100 MCG Tablet PO (06:41)
[2022-05-02] MEDS: Pantoprazole Sodium 20 MG Tablet PO (06:41)
[2022-05-02] MEDS: Acetaminophen 500 MG Tablet 1000 MG PO ×3 (06:41→21:45)
[2022-05-02] MEDS: Gabapentin 400 MG Capsule PO ×3 (08:04→21:46)
[2022-05-02] MEDS: Nystatin Powder 15gm Bottle 1 APPLIC TOPICAL ×2 (08:04→17:21)
[2022-05-02] MEDS: Aspirin 81 MG TAB.CHEW PO ×2 (08:07→17:23)
[2022-05-02] MEDS: Potassium Chloride Oral Tablet 20 MEQ PO ×2 (08:08→17:23)
[2022-05-02] MEDS: Meloxicam 7.5 MG Tablet PO ×2 (08:09→17:22)
[2022-05-02] MEDS: Vitamin E 400 UNITS Capsule PO (08:09)
[2022-05-02] MEDS: Senna/Docusate Sodium 1 Tablet 2 TABLET PO (08:09)
[2022-05-02] MEDS: amLODIPine 10 MG Tablet PO (08:10)
[2022-05-02] MEDS: DULoxetine Hcl 30 MG Capsule 90 MG PO (08:10)
[2022-05-02] MEDS: Triamterene 37.5MG/Hctz 25MG Capsule 1 CAP PO (08:10)
[2022-05-02 08:14] VITALS: BP 115/70; PULSE 80
[2022-05-02 11:00] VITALS: PULSE 79; RESP 18; O2SAT 97
[2022-05-02 15:47] VITALS: BP 124/70; PULSE 82; RESP 16; TEMP 36.2; O2SAT 96
[2022-05-02] MEDS: Atorvastatin Calcium 20 MG Tablet PO (21:45)
[2022-05-02] MEDS: Pramipexole Di-HCl 0.125 MG Tablet PO (21:45)
[2022-05-03] MEDS: Acetaminophen 500 MG Tablet 1000 MG PO ×3 (05:41→21:55)
[2022-05-03] MEDS: Pantoprazole Sodium 20 MG Tablet PO (05:41)
[2022-05-03] MEDS: Levothyroxine 100 MCG Tablet PO (05:42)
[2022-05-03] MEDS: Nystatin Powder 15gm Bottle 1 APPLIC TOPICAL ×2 (05:42→18:02)
[2022-05-03 05:51] LABS: Absolute Lymphocyte Count 1.59 X10^3/uL (0.83-4.51); Absolute Neutrophil Count 4.3 X10^3/uL (2.0-7.7); Basophil# 0.12 X10^3/uL; Basophil% 1.6 % (0-1); Eosinophils% 6.9 % (0-5); Hematocrit 36.2 % (37-47); Hemoglobin 11.5 g/dL (12.0-15.0); Lymphocyte # 1.59 X10^3/ul (0.83-4.51); Lymphocyte % 21.8 % (19-41); Mean Corp Hgb Conc 31.8 g/dL (32-36); Mean Corpuscular Hgb 28.9 pg (27.0-32.0); Mean Platelet Vol. 8.9 fl (6.2-12.0); Monocyte# 0.73 X10^3/uL; NRBC Flagged by Analyzer 0 % (0-5); Neutrophil # 4.27 X10^3/uL (2.7-7.7); Neutrophil % 58.7 % (47-70); Platelet Count 328 K/mm3 (150-450); RBC Distribution Width CV 15.3 % (11.6-14.6); RBC Distribution Width SD 50.9 fl (35.1-43.9); Red Blood Count 3.98 M/mm3 (4.2-5.4); White Blood Count 7.3 K/mm3 (4.4-11.0)
[2022-05-03 06:30] LABS: Anion Gap 7 (5-15); BUN 20 mg/dL (7-18); Calcium,Total 8.9 mg/dL (8.5-10.1); Chloride 108 mmol/L (98-107); Creatinine, Serum 0.59 mg/dL (0.55-1.02); EST Glomerular Filtration Rate 107 mL/min (>60); Est Glom Filt Rate - Afr Amer 129 mL/min (>60); Estimated Creatinine Clearance 41.45 ml/min; Glucose 92 mg/dL (74-106); Potassium 4.1 mmol/L (3.5-5.1); Sodium Level 142 mmol/L (136-145)
[2022-05-03 06:35] LABS: Vancomycin, Trough Level 16.4 ug/mL (5.0-15.0)
[2022-05-03] MEDS: Vancomycin IV 1,000 MG/200 ML BAG 200 MG IV ×2 (06:47→18:01)
[2022-05-03] MEDS: 0.9% Saline Lock 10 ML Syringe IV (06:48)
--- NOTE | 2022-05-03 07:11 | PCM.RX.CS ---
Consult Pharmacy has been consulted to manage selected antiobiotic: Vancomycin Type of Consult: Follow-up Suspected Infection: Other Labs: Sodium 142 mmol/L (136-145) 05/03/22 05:36 Potassium 4.1 mmol/L (3.5-5.1) 05/03/22 05:36 Chloride 108 mmol/L (98-107) H 05/03/22 05:36 Carbon Dioxide 27.0 mmol/L (21.0-32.0) 05/03/22 05:36 Anion Gap 7 (5-15) 05/03/22 05:36 BUN 20 mg/dL (7-18) H 05/03/22 05:36 Creatinine 0.59 mg/dL (0.55-1.02) 05/03/22 05:36 Est GFR (MDRD) Af Amer 129 mL/min (>60) 05/03/22 05:36 Est GFR (MDRD) Non-Af 107 mL/min (>60) 05/03/22 05:36 BUN/Creatinine Ratio 34.0 RATIO (10-20) H 05/03/22 05:36 Glucose 92 mg/dL (74-106) 05/03/22 05:36 Vancomycin Trough 16.4 ug/mL (5.0-15.0) H 05/03/22 05:36 Random Vancomycin 14.5 ug/mL (0.0-15.0) 04/29/22 12:00 Microbiology: Microbiology 04/19/22 10:45 Nasal Secretion SARS-CoV-2 Antigen (Rapid) - Final Goal Trough: 15-20 mcg/mL Pharmacy Plan for Drug Dosing: VANCOMYCIN LEVEL RECEIVED Current Vancomycin Dose: 1000mg q12h (,18) Number of Doses Received: x7 of current dose Vancomycin Level: 16.4 Hours Since Last Dose: 12 hours since last dose Renal Function: currently no new level Renal Function Trend: Lab/Micro: Vancomycin Plan/Comments: resulted level of 16.4 is within ordered goal trough range 15-20. recommend continuing current dose of 1000mg q12h. Pending Level: 05/05/22 at 0530 Pharmacy Service will continue to monitor and adjust dosing as required. Follow-Up Labs: Trough Vancomycin - 05/05/22 @ 0530
[2022-05-03 07:17] LABS: Erythrocyte Sedimentation Rate 25 mm/hr (0-30)
[2022-05-03] MEDS: Aspirin 81 MG TAB.CHEW PO ×2 (08:03→18:00)
[2022-05-03] MEDS: Potassium Chloride Oral Tablet 20 MEQ PO ×2 (08:04→18:00)
[2022-05-03] MEDS: Triamterene 37.5MG/Hctz 25MG Capsule 1 CAP PO (08:04)
[2022-05-03] MEDS: DULoxetine Hcl 30 MG Capsule 90 MG PO (08:04)
[2022-05-03] MEDS: amLODIPine 10 MG Tablet PO (08:05)
[2022-05-03] MEDS: Senna/Docusate Sodium 1 Tablet 2 TABLET PO (08:05)
[2022-05-03] MEDS: Meloxicam 7.5 MG Tablet PO ×2 (08:05→18:00)
[2022-05-03] MEDS: Gabapentin 400 MG Capsule PO ×3 (08:05→21:55)
[2022-05-03] MEDS: Vitamin E 400 UNITS Capsule PO (08:06)
[2022-05-03 15:24] VITALS: BP 126/66; PULSE 86; RESP 14; TEMP 36.6; O2SAT 98
[2022-05-03] MEDS: Atorvastatin Calcium 20 MG Tablet PO (21:55)
[2022-05-03] MEDS: Pramipexole Di-HCl 0.125 MG Tablet PO (21:55)
[2022-05-03 22:05] VITALS: PULSE 76; RESP 16; O2SAT 98
[2022-05-04] MEDS: Vancomycin IV 1,000 MG/200 ML BAG 200 MG IV ×2 (06:06→18:29)
[2022-05-04] MEDS: 0.9% Saline Lock 10 ML Syringe IV ×2 (06:12→18:30)
[2022-05-04] MEDS: Acetaminophen 500 MG Tablet 1000 MG PO ×3 (06:12→21:10)
[2022-05-04] MEDS: Levothyroxine 100 MCG Tablet PO (06:12)
[2022-05-04] MEDS: Pantoprazole Sodium 20 MG Tablet PO (06:12)
[2022-05-04] MEDS: Nystatin Powder 15gm Bottle 1 APPLIC TOPICAL ×2 (06:14→18:31)
[2022-05-04 08:14] VITALS: BP 147/77; PULSE 84
[2022-05-04] MEDS: Gabapentin 400 MG Capsule PO ×3 (08:14→21:09)
[2022-05-04] MEDS: Aspirin 81 MG TAB.CHEW PO ×2 (08:15→18:30)
[2022-05-04] MEDS: DULoxetine Hcl 30 MG Capsule 90 MG PO (08:15)
[2022-05-04] MEDS: Triamterene 37.5MG/Hctz 25MG Capsule 1 CAP PO (08:16)
[2022-05-04] MEDS: Potassium Chloride Oral Tablet 20 MEQ PO ×2 (08:16→18:30)
[2022-05-04] MEDS: Senna/Docusate Sodium 1 Tablet 2 TABLET PO (08:17)
[2022-05-04] MEDS: amLODIPine 10 MG Tablet PO (08:17)
[2022-05-04] MEDS: Meloxicam 7.5 MG Tablet PO ×2 (08:17→18:31)
[2022-05-04] MEDS: Vitamin E 400 UNITS Capsule PO (08:18)
[2022-05-04 09:35] VITALS: O2SAT 98
[2022-05-04 11:06] VITALS: PULSE 68; RESP 16
[2022-05-04 15:00] VITALS: BP 147/75; PULSE 82; RESP 18; TEMP 36.2; O2SAT 100
[2022-05-04] MEDS: Pramipexole Di-HCl 0.125 MG Tablet PO (21:09)
[2022-05-04] MEDS: Atorvastatin Calcium 20 MG Tablet PO (21:09)
[2022-05-05] MEDS: Acetaminophen 500 MG Tablet 1000 MG PO ×3 (05:49→21:11)
[2022-05-05] MEDS: Pantoprazole Sodium 20 MG Tablet PO (05:50)
[2022-05-05] MEDS: Levothyroxine 100 MCG Tablet PO (05:50)
[2022-05-05] MEDS: Nystatin Powder 15gm Bottle 1 APPLIC TOPICAL ×2 (05:51→17:45)
[2022-05-05 07:46] LABS: Vancomycin, Trough Level 16.4 ug/mL (5.0-15.0)
[2022-05-05] MEDS: Vancomycin IV 1,000 MG/200 ML BAG 200 MG IV ×2 (08:08→17:46)
[2022-05-05] MEDS: Gabapentin 400 MG Capsule PO ×3 (08:19→21:11)
[2022-05-05] MEDS: Aspirin 81 MG TAB.CHEW PO ×2 (08:19→17:44)
[2022-05-05] MEDS: DULoxetine Hcl 30 MG Capsule 90 MG PO (08:19)
[2022-05-05] MEDS: Triamterene 37.5MG/Hctz 25MG Capsule 1 CAP PO (08:20)
[2022-05-05] MEDS: Potassium Chloride Oral Tablet 20 MEQ PO ×2 (08:20→17:45)
[2022-05-05] MEDS: amLODIPine 10 MG Tablet PO (08:21)
[2022-05-05] MEDS: Senna/Docusate Sodium 1 Tablet 2 TABLET PO (08:21)
[2022-05-05] MEDS: Meloxicam 7.5 MG Tablet PO ×2 (08:21→17:45)
[2022-05-05] MEDS: Vitamin E 400 UNITS Capsule PO (08:22)
--- NOTE | 2022-05-05 09:07 | PCM.RX.CS ---
Consult Pharmacy has been consulted to manage selected antiobiotic: Vancomycin Type of Consult: Follow-up Suspected Infection: Other Prior Doses of Antibiotics Received/Current Regimen: Currently on 1gm iv q12h. Labs: Sodium 142 mmol/L (136-145) 05/03/22 05:36 Potassium 4.1 mmol/L (3.5-5.1) 05/03/22 05:36 Chloride 108 mmol/L (98-107) H 05/03/22 05:36 Carbon Dioxide 27.0 mmol/L (21.0-32.0) 05/03/22 05:36 Anion Gap 7 (5-15) 05/03/22 05:36 BUN 20 mg/dL (7-18) H 05/03/22 05:36 Creatinine 0.59 mg/dL (0.55-1.02) 05/03/22 05:36 Est GFR (MDRD) Af Amer 129 mL/min (>60) 05/03/22 05:36 Est GFR (MDRD) Non-Af 107 mL/min (>60) 05/03/22 05:36 BUN/Creatinine Ratio 34.0 RATIO (10-20) H 05/03/22 05:36 Glucose 92 mg/dL (74-106) 05/03/22 05:36 Vancomycin Trough 16.4 ug/mL (5.0-15.0) H 05/05/22 06:32 Random Vancomycin 14.5 ug/mL (0.0-15.0) 04/29/22 12:00 Microbiology: Microbiology 04/19/22 10:45 Nasal Secretion SARS-CoV-2 Antigen (Rapid) - Final Weight used for dosin.9 kg Estimated Creatinine Clearance: 101 ml/min Goal Trough: 15-20 mcg/mL Pharmacy Plan for Drug Dosing: Trough today was 16.4 and in desired therapeutic range of 15-20 mcg/ml. Renal function stable with last Cr 0.59 (9.30.22) and calculated SCrCl of ~101 ml/min using an adjusted body weight of 75.4kg. Will continue same dosing with repeat trough level in 4 days. Pharmacy Service will continue to monitor and adjust dosing as required. Follow-Up Labs: Trough Vancomycin - 10..22 @0530 before 0600 dose
[2022-05-05 14:49] VITALS: BP 120/72; PULSE 85; RESP 18; TEMP 36.5; O2SAT 97
[2022-05-05] MEDS: Pramipexole Di-HCl 0.125 MG Tablet PO (21:11)
[2022-05-05] MEDS: Atorvastatin Calcium 20 MG Tablet PO (21:11)
[2022-05-05 21:33] VITALS: O2SAT 97
[2022-05-06] MEDS: Acetaminophen 500 MG Tablet 1000 MG PO ×3 (05:44→21:33)
[2022-05-06] MEDS: Levothyroxine 100 MCG Tablet PO (05:45)
[2022-05-06] MEDS: Pantoprazole Sodium 20 MG Tablet PO (05:45)
[2022-05-06] MEDS: Nystatin Powder 15gm Bottle 1 APPLIC TOPICAL ×2 (05:48→17:48)
[2022-05-06] MEDS: Vancomycin IV 1,000 MG/200 ML BAG 200 MG IV ×2 (06:56→18:08)
[2022-05-06] MEDS: Aspirin 81 MG TAB.CHEW PO ×2 (08:11→17:47)
[2022-05-06] MEDS: Vitamin E 400 UNITS Capsule PO (08:13)
[2022-05-06] MEDS: Meloxicam 7.5 MG Tablet PO ×2 (08:14→17:48)
[2022-05-06] MEDS: Potassium Chloride Oral Tablet 20 MEQ PO ×2 (08:14→17:47)
[2022-05-06] MEDS: Senna/Docusate Sodium 1 Tablet 2 TABLET PO (08:14)
[2022-05-06] MEDS: Triamterene 37.5MG/Hctz 25MG Capsule 1 CAP PO (08:15)
[2022-05-06] MEDS: DULoxetine Hcl 30 MG Capsule 90 MG PO (08:15)
[2022-05-06] MEDS: Gabapentin 400 MG Capsule PO ×3 (08:19→21:36)
[2022-05-06] MEDS: amLODIPine 10 MG Tablet PO (08:21)
[2022-05-06 08:25] VITALS: BP 120/61; PULSE 82
[2022-05-06 14:28] VITALS: BP 133/69; PULSE 82; RESP 15; TEMP 36.6; O2SAT 92
[2022-05-06 20:53] VITALS: PULSE 78; RESP 16; O2SAT 98
[2022-05-06] MEDS: Atorvastatin Calcium 20 MG Tablet PO (21:33)
[2022-05-06] MEDS: Pramipexole Di-HCl 0.125 MG Tablet PO (21:33)
[2022-05-07] MEDS: Pantoprazole Sodium 20 MG Tablet PO (06:51)
[2022-05-07] MEDS: Levothyroxine 100 MCG Tablet PO (06:51)
[2022-05-07] MEDS: oxyCODONE 5 MG Tablet PO (06:51)
[2022-05-07] MEDS: Acetaminophen 500 MG Tablet 1000 MG PO ×3 (06:51→21:19)
[2022-05-07] MEDS: Nystatin Powder 15gm Bottle 1 APPLIC TOPICAL ×2 (06:53→17:39)
[2022-05-07] MEDS: Vancomycin IV 1,000 MG/200 ML BAG 200 MG IV ×2 (07:00→18:57)
[2022-05-07] MEDS: 0.9% Saline Lock 10 ML Syringe IV ×4 (07:00→21:35)
[2022-05-07] MEDS: Gabapentin 400 MG Capsule PO ×3 (08:51→21:19)
[2022-05-07] MEDS: Aspirin 81 MG TAB.CHEW PO ×2 (08:52→17:40)
[2022-05-07] MEDS: DULoxetine Hcl 30 MG Capsule 90 MG PO (08:53)
[2022-05-07] MEDS: Triamterene 37.5MG/Hctz 25MG Capsule 1 CAP PO (08:54)
[2022-05-07] MEDS: Vitamin E 400 UNITS Capsule PO (08:54)
[2022-05-07] MEDS: Meloxicam 7.5 MG Tablet PO ×2 (08:54→17:40)
[2022-05-07] MEDS: Senna/Docusate Sodium 1 Tablet 2 TABLET PO ×2 (08:54→17:39)
[2022-05-07] MEDS: Potassium Chloride Oral Tablet 20 MEQ PO ×2 (08:54→17:39)
[2022-05-07] MEDS: amLODIPine 10 MG Tablet PO (08:55)
[2022-05-07 08:58] VITALS: BP 157/73; PULSE 85
[2022-05-07 09:00] VITALS: PULSE 85; RESP 18; O2SAT 96
--- NOTE | 2022-05-07 10:04 | PCM.PN.ID ---
Physical Exam Narrative Knee much improved, no fever, no n/v/d. Const alert and no apparent distress Resp normal air movement and clear to auscultation bilaterally Cardio regular rate and regular rhythm GI soft to palpation, non-tender and non-distended Extremity General Extremity: edema Skin Skin Narrative: R knee incision well healed ID ID: Route of nutrition/ use of supplements: [] Nutritional Intake: [] IV Site: [] Hernandez Catheter: [] Assessment & Plan Assessment/Plan (1) Infection of prosthetic right knee joint: PLAN: Now s/p revision and poly exchange 04/16/[facility] at [facility] by Dr. Best. Reviewed [place] records, cxs finalized as neg after two weeks, but 2 of 3 samples showing GPC on gram stain. Cont vanc for 6 week course until 05/28/22, then plan on long course po doxy 100mg bid. Will follow
--- NOTE | 2022-05-07 10:36 | NURSING ---
IN TO SEE PT TODAY.
[2022-05-07 14:56] VITALS: BP 124/58; PULSE 86; RESP 16; TEMP 36.5; O2SAT 99
[2022-05-07] MEDS: Pramipexole Di-HCl 0.125 MG Tablet PO (21:20)
[2022-05-07] MEDS: Atorvastatin Calcium 20 MG Tablet PO (21:20)
[2022-05-08] MEDS: Acetaminophen 500 MG Tablet 1000 MG PO ×3 (05:52→21:19)
[2022-05-08] MEDS: Levothyroxine 100 MCG Tablet PO (05:53)
[2022-05-08] MEDS: Pantoprazole Sodium 20 MG Tablet PO (05:53)
[2022-05-08] MEDS: Nystatin Powder 15gm Bottle 1 APPLIC TOPICAL ×2 (05:55→18:14)
[2022-05-08] MEDS: 0.9% Saline Lock 10 ML Syringe IV (06:53)
[2022-05-08] MEDS: Vancomycin IV 1,000 MG/200 ML BAG 200 MG IV ×2 (06:53→18:23)
[2022-05-08] MEDS: DULoxetine Hcl 30 MG Capsule 90 MG PO (08:09)
[2022-05-08] MEDS: Aspirin 81 MG TAB.CHEW PO ×2 (08:09→18:12)
[2022-05-08] MEDS: Potassium Chloride Oral Tablet 20 MEQ PO ×2 (08:10→18:13)
[2022-05-08] MEDS: Senna/Docusate Sodium 1 Tablet 2 TABLET PO ×2 (08:10→18:12)
[2022-05-08] MEDS: Meloxicam 7.5 MG Tablet PO ×2 (08:10→18:12)
[2022-05-08] MEDS: Gabapentin 400 MG Capsule PO ×3 (08:12→21:20)
[2022-05-08] MEDS: Vitamin E 400 UNITS Capsule PO (08:13)
[2022-05-08] MEDS: Triamterene 37.5MG/Hctz 25MG Capsule 1 CAP PO (08:13)
[2022-05-08] MEDS: amLODIPine 10 MG Tablet PO (08:13)
[2022-05-08 08:15] VITALS: BP 121/61; PULSE 84
[2022-05-08 10:30] VITALS: PULSE 64; RESP 16; O2SAT 96
[2022-05-08 16:00] VITALS: BP 133/68; PULSE 96; RESP 16; TEMP 36.7; O2SAT 92
--- NOTE | 2022-05-08 16:41 | CASEMGMT ---
Social Work SW noted per ID note that pt's IV ATB will stop 05/29 and pt can DC home at that time. SW to follow up with pt to plan DC. Kimberly Houston, [employer]
[2022-05-08] MEDS: Pramipexole Di-HCl 0.125 MG Tablet PO (21:19)
[2022-05-08] MEDS: Atorvastatin Calcium 20 MG Tablet PO (21:19)
[2022-05-09] MEDS: Nystatin Powder 15gm Bottle 1 APPLIC TOPICAL ×2 (04:33→17:07)
[2022-05-09] MEDS: Pantoprazole Sodium 20 MG Tablet PO (04:34)
[2022-05-09] MEDS: Acetaminophen 500 MG Tablet 1000 MG PO ×3 (04:34→20:59)
[2022-05-09] MEDS: Levothyroxine 100 MCG Tablet PO (04:34)
[2022-05-09 06:20] LABS: Vancomycin, Trough Level 18.3 ug/mL (5.0-15.0)
--- NOTE | 2022-05-09 06:26 | PCM.RX.CS ---
Consult Pharmacy has been consulted to manage selected antiobiotic: Vancomycin Type of Consult: Follow-up Prior Doses of Antibiotics Received/Current Regimen: Medications Vancomycin HCl (Vancomycin) 1,000 mg in 200 mls @ 200 mls/hr IV Q12H MOJGAN Last Admin: 05/08/22 18:53 Dose: Infused Labs: Sodium 142 mmol/L (136-145) 05/03/22 05:36 Potassium 4.1 mmol/L (3.5-5.1) 05/03/22 05:36 Chloride 108 mmol/L (98-107) H 05/03/22 05:36 Carbon Dioxide 27.0 mmol/L (21.0-32.0) 05/03/22 05:36 Anion Gap 7 (5-15) 05/03/22 05:36 BUN 20 mg/dL (7-18) H 05/03/22 05:36 Creatinine 0.59 mg/dL (0.55-1.02) 05/03/22 05:36 Est GFR (MDRD) Af Amer 129 mL/min (>60) 05/03/22 05:36 Est GFR (MDRD) Non-Af 107 mL/min (>60) 05/03/22 05:36 BUN/Creatinine Ratio 34.0 RATIO (10-20) H 05/03/22 05:36 Glucose 92 mg/dL (74-106) 05/03/22 05:36 Vancomycin Trough 18.3 ug/mL (5.0-15.0) H 05/09/22 05:27 Random Vancomycin 14.5 ug/mL (0.0-15.0) 04/29/22 12:00 Microbiology: Microbiology 04/19/22 10:45 Nasal Secretion SARS-CoV-2 Antigen (Rapid) - Final Weight used for dosin kg Estimated Creatinine Clearance: 101 Goal Trough: 15-20 mcg/mL Pharmacy Plan for Drug Dosing: Vancomycin trough level was 18.3, within the target range of 15-20. Will continue same dosing, and re-draw a trough in 4 days. Pharmacy Service will continue to monitor and adjust dosing as required. Follow-Up Labs: Trough Vancomycin Labs to be done on [date and time ordered]: 05/13/22 @[id number]
[2022-05-09] MEDS: Vancomycin IV 1,000 MG/200 ML BAG 200 MG IV ×2 (07:17→17:03)
[2022-05-09] MEDS: Potassium Chloride Oral Tablet 20 MEQ PO ×2 (08:27→17:06)
[2022-05-09] MEDS: Senna/Docusate Sodium 1 Tablet 2 TABLET PO ×2 (08:27→17:06)
[2022-05-09] MEDS: Meloxicam 7.5 MG Tablet PO ×2 (08:27→17:06)
[2022-05-09] MEDS: Vitamin E 400 UNITS Capsule PO (08:27)
[2022-05-09] MEDS: Aspirin 81 MG TAB.CHEW PO ×2 (08:27→17:06)
[2022-05-09] MEDS: DULoxetine Hcl 30 MG Capsule 90 MG PO (08:27)
[2022-05-09] MEDS: amLODIPine 10 MG Tablet PO (08:27)
[2022-05-09] MEDS: Triamterene 37.5MG/Hctz 25MG Capsule 1 CAP PO (08:27)
[2022-05-09 08:30] VITALS: BP 139/66; PULSE 83
[2022-05-09] MEDS: Gabapentin 400 MG Capsule PO ×3 (08:32→21:00)
[2022-05-09 13:52] VITALS: BP 123/57; PULSE 87; RESP 18; TEMP 36.7; O2SAT 99
[2022-05-09] MEDS: Atorvastatin Calcium 20 MG Tablet PO (20:59)
[2022-05-09] MEDS: Pramipexole Di-HCl 0.125 MG Tablet PO (20:59)
[2022-05-09 22:00] VITALS: PULSE 88; RESP 16; O2SAT 99
[2022-05-10] MEDS: oxyCODONE 5 MG Tablet PO (00:11)
[2022-05-10 05:52] LABS: Absolute Lymphocyte Count 1.85 X10^3/uL (0.83-4.51); Absolute Neutrophil Count 3.9 X10^3/uL (2.0-7.7); Basophil# 0.11 X10^3/uL; Basophil% 1.5 % (0-1); Eosinophil# 0.66 X10^3/uL; Hematocrit 35.8 % (37-47); Hemoglobin 11.1 g/dL (12.0-15.0); Lymphocyte # 1.85 X10^3/ul (0.83-4.51); Lymphocyte % 25.1 % (19-41); Mean Corpuscular Hgb 28.8 pg (27.0-32.0); Mean Corpuscular Volume 92.7 fL (81-99); Mean Platelet Vol. 9.1 fl (6.2-12.0); Monocyte# 0.77 X10^3/uL; Monocyte% 10.4 % (0-10); NRBC Flagged by Analyzer 0 % (0-5); Neutrophil # 3.94 X10^3/uL (2.7-7.7); Neutrophil % 53.5 % (47-70); Platelet Count 309 K/mm3 (150-450); RBC Distribution Width CV 15.5 % (11.6-14.6); RBC Distribution Width SD 52.8 fl (35.1-43.9); Red Blood Count 3.86 M/mm3 (4.2-5.4); White Blood Count 7.4 K/mm3 (4.4-11.0)
[2022-05-10 06:20] LABS: Anion Gap 5 (5-15); BUN 24 mg/dL (7-18); BUN/Creat Ratio 41.7 RATIO (10-20); Calcium,Total 8.9 mg/dL (8.5-10.1); Chloride 108 mmol/L (98-107); Creatinine, Serum 0.58 mg/dL (0.55-1.02); EST Glomerular Filtration Rate 109 mL/min (>60); Est Glom Filt Rate - Afr Amer 132 mL/min (>60); Estimated Creatinine Clearance 41.45 ml/min; Glucose 85 mg/dL (74-106); Sodium Level 141 mmol/L (136-145)
[2022-05-10 06:49] LABS: Erythrocyte Sedimentation Rate 23 mm/hr (0-30)
[2022-05-10] MEDS: Acetaminophen 500 MG Tablet 1000 MG PO ×3 (07:06→21:28)
[2022-05-10] MEDS: Pantoprazole Sodium 20 MG Tablet PO (07:06)
[2022-05-10] MEDS: Nystatin Powder 15gm Bottle 1 APPLIC TOPICAL ×2 (07:07→17:27)
[2022-05-10] MEDS: Vancomycin IV 1,000 MG/200 ML BAG 200 MG IV ×2 (07:18→17:38)
[2022-05-10] MEDS: Aspirin 81 MG TAB.CHEW PO ×2 (08:11→17:27)
[2022-05-10] MEDS: Potassium Chloride Oral Tablet 20 MEQ PO ×2 (08:12→17:27)
[2022-05-10] MEDS: Meloxicam 7.5 MG Tablet PO ×2 (08:12→17:27)
[2022-05-10] MEDS: DULoxetine Hcl 30 MG Capsule 90 MG PO (08:12)
[2022-05-10] MEDS: Senna/Docusate Sodium 1 Tablet 2 TABLET PO ×2 (08:12→17:27)
[2022-05-10] MEDS: Triamterene 37.5MG/Hctz 25MG Capsule 1 CAP PO (08:13)
[2022-05-10] MEDS: amLODIPine 10 MG Tablet PO (08:13)
[2022-05-10] MEDS: Gabapentin 400 MG Capsule PO ×3 (08:15→21:32)
[2022-05-10] MEDS: Vitamin E 400 UNITS Capsule PO (08:18)
[2022-05-10] MEDS: Levothyroxine 100 MCG Tablet PO (10:22)
[2022-05-10 14:57] VITALS: BP 138/75; PULSE 90; RESP 18; TEMP 36.2; O2SAT 98
[2022-05-10] MEDS: 0.9% Saline Lock 10 ML Syringe IV (17:37)
[2022-05-10] MEDS: Atorvastatin Calcium 20 MG Tablet PO (21:28)
[2022-05-10] MEDS: Pramipexole Di-HCl 0.125 MG Tablet PO (21:28)
[2022-05-11] MEDS: Levothyroxine 100 MCG Tablet PO (05:07)
[2022-05-11] MEDS: Acetaminophen 500 MG Tablet 1000 MG PO ×3 (05:07→21:47)
[2022-05-11] MEDS: Nystatin Powder 15gm Bottle 1 APPLIC TOPICAL ×2 (05:07→17:37)
[2022-05-11] MEDS: Pantoprazole Sodium 20 MG Tablet PO (05:07)
[2022-05-11] MEDS: Vancomycin IV 1,000 MG/200 ML BAG 200 MG IV ×2 (05:08→17:20)
[2022-05-11] MEDS: Aspirin 81 MG TAB.CHEW PO ×2 (08:35→17:20)
[2022-05-11] MEDS: DULoxetine Hcl 30 MG Capsule 90 MG PO (08:35)
[2022-05-11] MEDS: Vitamin E 400 UNITS Capsule PO (08:36)
[2022-05-11] MEDS: Triamterene 37.5MG/Hctz 25MG Capsule 1 CAP PO (08:36)
[2022-05-11] MEDS: Potassium Chloride Oral Tablet 20 MEQ PO ×2 (08:36→17:20)
[2022-05-11] MEDS: Meloxicam 7.5 MG Tablet PO ×2 (08:37→17:20)
[2022-05-11] MEDS: Senna/Docusate Sodium 1 Tablet 2 TABLET PO ×2 (08:37→17:20)
[2022-05-11] MEDS: amLODIPine 10 MG Tablet PO (08:37)
[2022-05-11] MEDS: Gabapentin 400 MG Capsule PO ×3 (08:40→21:48)
[2022-05-11 08:41] VITALS: BP 145/72; PULSE 89
[2022-05-11 14:00] VITALS: BP 155/90; PULSE 99; RESP 20; TEMP 37.2; O2SAT 95
[2022-05-11] MEDS: 0.9% Saline Lock 10 ML Syringe IV (17:21)
[2022-05-11] MEDS: Pramipexole Di-HCl 0.125 MG Tablet PO (21:47)
[2022-05-11] MEDS: Atorvastatin Calcium 20 MG Tablet PO (21:48)
[2022-05-12] MEDS: oxyCODONE 5 MG Tablet PO (00:49)
[2022-05-12] MEDS: Levothyroxine 100 MCG Tablet PO (05:26)
[2022-05-12] MEDS: Acetaminophen 500 MG Tablet 1000 MG PO ×3 (05:26→22:33)
[2022-05-12] MEDS: Pantoprazole Sodium 20 MG Tablet PO (05:26)
[2022-05-12] MEDS: Vancomycin IV 1,000 MG/200 ML BAG 200 MG IV ×2 (06:42→17:29)
[2022-05-12] MEDS: 0.9% Saline Lock 10 ML Syringe IV ×2 (06:42→17:30)
[2022-05-12] MEDS: Nystatin Powder 15gm Bottle 1 APPLIC TOPICAL ×2 (07:56→17:33)
[2022-05-12] MEDS: Aspirin 81 MG TAB.CHEW PO ×2 (07:57→17:29)
[2022-05-12] MEDS: DULoxetine Hcl 30 MG Capsule 90 MG PO (07:58)
[2022-05-12] MEDS: Triamterene 37.5MG/Hctz 25MG Capsule 1 CAP PO (07:58)
[2022-05-12] MEDS: Vitamin E 400 UNITS Capsule PO (07:59)
[2022-05-12] MEDS: Potassium Chloride Oral Tablet 20 MEQ PO ×2 (07:59→17:29)
[2022-05-12] MEDS: Meloxicam 7.5 MG Tablet PO ×2 (07:59→17:30)
[2022-05-12] MEDS: Senna/Docusate Sodium 1 Tablet 2 TABLET PO ×2 (08:00→17:32)
[2022-05-12] MEDS: amLODIPine 10 MG Tablet PO (08:02)
[2022-05-12] MEDS: Gabapentin 400 MG Capsule PO ×3 (08:05→22:29)
[2022-05-12 08:09] VITALS: BP 154/86; PULSE 84
[2022-05-12 09:40] VITALS: PULSE 84; RESP 18; O2SAT 96
[2022-05-12 14:25] VITALS: BP 101/68; PULSE 86; RESP 18; TEMP 36.3; O2SAT 97
[2022-05-12] MEDS: Pramipexole Di-HCl 0.125 MG Tablet PO (22:33)
[2022-05-12] MEDS: Atorvastatin Calcium 20 MG Tablet PO (22:33)
[2022-05-13 06:34] LABS: Vancomycin, Trough Level 17.5 ug/mL (5.0-15.0)
[2022-05-13] MEDS: Acetaminophen 500 MG Tablet 1000 MG PO ×3 (06:54→20:52)
[2022-05-13] MEDS: Pantoprazole Sodium 20 MG Tablet PO (06:54)
[2022-05-13] MEDS: Levothyroxine 100 MCG Tablet PO (06:54)
[2022-05-13] MEDS: Nystatin Powder 15gm Bottle 1 APPLIC TOPICAL ×2 (06:55→17:30)
[2022-05-13] MEDS: Vancomycin IV 1,000 MG/200 ML BAG 200 MG IV ×2 (07:44→17:29)
[2022-05-13] MEDS: 0.9% Saline Lock 10 ML Syringe IV (07:47)
[2022-05-13] MEDS: Gabapentin 400 MG Capsule PO ×3 (07:51→20:52)
[2022-05-13] MEDS: Triamterene 37.5MG/Hctz 25MG Capsule 1 CAP PO (07:52)
[2022-05-13] MEDS: DULoxetine Hcl 30 MG Capsule 90 MG PO (07:52)
[2022-05-13] MEDS: Potassium Chloride Oral Tablet 20 MEQ PO ×2 (07:52→17:28)
[2022-05-13] MEDS: Aspirin 81 MG TAB.CHEW PO ×2 (07:52→17:28)
[2022-05-13] MEDS: Vitamin E 400 UNITS Capsule PO (07:53)
[2022-05-13] MEDS: Meloxicam 7.5 MG Tablet PO ×2 (07:53→17:29)
[2022-05-13] MEDS: amLODIPine 10 MG Tablet PO (07:53)
[2022-05-13] MEDS: Senna/Docusate Sodium 1 Tablet 2 TABLET PO (07:53)
[2022-05-13 07:56] VITALS: BP 140/82; PULSE 90
--- NOTE | 2022-05-13 08:15 | PHA.PHARE_ITS ---
Consult Pharmacy has been consulted to manage selected antiobiotic: Vancomycin Type of Consult: Follow-up Labs: Sodium 141 mmol/L (136-145) 05/10/22 05:15 Potassium 4.0 mmol/L (3.5-5.1) 05/10/22 05:15 Chloride 108 mmol/L (98-107) H 05/10/22 05:15 Carbon Dioxide 28.0 mmol/L (21.0-32.0) 05/10/22 05:15 Anion Gap 5 (5-15) 05/10/22 05:15 BUN 24 mg/dL (7-18) H 05/10/22 05:15 Creatinine 0.58 mg/dL (0.55-1.02) 05/10/22 05:15 Est GFR (MDRD) Af Amer 132 mL/min (>60) 05/10/22 05:15 Est GFR (MDRD) Non-Af 109 mL/min (>60) 05/10/22 05:15 BUN/Creatinine Ratio 41.7 RATIO (10-20) H 05/10/22 05:15 Glucose 85 mg/dL (74-106) 05/10/22 05:15 Vancomycin Trough 17.5 ug/mL (5.0-15.0) H 05/13/22 05:16 Random Vancomycin 14.5 ug/mL (0.0-15.0) 04/29/22 12:00 Microbiology: Microbiology 04/19/22 10:45 Nasal Secretion SARS-CoV-2 Antigen (Rapid) - Final Goal Trough: 15-20 mcg/mL Pharmacy Plan for Drug Dosing: VANCOMYCIN LEVEL RECEIVED Current Vancomycin Dose: 1000mg q12h (,18) Number of Doses Received: 27 of current dose Vancomycin Level: 17.5 Hours Since Last Dose: 11.75 Renal Function: SrCr 0.58 Renal Function Trend: Lab/Micro: Vancomycin Plan/Comments: resulted trough of 17.5 is within the ordered goal trough range of 15-20. recommend continuing current dose of 1000mg q12h and ch ecking trough in 6 doses Pending Level: 05/15/22 at 1730 Pharmacy Service will continue to monitor and adjust dosing as required. Follow-Up Labs: Trough Vancomycin - 05/15/22 at 1730
[2022-05-13 13:46] VITALS: BP 127/57; PULSE 93; RESP 18; TEMP 36.2; O2SAT 99
--- NOTE | 2022-05-13 15:32 | CASEMGMT ---
Social Work Spoke with pt to finalize DC plans for 05/29. Pt has no needs for DC. to transport. Plan: DC home with 05/29, no needs KOBE Berrios [employer]
--- NOTE | 2022-05-13 19:36 | PN.TCU_ITS ---
Subjective Subjective Patient seen, examined for regulatory visit. She has no new problems, concerns, issues, complaints. She is looking forward to going home. Objective Data Objective Data Vital Signs: Vital Signs Temp Pulse Resp BP Pulse Ox O2 Del Method 97.2 F L 93 18 127/57 H 99 Room Air 05/13/22 13:46 05/13/22 13:46 05/13/22 13:46 05/13/22 13:46 05/13/22 13:46 05/13/22 13:46 Oxygen Delivery Method Room Air Weight: 110.45 kg Body Mass Index (BMI) 43.2 Intake & Output: Intake and Output for Last 24 Hours 05/11/22 05/12/22 05/13/22 23:59 23:59 23:59 Intake Total 1320 / 1320 1140 / 1140 1568.5 / 1568.5 Balance 1320 / 1320 1140 / 1140 1568.5 / 1568.5 Lab / Micro Data Result Diagrams: 05/10/22 05:15 05/10/22 05:15 Labs: Laboratory Results - last 24 hr 05/13/22 05:16: Vancomycin Trough 17.5 H Micro: Microbiology 04/19/22 10:45 Nasal Secretion SARS-CoV-2 Antigen (Rapid) - Final Physical Exam Const alert General Appearance: cooperative HEENT normocephalic Eyes PERRL and EOMs intact bilaterally Neck supple, no JVD and no carotid bruits Chest Chest Narrative: Right upper chest port. Resp normal respiratory effort, normal air movement and clear to auscultation phi aterally Cardio regular rate and regular rhythm GI normal to inspection, nondistended, normoactive bowel sounds, non-tender and non-distended Extremity normal capillary refill General Extremity: Negative for edema Skin no rashes or lesions noted General Skin Exam: no breakdown Psych affect normal Appearance: appropriate Assessment & Plan Assessment/Plan (1) Debility: (2) Painful total knee replacement, right: (3) Recurrent right knee instability: (4) Fibromyalgia: (5) Polyneuropathy: (6) History of breast cancer: (7) Hyperlipidemia: (8) Sleep apnea: (9) Hypertension: (10) Sarcoidosis: (11) Hypothyroidism: PLAN: Plan 72 year old female with below past medical history hospitalized for revision ri ght total knee arthroplasty, polyethylene exchange 04/16/[address] Best, admitted to TCU with debility, here for rehabilitation, strengthening, intravenous antibiotics, prior to discharge home with . * Debility - PT/OT. * Pain - Tylenol 1000mg q8, Oxycodone 5-10mg q4h prn. * Bowel - senna/colace 2 tablets bid, Dulcolax 10mg daily prn. * Adult immunization - Administer pneumonia vaccine, covid19 vaccine, flu vaccine as appropriate. * DVT prophylaxis - Aspirin 81mg bid thru 05/16/2022. * Right prosthetic knee infection - Vancomycin IV, consult Dr. Leslie for expert opinion. * Hypertension - Maxzide 37.5/25mg daily, Amlodipine 10mg daily. * Hyperlipidemia - Atorvastatin 20mg qhs. * Polyneuropathy - Duloxetine 90mg daily, Gabapentin 400mg tid. * Hypothyroidism - Levothyroxine 100mcg daily. * Osteoarthritis - Meloxicam 7.5mg bid. * GERD - Pantoprazole 20mg daily. * Hypokalemia - KCL ER 20meq bid. * Vitamin E deficiency - Vitamin E 400IU daily. * Tinea Corporis - Nystatin powder topical bid. * Restless leg syndrome - Mirapex 0.125mg qhs. Capacity Capacity Assessment Tool Can the patient make a choice & communicate that choice?: Yes Can the patient understand benefits, risks and alternatives?: Yes Can the patient make a logical, rational choice?: Yes Is the choice the patient makes consistent w/ their values?: Yes Is there an impending, emergent risk to the patient?: No Does the patient have an Advance Directive?: Yes Is there a Surrogate Available?: Yes i.e. HCPOA: Yes i.e. close relative (spouse, child, parent, sibling)?: Yes
[2022-05-13] MEDS: Atorvastatin Calcium 20 MG Tablet PO (20:52)
[2022-05-13] MEDS: Pramipexole Di-HCl 0.125 MG Tablet PO (20:52)
[2022-05-13 20:55] VITALS: PULSE 89; RESP 18; O2SAT 97
[2022-05-14] MEDS: Acetaminophen 500 MG Tablet 1000 MG PO ×3 (06:15→20:21)
[2022-05-14] MEDS: Pantoprazole Sodium 20 MG Tablet PO (06:15)
[2022-05-14] MEDS: Levothyroxine 100 MCG Tablet PO (06:15)
[2022-05-14] MEDS: Nystatin Powder 15gm Bottle 1 APPLIC TOPICAL ×2 (06:17→17:09)
[2022-05-14] MEDS: 0.9% Saline Lock 10 ML Syringe IV ×2 (06:17→17:50)
[2022-05-14] MEDS: Vancomycin IV 1,000 MG/200 ML BAG 200 MG IV ×2 (06:18→17:50)
--- NOTE | 2022-05-14 08:00 | DS.PCM_ITS ---
Providers Date of Admission: 04/18/22 Primary Care Physician: Dr. Luther Orellana MD Consultations 04/18/22 20:28 Consult: Infectious Disease Routine Consulting Provider: Anthony Leslie Reason for Consult: Right prosthetic knee infection status post revision, polyethyline exchange EMERGENT Consult: No MD Notified: Yes Date Notified: 04/18/22 Time Notified: 20:29 Method of Notification: Answering Service Reason For Visit: RT ARTIFICIAL KNEE JOINT Diagnosis Discharge Diagnosis (1) Debility: Status: Acute Code(s): R53.81 - Other malaise (2) Painful total knee replacement, right: Status: Acute Code(s): T84.84XA - Pain due to internal orthopedic prosthetic devices, implants and grafts, initial encounter; Z96.651 - Presence of right artificial knee joint (3) Recurrent right knee instability: Status: Acute Code(s): M23.51 - Chronic instability of knee, right knee (4) Fibromyalgia: Status: Acute Code(s): M79.7 - Fibromyalgia (5) Polyneuropathy: Status: Acute Code(s): G62.9 - Polyneuropathy, unspecified (6) History of breast cancer: Status: Acute Code(s): Z85.3 - Personal history of malignant neoplasm of breast (7) Hyperlipidemia: Status: Acute Code(s): E78.5 - Hyperlipidemia, unspecified (8) Sleep apnea: Status: Acute Code(s): G47.30 - Sleep apnea, unspecified (9) Hypertension: Status: Chronic Code(s): I10 - Essential (primary) hypertension (10) Sarcoidosis: Status: Acute Code(s): D86.9 - Sarcoidosis, unspecified (11) Hypothyroidism: Status: Acute Code(s): E03.9 - Hypothyroidism, unspecified Plan 72 year old female with below past medical history hospitalized for revision right total knee arthroplasty, polyethylene exchange 04/16/[address] Best, admitted to TCU with debility, here for rehabilitation, strengthening, intravenous antibiotics, prior to discharge home with . * Debility - PT/OT. * Pain - Tylenol 1000mg q8, Oxycodone 5-10mg q4h prn. * Bowel - senna/colace 2 tablets bid, Dulcolax 10mg daily prn. * Adult immunization - Administer pneumonia vaccine, covid19 vaccine, flu vaccine as appropriate. * DVT prophylaxis - Aspirin 81mg bid thru 05/16/2022. * Right prosthetic knee infection - Vancomycin IV, consult Dr. Leslie for expert opinion. * Hypertension - Maxzide 37.5/25mg daily, Amlodipine 10mg daily. * Hyperlipidemia - Atorvastatin 20mg qhs. * Polyneuropathy - Duloxetine 90mg daily, Gabapentin 400mg tid. * Hypothyroidism - Levothyroxine 100mcg daily. * Osteoarthritis - Meloxicam 7.5mg bid. * GERD - Pantoprazole 20mg daily. * Hypokalemia - KCL ER 20meq bid. * Vitamin E deficiency - Vitamin E 400IU daily. * Tinea Corporis - Nystatin powder topical bid. * Restless leg syndrome - Mirapex 0.125mg qhs. Medications at Discharge Home Medications atorvastatin 20 mg tablet 20 mg PO QHS CHOLESTEROL 06/06/15 omeprazole 20 mg capsule,delayed release 20 mg PO DAILY GERD 06/06/15 amlodipine 10 mg tablet 10 mg PO DAILY BP 08/03/15 triamterene 50 mg capsule 37.5 mg PO DAILY water pill 03/13/17 calcium 600 mg-D3 800 unit-mag11 50 se-fvgs-ihstjm-yessica-s.borat tablet (Caltrate 600-D Plus Minerals) 1 tab PO BID Supplement 02/14/20 duloxetine 60 mg capsule,delayed release 90 mg PO DAILY PAIN 02/14/20 gabapentin 300 mg capsule 400 mg PO TID Nerve Pain 02/14/20 levothyroxine 137 mcg tablet 100 mcg PO DAILY Thyroid 03/08/21 meloxicam 7.5 mg tablet 7.5 mg PO BID Pain 04/18/22 vitamin E 200 unit capsule 200 unit PO DAILY Supplement 04/18/22 acetaminophen 500 mg tablet 1,000 mg PO Q8 #0 tabs 05/14/22 doxycycline monohydrate 100 mg capsule 100 mg PO BID #60 caps 05/14/22 oxycodone 5 mg tablet 5 - 10 mg PO Q4H PRN PRN Pain 5-10 3 days #18 tabs 05/14/22 potassium chloride 20 mEq tablet,extended release(part/cryst) 20 meq PO BID Supplement 30 days #60 tabs 05/14/22 pramipexole 0.125 mg tablet 0.125 mg PO QHS 30 days #30 tabs 05/14/22 Hospital Course Operations - (Revision right total knee prosthesis.) Procedures None Summary of Care Provided Minutes Spent on Discharge: 35 Hospital Course: 72 year old female with below past medical history hospitalized for revision right total knee arthroplasty, polyethylene exchange 04/16/[address] Best, admitted to TCU with debility, here for rehabilitation, strengthening, intravenous antibiotics, prior to discharge home with . Dischage home with 05/29/2022, No needs. Physical Exam Const alert General Appearance: cooperative HEENT normocephalic Eyes PERRL and EOMs intact bilaterally Neck supple, no JVD and no carotid bruits Resp normal respiratory effort, normal air movement and clear to auscultation bilaterally Cardio regular rate and regular rhythm GI normal to inspection, nondistended, normoactive bowel sounds, non-tender and non-distended Extremity normal capillary refill General Extremity: Negative for edema Skin no rashes or lesions noted General Skin Exam: no breakdown Psych affect normal Appearance: appropriate Weight / BMI Weight Weight: 110.45 kg Body Mass Index (BMI) 43.2 ABG / Lab / Microbiology Data Result Diagrams: 05/10/22 05:15 05/10/22 05:15 Microbiology: Microbiology 04/19/22 10:45 Nasal Secretion SARS-CoV-2 Antigen (Rapid) - Final D/C Instructions Discharge Diet: No restrictions Discharge Activity: Return to Normal Activity, May Shower and Use Walker Weight Bearing Status: Weight bearing as tolerated Call your doctor if you observe: Fever of 101 or Higher, Inability to urinate, Inability to have a bowel movement, Shortness of breath, Dizziness, Fainting spells, Swelling in the ankles, Chest pain and Uncontrolled pain Additional Instructions: Discharge home with 05/29/2022, No needs. Please Follow Up With: Nelson Best MD When: As scheduled. Meaningful Use Info Meaningful Use Diagnoses (Choose all that apply): None applicable Discharge Plan Admission Admit Date/Time: 04/18/22 17:26 Primary Reason for Your Visit: Debility. Attending Provider: Gurdeep Arenas Chi Primary Care Provider: Luther Orellana Consulting Providers: Anthony Leslie Instructions Additional Instructions / Restrictions: Discharge home with 05/29/2022, No needs. Discharge Orders/Prescriptions Prescriptions: New acetaminophen 500 mg Tablet 1,000 mg PO Q8 Qty: 0 0RF pramipexole 0.125 mg Tablet 0.125 mg PO QHS 30 Days Qty: 30 0RF doxycycline monohydrate 100 mg capsule 100 mg PO BID Qty: 60 0RF Continued gabapentin 300 mg capsule 400 mg PO TID Caltrate 600-D Plus Minerals 600 mg calcium- 800 unit-50 mg tablet 1 tab PO BID Rx Instructions: give with meal/snack levothyroxine 137 mcg tablet 100 mcg PO DAILY Rx Instructions: take one tablet 6 days per week. amlodipine 10 MG tablet 10 mg PO DAILY Label Comments: lowers cholesterol triamterene 50 MG capsule 37.5 mg PO DAILY duloxetine 60 mg capsule,delayed release(DR/EC) 90 mg PO DAILY vitamin E 200 unit Capsule 200 unit PO DAILY meloxicam 7.5 mg Tablet 7.5 mg PO BID potassium chloride 20 MEQ tablet 20 meq PO BID 30 Days Qty: 60 0RF Label Comments: supplement oxycodone 5 mg Tablet 5 - 10 mg PO Q4H PRN PRN (Reason: Pain 5-10) 3 Days Qty: 18 0RF atorvastatin 20 MG tablet 20 mg PO QHS Label Comments: CHOLESTEROL omeprazole 20 MG capsule 20 mg PO DAILY Label Comments: ACID REFLUX Discontinued hydrocodone-acetaminophen 5-325 mg tablet 1 tab PO QHS PRN (Reason: Pain) cholecalciferol (vitamin D3) [Vitamin D3] 50 mcg (2,000 unit) Capsule 50 mcg PO DAILY amoxicillin 125 mg Tablet,Chewable 250 mg PO BID sennosides-docusate sodium [Senna with Docusate Sodium] 8.6-50 mg Tablet 2 tab PO BID vancomycin 1,000 mg Recon Soln 1.5 g IV BID aspirin 81 mg Tablet,Chewable 81 mg PO BID Referrals / Follow Up: Luther Orellana MD [Primary Care Provider] - Disposition Disposition (needs filled in before D/C Order can be placed): Home, Self Care
[2022-05-14] MEDS: DULoxetine Hcl 30 MG Capsule 90 MG PO (08:34)
[2022-05-14] MEDS: Aspirin 81 MG TAB.CHEW PO ×2 (08:34→17:08)
[2022-05-14] MEDS: Triamterene 37.5MG/Hctz 25MG Capsule 1 CAP PO (08:35)
[2022-05-14] MEDS: Meloxicam 7.5 MG Tablet PO ×2 (08:35→17:07)
[2022-05-14] MEDS: Potassium Chloride Oral Tablet 20 MEQ PO ×2 (08:35→17:07)
[2022-05-14] MEDS: Vitamin E 400 UNITS Capsule PO (08:35)
[2022-05-14] MEDS: Senna/Docusate Sodium 1 Tablet 2 TABLET PO ×2 (08:36→17:07)
[2022-05-14] MEDS: amLODIPine 10 MG Tablet PO (08:37)
[2022-05-14] MEDS: Gabapentin 400 MG Capsule PO ×3 (08:39→20:21)
[2022-05-14 08:40] VITALS: PULSE 88; RESP 18; O2SAT 97
[2022-05-14 08:41] VITALS: BP 132/62; PULSE 90
[2022-05-14 14:00] VITALS: BP 114/58; PULSE 104; RESP 16; TEMP 36.9; O2SAT 98
[2022-05-14] MEDS: Pramipexole Di-HCl 0.125 MG Tablet PO (20:20)
[2022-05-14] MEDS: Atorvastatin Calcium 20 MG Tablet PO (20:21)
[2022-05-15] MEDS: Vancomycin IV 1,000 MG/200 ML BAG 200 MG IV ×2 (05:01→18:27)
[2022-05-15] MEDS: Acetaminophen 500 MG Tablet 1000 MG PO ×3 (05:07→20:33)
[2022-05-15] MEDS: Levothyroxine 100 MCG Tablet PO (05:07)
[2022-05-15] MEDS: Nystatin Powder 15gm Bottle 1 APPLIC TOPICAL ×2 (05:07→17:07)
[2022-05-15] MEDS: Pantoprazole Sodium 20 MG Tablet PO (05:07)
[2022-05-15] MEDS: Gabapentin 400 MG Capsule PO ×3 (08:29→20:33)
[2022-05-15] MEDS: Aspirin 81 MG TAB.CHEW PO ×2 (08:30→17:05)
[2022-05-15] MEDS: DULoxetine Hcl 30 MG Capsule 90 MG PO (08:30)
[2022-05-15] MEDS: Meloxicam 7.5 MG Tablet PO ×2 (08:31→17:05)
[2022-05-15] MEDS: Vitamin E 400 UNITS Capsule PO (08:31)
[2022-05-15] MEDS: Senna/Docusate Sodium 1 Tablet 2 TABLET PO (08:31)
[2022-05-15] MEDS: amLODIPine 10 MG Tablet PO (08:31)
[2022-05-15] MEDS: Potassium Chloride Oral Tablet 20 MEQ PO ×2 (08:31→17:05)
[2022-05-15] MEDS: Triamterene 37.5MG/Hctz 25MG Capsule 1 CAP PO (08:32)
[2022-05-15 08:35] VITALS: BP 140/78; PULSE 92
[2022-05-15 14:28] VITALS: BP 127/80; PULSE 84; RESP 16; TEMP 36.4; O2SAT 98
[2022-05-15] MEDS: 0.9% Saline Lock 10 ML Syringe IV (18:27)
[2022-05-15 18:42] LABS: Vancomycin, Trough Level 16.3 ug/mL (5.0-15.0)
--- NOTE | 2022-05-15 19:07 | PCM.RX.CS ---
Consult Pharmacy has been consulted to manage selected antiobiotic: Vancomycin Type of Consult: Follow-up Suspected Infection: Other Labs: Sodium 141 mmol/L (136-145) 05/10/22 05:15 Potassium 4.0 mmol/L (3.5-5.1) 05/10/22 05:15 Chloride 108 mmol/L (98-107) H 05/10/22 05:15 Carbon Dioxide 28.0 mmol/L (21.0-32.0) 05/10/22 05:15 Anion Gap 5 (5-15) 05/10/22 05:15 BUN 24 mg/dL (7-18) H 05/10/22 05:15 Creatinine 0.58 mg/dL (0.55-1.02) 05/10/22 05:15 Est GFR (MDRD) Af Amer 132 mL/min (>60) 05/10/22 05:15 Est GFR (MDRD) Non-Af 109 mL/min (>60) 05/10/22 05:15 BUN/Creatinine Ratio 41.7 RATIO (10-20) H 05/10/22 05:15 Glucose 85 mg/dL (74-106) 05/10/22 05:15 Vancomycin Trough 16.3 ug/mL (5.0-15.0) H 05/15/22 17:30 Random Vancomycin 14.5 ug/mL (0.0-15.0) 04/29/22 12:00 Microbiology: Microbiology 04/19/22 10:45 Nasal Secretion SARS-CoV-2 Antigen (Rapid) - Final Goal Trough: 15-20 mcg/mL Pharmacy Plan for Drug Dosing: VANCOMYCIN LEVEL RECEIVED Current Vancomycin Dose: 1000MG IV Q12HR Number of Doses Received: several - STOP DATE 05/28/22 per ID service Vancomycin Level: 16.3 Hours Since Last Dose: 12.5 Renal Function: 0.58 Renal Function Trend: stable Lab/Micro: no new results Vancomycin Plan/Comments: Patient had a trough drawn which resulted in a value of 16.3 (goal 15-20). Will continue current dose of 1g IV Q12hr. Since the patient has had > 5 troughs in therapeutic range, will check a trough in 1 week since pt currently stable on therapy. Pending Level: 05/22/22 @3674 Pharmacy Service will continue to monitor and adjust dosing as required.
[2022-05-15] MEDS: Atorvastatin Calcium 20 MG Tablet PO (20:33)
[2022-05-15] MEDS: Pramipexole Di-HCl 0.125 MG Tablet PO (20:33)
[2022-05-15 22:00] VITALS: PULSE 80; RESP 17; O2SAT 97
[2022-05-16] MEDS: Levothyroxine 100 MCG Tablet PO (05:49)
[2022-05-16] MEDS: Acetaminophen 500 MG Tablet 1000 MG PO ×3 (05:49→21:14)
[2022-05-16] MEDS: Nystatin Powder 15gm Bottle 1 APPLIC TOPICAL ×2 (05:49→18:06)
[2022-05-16] MEDS: Pantoprazole Sodium 20 MG Tablet PO (05:49)
[2022-05-16] MEDS: Vancomycin IV 1,000 MG/200 ML BAG 200 MG IV ×2 (06:10→18:00)
[2022-05-16] MEDS: 0.9% Saline Lock 10 ML Syringe IV ×2 (06:11→18:07)
[2022-05-16 07:31] VITALS: BP 132/63; PULSE 77
[2022-05-16] MEDS: Gabapentin 400 MG Capsule PO ×3 (08:19→21:14)
[2022-05-16] MEDS: Aspirin 81 MG TAB.CHEW PO ×2 (08:21→18:05)
[2022-05-16] MEDS: Triamterene 37.5MG/Hctz 25MG Capsule 1 CAP PO (08:21)
[2022-05-16] MEDS: DULoxetine Hcl 30 MG Capsule 90 MG PO (08:21)
[2022-05-16] MEDS: amLODIPine 10 MG Tablet PO (08:22)
[2022-05-16] MEDS: Senna/Docusate Sodium 1 Tablet 2 TABLET PO (08:22)
[2022-05-16] MEDS: Potassium Chloride Oral Tablet 20 MEQ PO ×2 (08:22→18:05)
[2022-05-16] MEDS: Meloxicam 7.5 MG Tablet PO ×2 (08:22→18:06)
[2022-05-16] MEDS: Vitamin E 400 UNITS Capsule PO (08:23)
--- NOTE | 2022-05-16 11:08 | NURSING ---
Over past week patient noticed increased warmth in right knee and mild pain w/ some burning. F/U with Estephania scheduled for 05/27. Patient called and spoke w/ MD office, they said unless incision becomes red or she runs a fever they are not concerned, no need to move up appointment.
[2022-05-16] MEDS: oxyCODONE 5 MG Tablet PO ×2 (13:48→21:15)
[2022-05-16 14:11] VITALS: BP 123/67; PULSE 92; RESP 17; TEMP 36.4; O2SAT 99
[2022-05-16] MEDS: Pramipexole Di-HCl 0.125 MG Tablet PO (21:14)
[2022-05-16] MEDS: Atorvastatin Calcium 20 MG Tablet PO (21:14)
[2022-05-16 23:00] VITALS: PULSE 78; RESP 16; O2SAT 99
[2022-05-17 05:54] LABS: Absolute Lymphocyte Count 1.62 X10^3/uL (0.83-4.51); Absolute Neutrophil Count 3.8 X10^3/uL (2.0-7.7); Basophil# 0.09 X10^3/uL; Basophil% 1.3 % (0-1); Eosinophil# 0.53 X10^3/uL; Eosinophils% 7.6 % (0-5); Hematocrit 37.6 % (37-47); Hemoglobin 11.6 g/dL (12.0-15.0); Lymphocyte # 1.62 X10^3/ul (0.83-4.51); Lymphocyte % 23.4 % (19-41); Mean Corp Hgb Conc 30.9 g/dL (32-36); Mean Corpuscular Hgb 28.9 pg (27.0-32.0); Mean Corpuscular Volume 93.8 fL (81-99); Mean Platelet Vol. 9.2 fl (6.2-12.0); Monocyte# 0.83 X10^3/uL; NRBC Flagged by Analyzer 0 % (0-5); Neutrophil # 3.82 X10^3/uL (2.7-7.7); Neutrophil % 55.1 % (47-70); Platelet Count 270 K/mm3 (150-450); RBC Distribution Width CV 15.6 % (11.6-14.6); RBC Distribution Width SD 53.6 fl (35.1-43.9); Red Blood Count 4.01 M/mm3 (4.2-5.4); White Blood Count 6.9 K/mm3 (4.4-11.0)
[2022-05-17 06:03] LABS: Erythrocyte Sedimentation Rate 21 mm/hr (0-30)
[2022-05-17] MEDS: Vancomycin IV 1,000 MG/200 ML BAG 200 MG IV ×2 (06:16→17:48)
[2022-05-17 06:20] LABS: Anion Gap 6 (5-15); BUN 19 mg/dL (7-18); BUN/Creat Ratio 31.3 RATIO (10-20); Calcium,Total 9.2 mg/dL (8.5-10.1); Chloride 108 mmol/L (98-107); Creatinine, Serum 0.61 mg/dL (0.55-1.02); EST Glomerular Filtration Rate 103 mL/min (>60); Est Glom Filt Rate - Afr Amer 124 mL/min (>60); Estimated Creatinine Clearance 41.45 ml/min; Glucose 85 mg/dL (74-106); Potassium 3.9 mmol/L (3.5-5.1); Sodium Level 142 mmol/L (136-145)
[2022-05-17] MEDS: Levothyroxine 100 MCG Tablet PO (06:20)
[2022-05-17] MEDS: 0.9% Saline Lock 10 ML Syringe IV ×2 (06:20→17:48)
[2022-05-17] MEDS: Acetaminophen 500 MG Tablet 1000 MG PO ×3 (06:20→21:36)
[2022-05-17] MEDS: Pantoprazole Sodium 20 MG Tablet PO (06:20)
[2022-05-17] MEDS: Triamterene 37.5MG/Hctz 25MG Capsule 1 CAP PO (08:22)
[2022-05-17] MEDS: DULoxetine Hcl 30 MG Capsule 90 MG PO (08:22)
[2022-05-17] MEDS: Potassium Chloride Oral Tablet 20 MEQ PO ×2 (08:22→17:50)
[2022-05-17] MEDS: Gabapentin 400 MG Capsule PO ×3 (08:23→21:36)
[2022-05-17] MEDS: amLODIPine 10 MG Tablet PO (08:23)
[2022-05-17] MEDS: Meloxicam 7.5 MG Tablet PO ×2 (08:23→17:49)
[2022-05-17] MEDS: Senna/Docusate Sodium 1 Tablet 2 TABLET PO ×2 (08:23→17:49)
[2022-05-17] MEDS: Vitamin E 400 UNITS Capsule PO (08:24)
[2022-05-17 12:14] VITALS: PULSE 65; RESP 16; O2SAT 99
[2022-05-17 15:26] VITALS: BP 144/79; PULSE 89; RESP 16; TEMP 36.7; O2SAT 94
[2022-05-17] MEDS: Atorvastatin Calcium 20 MG Tablet PO (21:36)
[2022-05-17] MEDS: Pramipexole Di-HCl 0.125 MG Tablet PO (21:36)
[2022-05-17] MEDS: Nystatin Powder 15gm Bottle 1 APPLIC TOPICAL (21:37)
[2022-05-18] MEDS: oxyCODONE 5 MG Tablet PO ×2 (00:59→21:30)
[2022-05-18] MEDS: Levothyroxine 100 MCG Tablet PO (06:39)
[2022-05-18] MEDS: Acetaminophen 500 MG Tablet 1000 MG PO ×3 (06:39→21:28)
[2022-05-18] MEDS: Pantoprazole Sodium 20 MG Tablet PO (06:39)
[2022-05-18] MEDS: Vancomycin IV 1,000 MG/200 ML BAG 200 MG IV ×2 (06:40→17:38)
[2022-05-18] MEDS: 0.9% Saline Lock 10 ML Syringe IV ×2 (06:44→17:44)
[2022-05-18] MEDS: Nystatin Powder 15gm Bottle 1 APPLIC TOPICAL ×2 (06:50→17:49)
[2022-05-18] MEDS: Triamterene 37.5MG/Hctz 25MG Capsule 1 CAP PO (08:32)
[2022-05-18] MEDS: DULoxetine Hcl 30 MG Capsule 90 MG PO (08:32)
[2022-05-18] MEDS: Gabapentin 400 MG Capsule PO ×3 (08:32→21:27)
[2022-05-18] MEDS: Meloxicam 7.5 MG Tablet PO ×2 (08:32→17:48)
[2022-05-18] MEDS: Potassium Chloride Oral Tablet 20 MEQ PO ×2 (08:32→17:47)
[2022-05-18] MEDS: Senna/Docusate Sodium 1 Tablet 2 TABLET PO ×2 (08:33→17:48)
[2022-05-18] MEDS: amLODIPine 10 MG Tablet PO (08:33)
[2022-05-18] MEDS: Vitamin E 400 UNITS Capsule PO (08:33)
[2022-05-18] MEDS: Fluticasone 0.05% 1 SPRAY NASAL.SRY NASAL ×2 (11:33→17:48)
[2022-05-18 14:53] VITALS: BP 140/77; PULSE 84; RESP 16; TEMP 36.5; O2SAT 93
[2022-05-18] MEDS: Atorvastatin Calcium 20 MG Tablet PO (21:27)
[2022-05-18] MEDS: Pramipexole Di-HCl 0.125 MG Tablet PO (21:28)
[2022-05-19] MEDS: Levothyroxine 100 MCG Tablet PO (05:52)
[2022-05-19] MEDS: Acetaminophen 500 MG Tablet 1000 MG PO ×3 (05:52→22:06)
[2022-05-19] MEDS: Pantoprazole Sodium 20 MG Tablet PO (05:52)
[2022-05-19] MEDS: Fluticasone 0.05% 1 SPRAY NASAL.SRY NASAL ×2 (05:52→17:39)
[2022-05-19] MEDS: Nystatin Powder 15gm Bottle 1 APPLIC TOPICAL ×2 (06:03→17:41)
[2022-05-19] MEDS: Vancomycin IV 1,000 MG/200 ML BAG 200 MG IV ×2 (07:12→18:36)
[2022-05-19] MEDS: 0.9% Saline Lock 10 ML Syringe IV ×2 (07:13→18:37)
[2022-05-19] MEDS: Senna/Docusate Sodium 1 Tablet 2 TABLET PO (08:33)
[2022-05-19] MEDS: amLODIPine 10 MG Tablet PO (08:33)
[2022-05-19] MEDS: Meloxicam 7.5 MG Tablet PO ×2 (08:33→17:39)
[2022-05-19] MEDS: Vitamin E 400 UNITS Capsule PO (08:33)
[2022-05-19] MEDS: Potassium Chloride Oral Tablet 20 MEQ PO ×2 (08:33→17:40)
[2022-05-19] MEDS: Triamterene 37.5MG/Hctz 25MG Capsule 1 CAP PO (08:34)
[2022-05-19] MEDS: DULoxetine Hcl 30 MG Capsule 90 MG PO (08:34)
[2022-05-19] MEDS: Gabapentin 400 MG Capsule PO ×3 (08:35→22:06)
[2022-05-19 08:37] VITALS: BP 101/59; PULSE 88
[2022-05-19 11:28] VITALS: PULSE 68; RESP 16; O2SAT 95
[2022-05-19 16:00] VITALS: PULSE 75; RESP 14; TEMP 36.5; O2SAT 100
[2022-05-19 16:48] VITALS: BP 122/60
[2022-05-19] MEDS: Senna/Docusate Sodium 1 Tablet PO (17:39)
[2022-05-19] MEDS: Pramipexole Di-HCl 0.125 MG Tablet PO (22:06)
[2022-05-19] MEDS: Atorvastatin Calcium 20 MG Tablet PO (22:06)
[2022-05-20] MEDS: Nystatin Powder 15gm Bottle 1 APPLIC TOPICAL ×2 (06:08→17:30)
[2022-05-20] MEDS: Fluticasone 0.05% 1 SPRAY NASAL.SRY NASAL ×2 (06:08→17:30)
[2022-05-20] MEDS: Acetaminophen 500 MG Tablet 1000 MG PO ×3 (06:08→21:36)
[2022-05-20] MEDS: Pantoprazole Sodium 20 MG Tablet PO (06:09)
[2022-05-20] MEDS: Levothyroxine 100 MCG Tablet PO (06:09)
[2022-05-20] MEDS: Vancomycin IV 1,000 MG/200 ML BAG 200 MG IV ×2 (06:14→18:40)
[2022-05-20] MEDS: 0.9% Saline Lock 10 ML Syringe IV ×2 (06:22→18:41)
[2022-05-20] MEDS: Gabapentin 400 MG Capsule PO ×3 (08:30→21:36)
[2022-05-20] MEDS: Senna/Docusate Sodium 1 Tablet PO ×2 (08:32→17:31)
[2022-05-20] MEDS: Vitamin E 400 UNITS Capsule PO (08:32)
[2022-05-20] MEDS: Potassium Chloride Oral Tablet 20 MEQ PO ×2 (08:33→17:32)
[2022-05-20] MEDS: DULoxetine Hcl 30 MG Capsule 90 MG PO (08:33)
[2022-05-20] MEDS: Meloxicam 7.5 MG Tablet PO ×2 (08:33→17:31)
[2022-05-20] MEDS: amLODIPine 10 MG Tablet PO (08:33)
[2022-05-20] MEDS: Triamterene 37.5MG/Hctz 25MG Capsule 1 CAP PO (08:34)
[2022-05-20 08:36] VITALS: BP 153/72; PULSE 88
--- NOTE | 2022-05-20 09:56 | NURSING ---
SCHEDULED APPOINTMENT WITH FOR PT. OFFICE STATED THAT ITS THE SOONEST THEY COULD GET HER IN ON 06/05/22 AT 1415.
[2022-05-20 14:24] VITALS: BP 156/77; PULSE 106; RESP 19; TEMP 36.5; O2SAT 96
[2022-05-20] MEDS: Pramipexole Di-HCl 0.125 MG Tablet PO (21:37)
[2022-05-20] MEDS: Atorvastatin Calcium 20 MG Tablet PO (21:37)
[2022-05-20 23:56] VITALS: PULSE 86; RESP 16; O2SAT 98
[2022-05-21] MEDS: Fluticasone 0.05% 1 SPRAY NASAL.SRY NASAL ×2 (06:16→17:51)
[2022-05-21] MEDS: Acetaminophen 500 MG Tablet 1000 MG PO ×3 (06:16→21:42)
[2022-05-21] MEDS: Levothyroxine 100 MCG Tablet PO (06:17)
[2022-05-21] MEDS: Pantoprazole Sodium 20 MG Tablet PO (06:17)
[2022-05-21] MEDS: Nystatin Powder 15gm Bottle 1 APPLIC TOPICAL ×2 (06:18→17:53)
[2022-05-21] MEDS: Vancomycin IV 1,000 MG/200 ML BAG 200 MG IV ×2 (06:55→17:51)
[2022-05-21] MEDS: 0.9% Saline Lock 10 ML Syringe IV ×2 (06:57→17:51)
[2022-05-21] MEDS: Gabapentin 400 MG Capsule PO ×3 (08:20→21:40)
[2022-05-21] MEDS: Senna/Docusate Sodium 1 Tablet PO ×2 (08:22→17:53)
[2022-05-21] MEDS: DULoxetine Hcl 30 MG Capsule 90 MG PO (08:22)
[2022-05-21] MEDS: Vitamin E 400 UNITS Capsule PO (08:22)
[2022-05-21] MEDS: Potassium Chloride Oral Tablet 20 MEQ PO ×2 (08:23→17:51)
[2022-05-21] MEDS: Meloxicam 7.5 MG Tablet PO ×2 (08:23→17:52)
[2022-05-21] MEDS: amLODIPine 10 MG Tablet PO (08:23)
[2022-05-21] MEDS: Triamterene 37.5MG/Hctz 25MG Capsule 1 CAP PO (08:23)
[2022-05-21 08:30] VITALS: BP 125/66; PULSE 84
[2022-05-21 13:00] VITALS: PULSE 91; RESP 18; O2SAT 94
[2022-05-21 13:52] VITALS: BP 118/64; PULSE 90; RESP 16; TEMP 36.2; O2SAT 98
[2022-05-21] MEDS: Pramipexole Di-HCl 0.125 MG Tablet PO (21:41)
[2022-05-21] MEDS: Atorvastatin Calcium 20 MG Tablet PO (21:41)
[2022-05-22] MEDS: Acetaminophen 500 MG Tablet 1000 MG PO ×3 (06:39→21:12)
[2022-05-22] MEDS: Levothyroxine 100 MCG Tablet PO (06:39)
[2022-05-22] MEDS: Pantoprazole Sodium 20 MG Tablet PO (06:39)
[2022-05-22] MEDS: Fluticasone 0.05% 1 SPRAY NASAL.SRY NASAL ×2 (06:40→17:57)
[2022-05-22] MEDS: Nystatin Powder 15gm Bottle 1 APPLIC TOPICAL ×2 (06:41→17:59)
[2022-05-22] MEDS: Vancomycin IV 1,000 MG/200 ML BAG 200 MG IV ×2 (06:44→18:19)
[2022-05-22] MEDS: DULoxetine Hcl 30 MG Capsule 90 MG PO (08:10)
[2022-05-22] MEDS: Triamterene 37.5MG/Hctz 25MG Capsule 1 CAP PO (08:10)
[2022-05-22] MEDS: amLODIPine 10 MG Tablet PO (08:11)
[2022-05-22] MEDS: Meloxicam 7.5 MG Tablet PO ×2 (08:11→17:57)
[2022-05-22] MEDS: Vitamin E 400 UNITS Capsule PO (08:11)
[2022-05-22] MEDS: Potassium Chloride Oral Tablet 20 MEQ PO ×2 (08:11→17:57)
[2022-05-22] MEDS: Senna/Docusate Sodium 1 Tablet PO ×2 (08:11→17:58)
[2022-05-22] MEDS: Gabapentin 400 MG Capsule PO ×3 (08:15→21:13)
[2022-05-22 13:34] VITALS: BP 129/84; PULSE 92; RESP 18; TEMP 36.6; O2SAT 99
--- NOTE | 2022-05-22 15:59 | PHA.CONS_ITS ---
TCU RX Drug Regimen Review Subjective: TCU April Note. 72 YOF admitted to TCU with debility from outside facility s/p right knee arthroplasty revision for IV antibiotics, strengthening and rehabilitation. Objective: Allergies lisinopril Adverse Reaction (Mild, Verified 03/01/22 07:44) H/A, FLUSHED adhesive tape Adverse Reaction (Verified 03/01/22 07:44) Rash morphine Adverse Reaction (Verified 03/01/22 07:44) Vomiting Current Medications Generic Name Dose Route Start Last Admin Trade Name Freq PRN Reason Stop Dose Admin Acetaminophen 1,000 mg 04/18/22 22:00 05/22/22 13:15 Acetaminophen 500 Mg Tablet PO 1,000 mg Q8 MOJGAN Administration Amlodipine Besylate 10 mg 04/19/22 08:00 05/22/22 08:11 Amlodipine 10 Mg Tablet PO 10 mg BREAKFAST MOJGAN Administration Atorvastatin Calcium 20 mg 04/18/22 22:00 05/21/22 21:41 Atorvastatin Calcium 20 Mg Tablet PO 20 mg QHS MOJGAN Administration Bisacodyl 10 mg 04/18/22 20:28 Bisacodyl 5 Mg Tablet PO DAILY PRN Constipation Duloxetine HCl 90 mg 04/19/22 08:00 05/22/22 08:10 Duloxetine Hcl 30 Mg Capsule PO 90 mg BREAKFAST MOJGAN Administration Fluticasone Propionate 1 spray 05/18/22 11:04 05/22/22 06:40 Fluticasone 0.05% 1 [place] Nasal.Sry NASAL 1 spray BID MOJGAN Administration Gabapentin 400 mg 04/19/22 08:00 05/22/22 13:16 Gabapentin 400 Mg Capsule PO 400 mg 0800,1400,2200 MOJGAN Administration Heparin Sodium (Beef Lung) 50 units 04/18/22 22:38 Heparin Pf Lock 10 Units/Ml 50 Units/5 Ml Syringe IV UD PRN Port-a-Cath (VAD)Heparin Flush Heparin Sodium (Beef Lung) 50 units 04/23/22 07:34 Heparin Pf Lock 10 Units/Ml 50 Units/5 Ml Syringe IV UD PRN Port-a-Cath (VAD)Heparin Flush Vancomycin IV-PHARMACY TO DOSE 500 mls @ 250 mls/hr 04/18/22 19:20 1 each/ Sodium Chloride IV X1 PRN Rx to Dose Protocol Sodium Chloride 250 mls @ 15 mls/hr 04/18/22 23:16 05/21/22 23:07 IV 0 mls/hr .[id number] PRN Infusion Saline Flush Sodium Chloride 250 mls @ 15 mls/hr 04/18/22 23:16 05/22/22 05:32 IV Infused .[id number] PRN Infusion Additional IVPB Infusion Sodium Chloride 250 mls @ 15 mls/hr 04/23/22 07:34 IV .[id number] PRN Saline Flush Sodium Chloride 250 mls @ 15 mls/hr 04/23/22 07:34 IV .[id number] PRN Additional IVPB Infusion Vancomycin HCl 1,000 mg in 200 mls @ 200 mls/hr 04/29/22 18:00 05/22/22 06:44 Vancomycin IV 200 mls/hr Q12H MOJGAN Administration Levothyroxine Sodium 100 mcg 04/20/22 06:00 05/22/22 06:39 Levothyroxine 100 Mcg Tablet PO 100 mcg 0600 MOJGAN Administration Meloxicam 7.5 mg 04/19/22 08:00 05/22/22 08:11 Meloxicam 7.5 Mg Tablet PO 7.5 mg 0800,1800 MOJGAN Administration Nystatin 1 applic 04/19/22 06:00 05/22/22 06:41 Nystatin Powder 15gm Bottle TOPICAL 1 applic BID MOJGAN Administration Protocol Oxycodone HCl 5 - 10 mg 04/18/22 18:59 05/18/22 21:30 Oxycodone 5 Mg Tablet PO 10 mg Q4H PRN PRN Administration Pain 5-10 Pantoprazole Sodium 20 mg 04/21/22 06:00 05/22/22 06:39 Pantoprazole Sodium 20 Mg Tablet PO 20 mg DAILY@0600 MOJGAN Administration Potassium Chloride 20 meq 04/19/22 08:00 05/22/22 08:11 Potassium Chloride Oral Tablet 20 Meq PO 20 meq BIDCM MOJGAN Administration Pramipexole Dihydrochloride 0.125 mg 04/23/22 22:00 05/21/22 21:41 Pramipexole Di-Hcl 0.125 Mg Tablet PO 0.125 mg QHS MOJGAN Administration Senna/Docusate Sodium 1 tablet 05/19/22 18:00 05/22/22 08:11 Senna/Docusate Sodium 1 Tablet PO 1 tablet 0800,1800 MOJGAN Administration Sodium Chloride 10 - 40 ml 04/18/22 22:38 05/21/22 17:51 0.9% Saline Lock 10 Ml Syringe IV 20 ml UD PRN Administration Port-a-Cath (VAD) Flush Sodium Chloride 10 - 40 ml 04/18/22 22:38 0.9 % Nacl (Sterile) Posiflush 10 Ml IV UD PRN Port access or dressing change Sodium Chloride 10 - 40 ml 04/23/22 07:34 0.9% Saline Lock 10 Ml Syringe IV UD PRN Port-a-Cath (VAD) Flush Sodium Chloride 10 - 40 ml 04/23/22 07:34 0.9 % Nacl (Sterile) Posiflush 10 Ml IV UD PRN Port access or dressing change Triamterene/Hydrochlorothiazide 1 cap 04/19/22 08:00 05/22/22 08:10 Triamterene 37.5mg/Hctz 25mg Capsule PO 1 cap BREAKFAST MOJGAN Administration Vitamin E 400 units 04/19/22 08:00 05/22/22 08:11 Vitamin E 400 Units Capsule PO 400 units BREAKFAST MOJGAN Administration Problem List (Last Reviewed 04/19/22 @ 12:[address] Anthony Leslie MD) Infection of prosthetic right knee joint (Acute) Hypothyroidism (Acute) Sarcoidosis (Acute) Hypertension (Chronic) Sleep apnea (Acute) Hyperlipidemia (Acute) History of breast cancer (Acute) Polyneuropathy (Acute) Fibromyalgia (Acute) Recurrent right knee instability (Acute) Painful total knee replacement, right (Acute) Debility (Acute) Vital Signs Temp Pulse Resp BP Pulse Ox O2 Del Method 97.8 F 92 18 129/84 H 99 Room Air 05/22/22 13:34 05/22/22 13:34 05/22/22 13:34 05/22/22 13:34 05/22/22 13:34 05/22/22 13:34 Oxygen Delivery Method Room Air Weight: 112.536 kg Body Mass Index (BMI) 43.2 Sodium 142 mmol/L (136-145) 05/17/22 05:10 Potassium 3.9 mmol/L (3.5-5.1) 05/17/22 05:10 Chloride 108 mmol/L (98-107) H 05/17/22 05:10 Carbon Dioxide 28.0 mmol/L (21.0-32.0) 05/17/22 05:10 Anion Gap 6 (5-15) 05/17/22 05:10 BUN 19 mg/dL (7-18) H 05/17/22 05:10 Creatinine 0.61 mg/dL (0.55-1.02) 05/17/22 05:10 Est GFR (MDRD) Af Amer 124 mL/min (>60) 05/17/22 05:10 Est GFR (MDRD) Non-Af 103 mL/min (>60) 05/17/22 05:10 BUN/Creatinine Ratio 31.3 RATIO (10-20) H 05/17/22 05:10 Glucose 85 mg/dL (74-106) 05/17/22 05:10 Vancomycin Trough 16.3 ug/mL (5.0-15.0) H 05/15/22 17:30 Random Vancomycin 14.5 ug/mL (0.0-15.0) 04/29/22 12:00 Assessment/Plan: 1. Pain: acetaminophen 1000mg PO Q8h, meloxicam 7.5mg PO BID, and oxycodone 5- 10mg PO Q4h PRN pain 5-10. Please continue to monitor for PRN usage, increased pain, oversedation, constipation, respiratory depression with narcotic use. Resident has had several doses of oxycodone since admission. Last dose was 05/18 and last documented bowel movement was 05/14. 2. 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 Please continue to monitor culture results (obtained from outside facility), vancomycin trough (goal 15-20, last drawn 05/15/22, result = 16.3), renal function, resolution of infection. Of note, ID is consulted to see patient, pharmacy is managing vancomycin and adjusting dosing as necessary. 3. HTN/HLD: amlodipine 10mg PO daily, triamterene/hydrochlorothiazide 37.5/25mg PO breakfast, atorvastatin 20mg PO QHS. Please continue to monitor BP (129/84), potassium (last 3.9mmol/L), sodium (last 142mmol/L), renal function, swelling, lipid panel annually or sooner if clinically indicated (last 02/21/22), muscle pain and LFTs (last 03/19/22). 4. Hypothyroidism: levothyroxine 100mcg PO daily. Please continue to monitor for S/S hyper/hypothyroidism, TSH levels (last done 02/21/22, WNL). 5. GERD: pantoprazole 20mg PO daily. Please continue to monitor for abdominal pain, headache, upset stomach. May also encourage non-pharmacological treatments to help minimize GERD exacerbations as well. 6. Hypokalemia: potassium chloride 20mEq PO BIDCM. Please continue to monitor for upset stomach, N/V, potassium levels (last 3.9mmol/L). 7. General Wellness: vitamin E 400 unit PO Daily. Please continue to monitor. 8. Bowel: senna/docusate 1T PO BID and bisacodyl 10mg PO daily PRN constipation. Please continue to monitor for constipation and PRN usage. Resident has not had a docuemented bowel movement since 05/14. Please continue to monitor closely and consider giving PRN medications if patient hasn't produced a bowel movement in 48hrs. Due to narcotic use, patient is at a higher risk for constipation. 9. Restless leg syndrome: pramipexole 0.125mg PO QHS. Please continue to monitor for S/S of restless legs and drowsiness. 10. Allergic rhinitis: fluticasone 0.05% nasal spray 1 spray nasal BID. Please continue to monitor for S/S of allergies. Assessment/Plan for indications treated with psychotropic medications: 1. Polyneuropathy: duloxetine 90mg PO daily and gabapentin 400mg PO TID. Please continue to monitor for falls, oversedation. Gabapentin is a Beer's Criteria medication which can increase the risk of falls in the elderly population (>65y/o). Given the patient had recent joint surgery, is taking narcotics, and is on gabapentin, she could be considered high risk for falls. Please monitor closely and evaluate risk vs. benefit of use of all medications if clinically needed, thank you. Note: no current documentation supporting issues with falls/balance at this time. Medical chart and medication regimen reviewed. The following medication irregularities or issues were identified: None Date of Note:: 05/22/22
[2022-05-22 17:59] LABS: Vancomycin, Trough Level 16.6 ug/mL (5.0-15.0)
[2022-05-22] MEDS: 0.9% Saline Lock 10 ML Syringe IV (18:25)
--- NOTE | 2022-05-22 19:07 | PCM.RX.CS ---
Consult Pharmacy has been consulted to manage selected antiobiotic: Vancomycin Type of Consult: Follow-up Labs: Sodium 142 mmol/L (136-145) 05/17/22 05:10 Potassium 3.9 mmol/L (3.5-5.1) 05/17/22 05:10 Chloride 108 mmol/L (98-107) H 05/17/22 05:10 Carbon Dioxide 28.0 mmol/L (21.0-32.0) 05/17/22 05:10 Anion Gap 6 (5-15) 05/17/22 05:10 BUN 19 mg/dL (7-18) H 05/17/22 05:10 Creatinine 0.61 mg/dL (0.55-1.02) 05/17/22 05:10 Est GFR (MDRD) Af Amer 124 mL/min (>60) 05/17/22 05:10 Est GFR (MDRD) Non-Af 103 mL/min (>60) 05/17/22 05:10 BUN/Creatinine Ratio 31.3 RATIO (10-20) H 05/17/22 05:10 Glucose 85 mg/dL (74-106) 05/17/22 05:10 Vancomycin Trough 16.6 ug/mL (5.0-15.0) H 05/22/22 17:25 Random Vancomycin 14.5 ug/mL (0.0-15.0) 04/29/22 12:00 Microbiology: Microbiology 04/19/22 10:45 Nasal Secretion SARS-CoV-2 Antigen (Rapid) - Final Goal Trough: 15-20 mcg/mL Pharmacy Plan for Drug Dosing: VANCOMYCIN LEVEL RECEIVED Current Vancomycin Dose: 1G IV Q12H Number of Doses Received: 46 Vancomycin Level: 16.6 Hours Since Last Dose: 10.75hr Renal Function: 0.61 Renal Function Trend: STABLE Lab/Micro: N/A Vancomycin Plan/Comments: patient had a trough drawn which resulted in a value of 16.6 (goal 15-20). Will continue current dosing- stopdate 05/28/22 per ID service. Pending Level: None- patient has been therapeutic and stable on current dose. in 7 days, med will be dc'd when trough would have been drawn. If changes in renal function/pt status occurs will draw a trough. Pharmacy Service will continue to monitor and adjust dosing as required.
[2022-05-22] MEDS: Atorvastatin Calcium 20 MG Tablet PO (21:14)
[2022-05-22] MEDS: Pramipexole Di-HCl 0.125 MG Tablet PO (21:14)
[2022-05-22 21:16] VITALS: O2SAT 97
[2022-05-23] MEDS: Fluticasone 0.05% 1 SPRAY NASAL.SRY NASAL ×2 (05:46→17:46)
[2022-05-23] MEDS: Acetaminophen 500 MG Tablet 1000 MG PO ×3 (05:47→20:55)
[2022-05-23] MEDS: Levothyroxine 100 MCG Tablet PO (05:47)
[2022-05-23] MEDS: Pantoprazole Sodium 20 MG Tablet PO (05:48)
[2022-05-23] MEDS: Vancomycin IV 1,000 MG/200 ML BAG 200 MG IV ×2 (07:00→18:01)
[2022-05-23] MEDS: Nystatin Powder 15gm Bottle 1 APPLIC TOPICAL ×2 (07:32→17:47)
[2022-05-23] MEDS: Gabapentin 400 MG Capsule PO ×3 (08:22→20:55)
[2022-05-23] MEDS: DULoxetine Hcl 30 MG Capsule 90 MG PO (08:23)
[2022-05-23] MEDS: Meloxicam 7.5 MG Tablet PO ×2 (08:23→17:47)
[2022-05-23] MEDS: Potassium Chloride Oral Tablet 20 MEQ PO ×2 (08:23→17:46)
[2022-05-23] MEDS: Triamterene 37.5MG/Hctz 25MG Capsule 1 CAP PO (08:24)
[2022-05-23] MEDS: amLODIPine 10 MG Tablet PO (08:24)
[2022-05-23] MEDS: Senna/Docusate Sodium 1 Tablet PO (08:25)
[2022-05-23] MEDS: Vitamin E 400 UNITS Capsule PO (08:26)
[2022-05-23 08:30] VITALS: BP 133/71; PULSE 82
[2022-05-23 09:45] VITALS: PULSE 86; RESP 18; O2SAT 97
[2022-05-23 16:00] VITALS: BP 136/70; PULSE 90; RESP 17; TEMP 36.7
[2022-05-23] MEDS: 0.9% Saline Lock 10 ML Syringe IV ×2 (17:59→19:21)
[2022-05-23] MEDS: oxyCODONE 5 MG Tablet PO (18:06)
[2022-05-23] MEDS: Atorvastatin Calcium 20 MG Tablet PO (20:56)
[2022-05-23] MEDS: Pramipexole Di-HCl 0.125 MG Tablet PO (20:56)
[2022-05-24] MEDS: Fluticasone 0.05% 1 SPRAY NASAL.SRY NASAL ×2 (05:35→17:49)
[2022-05-24] MEDS: Acetaminophen 500 MG Tablet 1000 MG PO ×3 (05:36→21:37)
[2022-05-24] MEDS: Pantoprazole Sodium 20 MG Tablet PO (05:36)
[2022-05-24] MEDS: Levothyroxine 100 MCG Tablet PO (05:36)
[2022-05-24] MEDS: 0.9% Saline Lock 10 ML Syringe IV ×2 (05:38→17:59)
[2022-05-24] MEDS: Vancomycin IV 1,000 MG/200 ML BAG 200 MG IV ×2 (05:39→17:59)
[2022-05-24 05:45] LABS: Absolute Lymphocyte Count 1.53 X10^3/uL (0.83-4.51); Absolute Neutrophil Count 3.6 X10^3/uL (2.0-7.7); Basophil# 0.09 X10^3/uL; Basophil% 1.4 % (0-1); Eosinophil# 0.39 X10^3/uL; Eosinophils% 6.2 % (0-5); Hematocrit 36.3 % (37-47); Hemoglobin 11.4 g/dL (12.0-15.0); Lymphocyte # 1.53 X10^3/ul (0.83-4.51); Lymphocyte % 24.4 % (19-41); Mean Corp Hgb Conc 31.4 g/dL (32-36); Mean Corpuscular Hgb 29.2 pg (27.0-32.0); Mean Corpuscular Volume 93.1 fL (81-99); Mean Platelet Vol. 8.6 fl (6.2-12.0); Monocyte# 0.65 X10^3/uL; Monocyte% 10.4 % (0-10); NRBC Flagged by Analyzer 0 % (0-5); Neutrophil # 3.59 X10^3/uL (2.7-7.7); Neutrophil % 57.1 % (47-70); Platelet Count 256 K/mm3 (150-450); RBC Distribution Width CV 15.5 % (11.6-14.6); RBC Distribution Width SD 53.2 fl (35.1-43.9); White Blood Count 6.3 K/mm3 (4.4-11.0)
[2022-05-24 05:46] VITALS: BP 135/70; PULSE 84
[2022-05-24 05:55] LABS: Erythrocyte Sedimentation Rate 19 mm/hr (0-30)
[2022-05-24 06:01] LABS: Anion Gap 5 (5-15); BUN 17 mg/dL (7-18); BUN/Creat Ratio 28.6 RATIO (10-20); Calcium,Total 8.8 mg/dL (8.5-10.1); Chloride 109 mmol/L (98-107); Creatinine, Serum 0.59 mg/dL (0.55-1.02); EST Glomerular Filtration Rate 105 mL/min (>60); Est Glom Filt Rate - Afr Amer 127 mL/min (>60); Estimated Creatinine Clearance 41.45 ml/min; Glucose 82 mg/dL (74-106); Potassium 4.1 mmol/L (3.5-5.1); Sodium Level 143 mmol/L (136-145)
[2022-05-24] MEDS: DULoxetine Hcl 30 MG Capsule 90 MG PO (08:18)
[2022-05-24] MEDS: Triamterene 37.5MG/Hctz 25MG Capsule 1 CAP PO (08:18)
[2022-05-24] MEDS: Meloxicam 7.5 MG Tablet PO ×2 (08:19→17:50)
[2022-05-24] MEDS: Potassium Chloride Oral Tablet 20 MEQ PO ×2 (08:19→17:49)
[2022-05-24] MEDS: amLODIPine 10 MG Tablet PO (08:19)
[2022-05-24] MEDS: Vitamin E 400 UNITS Capsule PO (08:19)
[2022-05-24] MEDS: Gabapentin 400 MG Capsule PO ×3 (08:19→21:37)
[2022-05-24] MEDS: Senna/Docusate Sodium 1 Tablet PO ×2 (08:19→17:51)
[2022-05-24 08:40] VITALS: PULSE 64; RESP 16; O2SAT 98
[2022-05-24 15:59] VITALS: BP 149/79; PULSE 78; RESP 16; TEMP 36.4; O2SAT 98
[2022-05-24] MEDS: Pramipexole Di-HCl 0.125 MG Tablet PO (21:37)
[2022-05-24] MEDS: Atorvastatin Calcium 20 MG Tablet PO (21:37)
[2022-05-25] MEDS: Nystatin Powder 15gm Bottle 1 APPLIC TOPICAL ×2 (05:40→17:34)
[2022-05-25] MEDS: Fluticasone 0.05% 1 SPRAY NASAL.SRY NASAL ×2 (05:41→17:32)
[2022-05-25] MEDS: Pantoprazole Sodium 20 MG Tablet PO (05:42)
[2022-05-25] MEDS: Vancomycin IV 1,000 MG/200 ML BAG 200 MG IV ×2 (05:42→18:44)
[2022-05-25] MEDS: Acetaminophen 500 MG Tablet 1000 MG PO ×3 (05:42→20:55)
[2022-05-25] MEDS: 0.9% Saline Lock 10 ML Syringe IV (05:42)
[2022-05-25] MEDS: Levothyroxine 100 MCG Tablet PO (05:48)
[2022-05-25] MEDS: Potassium Chloride Oral Tablet 20 MEQ PO ×2 (08:15→17:33)
[2022-05-25] MEDS: DULoxetine Hcl 30 MG Capsule 90 MG PO (08:15)
[2022-05-25] MEDS: Meloxicam 7.5 MG Tablet PO ×2 (08:15→17:33)
[2022-05-25] MEDS: Triamterene 37.5MG/Hctz 25MG Capsule 1 CAP PO (08:15)
[2022-05-25] MEDS: amLODIPine 10 MG Tablet PO (08:15)
[2022-05-25] MEDS: Senna/Docusate Sodium 1 Tablet PO ×2 (08:16→17:34)
[2022-05-25] MEDS: Vitamin E 400 UNITS Capsule PO (08:16)
[2022-05-25] MEDS: Gabapentin 400 MG Capsule PO ×3 (08:23→20:56)
[2022-05-25 14:01] VITALS: BP 122/72; PULSE 74; RESP 16; TEMP 36.2; O2SAT 98
[2022-05-25 20:52] VITALS: O2SAT 96
[2022-05-25] MEDS: Atorvastatin Calcium 20 MG Tablet PO (20:56)
[2022-05-25] MEDS: Pramipexole Di-HCl 0.125 MG Tablet PO (20:57)
[2022-05-26] MEDS: oxyCODONE 5 MG Tablet PO (00:15)
[2022-05-26] MEDS: Fluticasone 0.05% 1 SPRAY NASAL.SRY NASAL ×2 (05:51→18:05)
[2022-05-26] MEDS: Acetaminophen 500 MG Tablet 1000 MG PO ×3 (05:52→21:01)
[2022-05-26] MEDS: Levothyroxine 100 MCG Tablet PO (05:52)
[2022-05-26] MEDS: Pantoprazole Sodium 20 MG Tablet PO (05:52)
[2022-05-26] MEDS: Vancomycin IV 1,000 MG/200 ML BAG 200 MG IV ×2 (05:59→18:05)
[2022-05-26] MEDS: DULoxetine Hcl 30 MG Capsule 90 MG PO (07:52)
[2022-05-26] MEDS: Potassium Chloride Oral Tablet 20 MEQ PO ×2 (07:53→18:06)
[2022-05-26] MEDS: Triamterene 37.5MG/Hctz 25MG Capsule 1 CAP PO (07:53)
[2022-05-26] MEDS: amLODIPine 10 MG Tablet PO (07:54)
[2022-05-26] MEDS: Meloxicam 7.5 MG Tablet PO ×2 (07:54→18:06)
[2022-05-26] MEDS: Senna/Docusate Sodium 1 Tablet PO ×2 (07:55→18:06)
[2022-05-26] MEDS: Vitamin E 400 UNITS Capsule PO (07:56)
[2022-05-26] MEDS: Gabapentin 400 MG Capsule PO ×3 (08:01→21:01)
[2022-05-26] MEDS: Nystatin Powder 15gm Bottle 1 APPLIC TOPICAL ×2 (08:03→18:07)
[2022-05-26 13:47] VITALS: PULSE 68; RESP 18
[2022-05-26 15:14] VITALS: BP 140/72; PULSE 85; RESP 16; TEMP 36.3; O2SAT 93
--- NOTE | 2022-05-26 20:01 | NURSING ---
pt would like script for Nystatin pwd for discharge
[2022-05-26] MEDS: Atorvastatin Calcium 20 MG Tablet PO (21:01)
[2022-05-26] MEDS: Pramipexole Di-HCl 0.125 MG Tablet PO (21:01)
[2022-05-27] MEDS: oxyCODONE 5 MG Tablet PO (00:23)
[2022-05-27] MEDS: Acetaminophen 500 MG Tablet 1000 MG PO ×3 (05:41→21:01)
[2022-05-27] MEDS: Levothyroxine 100 MCG Tablet PO (05:41)
[2022-05-27] MEDS: Pantoprazole Sodium 20 MG Tablet PO (05:41)
[2022-05-27] MEDS: Vancomycin IV 1,000 MG/200 ML BAG 200 MG IV ×2 (05:41→18:02)
[2022-05-27] MEDS: Nystatin Powder 15gm Bottle 1 APPLIC TOPICAL ×2 (05:42→16:59)
[2022-05-27] MEDS: Fluticasone 0.05% 1 SPRAY NASAL.SRY NASAL ×2 (05:42→16:57)
[2022-05-27] MEDS: Triamterene 37.5MG/Hctz 25MG Capsule 1 CAP PO (08:13)
[2022-05-27] MEDS: Potassium Chloride Oral Tablet 20 MEQ PO ×2 (08:13→16:58)
[2022-05-27] MEDS: DULoxetine Hcl 30 MG Capsule 90 MG PO (08:13)
[2022-05-27] MEDS: amLODIPine 10 MG Tablet PO (08:14)
[2022-05-27] MEDS: Meloxicam 7.5 MG Tablet PO ×2 (08:14→16:58)
[2022-05-27] MEDS: Vitamin E 400 UNITS Capsule PO (08:15)
[2022-05-27] MEDS: Gabapentin 400 MG Capsule PO ×3 (08:17→21:01)
[2022-05-27 08:21] VITALS: BP 156/69; PULSE 93
--- NOTE | 2022-05-27 08:58 | NURSING ---
Addendum entered by Nghia Pires 05/27/22 11:21: PT RETURNED TO FLOOR FROM VISIT. NNO! Original Note: PT LEFT AT 8;45 AM FOR APPOINTMENT WITH DR. ANAND. TAKING.
[2022-05-27 13:44] VITALS: BP 153/59; PULSE 811; RESP 96; TEMP 36.4
[2022-05-27] MEDS: Senna/Docusate Sodium 1 Tablet PO (16:58)
[2022-05-27] MEDS: 0.9% Saline Lock 10 ML Syringe IV (18:08)
[2022-05-27] MEDS: Atorvastatin Calcium 20 MG Tablet PO (21:01)
[2022-05-27] MEDS: Pramipexole Di-HCl 0.125 MG Tablet PO (21:01)
[2022-05-27 22:52] VITALS: PULSE 77; RESP 17; O2SAT 96
[2022-05-28] MEDS: Pantoprazole Sodium 20 MG Tablet PO (05:51)
[2022-05-28] MEDS: Fluticasone 0.05% 1 SPRAY NASAL.SRY NASAL ×2 (05:51→17:56)
[2022-05-28] MEDS: Levothyroxine 100 MCG Tablet PO (05:51)
[2022-05-28] MEDS: Acetaminophen 500 MG Tablet 1000 MG PO ×3 (05:52→21:40)
[2022-05-28] MEDS: Nystatin Powder 15gm Bottle 1 APPLIC TOPICAL ×2 (05:54→17:58)
[2022-05-28] MEDS: Vancomycin IV 1,000 MG/200 ML BAG 200 MG IV ×2 (06:41→18:17)
[2022-05-28] MEDS: 0.9% Saline Lock 10 ML Syringe IV ×3 (06:50→19:44)
[2022-05-28] MEDS: Potassium Chloride Oral Tablet 20 MEQ PO ×2 (08:31→17:57)
[2022-05-28] MEDS: Triamterene 37.5MG/Hctz 25MG Capsule 1 CAP PO (08:31)
[2022-05-28] MEDS: amLODIPine 10 MG Tablet PO (08:32)
[2022-05-28] MEDS: Senna/Docusate Sodium 1 Tablet PO (08:32)
[2022-05-28] MEDS: Vitamin E 400 UNITS Capsule PO (08:33)
[2022-05-28] MEDS: Gabapentin 400 MG Capsule PO ×3 (08:37→21:41)
[2022-05-28] MEDS: DULoxetine Hcl 30 MG Capsule 90 MG PO (08:38)
[2022-05-28 08:43] VITALS: BP 136/64; PULSE 87
[2022-05-28 08:45] VITALS: PULSE 87; RESP 18; O2SAT 98
[2022-05-28] MEDS: Meloxicam 7.5 MG Tablet PO ×2 (09:03→17:57)
[2022-05-28 14:59] VITALS: BP 119/64; PULSE 87; RESP 18; TEMP 36.3; O2SAT 97
[2022-05-28] MEDS: Pramipexole Di-HCl 0.125 MG Tablet PO (21:40)
[2022-05-28] MEDS: Atorvastatin Calcium 20 MG Tablet PO (21:41)
[2022-05-28] MEDS: oxyCODONE 5 MG Tablet PO (23:19)
[2022-05-29] MEDS: Fluticasone 0.05% 1 SPRAY NASAL.SRY NASAL (04:54)
[2022-05-29] MEDS: Pantoprazole Sodium 20 MG Tablet PO (04:54)
[2022-05-29] MEDS: Levothyroxine 100 MCG Tablet PO (04:54)
[2022-05-29] MEDS: 0.9% Saline Lock 10 ML Syringe IV (04:54)
[2022-05-29] MEDS: Nystatin Powder 15gm Bottle 1 APPLIC TOPICAL (04:55)
[2022-05-29] MEDS: Acetaminophen 500 MG Tablet 1000 MG PO (04:55)
[2022-05-29 08:00] VITALS: BP 133/67; PULSE 85; RESP 18; TEMP 36.7; O2SAT 99
[2022-05-29] MEDS: DULoxetine Hcl 30 MG Capsule 90 MG PO (08:08)
[2022-05-29] MEDS: Senna/Docusate Sodium 1 Tablet PO (08:09)
[2022-05-29] MEDS: Potassium Chloride Oral Tablet 20 MEQ PO (08:09)
[2022-05-29] MEDS: Triamterene 37.5MG/Hctz 25MG Capsule 1 CAP PO (08:09)
[2022-05-29] MEDS: Vitamin E 400 UNITS Capsule PO (08:09)
[2022-05-29] MEDS: Meloxicam 7.5 MG Tablet PO (08:09)
[2022-05-29] MEDS: amLODIPine 10 MG Tablet PO (08:10)
[2022-05-29] MEDS: Gabapentin 400 MG Capsule PO (08:13)
[2022-05-29 09:38] VITALS: BP 133/67; PULSE 85; RESP 18; TEMP 36.7; O2SAT 99
--- NOTE | 2022-05-29 16:57 | CASEMGMT ---
Social Work BIMS and PHQ-9 completed for MDS assessment. Kimberly Houston, FORESTRY SUPERVISOR ENGINEERING TECHNICIAN [employer]ARKING
== END 2022-05-29 09:55 | disposition home or self-care (01) | DRG 950 ==
PROVIDERS: Internal Medicine Infectious Disease; Admitting Provider Family Medicine Geriatric Medicine; PCP Family Medicine; Visit Provider Family Medicine Geriatric Medicine
DX: T84.53XD Infection and inflammatory reaction due to internal right knee prosthesis, subsequent encounter (principal); B35.4 Tinea corporis; D86.1 Sarcoidosis of lymph nodes; E03.9 Hypothyroidism, unspecified; G25.81 Restless legs syndrome; I10 Essential (primary) hypertension; M79.7 Fibromyalgia; M25.361 Other instability, right knee; G62.9 Polyneuropathy, unspecified; E78.00 Pure hypercholesterolemia, unspecified; G47.33 Obstructive sleep apnea (adult) (pediatric); K21.9 Gastro-esophageal reflux disease without esophagitis; E87.6 Hypokalemia; M19.90 Unspecified osteoarthritis, unspecified site; E78.5 Hyperlipidemia, unspecified; Z23 Encounter for immunization; Z79.82 Long term (current) use of aspirin; Y79.2 Prosthetic and other implants, materials and accessory orthopedic devices associated with adverse incidents; Z79.899 Other long term (current) drug therapy; Z86.16 Personal history of COVID-19; Z79.890 Hormone replacement therapy
CPT/HCPCS: 0013A; 36415; 80048; 80202; 85025; 85652; 87426; 91313; 97110; 97116; 97162; 97166; 97530; 97535; 97802; 97803; G0008; J7040; J7050; 90686; A4216

== ENCOUNTER 2022-06-28 14:12 | Outpatient (CLI) | payer MEDICARE, OTHER, SELFPAY ==
[2022-06-28 18:06] LABS: Absolute Lymphocyte Count 1.73 X10^3/uL (0.83-4.51); Absolute Neutrophil Count 6.4 X10^3/uL (2.0-7.7); Basophil% 1.1 % (0-1); Eosinophil# 0.28 X10^3/uL; Hematocrit 39.8 % (37-47); Hemoglobin 12.3 g/dL (12.0-15.0); Lymphocyte # 1.73 X10^3/ul (0.83-4.51); Lymphocyte % 18.6 % (19-41); Mean Corp Hgb Conc 30.9 g/dL (32-36); Mean Corpuscular Volume 93.9 fL (81-99); Mean Platelet Vol. 9.6 fl (6.2-12.0); Monocyte# 0.72 X10^3/uL; Monocyte% 7.7 % (0-10); NRBC Flagged by Analyzer 0 % (0-5); Neutrophil # 6.37 X10^3/uL (2.7-7.7); Neutrophil % 68.5 % (47-70); Platelet Count 332 K/mm3 (150-450); RBC Distribution Width CV 15.5 % (11.6-14.6); RBC Distribution Width SD 53.1 fl (35.1-43.9); Red Blood Count 4.24 M/mm3 (4.2-5.4); White Blood Count 9.3 K/mm3 (4.4-11.0)
[2022-06-28 18:29] LABS: ALB/GLOB Ratio 1.2 RATIO (0.9-2.4); AST(SGOT) 17 U/L (15-37); Alanine Aminotransfer ALT/SGPT 23 U/L (13-56); Albumin, Serum 3.6 g/dL (3.2-5.0); Alkaline Phosphatase 125 U/L (45-117); Anion Gap 9 (5-15); BUN 26 mg/dL (7-18); Calcium,Total 9.1 mg/dL (8.5-10.1); Chloride 104 mmol/L (98-107); Cholesterol 191 mg/dL (200); Creatinine, Serum 0.74 mg/dL (0.55-1.02); EST Glomerular Filtration Rate 81 mL/min (>60); Est Glom Filt Rate - Afr Amer 98 mL/min (>60); Glucose 108 mg/dL (74-106); High Density Lipoprotein 71 mg/dL; Potassium 3.8 mmol/L (3.5-5.1); Protein, Total 6.6 g/dL (6.4-8.2); Sodium Level 139 mmol/L (136-145); Thyroid Stim Hormone (TSH) 0.59 uIU/mL (0.358-3.74); Triglycerides 224 mg/dL; Very Low Density Lipoprotein 45 mg/dL (5-40)
[2022-06-28 18:47] LABS: Erythrocyte Sedimentation Rate 29 mm/hr (0-30)
== END 2022-06-28 23:59 | disposition home or self-care (01) ==
LOC: MFPLAB 14:14
PROVIDERS: PCP Family Medicine; Referring Provider Family Medicine; Visit Provider Family Medicine
DX: I10 Essential (primary) hypertension (principal); T84.50XA Infection and inflammatory reaction due to unspecified internal joint prosthesis, initial encounter; E06.3 Autoimmune thyroiditis; E78.5 Hyperlipidemia, unspecified; E55.9 Vitamin D deficiency, unspecified
CPT/HCPCS: 36415; 80053; 80061; 82306; 84439; 84443; 85025; 85652

== ENCOUNTER → 2022-09-10 | Outpatient (CLI) | payer MEDICARE, OTHER, SELFPAY ==
[2022-09-10 12:45] LABS: Mucous, Urine 0 SEEN /hpf (<or=2+)
[2022-09-10 14:09] LABS: Color, Urine Yellow (Yellow); Glucose, Dipstick Normal (Normal); Urine Clarity Sl Cloudy (Clear)
[2022-09-10 14:10] LABS: Ketone-Dipstick Negative (Negative); Leukocyte Esterase-Dipstick 500 /ul (Negative); Nitrite-Dipstick Negative (Negative); Occult Blood-Urine 25 /ul (Negative); Protein-Dipstick 30 mg/dl (Negative); Urine Bilirubin Dipstick Negative (Negative); Urine Urobilinogen 1 mg/dl (Normal)
[2022-09-10 14:11] LABS: Red Blood Cells-Urine 0-5 SEEN /hpf (0-5); Squamous Epithelial Cells - UA 0-5 SEEN /hpf (5-10); White Blood Cells 25-50 SEEN /hpf (0-5)
[2022-09-10 14:12] LABS: Bacteria RARE /hpf (None Seen)
== END | disposition home or self-care (01) ==
LOC: LABSPEC 12:29
PROVIDERS: PCP Family Medicine; Referring Provider Nurse Practitioner Family; Visit Provider Nurse Practitioner Family
DX: R35.0 Frequency of micturition (principal)
CPT/HCPCS: 81001; 87086; 87088

== ENCOUNTER → 2022-09-19 | Outpatient (CLI) | payer MEDICARE, OTHER, SELFPAY ==
--- NOTE | 2022-09-19 08:23 | RAD_ITS ---
INDICATION: cough EXAMINATION/TECHNIQUE: X-RAY - XR Chest 2 Views COMPARISON: 06/03/2019. FINDINGS: LINES/DEVICES: Indwelling central venous catheter unchanged. LUNGS: No consolidation. No pneumothorax. MEDIASTINUM: Unremarkable. CARDIAC SILHOUETTE: Not enlarged. BONES AND SOFT TISSUES: No acute abnormalities. RAD/Chest PA and Lateral IMPRESSION: No evidence of active intrathoracic disease. Electronically Signed: Lyudmila Benavides MD at 6:52 EST ,
== END | disposition home or self-care (01) ==
LOC: RAD 08:16
PROVIDERS: PCP Family Medicine; Visit Provider Family Medicine
DX: D86.0 Sarcoidosis of lung (principal)
CPT/HCPCS: 71046

== ENCOUNTER → 2022-10-01 | Outpatient (CLI) | payer MEDICARE, OTHER, SELFPAY ==
[2022-10-01 10:01] LABS: Absolute Lymphocyte Count 1.04 X10^3/uL (0.83-4.51); Absolute Neutrophil Count 3.1 X10^3/uL (2.0-7.7); Basophil# 0.08 X10^3/uL; Basophil% 1.6 % (0-1); Eosinophil# 0.22 X10^3/uL; Eosinophils% 4.4 % (0-5); Hematocrit 38.8 % (37-47); Hemoglobin 11.9 g/dL (12.0-15.0); Lymphocyte # 1.04 X10^3/ul (0.83-4.51); Lymphocyte % 20.7 % (19-41); Mean Corp Hgb Conc 30.7 g/dL (32-36); Mean Corpuscular Hgb 27.7 pg (27.0-32.0); Mean Corpuscular Volume 90.4 fL (81-99); Mean Platelet Vol. 9.2 fl (6.2-12.0); Monocyte# 0.53 X10^3/uL; Monocyte% 10.6 % (0-10); NRBC Flagged by Analyzer 0 % (0-5); Neutrophil # 3.13 X10^3/uL (2.7-7.7); Neutrophil % 62.3 % (47-70); Platelet Count 328 K/mm3 (150-450); RBC Distribution Width SD 52.8 fl (35.1-43.9); Red Blood Count 4.29 M/mm3 (4.2-5.4)
[2022-10-01 10:30] LABS: Vitamin D,25 Hydroxy 39.3 ng/mL
[2022-10-01 10:41] LABS: ALB/GLOB Ratio 0.9 RATIO (0.9-2.4); AST(SGOT) 17 U/L (15-37); Alanine Aminotransfer ALT/SGPT 24 U/L (13-56); Albumin, Serum 3.4 g/dL (3.2-5.0); Alkaline Phosphatase 120 U/L (45-117); Anion Gap 6 (5-15); BUN 19 mg/dL (7-18); BUN/Creat Ratio 31.4 RATIO (10-20); Calcium,Total 9.6 mg/dL (8.5-10.1); Chloride 107 mmol/L (98-107); Cholesterol 170 mg/dL (200); Creatinine, Serum 0.61 mg/dL (0.55-1.02); EST Glomerular Filtration Rate 103 mL/min (>60); Est Glom Filt Rate - Afr Amer 124 mL/min (>60); Globulin 3.7 g/dL (2.2-4.2); Glucose 96 mg/dL (74-106); High Density Lipoprotein 68 mg/dL; Potassium 3.8 mmol/L (3.5-5.1); Protein, Total 7.1 g/dL (6.4-8.2); Sodium Level 142 mmol/L (136-145); T4 Free Direct 0.98 ng/dL (0.76-1.46); Thyroid Stim Hormone (TSH) 0.41 uIU/mL (0.358-3.74); Triglycerides 139 mg/dL; Very Low Density Lipoprotein 28 mg/dL (5-40)
== END | disposition home or self-care (01) ==
LOC: MFPLAB 09:12
PROVIDERS: PCP Family Medicine; Referring Provider Family Medicine; Visit Provider Family Medicine
DX: I10 Essential (primary) hypertension (principal); E06.3 Autoimmune thyroiditis; E78.5 Hyperlipidemia, unspecified; E55.9 Vitamin D deficiency, unspecified
CPT/HCPCS: 36415; 80053; 80061; 82306; 84439; 84443; 85025

== ENCOUNTER → 2022-10-09 | Outpatient (CLI) | payer MEDICARE, OTHER, SELFPAY ==
--- NOTE | 2022-10-09 08:29 | RAD_ITS ---
STUDY: X-RAY - RIGHT SHOULDER REASON FOR EXAM: Female, 72 years old. ARTHROPATHY TECHNIQUE: 4 view(s) of the shoulder. COMPARISON: None. FINDINGS: There is mild degenerative arthrosis of the glenohumeral articulation. There is degenerative arthrosis of the acromioclavicular joint without inferior osseous spur formation. Normal acromion. Normal humeral head and visualized proximal humerus. The soft tissue structures are unremarkable. Normal visualized pulmonary apex. RAD/Shoulder min 2 Views IMPRESSION: Mild glenohumeral and acromioclavicular joint arthrosis Electronically Signed: Edvin Kay MD at 10:03 EDT ,
== END | disposition home or self-care (01) ==
LOC: RAD 08:25
PROVIDERS: PCP Family Medicine; Referring Provider Nurse Practitioner Family; Visit Provider Nurse Practitioner Family
DX: M07.611 Enteropathic arthropathies, right shoulder (principal)
CPT/HCPCS: 73030

== ENCOUNTER → 2022-12-04 | Outpatient (CLI) | payer MEDICARE, OTHER, SELFPAY ==
[2022-12-04 12:30] LABS: Absolute Lymphocyte Count 1.22 X10^3/uL (0.83-4.51); Absolute Neutrophil Count 4.2 X10^3/uL (2.0-7.7); Basophil# 0.08 X10^3/uL; Basophil% 1.3 % (0-1); Eosinophil# 0.19 X10^3/uL; Hematocrit 39.9 % (37-47); Hemoglobin 12.2 g/dL (12.0-15.0); Lymphocyte # 1.22 X10^3/ul (0.83-4.51); Lymphocyte % 19.1 % (19-41); Mean Corp Hgb Conc 30.6 g/dL (32-36); Mean Corpuscular Hgb 27.6 pg (27.0-32.0); Mean Corpuscular Volume 90.3 fL (81-99); Mean Platelet Vol. 9.1 fl (6.2-12.0); Monocyte# 0.57 X10^3/uL; Monocyte% 8.9 % (0-10); NRBC Flagged by Analyzer 0 % (0-5); Neutrophil # 4.23 X10^3/uL (2.7-7.7); Neutrophil % 66.3 % (47-70); Platelet Count 315 K/mm3 (150-450); RBC Distribution Width CV 15.5 % (11.6-14.6); RBC Distribution Width SD 51.3 fl (35.1-43.9); Red Blood Count 4.42 M/mm3 (4.2-5.4); White Blood Count 6.4 K/mm3 (4.4-11.0)
[2022-12-04 12:51] LABS: Vitamin D,25 Hydroxy 55.7 ng/mL
[2022-12-04 13:00] LABS: AST(SGOT) 17 U/L (15-37); Alanine Aminotransfer ALT/SGPT 26 U/L (13-56); Albumin, Serum 3.4 g/dL (3.2-5.0); Alkaline Phosphatase 117 U/L (45-117); Anion Gap 6 (5-15); BUN 19 mg/dL (7-18); BUN/Creat Ratio 32.4 RATIO (10-20); Calcium,Total 9.5 mg/dL (8.5-10.1); Chloride 109 mmol/L (98-107); Cholesterol 159 mg/dL (200); Creatinine, Serum 0.59 mg/dL (0.55-1.02); EST Glomerular Filtration Rate 107 mL/min (>60); Est Glom Filt Rate - Afr Amer 129 mL/min (>60); Globulin 3.5 g/dL (2.2-4.2); Glucose 92 mg/dL (74-106); High Density Lipoprotein 74 mg/dL; Potassium 3.6 mmol/L (3.5-5.1); Protein, Total 6.9 g/dL (6.4-8.2); Sodium Level 142 mmol/L (136-145); Thyroid Stim Hormone (TSH) 0.28 uIU/mL (0.358-3.74); Triglycerides 113 mg/dL; Very Low Density Lipoprotein 23 mg/dL (5-40)
== END | disposition home or self-care (01) ==
LOC: MFPLAB 09:33
PROVIDERS: PCP Family Medicine; Visit Provider Family Medicine
DX: E06.3 Autoimmune thyroiditis (principal); I10 Essential (primary) hypertension; E55.9 Vitamin D deficiency, unspecified
CPT/HCPCS: 36415; 80053; 80061; 82306; 84439; 84443; 85025

== ENCOUNTER → 2023-02-20 | Outpatient (CLI) | payer MEDICARE, OTHER, SELFPAY ==
[2023-02-20 09:14] LABS: Mucous, Urine 0 SEEN /hpf (<or=2+); Red Blood Cells-Urine 0 SEEN /hpf (0-5)
[2023-02-20 10:17] LABS: Absolute Lymphocyte Count 1.14 X10^3/uL (0.83-4.51); Absolute Neutrophil Count 4.5 X10^3/uL (2.0-7.7); Basophil# 0.11 X10^3/uL; Basophil% 1.7 % (0-1); Eosinophil# 0.26 X10^3/uL; Hematocrit 40.8 % (37-47); Hemoglobin 12.3 g/dL (12.0-15.0); Lymphocyte # 1.14 X10^3/ul (0.83-4.51); Lymphocyte % 17.4 % (19-41); Mean Corp Hgb Conc 30.1 g/dL (32-36); Mean Corpuscular Hgb 27.4 pg (27.0-32.0); Mean Corpuscular Volume 90.9 fL (81-99); Mean Platelet Vol. 9.3 fl (6.2-12.0); Monocyte# 0.54 X10^3/uL; Monocyte% 8.3 % (0-10); NRBC Flagged by Analyzer 0 % (0-5); Neutrophil # 4.47 X10^3/uL (2.7-7.7); Neutrophil % 68.3 % (47-70); Platelet Count 361 K/mm3 (150-450); RBC Distribution Width CV 16.2 % (11.6-14.6); RBC Distribution Width SD 54.4 fl (35.1-43.9); Red Blood Count 4.49 M/mm3 (4.2-5.4); White Blood Count 6.5 K/mm3 (4.4-11.0)
[2023-02-20 10:23] LABS: Color, Urine Yellow (Yellow); Glucose, Dipstick Normal (Normal); Ketone-Dipstick Negative (Negative); Leukocyte Esterase-Dipstick 500 /ul (Negative); Nitrite-Dipstick Negative (Negative); Occult Blood-Urine Negative /ul (Negative); Protein-Dipstick 15 mg/dl (Negative); Urine Clarity Clear (Clear); Urine Urobilinogen 1 mg/dl (Normal)
[2023-02-20 10:47] LABS: Vitamin B12 420 pg/mL (211-911); Vitamin D,25 Hydroxy 42.6 ng/mL
[2023-02-20 10:52] LABS: Urine Bilirubin Dipstick 1 mg/dL (Negative)
[2023-02-20 11:03] LABS: Squamous Epithelial Cells - UA 5-10 SEEN /hpf (5-10); White Blood Cells 10-25 SEEN /hpf (0-5)
[2023-02-20 11:04] LABS: Bacteria 1+ /hpf (None Seen)
[2023-02-20 11:18] LABS: AST(SGOT) 18 U/L (15-37); Alanine Aminotransfer ALT/SGPT 22 U/L (13-56); Albumin, Serum 3.5 g/dL (3.2-5.0); Alkaline Phosphatase 118 U/L (45-117); Anion Gap 7 (5-15); BUN 14 mg/dL (7-18); Calcium,Total 9.1 mg/dL (8.5-10.1); Chloride 107 mmol/L (98-107); Cholesterol 168 mg/dL (200); Creatinine, Serum 0.67 mg/dL (0.55-1.02); EST Glomerular Filtration Rate 92 mL/min (>60); Est Glom Filt Rate - Afr Amer 111 mL/min (>60); Globulin 3.4 g/dL (2.2-4.2); Glucose 103 mg/dL (74-106); High Density Lipoprotein 82 mg/dL; Protein, Total 6.9 g/dL (6.4-8.2); Sodium Level 142 mmol/L (136-145); T4 Free Direct 0.98 ng/dL (0.76-1.46); Thyroid Stim Hormone (TSH) 0.19 uIU/mL (0.358-3.74); Triglycerides 121 mg/dL; Very Low Density Lipoprotein 24 mg/dL (5-40)
[2023-02-20 17:18] LABS: Hemoglobin A1c 5.7 % (3.8-5.6)
== END | disposition home or self-care (01) ==
LOC: MFPLAB 09:12
PROVIDERS: PCP Family Medicine; Visit Provider Family Medicine
DX: R73.09 Other abnormal glucose (principal); R53.83 Other fatigue; I10 Essential (primary) hypertension; E06.3 Autoimmune thyroiditis; E55.9 Vitamin D deficiency, unspecified
CPT/HCPCS: 36415; 80053; 80061; 81001; 82306; 82607; 83036; 84439; 84443; 85025

== ENCOUNTER → 2023-02-25 | Outpatient (CLI) | payer MEDICARE, OTHER, SELFPAY ==
--- NOTE | 2023-02-25 12:55 | ECHOD_ITS ---
Reason For Study: SOB Procedure This was a 2D Doppler, Color Flow transthoracic echocardiogram. Exam performed in department. Left Ventricle Normal LV size. Left ventricular systolic function is normal. The estimated ejection fraction is 60 %. Stage 1 diastolic dysfunction. No regional wall motion abnormalities noted. Right Ventricle Normal RV size. Normal systolic function. Atria Normal left atrium. Normal right atrium. Mitral Valve Normal mitral valve. Tricuspid Valve Normal tricuspid valve. Mild tricuspid valve insufficiency. Pulmonary artery systolic pressure is 30 mmHg. Aortic Valve The aortic valve is not well visualized. Pulmonic Valve The pulmonic valve is not well visualized. Great Vessels Normal aortic root. The pulmonary artery is normal size. Normal inferior vena cava. Pericardium/Pleural No pericardial effusion. MMode/2D Measurements & Calculations LVIDd: 4.2 cm IVSd: 1.1 cm Ao root diam: 3.4 cm LVIDs: 2.7 cm LVPWd: 0.99 cm LA dimension: 3.3 cm RVDd: 3.2 cm FS: 34.9 % LAV(MOD-bp): 41.9 ml LVAd ap4: 23.7 cm2 LVAd ap2: 23.6 cm2 LAV(MOD-bp) Indexed: 19.8 ml/m2 LVLd ap4: 7.5 cm LVLd ap2: 6.8 cm LAV(MOD-sp2): 47.4 ml EDV(MOD-sp4): 61.7 ml EDV(MOD-sp2): 66.4 ml LAV(MOD-sp4): 38.6 ml EDV(sp4-el): 64.1 ml EDV(sp2-el): 69.2 ml LVAs ap4: 13.4 cm2 LVAs ap2: 12.1 cm2 LVLs ap4: 6.0 cm LVLs ap2: 5.4 cm ESV(MOD-sp4): 25.1 ml ESV(MOD-sp2): 22.7 ml ESV(sp4-el): 25.4 ml ESV(sp2-el): 23.1 ml EF(MOD-sp4): 59.3 % EF(MOD-sp2): 65.8 % EF(sp4-el): 60.4 % SV(MOD-sp4): 36.6 ml SV(MOD-sp2): 43.7 ml SV(sp4-el): 38.7 ml LA A4 area: 16.4 cm2 RA A4 area: 13.8 cm2 Time Measurements MV dec time: 0.25 sec Doppler Measurements & Calculations MV E max sabino: 81.0 cm/sec Lat Peak E' Sabino: 13.7 cm/sec Med Peak E' Sabino: 13.5 cm/sec MV A max sabino: 105.6 cm/sec E/E' lat: 5.9 E/E' med: 6.0 MV E/A: 0.77 MV V2 max: 114.3 cm/sec MV P1/2t max sabino: 92.8 cm/sec Ao V2 max: 101.5 cm/sec MV max P.2 mmHg MV P1/2t: 80.8 msec Ao max P.1 mmHg MV V2 mean: 64.4 cm/sec MV dec slope: 336.7 cm/sec2 Ao V2 mean: 69.4 cm/sec MV mean P.0 mmHg Ao mean P.2 mmHg MV V2 VTI: 26.8 cm MVA(P1/2t): 2.7 cm2 Ao V2 VTI: 22.8 cm AV (velocity ratio): 1.0 LV V1 max: 110.8 cm/sec PA V2 max: 107.9 cm/sec TR max sabino: 261.6 cm/sec LV V1 max P.9 mmHg PA V2 mean: 73.6 cm/sec TR max P.4 mmHg LV V1 mean P.8 mmHg LV V1 mean: 80.0 cm/sec LV V1 VTI: 23.0 cm ECHO/Echo Complete Interpretation Summary Normal LV size. Left ventricular systolic function is normal. The estimated ejection fraction is 60 %. Stage 1 diastolic dysfunction. Ordering Physician: Luther Orellana Referring Physician: Luther Orellana Performed By: Donte Mares RCS
== END | disposition home or self-care (01) ==
LOC: CVS 12:53
PROVIDERS: PCP Family Medicine; Referring Provider Family Medicine; Visit Provider Family Medicine
DX: R06.02 Shortness of breath (principal)
CPT/HCPCS: 93306

== ENCOUNTER 2023-04-18 08:00 | Outpatient (RCR) | payer MEDICARE, OTHER, SELFPAY ==
--- NOTE | 2022-12-17 13:57 | HP.PTEVAL_ITS ---
Patient's Visit Information CHRISTINE ABRAMS is a 72 year old F referred to Physical Therapy by Dr. Oliver Mata MD with a diagnosis of R reverse TSA 12/09/22. Date of Evaluation: 12/17/22 Physical Therapist: Jesus Mcdermott, PT, ATC - Visit Plan Frequency: 2-3x /Week Duration: 4-6 Weeks Plan: PROM to R shoulder for next 4 weeks. Progress to AROM at that time for 2-4 weeks, and then progress to strengthening as tolerated. Focus strengthening on scap stab ex's, rotator cuff strengthening, and UBE. - Subjective DOS: 12/09/22. Pt reports she had a R reverse TSA performed at that time. Pt reports she stayed one night in the hospital. Pt notes she went last friday for her checkup which went well. Pt notes she has less pain from this surgery than she thought she would. Pt reports she is to wear her sling for 4 weeks. Pt notes she has difficulty with all IADL's at this time such as getting dressed and all house chores. Pt is R hand dominant. Pt reports sleep difficulty at this time if she doesn't take pain meds and sleep in her recliner. Pt denies any tingling or numbness in her R UE at this time. 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 0/10 pain while at rest, 5/10 pain at worst (after shopping all day) - Pain R shoulder Pain Intensity (Out of 10): 0 Pain Intensity Range: 5 - Objective Neuro: B UE sensation is WNL to light touch. B bicipital reflex= 1/3. Observation: Incision is healing well. No signs of infection at this time. ROM: L shoulder flex= 170, abd= 160, IR WNL, ER= 60 degrees; R shoulder flex= 120, abd= 110 degrees. MMT: L shoulder flex= 13, abd= 20, IR= 15 , ER= 15 #F; R shoulder rated at 1/5 this date and not tested with guage. - Balance/Special Test Scores Quick DASH Score: 59.0900 - Goals Goal 1:: Increase R shoulder strength to be 90% equal to the L shoulder to aid with IADL's Goal Time Frame: 4-6 Weeks Goal 2:: Decrease R shoulder pain x 50% to aid with with sleep Goal Time Frame: 4-6 Weeks Goal 3:: Increase R shoulder flexion and abduction ROM x 30 degrees to aid with overhead lifting Goal Time Frame: 4-6 Weeks Goal 4:: I with HEP Goal Time Frame: 4-6 Weeks - Rehabilitation Potential Physical Therapy Diagnosis: Pt has R shoulder pain, weakness, and limited ROM secondary to R TSA Rehabilitation Potential: Good - Anticipated Interventions Patient/Client Instruction: Educate patient on: Condition, Plan of Care For the Purpose of:: To improve self management Therapeutic Exercise to Include: Strength training, Endurance training, Flexibilty training, Passive ROM, Active ROM, Scapular Strength/Stabilization For the Purpose of:: To decrease pain, To increase ROM, To improve muscle performance and motor function Cryotherapy (ice pack, ice massage): Yes For the Purpose of:: To decrease pain Thank you for the opportunity to evaluate your patient. For Medicare and Medicare HMO plans, please review the plan of care and approve it. It will need to be FAXED BACK to us at [phone] for Medicare purposes. For Medicare only, by signing this I certify the plan of care. Please let me know if there are questions or concerns regarding this plan of care. Physician Bibi shankar: Date:
--- NOTE | 2023-01-10 08:34 | HP.PTREVAL ---
Dr. Oliver Mata MD, It has been my pleasure to treat CHRISTINE ABRAMS over the last 8 visits for R reverse TSA 12/09/22. Please see the progress note below for an update on the physical therapy plan of care! Subjective: I feel about half way there. I still need a lot more Objective/Function: R shoulder pain ranges from 4-8/10. R shoulder ROM: flex= 105, abd= 65 degrees. R shoulder MMT: R shoulder flex= 3, abd= 4, ER= 5, IR= 9 #F. Pt is progressing well at this time Plan Plan: Follow protocol in chart. PROM to R shoulder for 4 weeks. Progress to AROM at that time for 2-4 weeks, and then progress to strengthening as tolerated. Focus strengthening on scap stab ex's, rotator cuff strengthening, and UBE. Balance/Gait/Functional tests - Balance/Special Test Scores Quick DASH Score: 56.8175 Goals Goal 1:: Increase R shoulder strength to be 90% equal to the L shoulder to aid with IADL's Goal Time Frame: 4-6 Weeks Goal Progress: Progressing Goal 2:: Decrease R shoulder pain x 50% to aid with with sleep Goal Time Frame: 4-6 Weeks Goal Progress: Progressing Goal 3:: Increase R shoulder flexion and abduction ROM x 30 degrees to aid with overhead lifting Goal Time Frame: 4-6 Weeks Goal Progress: Progressing Goal 4:: I with HEP Goal Time Frame: 4-6 Weeks Goal Progress: Progressing Anticipated Interventions Patient/Client Instruction: Educate patient on: Condition, Plan of Care For the Purpose of:: To improve self management Therapeutic Exercise to Include: Strength training, Endurance training, Flexibilty training, Passive ROM, Active ROM, Scapular Strength/Stabilization For the Purpose of:: To decrease pain, To increase ROM, To improve muscle performance and motor function Cryotherapy (ice pack, ice massage): Yes For the Purpose of:: To decrease pain Please do not hesitate to contact me at [phone] by phone or if you have questions or concerns regarding this new plan of care! Sincerely, Jesus Mcdermott, PT, ATC
--- NOTE | 2023-02-19 08:28 | HP.PTREVAL ---
Re-Evaluation Intro: Dr. Oliver Mata MD, It has been my pleasure to treat CHRISTINE ABRAMS over the last 16 visits for R reverse TSA 12/09/22. Please see the progress note below for an update on the physical therapy plan of care! Subjective Subjective: As much as I dont want to do anymore PT, I know I still need it Objective Objective/Function: R shoulder pain ranges from 0-3/10 R shoulder ROM: flex= 105, abd= 80 degrees R shoulder MMT: flex= 4, abd= 11, ER= 12, IR= 8 #F Pt is showing great progress at this time, but still lacks functional strength and ROM to perform IADL's Plan Plan Plan: Follow protocol in chart. Focus strengthening on scap stab ex's, rotator cuff strengthening, ROM, and UBE. Balance/Gait/Functional tests Balance/Special Test Scores Quick DASH Score: 25.0000 Goals Goals Goal 1:: Increase R shoulder strength to be 90% equal to the L shoulder to aid with IADL's Goal Time Frame: 4-6 Weeks Goal Progress: Progressing Goal 2:: Decrease R shoulder pain x 50% to aid with with sleep Goal Time Frame: 4-6 Weeks Goal Progress: Progressing Goal 3:: Increase R shoulder flexion and abduction ROM x 30 degrees to aid with overhead lifting Goal Time Frame: 4-6 Weeks Goal Progress: Progressing Goal 4:: I with HEP Goal Time Frame: 4-6 Weeks Goal Progress: Progressing Anticipated Interventions Anticipated Interventions Patient/Client Instruction: Educate patient on: Condition and Plan of Care For the Purpose of:: To improve self management Therapeutic Exercise to Include: Strength training, Endurance training, Flexibilty training, Passive ROM, Active ROM and Scapular Strength/Stabilization For the Purpose of:: To decrease pain, To increase ROM and To improve muscle performance and motor function Cryotherapy (ice pack, ice massage): Yes For the Purpose of:: To decrease pain Re-Evaluation Ending Re-evaluation ending: Please do not hesitate to contact me at [phone] by phone or if you have questions or concerns regarding this new plan of care! Sincerely, Jesus Mcdermott, PT, ATC
--- NOTE | 2023-03-18 10:28 | HP.PTREVAL ---
Re-Evaluation Intro: Dr. Oliver Mata MD, It has been my pleasure to treat CHRISTINE ABRAMS over the last 24 visits for R reverse TSA 12/09/22. Please see the progress note below for an update on the physical therapy plan of care! Subjective Subjective: Pt reports she continues to notice improvements Objective Objective/Function: R shoulder pain ranges from 1-2/10 R shoulder ROM: flex= 155, abd= 105, IR= Moderately limited, ER= 45 degrees R shoulder MMT: flex= 6, abd= 10, IR= 10, ER= 13 #F Pt is progressing well but continues to lack functional strength Plan Plan Plan: Continue with focus on strengthening Balance/Gait/Functional tests Balance/Special Test Scores Quick DASH Score: 27.2724 Goals Goals Goal 1:: Increase R shoulder strength to be 90% equal to the L shoulder to aid with IADL's Goal Time Frame: 4-6 Weeks Goal Progress: Progressing Goal 2:: Decrease R shoulder pain x 50% to aid with with sleep Goal Time Frame: 4-6 Weeks Goal Progress: Goal Met Goal 3:: Increase R shoulder flexion and abduction ROM x 30 degrees to aid with overhead lifting Goal Time Frame: 4-6 Weeks Goal Progress: Progressing Goal 4:: I with HEP Goal Time Frame: 4-6 Weeks Goal Progress: Progressing Anticipated Interventions Anticipated Interventions Patient/Client Instruction: Educate patient on: Condition and Plan of Care For the Purpose of:: To improve self management Therapeutic Exercise to Include: Strength training, Endurance training, Flexibilty training, Passive ROM, Active ROM and Scapular Strength/Stabilization For the Purpose of:: To decrease pain, To increase ROM and To improve muscle performance and motor function Cryotherapy (ice pack, ice massage): Yes For the Purpose of:: To decrease pain Re-Evaluation Ending Re-evaluation ending: Please do not hesitate to contact me at [phone] by phone or if you have questions or concerns regarding this new plan of care! Sincerely, Jesus Mcdermott, PT, ATC
--- NOTE | 2023-04-18 08:45 | HP.PTDCSUM ---
Discharge Summary D/C summary: It has been my pleasure to treat CHRISTINE ABRAMS referred by Dr. 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 Discharge Date: Please see the following information for a summary of their discharge status. Subjective Subjective: No pain today Pain R shoulder: Pain Intensity (Out of 10): 0 Overall Improvement % Improvement: 90 Objective Objective/Function: R shoulder pain ranges from 0-4/10 R shoulder ROM: flex= 145 deg, abd = 100 deg R shoulder MMT: flex= 7, abd= 13, ER= 13, IR= 11 #F Pt is I with HEP Goals Goal 1:: Increase R shoulder strength to be 90% equal to the L shoulder to aid with IADL's Goal Progress: Progressing Goal 2:: Decrease R shoulder pain x 50% to aid with with sleep Goal Progress: Goal Met Goal 3:: Increase R shoulder flexion and abduction ROM x 30 degrees to aid with overhead lifting Goal Progress: Progressing Goal 4:: I with HEP Goal Progress: Goal Met Plan Plan: Discharge to HEP D/C Information d/c sentence: If there are questions or concerns regarding this patient's physical therapy, please feel free to call me at [phone]. Thank you for the referral of this patient. Sincerely, Jesus Mcdermott, PT, ATC Balance/Gait/Functional tests Balance/Special Test Scores Quick DASH Score: 15.9075 Improvement % Improvement: 90
== END 2023-04-18 10:49 | disposition home or self-care (01) ==
LOC: PT 08:00
PROVIDERS: PCP Family Medicine; Referring Provider Orthopaedic Surgery; Visit Provider Orthopaedic Surgery
DX: M12.811 Other specific arthropathies, not elsewhere classified, right shoulder (principal)
CPT/HCPCS: 97110; 97140; 97161; 97164

== ENCOUNTER → 2023-04-29 | Outpatient (CLI) | payer MEDICARE, OTHER, SELFPAY ==
[2023-04-29 15:50] LABS: Erythrocyte Sedimentation Rate 27 mm/hr (0-30)
[2023-05-01 13:07] LABS: ANTINUCLEAR ANTIBODIES DIRECT Negative (Negative)
[2023-05-05 00:07] LABS: VITAMIN B6 4.2 ug/L (3.4-65.2); Vitamin B1, Thiamine 118.4 nmol/L (66.5-200.0)
== END | disposition home or self-care (01) ==
LOC: MFPLAB 11:37
PROVIDERS: PCP Family Medicine; Visit Provider Family Medicine
DX: G62.9 Polyneuropathy, unspecified (principal); M62.81 Muscle weakness (generalized)
CPT/HCPCS: 36415; 84207; 84425; 85652; 86038

== ENCOUNTER → 2023-06-10 | Outpatient (CLI) | payer MEDICARE, OTHER, SELFPAY ==
[2023-06-10 12:43] LABS: Absolute Lymphocyte Count 2.11 X10^3/uL (0.83-4.51); Basophil# 0.11 X10^3/uL; Basophil% 1.1 % (0-1); Eosinophil# 0.21 X10^3/uL; Hematocrit 40.9 % (37-47); Hemoglobin 12.2 g/dL (12.0-15.0); Lymphocyte # 2.11 X10^3/ul (0.83-4.51); Lymphocyte % 20.5 % (19-41); Mean Corp Hgb Conc 29.8 g/dL (32-36); Mean Corpuscular Hgb 27.1 pg (27.0-32.0); Mean Corpuscular Volume 90.9 fL (81-99); Mean Platelet Vol. 9.4 fl (6.2-12.0); Monocyte# 0.81 X10^3/uL; Monocyte% 7.9 % (0-10); NRBC Flagged by Analyzer 0 % (0-5); Neutrophil # 6.96 X10^3/uL (2.7-7.7); Neutrophil % 67.5 % (47-70); Platelet Count 348 K/mm3 (150-450); RBC Distribution Width CV 16.3 % (11.6-14.6); RBC Distribution Width SD 54.5 fl (35.1-43.9); White Blood Count 10.3 K/mm3 (4.4-11.0)
[2023-06-10 13:30] LABS: ALB/GLOB Ratio 0.9 RATIO (0.9-2.4); AST(SGOT) 14 U/L (15-37); Alanine Aminotransfer ALT/SGPT 21 U/L (13-56); Albumin, Serum 3.4 g/dL (3.2-5.0); Alkaline Phosphatase 123 U/L (45-117); Anion Gap 4 (5-15); BUN 22 mg/dL (7-18); BUN/Creat Ratio 33.4 RATIO (10-20); Chloride 105 mmol/L (98-107); Cholesterol 189 mg/dL (200); Creatinine, Serum 0.66 mg/dL (0.55-1.02); EST Glomerular Filtration Rate 93 mL/min (>60); Est Glom Filt Rate - Afr Amer 113 mL/min (>60); Globulin 3.7 g/dL (2.2-4.2); Glucose 84 mg/dL (74-106); High Density Lipoprotein 89 mg/dL; Protein, Total 7.1 g/dL (6.4-8.2); Sodium Level 139 mmol/L (136-145); T4 Free Direct 0.96 ng/dL (0.76-1.46); Thyroid Stim Hormone (TSH) 0.36 uIU/mL (0.358-3.74); Triglycerides 100 mg/dL; Very Low Density Lipoprotein 20 mg/dL (5-40)
[2023-06-10 13:47] LABS: Hemoglobin A1c 5.7 % (3.8-5.6)
== END | disposition home or self-care (01) ==
LOC: MFPLAB 10:04
PROVIDERS: PCP Family Medicine; Visit Provider Family Medicine
DX: R35.0 Frequency of micturition (principal); E06.3 Autoimmune thyroiditis; I10 Essential (primary) hypertension; E55.9 Vitamin D deficiency, unspecified; R73.09 Other abnormal glucose
CPT/HCPCS: 36415; 80053; 80061; 82306; 83036; 84439; 84443; 85025

== ENCOUNTER → 2023-06-23 | Outpatient (CLI) | payer MEDICARE, OTHER, SELFPAY ==
--- NOTE | 2023-06-23 14:52 | RAD_ITS ---
INDICATION: CERVICAL DDD EXAMINATION/TECHNIQUE: X-RAY - XR Spine Cervical 4 or 5 Views COMPARISON: Prior study dated: 07/18/2018 FINDINGS: VERTEBRAE: Preserved vertebral body height. No fracture. No spondylolisthesis. Slight anterolisthesis of C3 on C4 appears degenerative. Preservation of the normal cervical lordosis. No significant facet arthropathy. DISCS: Multilevel disc space narrowing with endplate osteophyte formation. There is right-sided bony neuroforaminal narrowing at C3-C4, C4-C5, and C5-C6. NECK SOFT TISSUES: No prevertebral soft tissue widening. LUNG APICES: Clear. Right chest wall CT compatible port noted. RAD/Cerv Spine 4 or 5 Views IMPRESSION: No acute fracture. Moderate multilevel degenerative changes of the cervical spine with right-sided bony neuroforaminal narrowing, similar to prior.. Electronically Signed: George Broderick MD at 6:58 EST ,
== END | disposition home or self-care (01) ==
LOC: MTRAD 14:48
PROVIDERS: PCP Family Medicine; Referring Provider Clinical Nurse Specialist Adult Health; Visit Provider Clinical Nurse Specialist Adult Health
DX: M50.30 Other cervical disc degeneration, unspecified cervical region (principal)
CPT/HCPCS: 72050

== ENCOUNTER → 2023-09-04 | Outpatient (CLI) | payer MEDICARE, OTHER, SELFPAY ==
[2023-09-04 10:07] LABS: Absolute Lymphocyte Count 1.53 X10^3/uL (0.83-4.51); Absolute Neutrophil Count 6.5 X10^3/uL (2.0-7.7); Basophil% 1.1 % (0-1); Eosinophil# 0.23 X10^3/uL; Eosinophils% 2.5 % (0-5); Hematocrit 43.8 % (37-47); Hemoglobin 13.7 g/dL (12.0-15.0); Lymphocyte # 1.53 X10^3/ul (0.83-4.51); Lymphocyte % 16.8 % (19-41); Mean Corp Hgb Conc 31.3 g/dL (32-36); Mean Corpuscular Hgb 27.8 pg (27.0-32.0); Mean Corpuscular Volume 88.8 fL (81-99); Mean Platelet Vol. 9.2 fl (6.2-12.0); Monocyte# 0.62 X10^3/uL; Monocyte% 6.8 % (0-10); NRBC Flagged by Analyzer 0 % (0-5); Neutrophil # 6.54 X10^3/uL (2.7-7.7); Neutrophil % 71.8 % (47-70); Platelet Count 346 K/mm3 (150-450); RBC Distribution Width CV 15.9 % (11.6-14.6); RBC Distribution Width SD 51.3 fl (35.1-43.9); Red Blood Count 4.93 M/mm3 (4.2-5.4); White Blood Count 9.1 K/mm3 (4.4-11.0)
[2023-09-04 10:38] LABS: Vitamin D,25 Hydroxy 41.1 ng/mL
[2023-09-04 10:57] LABS: ALB/GLOB Ratio 0.9 RATIO (0.9-2.4); AST(SGOT) 17 U/L (15-37); Alanine Aminotransfer ALT/SGPT 25 U/L (13-56); Albumin, Serum 3.5 g/dL (3.2-5.0); Alkaline Phosphatase 125 U/L (45-117); Anion Gap 6 (5-15); BUN 20 mg/dL (7-18); BUN/Creat Ratio 28.1 RATIO (10-20); Calcium,Total 9.1 mg/dL (8.5-10.1); Chloride 104 mmol/L (98-107); Cholesterol 167 mg/dL (200); Creatinine, Serum 0.71 mg/dL (0.55-1.02); EST Glomerular Filtration Rate 85 mL/min (>60); Est Glom Filt Rate - Afr Amer 103 mL/min (>60); Globulin 3.7 g/dL (2.2-4.2); Glucose 81 mg/dL (74-106); High Density Lipoprotein 78 mg/dL; Potassium 3.5 mmol/L (3.5-5.1); Protein, Total 7.2 g/dL (6.4-8.2); Sodium Level 139 mmol/L (136-145); Thyroid Stim Hormone (TSH) 0.29 uIU/mL (0.358-3.74); Triglycerides 98 mg/dL; Very Low Density Lipoprotein 20 mg/dL (5-40)
[2023-09-05 10:41] LABS: Hemoglobin A1c 5.8 % (3.8-5.6)
== END | disposition home or self-care (01) ==
LOC: MFPLAB 09:01
PROVIDERS: PCP Family Medicine; Visit Provider Family Medicine
DX: E06.3 Autoimmune thyroiditis (principal); E55.9 Vitamin D deficiency, unspecified; R73.09 Other abnormal glucose; E66.9 Obesity, unspecified
CPT/HCPCS: 36415; 80053; 80061; 82306; 83036; 84439; 84443; 85025

== ENCOUNTER → 2023-09-22 | Outpatient (CLI) | payer MEDICARE, OTHER, SELFPAY ==
--- NOTE | 2023-09-22 13:25 | MRI_ITS ---
STUDY: BILATERAL BREAST MR WITHOUT AND WITH CONTRAST REASON FOR EXAM: Female, 73 years old. History of left breast carcinoma with reconstruction and implant placement. Left axillary pain. TECHNIQUE: Multi-sequence multi-echo imaging of both breasts was performed with a dedicated breast coil without intravenous contrast. COMPARISON: Prior MRI of the breast dated 05/08/2015) right mammogram dated 01/13/2015. No comparison mammograms. FINDINGS: Stable bilateral subpectoral silicone implants with prominent folds. No intracapsular or extracapsular rupture. In the upper medial medial aspect of the right breast there is artifact which has the appearance of a valve. This was present and is unchanged from the prior study dated 2014. In the upper aspect of the left breast there is metallic artifact adjacent to the upper and outer aspect of the implant which also has the appearance of a valve and was present on the prior study. A follow-up bilateral mammogram is recommended to further evaluate the bilateral artifacts adjacent to the implants. No enlarged or abnormal lymph nodes. No abnormality in the visualized regions of the chest or liver. MRI/MRI BREAST W/O CONT BILAT IMPRESSION: Bilateral subpectoral implants with prominent folds, unchanged from prior study. Artifacts adjacent to the upper medial right breast and upper lateral left breast implants which have the appearance of the valves, again unchanged from the prior study. No evidence of intracapsular or extracapsular rupture. No other abnormality identified. A follow-up bilateral mammogram is recommended to further evaluate the areas of artifact seen on the MRI study. CATEGORY: BIRADS Category 0: Incomplete. Need additional imaging evaluation. A letter regarding these results will be sent to the patient by the facility within 30 days. Electronically Signed: Farhan Pitts MD at 13:19 EST ,
--- NOTE | 2023-09-22 14:36 | US_ITS ---
STUDY: ULTRASOUND BREAST - LEFT REASON FOR EXAM: Female, 73 years old. Left axillary pain. History of right breast carcinoma with breast reconstruction. TECHNIQUE: Axial and longitudinal images of the LEFT breast were performed with a high resolution ultrasound transducer. # OF IMAGES: 46 COMPARISON: None. FINDINGS: LEFT Breast: The left axilla was examined with ultrasound. There is a 4.4 cm x 3.4 cm x 1.5 cm heterogeneous tissue density in the medial aspect of the left axial. A recent MRI scan was performed. Comparison with the MRI scan is recommended for further evaluation. US/Breast Limited Unilateral IMPRESSION: 4.4 cm x 3.4 cm x 1.5 cm heterogeneous tissue density in the medial aspect of the left axilla. Correlation with the MRI is recommended for further evaluation. ASSESSMENT CATEGORY: BIRADS Category 2: Benign. A letter regarding these results will be sent to the patient by the facility within 30 days. Electronically Signed: Manav Joseph MD at 19:03 EST ,
== END | disposition home or self-care (01) ==
PROVIDERS: PCP Family Medicine
DX: Z85.3 Personal history of malignant neoplasm of breast (principal); T85.44XA Capsular contracture of breast implant, initial encounter
CPT/HCPCS: 76642; 77047

== ENCOUNTER → 2023-10-09 | Outpatient (CLI) | payer MEDICARE, OTHER, SELFPAY ==
--- NOTE | 2023-10-09 08:39 | BI_ITS ---
MAMMOGRAPHY - BILATERAL DIAGNOSTIC REASON FOR EXAM: Female, 73 years old. Abnormal breast ultrasound. PERTINENT HISTORY: Prior bilateral mastectomy and breast implants. Mother with breast cancer. Cystic with breast cancer. TECHNIQUE: Digital bilateral breast shanique (3D mammographic acquisition) in the CC and MLO projections. 2-D mediolateral oblique (MLO) and craniocaudad (CC) views of both breasts were obtained. CAD: Full Field Digital Mammography with Computer Added Detection was performed. COMPARISON: Comparison is made with prior study dated January 13, 2015. FINDINGS: Breast Composition: The breasts are almost entirely fatty. There are no dominant masses or suspicious calcifications. Bilateral breast implants. No other significant abnormalities are identified. BI/DIAG MAMM W/CAD, BILAT IMPRESSION: Bilateral breast implants. Unremarkable.. With the patient''s history of a palpable lump in the left axilla, correlation with ultrasound is recommended. ASSESSMENT CATEGORY: BIRADS Category 0: Incomplete. Need additional imaging evaluation. A letter regarding these results will be sent to the patient by the facility within 30 days. Approximately 10% of breast cancers are not detected by mammography. A normal mammogram should not delay biopsy of a clinically suspicious abnormality. Electronically Signed: Manav Joseph MD at 13:03 EDT ,
--- NOTE | 2023-10-09 09:05 | US_ITS ---
STUDY: ULTRASOUND BREAST - LEFT REASON FOR EXAM: Female, 73 years old. Status post bilateral mastectomy and pain in the left axilla. TECHNIQUE: Axial and longitudinal images of the LEFT breast were performed with a high resolution ultrasound transducer. # OF IMAGES: 25 COMPARISON: Comparison is made with prior ultrasound of the left breast dated September 22, 2023 and prior mammogram done earlier today. FINDINGS: LEFT Breast: The left axillary region was examined. No sonographic abnormality is seen. US/Breast Limited Unilateral IMPRESSION: No sonographic abnormality is seen. ASSESSMENT CATEGORY: BIRADS Category 1: Negative. A letter regarding these results will be sent to the patient by the facility within 30 days. Electronically Signed: Manav Joseph MD at 15:10 EDT ,
== END | disposition home or self-care (01) ==
PROVIDERS: PCP Family Medicine
DX: Z85.3 Personal history of malignant neoplasm of breast (principal)
CPT/HCPCS: 76642; 77066

== ENCOUNTER → 2023-12-11 | Outpatient (CLI) | payer MEDICARE, OTHER, SELFPAY ==
[2023-12-11 12:26] LABS: Absolute Lymphocyte Count 1.41 X10^3/uL (0.83-4.51); Absolute Neutrophil Count 3.9 X10^3/uL (2.0-7.7); Basophil% 1.6 % (0-1); Eosinophil# 0.25 X10^3/uL; Hematocrit 40.8 % (37-47); Hemoglobin 12.6 g/dL (12.0-15.0); Lymphocyte # 1.41 X10^3/ul (0.83-4.51); Lymphocyte % 22.6 % (19-41); Mean Corp Hgb Conc 30.9 g/dL (32-36); Mean Corpuscular Hgb 28.1 pg (27.0-32.0); Mean Corpuscular Volume 90.9 fL (81-99); Mean Platelet Vol. 9.3 fl (6.2-12.0); Monocyte# 0.53 X10^3/uL; Monocyte% 8.5 % (0-10); NRBC Flagged by Analyzer 0 % (0-5); Neutrophil # 3.92 X10^3/uL (2.7-7.7); Platelet Count 326 K/mm3 (150-450); RBC Distribution Width CV 15.5 % (11.6-14.6); Red Blood Count 4.49 M/mm3 (4.2-5.4); White Blood Count 6.2 K/mm3 (4.4-11.0)
[2023-12-11 12:47] LABS: AST(SGOT) 19 U/L (15-37); Alanine Aminotransfer ALT/SGPT 20 U/L (13-56); Albumin, Serum 3.5 g/dL (3.2-5.0); Alkaline Phosphatase 110 U/L (45-117); Anion Gap 5 (5-15); BUN 21 mg/dL (7-18); BUN/Creat Ratio 27.3 RATIO (10-20); Calcium,Total 9.9 mg/dL (8.5-10.1); Chloride 105 mmol/L (98-107); Cholesterol 171 mg/dL (200); Creatinine, Serum 0.77 mg/dL (0.55-1.02); EST Glomerular Filtration Rate 78 mL/min (>60); Est Glom Filt Rate - Afr Amer 94 mL/min (>60); Globulin 3.5 g/dL (2.2-4.2); Glucose 101 mg/dL (74-106); High Density Lipoprotein 72 mg/dL; Magnesium 1.9 mg/dL (1.6-2.6); Phosphorus 3.4 mg/dL (2.5-4.9); Potassium 3.3 mmol/L (3.5-5.1); Sodium Level 139 mmol/L (136-145); T4 Free Direct 1.08 ng/dL (0.76-1.46); Thyroid Stim Hormone (TSH) 0.38 uIU/mL (0.358-3.74); Triglycerides 134 mg/dL; Very Low Density Lipoprotein 27 mg/dL (5-40)
[2023-12-11 18:07] LABS: Vitamin B12 429 pg/mL (211-911); Vitamin D,25 Hydroxy 48.7 ng/mL
[2023-12-17 16:10] LABS: Vitamin B1, Thiamine 100.2 nmol/L (66.5-200.0)
== END | disposition home or self-care (01) ==
LOC: MFPLAB 10:26
PROVIDERS: PCP Family Medicine; Visit Provider Family Medicine
DX: E06.3 Autoimmune thyroiditis (principal); I10 Essential (primary) hypertension; E53.1 Pyridoxine deficiency; E55.9 Vitamin D deficiency, unspecified; E78.5 Hyperlipidemia, unspecified
CPT/HCPCS: 36415; 80053; 80061; 82306; 82607; 83735; 84100; 84425; 84439; 84443; 85025

== ENCOUNTER 2024-03-24 09:34 | Outpatient (CLI) | payer MEDICARE, OTHER, SELFPAY ==
[2024-03-24 13:25] LABS: Anion Gap 7 (5-15); BUN 15 mg/dL (7-18); Chloride 103 mmol/L (98-107); Creatinine, Serum 0.65 mg/dL (0.55-1.02); EST Glomerular Filtration Rate 94 mL/min (>60); Est Glom Filt Rate - Afr Amer 114 mL/min (>60); Glucose 94 mg/dL (74-106); Potassium 4.2 mmol/L (3.5-5.1); Sodium Level 137 mmol/L (136-145)
== END 2024-03-24 23:59 | disposition home or self-care (01) ==
LOC: MTLAB 09:38
PROVIDERS: PCP Family Medicine; Referring Provider Clinical Nurse Specialist Adult Health; Visit Provider Clinical Nurse Specialist Adult Health
DX: Z79.891 Long term (current) use of opiate analgesic (principal)
CPT/HCPCS: 36415; 80048

== ENCOUNTER → 2024-03-26 | Outpatient (CLI) | payer MEDICARE, OTHER, SELFPAY ==
--- NOTE | 2024-03-26 10:27 | RAD_ITS ---
EXAM: XR RIGHT KNEE COMPLETE, 4 OR MORE VIEWS CLINICAL INDICATION: PAIN TECHNIQUE: Four or more views of the right knee. COMPARISON: 09/27/2016 FINDINGS: BONES/JOINTS: There is a total right knee prosthesis in anatomic alignment. No acute fracture. Preservation of the joint space. No sclerotic or destructive changes observed. SOFT TISSUES: Unremarkable. No soft tissue swelling or gas. No radiopaque foreign body. RAD/Knee 4 or More Views IMPRESSION: Total knee prosthesis in anatomic alignment. There has been no significant change from the reference exam. There is no osseous abnormality. Electronically Signed: Main Schneider MD at 17:49 EDT ,
== END | disposition home or self-care (01) ==
LOC: MTRAD 10:21
PROVIDERS: PCP Family Medicine; Referring Provider Clinical Nurse Specialist Adult Health; Visit Provider Clinical Nurse Specialist Adult Health
DX: Z96.651 Presence of right artificial knee joint (principal)
CPT/HCPCS: 73564

== ENCOUNTER → 2024-04-17 | Outpatient (CLI) | payer MEDICARE, OTHER, SELFPAY ==
--- NOTE | 2024-04-17 07:40 | CT_ITS ---
INDICATION: RIGHT KNEE PROSTHESIS WITH INCREASED PAIN EXAMINATION/TECHNIQUE: X-RAY - RIGHT CT Knee W/O Contrast Injection COMPARISON: 03/26/2024 knee radiographs. A radiation dose optimization technique was used for this scan. RADIATION DOSAGE (If Supplied By Facility): CTDIvol/DLP = ( 15.35 ) / ( 493.14 ) mGy/mGycm FINDINGS: Noncontrast serial CT axial images through the knee with coronal and sagittal reformatted series. JOINTS: Total knee arthroplasty without obvious hardware complication. Patellar resurfacing. BONES: Normal anatomic alignment without evidence of fracture or subluxation. No concerning bony lesion or abnormal sclerosis to suggest lesion. SOFT TISSUES: Small anterior knee effusion. CT/Extremity Lower without Contra IMPRESSION: Post procedure change without acute osseous abnormality of the knee. Electronically Signed: Yariel Leigh MD at 6:00 EDT ,
== END | disposition home or self-care (01) ==
LOC: CT 07:38
PROVIDERS: PCP Family Medicine; Referring Provider Clinical Nurse Specialist Adult Health; Visit Provider Clinical Nurse Specialist Adult Health
DX: M25.561 Pain in right knee (principal); Z96.651 Presence of right artificial knee joint
CPT/HCPCS: 73700

== ENCOUNTER → 2024-05-13 | Outpatient (CLI) | payer MEDICARE, OTHER, SELFPAY ==
[2024-05-13 10:22] LABS: Absolute Lymphocyte Count 1.31 X10^3/uL (0.83-4.51); Absolute Neutrophil Count 3.5 X10^3/uL (2.0-7.7); Basophil# 0.08 X10^3/uL; Basophil% 1.4 % (0-1); Eosinophil# 0.15 X10^3/uL; Eosinophils% 2.7 % (0-5); Hematocrit 41.6 % (37-47); Hemoglobin 13.3 g/dL (12.0-15.0); Lymphocyte # 1.31 X10^3/ul (0.83-4.51); Lymphocyte % 23.6 % (19-41); Mean Corpuscular Hgb 29.2 pg (27.0-32.0); Mean Corpuscular Volume 91.2 fL (81-99); Mean Platelet Vol. 9.5 fl (6.2-12.0); Monocyte# 0.53 X10^3/uL; Monocyte% 9.5 % (0-10); NRBC Flagged by Analyzer 0 % (0-5); Neutrophil # 3.45 X10^3/uL (2.7-7.7); Neutrophil % 62.1 % (47-70); Platelet Count 298 K/mm3 (150-450); RBC Distribution Width CV 15.3 % (11.6-14.6); RBC Distribution Width SD 50.8 fl (35.1-43.9); Red Blood Count 4.56 M/mm3 (4.2-5.4); White Blood Count 5.6 K/mm3 (4.4-11.0)
[2024-05-13 10:50] LABS: Hemoglobin A1c 5.4 % (3.8-5.6)
[2024-05-13 13:16] LABS: ALB/GLOB Ratio 1.1 RATIO (0.9-2.4); AST(SGOT) 16 U/L (15-37); Alanine Aminotransfer ALT/SGPT 19 U/L (13-56); Albumin, Serum 3.6 g/dL (3.2-5.0); Alkaline Phosphatase 114 U/L (45-117); Anion Gap 5 (5-15); BUN 16 mg/dL (7-18); BUN/Creat Ratio 23.6 RATIO (10-20); Calcium,Total 9.7 mg/dL (8.5-10.1); Chloride 106 mmol/L (98-107); Cholesterol 160 mg/dL (200); Creatinine, Serum 0.68 mg/dL (0.55-1.02); EST Glomerular Filtration Rate 90 mL/min (>60); Est Glom Filt Rate - Afr Amer 109 mL/min (>60); Globulin 3.4 g/dL (2.2-4.2); Glucose 73 mg/dL (74-106); High Density Lipoprotein 72 mg/dL; Potassium 3.8 mmol/L (3.5-5.1); Sodium Level 139 mmol/L (136-145); T4 Free Direct 1.09 ng/dL (0.76-1.46); Thyroid Stim Hormone (TSH) 0.553 uIU/mL (0.358-3.740); Triglycerides 122 mg/dL; Very Low Density Lipoprotein 24 mg/dL (5-40)
[2024-05-14 11:03] LABS: Vitamin D,25 Hydroxy 39.5 ng/mL
[2024-05-21 12:09] LABS: VITAMIN B6 3.6 ug/L (3.4-65.2)
== END | disposition home or self-care (01) ==
LOC: MFPLAB 09:29
PROVIDERS: PCP Family Medicine; Visit Provider Family Medicine
DX: E06.3 Autoimmune thyroiditis (principal); E78.5 Hyperlipidemia, unspecified; E55.9 Vitamin D deficiency, unspecified; E53.1 Pyridoxine deficiency; R73.02 Impaired glucose tolerance (oral)
CPT/HCPCS: 36415; 80053; 80061; 82306; 83036; 84207; 84439; 84443; 85025

== ENCOUNTER → 2024-06-11 | Outpatient (CLI) | payer MEDICARE, OTHER, SELFPAY | END | disposition home or self-care (01) | PROVIDERS: PCP Family Medicine; Referring Provider Psychiatry & Neurology Neurology; Visit Provider Psychiatry & Neurology Neurology | DX: R41.89 Other symptoms and signs involving cognitive functions and awareness (principal) | CPT/HCPCS: 36415 ==

== ENCOUNTER → 2024-06-12 | Outpatient (CLI) | payer MEDICARE, OTHER, SELFPAY ==
--- NOTE | 2024-06-12 08:03 | MRI_ITS ---
STUDY: MRI BRAIN WITHOUT CONTRAST REASON FOR EXAM: Female, 74 years old. COGNITIVE DECLINE TECHNIQUE: Standardized multiplanar fat and water weighted pulse sequences were obtained. COMPARISON: No relevant prior comparison study available HEMISPHERES, CEREBELLUM AND BRAINSTEM: 1. The cerebral parenchyma, ventricular system, subarachnoid spaces have normal configuration and density. There is a normal gyral pattern. There is normal ghosh/white differentiation. No midline shift.. 2. The hemispheric white matter demonstrate chronic microvascular ischemic changes. 3. No intraparenchymal mass, hemorrhage, or acute territorial infarct. 4. The cerebellum, brainstem, basilar and suprasellar cisterns have normal appearance. No Chiari malformation. PITUITARY: Infundibulum and pituitary have normal configuration. Midline structures appear normal. CSF SPACES: Appropriate for age. No hydrocephalus. Basal cisterns are patent. VESSELS: 1. There are normal flow voids noted in the great vessels at the skull base ORBITS AND PARANASAL SINUSES: 1. Both globes, extraocular muscles, optic nerves and retrobulbar fat appear unremarkable. 2. Paranasal sinuses are clear. BONY ELEMENTS: Bony elements of the cranial vault, facial skeleton and skull base have normal appearance. SCALP AND SOFT TISSUES: Normal appearance of the soft tissues of the scalp and the visualized face OTHER: None MRI/Brain without Contrast IMPRESSION: 1. Chronic microvascular ischemic changes in the periventricular white matter. 2. No radiographically significant sinus disease. Electronically Signed: Raffi Castaneda MD at 5:11 EST ,
== END | disposition home or self-care (01) ==
LOC: MRI 07:57
PROVIDERS: PCP Family Medicine; Referring Provider Psychiatry & Neurology Neurology; Visit Provider Psychiatry & Neurology Neurology
DX: R41.89 Other symptoms and signs involving cognitive functions and awareness (principal)
CPT/HCPCS: 70551

== ENCOUNTER 2024-09-02 13:51 | Outpatient (CLI) | payer MEDICARE, OTHER, SELFPAY ==
--- NOTE | 2024-09-02 13:56 | RAD_ITS ---
EXAM: XR Chest, 2 Views CLINICAL INDICATION: TECHNIQUE: Frontal and lateral views of the chest. COMPARISON: No relevant prior studies available. FINDINGS: LUNGS AND PLEURAL SPACES: Pulmonary venous congestion. HEART: Unremarkable. No cardiomegaly. MEDIASTINUM: Unremarkable. Normal mediastinal contour. BONES/JOINTS: Unremarkable. No acute fracture. TUBES, LINES AND DEVICES: Right-sided Mediport with the distal tip in the SVC. No pneumothorax. RAD/Chest PA and Lateral IMPRESSION: Pulmonary venous congestion. Reading [facility]
[2024-09-02 17:47] LABS: Absolute Lymphocyte Count 1.81 X10^3/uL (0.83-4.51); Basophil# 0.07 X10^3/uL; Basophil% 0.8 % (0-1); Eosinophils% 2.3 % (0-5); Hematocrit 42.6 % (37-47); Hemoglobin 13.1 g/dL (12.0-15.0); Lymphocyte # 1.81 X10^3/ul (0.83-4.51); Lymphocyte % 20.5 % (19-41); Mean Corp Hgb Conc 30.8 g/dL (32-36); Mean Corpuscular Hgb 28.2 pg (27.0-32.0); Mean Corpuscular Volume 91.8 fL (81-99); Mean Platelet Vol. 9.1 fl (6.2-12.0); Monocyte% 7.9 % (0-10); NRBC Flagged by Analyzer 0 % (0-5); Neutrophil # 6.01 X10^3/uL (2.7-7.7); Neutrophil % 68.2 % (47-70); Platelet Count 334 K/mm3 (150-450); RBC Distribution Width CV 15.2 % (11.6-14.6); RBC Distribution Width SD 51.4 fl (35.1-43.9); Red Blood Count 4.64 M/mm3 (4.2-5.4); White Blood Count 8.8 K/mm3 (4.4-11.0)
[2024-09-02 18:00] LABS: Anion Gap 8 (5-15); BUN 15 mg/dL (7-18); BUN/Creat Ratio 22.4 RATIO (10-20); Calcium,Total 9.6 mg/dL (8.5-10.1); Chloride 105 mmol/L (98-107); Creatinine, Serum 0.67 mg/dL (0.55-1.02); EST Glomerular Filtration Rate 91 mL/min (>60); Est Glom Filt Rate - Afr Amer 110 mL/min (>60); Glucose 82 mg/dL (74-106); Potassium 3.7 mmol/L (3.5-5.1); Sodium Level 140 mmol/L (136-145)
[2024-09-02 18:32] LABS: Erythrocyte Sedimentation Rate 14 mm/hr (0-30)
[2024-09-04 09:08] LABS: CRP, High Sensitivity 1.12 mg/L (0.00-3.00)
[2024-09-06 16:07] LABS: Angiotensin Convert Enzyme 60 U/L (14-82)
== END 2024-09-02 23:59 | disposition home or self-care (01) ==
PROVIDERS: PCP Family Medicine; Referring Provider Clinical Nurse Specialist Adult Health; Visit Provider Clinical Nurse Specialist Adult Health
DX: D86.0 Sarcoidosis of lung (principal); Z79.1 Long term (current) use of non-steroidal anti-inflammatories (NSAID)
CPT/HCPCS: 36415; 71046; 80048; 82164; 85025; 85652; 86141

== ENCOUNTER → 2024-09-07 | Outpatient (CLI) | payer MEDICARE, OTHER, SELFPAY ==
--- NOTE | 2024-09-07 08:49 | BD_ITS ---
PROCEDURE: DEXA BONE DENSITY STUDY REASON FOR EXAM: F, age 74 y/o . . TECHNIQUE: DEXA scan of the lumbar spine and both hips. COMPARISON: 08/01/21 FINDINGS: T-SCORES Lumbar spine: -0.5 (BMD 1.002); Previously: -0.3 Left hip: -0.6 (BMD 0.868); Previously: -0.2 Right hip: -0.7 (BMD 0.861); Previously: 1.0 FRAX* Results: 10 Year Probability of Fracture: Hip Fracture(1): 17% Major Osteoporotic Fracture(2): 3.9% *FRAX is a trademark of the [employer]'s [employer] for Metabolic Bone Disease, World Health Organization (WHO) Collaborating [place]. 1-The 10-year probability of fracture may be lower than reported if the patient has received treatment. 2-Major Osteoporotic Fracture: Clinical Spine, Forearm, Hip or Shoulder. The T-scores are also available for review on the [facility] PACS or by accessing the [facility] electronic medical record. BD/Dexa Bone Density Study IMPRESSION: Osteopenia of the lumbar spine, left hip and right hip. Reading Location: [facility]
== END | disposition home or self-care (01) ==
LOC: OPBD 08:43
PROVIDERS: PCP Family Medicine; Referring Provider Nurse Practitioner Family; Visit Provider Nurse Practitioner Family
DX: Z13.820 Encounter for screening for osteoporosis (principal); M85.89 Other specified disorders of bone density and structure, multiple sites
CPT/HCPCS: 77080

== ENCOUNTER → 2024-11-12 | Outpatient (CLI) | payer MEDICARE, OTHER, SELFPAY ==
[2024-11-12 12:34] LABS: Absolute Lymphocyte Count 1.51 X10^3/uL (0.83-4.51); Absolute Neutrophil Count 2.6 X10^3/uL (2.0-7.7); Basophil# 0.08 X10^3/uL; Basophil% 1.6 % (0-1); Eosinophil# 0.22 X10^3/uL; Eosinophils% 4.5 % (0-5); Hematocrit 38.6 % (37-47); Hemoglobin 12.4 g/dL (12.0-15.0); Lymphocyte # 1.51 X10^3/ul (0.83-4.51); Lymphocyte % 30.8 % (19-41); Mean Corp Hgb Conc 32.1 g/dL (32-36); Mean Corpuscular Volume 90.4 fL (81-99); Mean Platelet Vol. 9.2 fl (6.2-12.0); Monocyte# 0.49 X10^3/uL; NRBC Flagged by Analyzer 0 % (0-5); Neutrophil % 52.9 % (47-70); Platelet Count 297 K/mm3 (150-450); RBC Distribution Width CV 14.8 % (11.6-14.6); RBC Distribution Width SD 48.7 fl (35.1-43.9); Red Blood Count 4.27 M/mm3 (4.2-5.4); White Blood Count 4.9 K/mm3 (4.4-11.0)
[2024-11-12 14:14] LABS: Cholesterol 146 mg/dL (<=200); EST Glomerular Filtration Rate 93 (>60); High Density Lipoprotein 59 mg/dL; Low Density Lipoprotein Calc. 70 mg/dL; Triglycerides 88 mg/dL; Very Low Density Lipoprotein 18 mg/dL (5-40); cholesterol:hdl ratio screen 2.49
[2024-11-12 14:23] LABS: ALB/GLOB Ratio 1.6 RATIO (0.9-2.4); AST(SGOT) 20 U/L (<=31); Alanine Aminotransfer ALT/SGPT 14 U/L (<=34); Alkaline Phosphatase 112 U/L (35-104); Anion Gap 11 (5-15); BUN 16 mg/dL (4-19); Calcium,Total 9.4 mg/dL (7.6-11.0); Carbon Dioxide 25.5 mmol/L (21.0-32.0); Chloride 102 mmol/L (98-108); Globulin 2.6 g/dL (2.2-4.2); Glucose 79 mg/dL (70-99); Potassium 3.8 mmol/L (3.3-5.1); Protein, Total 6.6 g/dL (5.9-8.4); Sodium Level 139 mmol/L (133-145); Total Bilirubin 0.53 mg/dL (0.00-1.30)
[2024-11-12 14:26] LABS: Thyroid Stim Hormone (TSH) 0.365 uIU/mL (0.300-4.200); Vitamin B12 505 pg/mL (180-914); Vitamin D,25 Hydroxy 34.4 ng/mL (30-100)
[2024-11-18 21:07] LABS: VITAMIN B6 4.3 ug/L (3.4-65.2); Vitamin B1, Thiamine 99.6 nmol/L (66.5-200.0)
== END | disposition home or self-care (01) ==
LOC: MFPLAB 10:09
PROVIDERS: PCP Family Medicine; Referring Provider Family Medicine; Visit Provider Family Medicine
DX: I10 Essential (primary) hypertension (principal); E78.5 Hyperlipidemia, unspecified; E06.3 Autoimmune thyroiditis; E55.9 Vitamin D deficiency, unspecified; G62.9 Polyneuropathy, unspecified
CPT/HCPCS: 36415; 80053; 80061; 82306; 82607; 84207; 84425; 84439; 84443; 85025

== ENCOUNTER → 2024-11-17 | Outpatient (CLI) | payer MEDICARE, OTHER, SELFPAY ==
--- NOTE | 2024-11-17 13:53 | ECHOD_ITS ---
Reason For Study Reason For Study: LEANNE Procedure This was a 2D Doppler, Color Flow transthoracic echocardiogram. Exam performed in department. Left Ventricle Normal LV size. Left ventricular systolic function is normal. The left ventricular ejection fraction is 55 %. Stage 1 diastolic dysfunction. No regional wall motion abnormalities noted. Right Ventricle Normal RV size. Normal systolic function. Atria Normal left atrium. Normal right atrium. Mitral Valve Normal mitral valve. Tricuspid Valve Normal tricuspid valve. Mild tricuspid valve insufficiency. Pulmonary artery systolic pressure is 22 mmHg. Great Vessels Normal aortic root. Pericardium/Pleural No pericardial effusion. MMode/2D Measurements & Calculations LVIDd: 4.0 cm IVSd: 0.85 cm Ao root diam: 3.7 cm LVIDs: 2.9 cm LVPWd: 0.82 cm RVDd: 3.0 cm FS: 25.6 % LAV(MOD-bp): 66.4 ml LVAd ap4: 23.7 cm2 LVAd ap2: 26.0 cm2 LAV(MOD-bp) Indexed: 34.2 ml/m2 LVLd ap4: 7.7 cm LVLd ap2: 8.3 cm LAV(MOD-sp2): 57.4 ml EDV(MOD-sp4): 61.7 ml EDV(MOD-sp2): 65.6 ml LAV(MOD-sp4): 65.9 ml EDV(sp4-el): 62.0 ml EDV(sp2-el): 69.4 ml LVAs ap4: 10.4 cm2 LVAs ap2: 12.7 cm2 LVLs ap4: 5.3 cm LVLs ap2: 7.0 cm ESV(MOD-sp4): 16.9 ml ESV(MOD-sp2): 18.9 ml ESV(sp4-el): 17.4 ml ESV(sp2-el): 19.7 ml EF(MOD-sp4): 72.5 % EF(MOD-sp2): 71.2 % EF(sp4-el): 71.9 % SV(MOD-sp4): 44.8 ml SV(MOD-sp2): 46.7 ml SV(sp4-el): 44.6 ml SI(MOD-sp4): 23.1 ml/m2 SI(MOD-sp2): 24.1 ml/m2 LA dimension(2D): 4.1 cm TAPSE: 1.9 cm LA A4 area: 21.3 cm2 Time Measurements MV dec time: 0.28 sec Doppler Measurements & Calculations MV E max sabino: 62.7 cm/sec Lat Peak E' Sabino: 10.8 cm/sec Med Peak E' Sabino: 10.8 cm/sec MV A max sabino: 68.6 cm/sec E/E' lat: 5.8 E/E' med: 5.8 MV E/A: 0.91 MV V2 max: 101.9 cm/sec MV P1/2t max sabino: 79.8 cm/sec Ao V2 max: 115.3 cm/sec MV max P.2 mmHg MV P1/2t: 88.0 msec Ao max P.3 mmHg MV V2 mean: 57.5 cm/sec Ao V2 mean: 82.6 cm/sec MV mean P.5 mmHg MV dec slope: 265.6 cm/sec2 Ao mean P.9 mmHg MV V2 VTI: 24.4 cm MVA(P1/2t): 2.5 cm2 Ao V2 VTI: 22.9 cm AV (velocity ratio): 0.89 LV V1 max: 104.9 cm/sec PA V2 max: 86.7 cm/sec TR max sabino: 214.4 cm/sec LV V1 max P.4 mmHg PA V2 mean: 64.9 cm/sec TR max P.4 mmHg LV V1 mean P.2 mmHg LV V1 mean: 69.5 cm/sec LV V1 VTI: 20.2 cm ECHO/Echo Complete Interpretation Summary Normal LV size. Left ventricular systolic function is normal. The left ventricular ejection fraction is 55 %. Stage 1 diastolic dysfunction. Ordering Physician: Anthony Almaguer V Referring Physician: Luther Orellana Performed By: Alla Blake, JORDYNCS, RVT
== END | disposition home or self-care (01) ==
LOC: CVS 13:52
PROVIDERS: PCP Family Medicine; Referring Provider Internal Medicine Pulmonary Disease; Visit Provider Internal Medicine Pulmonary Disease
DX: G47.33 Obstructive sleep apnea (adult) (pediatric) (principal); R09.02 Hypoxemia
CPT/HCPCS: 93306

== ENCOUNTER → 2025-01-21 | Outpatient (CLI) | payer MEDICARE, OTHER, SELFPAY ==
--- NOTE | 2025-01-21 16:40 | MRI_ITS ---
PROCEDURE: LOWER EXT JOINT ONLY (ROUTINE) 01/22/2025 REASON FOR EXAM: RT KNEE PAIN TECHNIQUE: LOWER EXT JOINT ONLY (ROUTINE) Multiplanar and multisequence images were obtained without IV contrast administration. COMPARISON: COMPARISON : none FINDINGS: Evidence of knee replacement with related metallic susceptibility artifacts degrading the examination quality and hindering proper assessment of the menisci, cruciate and collateral ligaments. No MRI evidence of hardware loosening or current osseous infection. No marrow edema or infiltrative lesions. Unremarkable examined muscles with no intra or johnie-muscular edema. The medial and lateral menisci as well as the anterior and posterior cruciate ligaments and the lateral collateral ligament are seen masked by the forementioned artifact with no obvious soft tissue edema along their anatomical sites. Metallic susceptibility artifacts seen along the medial patellar retinaculum with relative thickening of its fibers yet with no interruption. The medial collateral ligament appears intact. Intact patellar and quadriceps tendons showing insertional subtle high STIR signal. Mild knee joint effusion with mild synovial hypertrophy. Subcutaneous soft tissue edema of the anteromedial aspect of the knee with related operative scar. MRI/Lower Ext Joint Only (Routine) IMPRESSION: Status post knee replacement inducing metallic susceptibility artifacts degradi ng the examination quality. No MRI evidence of hardware loosening or current osseous infection. No marrow e gilmer or infiltrative lesions. Mild patellar and quadriceps insertional tendinosis. Mild knee joint effusion with mild synovial hypertrophy. Reading Location: [facility] [id number]
== END | disposition home or self-care (01) ==
LOC: MRI 16:09
PROVIDERS: PCP Family Medicine; Referring Provider Clinical Nurse Specialist Adult Health; Visit Provider Clinical Nurse Specialist Adult Health
DX: M25.561 Pain in right knee (principal); Z96.651 Presence of right artificial knee joint
CPT/HCPCS: 73721

== ENCOUNTER 2025-03-18 09:28 | Outpatient (CLI) | payer MEDICARE, OTHER, SELFPAY ==
[2025-03-18 10:14] LABS: Hematocrit 40.1 % (37-47); Hemoglobin 12.7 g/dL (12.0-15.0); Immature Granulocytes Count 0.020 X10^3/uL (0.0-0.0); Mean Corp Hgb Conc 31.7 g/dL (32-36); Mean Corpuscular Volume 91.8 fL (81-99); Mean Platelet Vol. 9.1 fl (6.2-12.0); NRBC Flagged by Analyzer 0 % (0-5); Platelet Count 278 K/mm3 (150-450); RBC Distribution Width CV 14.5 % (11.6-14.6); RBC Distribution Width SD 49.1 fl (35.1-43.9); Red Blood Count 4.37 M/mm3 (4.2-5.4); White Blood Count 5.7 K/mm3 (4.4-11.0)
[2025-03-18 10:53] LABS: AST(SGOT) 18 U/L (<=31); Alanine Aminotransfer ALT/SGPT 12 U/L (<=34); Albumin, Serum 4.1 g/dL (3.4-4.8); Alkaline Phosphatase 124 U/L (35-104); Anion Gap 11 (5-15); BUN 16 mg/dL (4-19); BUN/Creat Ratio 25.4 RATIO (10-20); Calcium,Total 9.6 mg/dL (7.6-11.0); Carbon Dioxide 25.1 mmol/L (21.0-32.0); Chloride 105 mmol/L (98-108); Cholesterol 158 mg/dL (<=200); Globulin 2.8 g/dL (2.2-4.2); Glucose 74 mg/dL (70-99); Low Density Lipoprotein Calc. 60 mg/dL; Potassium 3.9 mmol/L (3.3-5.1); Triglycerides 106 mg/dL; Very Low Density Lipoprotein 21 mg/dL (5-40); Vitamin D,25 Hydroxy 38.0 ng/mL (30-100); cholesterol:hdl ratio screen 2.05
[2025-03-20 18:07] LABS: VITAMIN B6 4.4 ug/L (3.4-65.2)
== END 2025-03-18 23:59 | disposition home or self-care (01) ==
LOC: MFPLAB 09:29
PROVIDERS: PCP Family Medicine; Referring Provider Family Medicine; Visit Provider Family Medicine
DX: R73.02 Impaired glucose tolerance (oral) (principal); E78.5 Hyperlipidemia, unspecified; E06.3 Autoimmune thyroiditis; E53.1 Pyridoxine deficiency; E55.9 Vitamin D deficiency, unspecified
CPT/HCPCS: 36415; 80053; 80061; 82306; 83036; 84207; 84439; 84443; 85025

== ENCOUNTER → 2025-04-21 | Outpatient (CLI) | payer MEDICARE, OTHER, SELFPAY ==
--- NOTE | 2025-04-21 09:08 | RAD_ITS ---
PROCEDURE: L/S SPINE COMP/W BENDING VIEWS 04/21/2025 REASON FOR EXAM: Radiating low back pain TECHNIQUE: Procedure Code: [id number] Modality: DX Procedure: L/S SPINE COMP/W BENDING VIEWS COMPARISON: None FINDINGS: There has been previous surgery of the lumbar spine with laminectomy from L2-L5 There is a levoscoliosis between L1 and L2, there is anatomic alignment of the lumbar spine in the lateral view. No fracture or suspicious osseous lesion Intervertebral disc space narrowing noted throughout the lumbar spine. No instability on the flexion or extension views, no pars defect or spondylolisthesis. RAD/L/S Spine Comp/w Bending Views IMPRESSION: Osteopenia with multilevel degenerative changes, no acute findings. Levoscoliosis No instability Reading Location: [id number]
== END | disposition home or self-care (01) ==
LOC: MTLAB 09:06
PROVIDERS: PCP Family Medicine; Referring Provider Anesthesiology Pain Medicine; Visit Provider Anesthesiology Pain Medicine
DX: M51.372 Other intervertebral disc degeneration, lumbosacral region with discogenic back pain and lower extremity pain (principal)
CPT/HCPCS: 72114